=== PATIENT | female | born 1965 | race African-American/Black ===

== ENCOUNTER 2016-05-15 02:26 | Inpatient (IN) | payer MEDICAID ==
[2016-05-15] MEDS ORDERED: SODIUM CHLORIDE 0.9% 3 ML FLUSH FLUSH PRN (03:13)
--- NOTE | 2016-05-15 03:25 | EDPRACDOC ---
- General Information Information Source: Patient Mode Of Arrival: Ambulance - History of Present Illness Onset: 1.5 week Medications/Treatment [employer] Treatment BLS IV No HPI: PT PRESENTS TO ED WITH BILATERAL LOWER EXT WOUNDS, PT WAS SEEN HERE IN Mar YEAR FOR SAME AND AGAIN IN APR AND WAS PLACED ON ABX AND GIVEN WOUND CARE REFERRAL, PT STATES SHE HAS NOT FOLLOWED UP WITH WOUND CARE AND STATES THAT SHE DOES NOT TAKE HER DIABETES MEDS LIKE SHE SHOULD B/C SHE CANT AFFORD THEM. THE WRAPS THAT ARE ON HER LEGS LOOK TO HAVE NOT BEEN CHANGED IN SEVERAL DAYS OR LONGER. Mechanism: Reports: Unknown (CHRONIC DIABETIC WOUNDS) Circumstances: Reports: Unknown (I HAVE RECORDS OF VISIT TO ED IN MARCH FOR SAME) Last Tetanus: Unknown Severity: Reports: Moderate Able to Bear Weight: Limited Associated Signs & Symptoms: Reports: Swelling (2+ EDEMA BILATERAL) Pain In: Reports: Leg (BILATERAL) <Preeti Moffett - Last Filed: 05/15/16 03:14> - History of Present Illness Medications/Treatment [employer] Treatment BLS IV No <Omar Plummer - Last Filed: 05/15/16 05:32> - History of Present Illness Medications/Treatment [employer] Treatment BLS IV No HPI: PATIENT FELL AT HOME, CAUSING PAIN OVER HER WOUNDS BILATERAL LOWER EXTREMITIES THIS OCCURRED PRIOR TO ARRIVAL IS ABLE TO AMBULATE. NO FOCAL PAIN. JUST RELEASED FROM HOSPITAL FOR BILATERAL LOWER EXTREMITY CELLULITIS WOUNDS HAVE BEEN DRESSED BY HER COUSIN AFTER SHE WAS DISCHARGED. SHE WAS DISCHARGED APPROXIMATELY 2 DAYS AGO OF NO FEVER CHILLS ED AND DRINKING WELL. <Irina You - Last Filed: 06/02/16 08:34> - General Information Chief Complaint: Lower Leg Pain Stated Complaint: LEG PAIN Time Seen by Provider: 05/15/16 03:00 Home Medications: Home Medications Atenolol 50 mg PO DAILY 04/17/16 Gabapentin 300 mg PO TID PRN 05/15/16 Albuterol Sulfate MDI [Proventil HFA] 2 puff INH Q4HWA PRN #1 inhaler 05/31/16 Collagenase [Santyl] 30 gm TOP DAILY #1 tube 05/31/16 Furosemide [Lasix] 40 mg PO BID #60 tab 05/31/16 Metformin HCl [Glucophage XR (Ext Release)] 500 mg PO DAILY #30 tab.sr.24h 05/31 POTASSIUM CHLORIDE Tablet [K-DUR 20 mEq Tablet*] 20 meq PO BIDWM #60 tab.er.prt 05/31/16 Probiotic Blend [Rhea Q] 1 tab PO BIDLS #60 tablet 05/31/16 Allergies/Adverse Reactions: Allergies Allergy/AdvReac Type Severity Reaction Status Date / Time Penicillins Allergy Rash-Genera Verified 06/02/16 05:32 lized - Treatment Prior to ED Arrival Reported Medications/Treatment [employer] Treatment BLS IV No <Preeti Moffett - Last Filed: 05/15/16 03:14> - Treatment Prior to ED Arrival Reported Medications/Treatment [employer] Treatment BLS IV No <Omar Plummer - Last Filed: 05/15/16 05:32> - Treatment Prior to ED Arrival Reported Medications/Treatment [employer] Treatment BLS IV No <Irina You - Last Filed: 06/02/16 08:34> ED Past Medical History - History Reviewed Yes Nurses notes reviewed and agree except as marked Travel Outside of [place] in the Last 3 Months?: No - Patient Medical History Cardiac History: Reports: Hypertension, Hypercholesterolemia Respiratory History: Reports: Asthma Psychological History: Denies: Depression Systemic History: Reports: Diabetes - Social Medical History Smoking Status: Never smoker ETOH: None Substance Abuse: None Lives With: Other Lives In: Home <Preeti Moffett - Last Filed: 05/15/16 03:14> EDM Review of Systems - Review of Systems ROS Negative Except as Marked: Yes All systems reviewed and were negative except as marked Constitutional: No Symptoms Reported. negative: Fever, Chills, Weakness, Fatigue, Loss of Appetite Eyes: No Symptoms Reported. negative: Redness, Blurred Vision, Double Vision, Discharge, Pain, Light Sensitive, Photophobia Ears: No Symptoms Reported. negative: Pain, Hearing Loss, Drainage, Ear Pulling Throat: No Symptoms Reported. negative: Pain, Swelling Nose: No Symptoms Reported. negative: Congestion, Bleeding, Discharge, Injection, Swelling, Deformity, Ecchymosis, Tender, Abrasion, Laceration Mouth: No Symptoms Reported. negative: Pain, Drooling Respiratory: No Symptoms Reported. negative: Cough, Brassy Cough, Barky Cough, Shortness of Breath, Wheezing, Hemoptysis Cardiovascular: No Symptoms Reported. negative: Chest Pain, Palpitations, Syncope, Edema, Orthopnea, PND, Skin Mottling, Cyanosis Gastrointestinal: No Symptoms Reported. negative: Pain, Constipation, Nausea, Vomiting, Diarrhea, Melena, Formula Intolerance Genitourinary: No Symptoms Reported. negative: Dysuria, Hematuria, Frequency, Discharge, Bleeding, Testicular Pain, Neurological: Other (CHRONIC NEUROPATHY). negative: Dizziness, Gait Difficulty , Headache, Numbness, Seizure, Speech Difficulty, Weakness Musculoskeletal: No Symptoms Reported. negative: Neck, Chestwall, Ribs, Back, Shoulder, Arm, Elbow, Forearm, Wrist, Hand, Pelvis, Hip, Femur, Knee, Leg, Ankle , Foot Integumentary: Other (BILATERAL WOUNDS TO LOWER EXT). negative: Bruising, Itching, Rash, Wound Allergic/Immunologic: No Symptoms Reported. negative: Hives, Itching Hematologic: No Symptoms Reported. negative: Lymphadenopathy, Easy Bruising, Easy Bleeding Endocrine: No Symptoms Reported. negative: Weight Gain, Weight Loss Psychiatric: No Symptoms Reported. negative: Anxiety, Depression, Hallucinations, Insomnia, Suicidal <Preeti Moffett - Last Filed: 05/15/16 03:14> - Physical Exam Constitutional: No apparent distress, Alert (Awake), Other (PT APPEARS UNKEPT) Oriented to: Time, Person, Place Last recorded Vital Signs: Last Vital Signs Temp 97.7 F 05/15/16 02:51 Pulse 91 05/15/16 02:51 Resp 20 05/15/16 02:51 BP 111/57 L 05/15/16 02:51 Pulse Ox 100 05/15/16 02:51 Oxygen Pulse Oxygen Saturation 100 O2 Device Oxygen Flow Rate Fraction of Inspired Oxygen ( FIO2) - HEENT Head: Normal ( normocephalic) Eye Exam: Normal (PERRL, EOMI, Sclera white) Oropharynx: Normal (Pharynx:Moist without exudate,Gums-no swelling) Tympanic Membrane: Normal ENT EAC: Normal TMJ: Normal Nose: No Symptoms Reported (septum midline) Neck: Normal (FROM, trachea at midline) - Respiratory/Cardiovascular Respiratory: Normal - CTA (BBS clear to auscultation without adventitious sounds ) Cardiovascular: Normal (RRR without murmur, gallop or rub) - GI Auscultation: Normal (NABS) Palpation: Normal (Soft,No rebound or guarding, non distended) Tenderness: Non tender Quintero's Sign: Negative - Bladder: Normal - Musculoskeletal Back: Normal (Non-Tender) Extremities: Normal (Normal tone, Pulses 2+ No cyanosis or edema, FROM) - Integumentary Skin: Normal, Warm, Dry Lymphatics: Normal (no adenopathy) - Neurologic Memory Impaired: Normal Motor Function: Normal (Normal tone, Pulses 2+ No cyanosis or edema, FROM) Cranial Nerve: Normal (CN II-X11 intact sensation, strength 5/5) Cerebellar: Normal Mood Description: Normal Perception: Normal <Preeti Moffett - Last Filed: 05/15/16 03:14> - Physical Exam Last recorded Vital Signs: Last Vital Signs Temp 97.7 F 05/15/16 02:51 Pulse 91 05/15/16 02:51 Resp 20 05/15/16 02:51 BP 111/57 L 05/15/16 02:51 Pulse Ox 100 05/15/16 02:51 Oxygen Pulse Oxygen Saturation 100 O2 Device Oxygen Flow Rate Fraction of Inspired Oxygen ( FIO2) <Omar Plummer - Last Filed: 05/15/16 05:32> - Physical Exam Last recorded Vital Signs: Last Vital Signs Temp 98.3 F 05/31/16 05:59 Pulse 72 05/31/16 10:08 Resp 20 05/31/16 10:08 BP 99/53 L 05/31/16 10:08 Pulse Ox 98 05/31/16 10:08 Oxygen Pulse Oxygen Saturation 100 O2 Device Oxygen Flow Rate Fraction of Inspired Oxygen ( FIO2) <Irina You - Last Filed: 06/02/16 08:34> ED Low Extremities Phys Exam - Lower Leg Bilateral Distal Lower Leg Symptoms: Swelling (2+ EDEMA), Other (REDNESS, CHRONIC WOUNDS WITH YELLOW DISCHARGE) - Deficits Deficits: Sensory (DECREASED DUE TO DIABETIC NEUROPATHY) <Preeti Moffett - Last Filed: 05/15/16 03:14> - Differential Diagnosis Other (CHRONIC DIABETIC WOUNDS TO BILATERAL LOWER EXTREMITIES, CELLULITIS) <Preeti Moffett - Last Filed: 05/15/16 03:14> - Results 05/15/16 04:10 05/15/16 04:10 WBC 6.2 xk/uL (3.8-10.8) 05/15/16 04:10 RBC 2.05 xM/uL (4.20-5.40) L 05/15/16 04:10 Hgb 6.2 g/dL (12.0-16.0) L* 05/15/16 04:10 Hct 19.5 % (36-47) L 05/15/16 04:10 MCV 95 fL (81-99) 05/15/16 04:10 MCH 30.0 pg (27-32) 05/15/16 04:10 MCHC 31.6 g/dl (33-36) L 05/15/16 04:10 RDW 18.9 % (11.5-14.5) H 05/15/16 04:10 Plt Count 187 xk/uL (130-400) 05/15/16 04:10 MPV 7.8 fL (7.4-10.4) 05/15/16 04:10 Neut % (Auto) Cancelled 05/15/16 04:10 Lymph % (Auto) Cancelled 05/15/16 04:10 [place] % (Auto) Cancelled 05/15/16 04:10 Eos % (Auto) Cancelled 05/15/16 04:10 Baso % (Auto) Cancelled 05/15/16 04:10 Absolute Neuts (auto) Cancelled 05/15/16 04:10 Absolute Lymphs (auto) Cancelled 05/15/16 04:10 Seg Neuts % (Manual) 66 % (45-76) 05/15/16 04:10 Band Neutrophils % 0 % (0-5) 05/15/16 04:10 Lymphocytes % (Manual) 2 % (17-44) L 05/15/16 04:10 Monocytes % (Manual) 5 % (0-10) 05/15/16 04:10 Eosinophils % (Manual) 1 % (0-5) 05/15/16 04:10 Absolute Neutrophils 4.09 xk/uL (1.7-8.2) 05/15/16 04:10 Absolute Lymphocytes 0.12 xk/uL (0.65-4.75) L 05/15/16 04:10 Platelet Estimate Norm (NORMAL) 05/15/16 04:10 RBC Morphology 1+ aniso 2+ hypo 1+ macro 05/15/16 04:10 RBC Morphology 1+ aniso 2+ hypo 1+ macro 05/15/16 04:10 RBC Morphology 1+ aniso 2+ hypo 1+ macro 05/15/16 04:10 Sodium 137 mEq/L (137-146) 05/15/16 04:10 Potassium 3.3 mEq/L (3.5-5.1) L 05/15/16 04:10 Chloride 107 mEq/L (98-107) 05/15/16 04:10 Carbon Dioxide 19 mMOL/L (22-33) L 05/15/16 04:10 Anion Gap 14 mEq/L (8-16) 05/15/16 04:10 BUN 11 MG/DL (7-17) 05/15/16 04:10 Creatinine 0.90 MG/DL (0.52-1.04) 05/15/16 04:10 Estimated GFR (MDRD) > 60 mL/min (>=60) 05/15/16 04:10 Glucose 139 MG/DL (70-99) H 05/15/16 04:10 Calculated Osmolality 265 MOs/Kg (270-290) L 05/15/16 04:10 Calcium 7.5 MG/DL (8.4-10.2) L 05/15/16 04:10 Corrected Calcium 9.1 MG/DL (8.4-10.2) 05/15/16 04:10 Total Bilirubin 1.6 MG/DL (0.2-1.3) H 05/15/16 04:10 AST 41 IU/L (14-36) H 05/15/16 04:10 ALT 22 IU/L (9-52) 05/15/16 04:10 Alkaline Phosphatase 296 IU/L (38-126) H 05/15/16 04:10 Total Protein 7.4 G/DL (6.3-8.2) 05/15/16 04:10 Albumin 2.4 G/DL (3.5-5.0) L 05/15/16 04:10 Urine Color Dark yellow 05/15/16 03:40 Urine Clarity Sl cldy 05/15/16 03:40 Urine pH 6.0 (5.0-8.0) 05/15/16 03:40 Ur Specific [place] 1.010 (1.003-1.035) 05/15/16 03:40 Urine Protein Neg (NEG/TRACE) 05/15/16 03:40 Urine Glucose (UA) Neg (NEGATIVE) 05/15/16 03:40 Urine Ketones Neg (NEGATIVE) 05/15/16 03:40 Urine Occult Blood 1+ (NEG/TRACE) H 05/15/16 03:40 Urine Nitrite Neg (NEGATIVE) 05/15/16 03:40 Urine Bilirubin Neg (NEGATIVE) 05/15/16 03:40 Urine Urobilinogen 8 MG/DL (0-1) H 05/15/16 03:40 Ur Leukocyte Esterase 2+ (NEGATIVE) H 05/15/16 03:40 Urine WBC 10-20 (0-5) H 05/15/16 03:40 Ur Epithelial Cells 4+ 05/15/16 03:40 Urine Bacteria 4+ (NEG/FEW) H 05/15/16 03:40 Urine Mucus Sm amt (NEG/OCC) 05/15/16 03:40 Blood Type O POSITIVE 05/15/16 04:40 Crossmatch See Detail 05/15/16 04:40 Lab Results 05/15/16 05/15/16 05/15/16 04:40 04:10 04:10 WBC 6.2 RBC 2.05 L Hgb 6.2 L* Hct 19.5 L MCV 95 MCH 30.0 MCHC 31.6 L RDW 18.9 H Plt Count 187 MPV 7.8 Neut % (Auto) Cancelled Lymph % (Auto) Cancelled [place] % (Auto) Cancelled Eos % (Auto) Cancelled Baso % (Auto) Cancelled Absolute Neuts (auto) Cancelled Absolute Lymphs (auto) Cancelled Seg Neuts % (Manual) 66 Band Neutrophils % 0 Lymphocytes % (Manual) 2 L Monocytes % (Manual) 5 Eosinophils % (Manual) 1 Absolute Neutrophils 4.09 Absolute Lymphocytes 0.12 L Platelet Estimate Norm RBC Morphology 1+ macro Sodium 137 Potassium 3.3 L Chloride 107 Carbon Dioxide 19 L Anion Gap 14 BUN 11 Creatinine 0.90 Estimated GFR (MDRD) > 60 Glucose 139 H Calculated Osmolality 265 L Calcium 7.5 L Corrected Calcium 9.1 Total Bilirubin 1.6 H AST 41 H ALT 22 Alkaline Phosphatase 296 H Total Protein 7.4 Albumin 2.4 L Urine Color Urine Clarity Urine pH Ur Specific [place] Urine Protein Urine Glucose (UA) Urine Ketones Urine Occult Blood Urine Nitrite Urine Bilirubin Urine Urobilinogen Ur Leukocyte Esterase Urine WBC Ur Epithelial Cells Urine Bacteria Urine Mucus Blood Type O POSITIVE Crossmatch See Detail 05/15/16 03:40 WBC RBC Hgb Hct MCV MCH MCHC RDW Plt Count MPV Neut % (Auto) Lymph % (Auto) [place] % (Auto) Eos % (Auto) Baso % (Auto) Absolute Neuts (auto) Absolute Lymphs (auto) Seg Neuts % (Manual) Band Neutrophils % Lymphocytes % (Manual) Monocytes % (Manual) Eosinophils % (Manual) Absolute Neutrophils Absolute Lymphocytes Platelet Estimate RBC Morphology Sodium Potassium Chloride Carbon Dioxide Anion Gap BUN Creatinine Estimated GFR (MDRD) Glucose Calculated Osmolality Calcium Corrected Calcium Total Bilirubin AST ALT Alkaline Phosphatase Total Protein Albumin Urine Color Dark yellow Urine Clarity Sl cldy Urine pH 6.0 Ur Specific [place] 1.010 Urine Protein Neg Urine Glucose (UA) Neg Urine Ketones Neg Urine Occult Blood 1+ H Urine Nitrite Neg Urine Bilirubin Neg Urine Urobilinogen 8 H Ur Leukocyte Esterase 2+ H Urine WBC 10-20 H Ur Epithelial Cells 4+ Urine Bacteria 4+ H Urine Mucus Sm amt Blood Type Crossmatch - EKG EKG #1 EKG Time: 05:28 -: Yes EKG interpreted by me Rate: bpm: 96 Rhythm: NSR ST: Nonsp <Omar Plummer - Last Filed: 05/15/16 05:32> - Results 05/30/16 07:46 05/30/16 07:46 WBC 13.7 xk/uL (3.8-10.8) H 05/30/16 07:46 RBC 2.95 xM/uL (4.20-5.40) L 05/30/16 07:46 Hgb 8.8 g/dL (12.0-16.0) L 05/30/16 07:46 Hct 26.9 % (36-47) L 05/30/16 07:46 MCV 91 fL (81-99) 05/30/16 07:46 MCH 29.7 pg (27-32) 05/30/16 07:46 MCHC 32.6 g/dl (33-36) L 05/30/16 07:46 RDW 16.2 % (11.5-14.5) H 05/30/16 07:46 Plt Count 51 xk/uL (130-400) L 05/30/16 07:46 MPV 8.8 fL (7.4-10.4) 05/30/16 07:46 Neut % (Auto) 82.4 % (45-76) H 05/25/16 06:35 Lymph % (Auto) 9.8 % (17-44) L 05/25/16 06:35 [place] % (Auto) 6.4 % (3-10) 05/25/16 06:35 Eos % (Auto) 0.6 % (0-5) 05/25/16 06:35 Baso % (Auto) 0.8 % (0-2) 05/25/16 06:35 Absolute Neuts (auto) 11.89 xk/uL (1.7-8.2) H 05/25/16 06:35 Absolute Lymphs (auto) 1.31 xk/uL (0.65-4.75) 05/25/16 06:35 Seg Neuts % (Manual) 66 % (45-76) 05/15/16 04:10 Band Neutrophils % 0 % (0-5) 05/15/16 04:10 Lymphocytes % (Manual) 2 % (17-44) L 05/15/16 04:10 Monocytes % (Manual) 5 % (0-10) 05/15/16 04:10 Eosinophils % (Manual) 1 % (0-5) 05/15/16 04:10 Absolute Neutrophils 4.09 xk/uL (1.7-8.2) 05/15/16 04:10 Absolute Lymphocytes 0.12 xk/uL (0.65-4.75) L 05/15/16 04:10 Platelet Estimate Norm (NORMAL) 05/15/16 04:10 RBC Morphology 1+ aniso 2+ hypo 1+ macro 05/15/16 04:10 RBC Morphology 1+ aniso 2+ hypo 1+ macro 05/15/16 04:10 RBC Morphology 1+ aniso 2+ hypo 1+ macro 05/15/16 04:10 ESR 45 MM/HR (0-20) H 05/21/16 04:35 Haptoglobin 147 mg/dL (34-200) 05/15/16 04:10 Puncture Site Right radial 05/24/16 20:47 pH 7.350 pH UNITS (7.35-7.45) 05/24/16 20:47 pCO2 28.0 mmHg (35-45) L 05/24/16 20:47 pO2 121.0 mmHg (80-100) H 05/24/16 20:47 HCO3 15.5 MMOL/L (22-26) L 05/24/16 20:47 Total CO2 16.4 MMOL/L (23-27) L 05/24/16 20:47 Base Excess -8.6 (+/- 2) L 05/24/16 20:47 FiO2 % 21% 05/24/16 20:47 Specimen Drawn By Whitr 05/24/16 20:47 Sodium 136 mEq/L (137-146) L 05/30/16 07:46 Potassium 3.3 mEq/L (3.5-5.1) L 05/30/16 07:46 Chloride 110 mEq/L (98-107) H 05/30/16 07:46 Carbon Dioxide 16 mMOL/L (22-33) L 05/30/16 07:46 Anion Gap 13 mEq/L (8-16) 05/30/16 07:46 BUN 37 MG/DL (7-17) H 05/30/16 07:46 Creatinine 2.50 MG/DL (0.52-1.04) H 05/30/16 07:46 Estimated GFR (MDRD) 25 mL/min (>=60) L 05/30/16 07:46 Glucose 69 MG/DL (70-99) L 05/30/16 07:46 POC Capillary Glucose 82 MG/DL (70-99) 05/31/16 12:34 Hemoglobin A1c 5.7 % (4.3-5.7) 05/15/16 04:10 Calculated Osmolality 269 MOs/Kg (270-290) L 05/30/16 07:46 Lactic Acid 0.9 mEq/L (0.7-2.1) 05/18/16 19:00 Calcium 7.6 MG/DL (8.4-10.2) L 05/30/16 07:46 Corrected Calcium 9.6 MG/DL (8.4-10.2) 05/18/16 07:40 Magnesium 1.80 MG/DL (1.6-2.3) 05/20/16 05:40 Iron 13.0 ug/dL (37-170) L 05/15/16 04:10 TIBC 209 ug/dL (265-497) L 05/15/16 04:10 % Saturation 6.2 % (15-50) L 05/15/16 04:10 Transferrin 125 mg/dL (200-370) L 05/15/16 04:10 Ferritin 18.8 ng/mL (6.2-137) 05/15/16 04:10 Total Bilirubin 2.5 MG/DL (0.2-1.3) H 05/18/16 07:40 AST 36 IU/L (14-36) 05/18/16 07:40 ALT 25 IU/L (9-52) 05/18/16 07:40 Alkaline Phosphatase 181 IU/L (38-126) H 05/18/16 07:40 Ammonia 10.0 umol/L (9.0-30.0) 05/21/16 15:35 Lactate Dehydrogenase 491 IU/L (313-618) 05/15/16 04:10 Creatine Kinase 118 IU/L (30-134) 05/15/16 05:25 Troponin I < 0.01 ng/mL (<.04) 05/15/16 05:25 Total Protein 6.4 G/DL (6.3-8.2) 05/18/16 07:40 Albumin 2.1 G/DL (3.5-5.0) L 05/18/16 07:40 Vitamin B12 893 pg/mL (239-931) 05/15/16 04:10 Serum Folate 5.52 ng/mL (>2.76) 05/15/16 04:10 TSH 2.78 uIU/mL (0.5-4.67) 05/15/16 05:25 Urine Color Yellow 05/18/16 07:40 Urine Clarity Cldy 05/18/16 07:40 Urine pH 6.0 (5.0-8.0) 05/18/16 07:40 Ur Specific [place] 1.005 (1.003-1.035) 05/18/16 07:40 Urine Protein 2+ (NEG/TRACE) H 05/18/16 07:40 Urine Glucose (UA) Trace (NEGATIVE) 05/18/16 07:40 Urine Ketones Neg (NEGATIVE) 05/18/16 07:40 Urine Occult Blood 3+ (NEG/TRACE) H 05/18/16 07:40 Urine Nitrite Neg (NEGATIVE) 05/18/16 07:40 Urine Bilirubin Neg (NEGATIVE) 05/18/16 07:40 Urine Urobilinogen <2.0 MG/DL (0-1) 05/18/16 07:40 Ur Leukocyte Esterase 2+ (NEGATIVE) H 05/18/16 07:40 Urine RBC 30-40 (0-5) H 05/18/16 07:40 Urine WBC 20-30 (0-5) H 05/18/16 07:40 Urine WBC Clumps Present (NONE) H 05/18/16 07:40 Ur Epithelial Cells 3+ 05/18/16 07:40 Amorphous Sediment 3+ 05/18/16 07:40 Urine Bacteria 2+ (NEG/FEW) H 05/18/16 07:40 Urine Mucus Mod (NEG/OCC) H 05/18/16 07:40 Ur Random Microalbumin 32.7 ug/mL (Not Estab.) 05/15/16 06:40 Stool Occult Blood Pos (NEGATIVE) H 05/25/16 17:10 JONAH Titer Negative (.) 05/21/16 04:35 JONAH Homogeneous Pattern Cancelled 05/15/16 04:10 JONAH Nucleolar Pattern Cancelled 05/15/16 04:10 JONAH Spindle Cabrera Pattern Cancelled 05/15/16 04:10 JONAH Midbody Pattern Cancelled 05/15/16 04:10 JONAH Centriole Pattern Cancelled 05/15/16 04:10 JONAH Nuclear Dot Pattern Cancelled 05/15/16 04:10 JONAH PCNA Pattern Cancelled 05/15/16 04:10 JONAH Nuclear Membr Pat Cancelled 05/15/16 04:10 JONAH Fine Speck Pattern Cancelled 05/15/16 04:10 JONAH Centromere Pattern Cancelled 05/15/16 04:10 JONAH Comment Cancelled 05/15/16 04:10 Blood Type O POSITIVE 05/24/16 18:30 Antibody Screen Negative 05/24/16 18:30 Crossmatch See Detail 05/24/16 18:30 Microbiology 05/15/16 04:10 Blood Culture - Final Blood No growth aerobically or anaerobically at 120 hours. NORMAL VALUE = No growth 05/15/16 03:55 Blood Culture - Final Blood No growth aerobically or anaerobically at 120 hours. NORMAL VALUE = No growth 05/15/16 03:40 Urine Culture - Final Urine - Clean Catch - Midstream Escherichia coli Lab Results 05/15/16 05/15/16 05/15/16 05:25 05:25 04:40 WBC RBC Hgb Hct MCV MCH MCHC RDW Plt Count MPV Neut % (Auto) Lymph % (Auto) [place] % (Auto) Eos % (Auto) Baso % (Auto) Absolute Neuts (auto) Absolute Lymphs (auto) Seg Neuts % (Manual) Band Neutrophils % Lymphocytes % (Manual) Monocytes % (Manual) Eosinophils % (Manual) Absolute Neutrophils Absolute Lymphocytes Platelet Estimate RBC Morphology Haptoglobin Sodium Potassium Chloride Carbon Dioxide Anion Gap BUN Creatinine Estimated GFR (MDRD) Glucose Hemoglobin A1c Calculated Osmolality Calcium Corrected Calcium Iron TIBC % Saturation Transferrin Ferritin Total Bilirubin AST ALT Alkaline Phosphatase Lactate Dehydrogenase Creatine Kinase 118 Troponin I < 0.01 Total Protein Albumin Vitamin B12 Serum Folate TSH 2.78 Urine Color Urine Clarity Urine pH Ur Specific [place] Urine Protein Urine Glucose (UA) Urine Ketones Urine Occult Blood Urine Nitrite Urine Bilirubin Urine Urobilinogen Ur Leukocyte Esterase Urine WBC Ur Epithelial Cells Urine Bacteria Urine Mucus JONAH Titer JONAH Homogeneous Pattern JONAH Nucleolar Pattern JONAH Spindle [place] Pattern JONAH Midbody Pattern JONAH Centriole Pattern JONAH Nuclear Dot Pattern JONAH PCNA Pattern JONAH Nuclear Membr Pat JONAH Fine Speck Pattern JONAH Centromere Pattern JONAH Comment Blood Type O POSITIVE Antibody Screen Negative Crossmatch See Detail 05/15/16 05/15/16 05/15/16 04:10 04:10 04:10 WBC RBC Hgb Hct MCV MCH MCHC RDW Plt Count MPV Neut % (Auto) Lymph % (Auto) [place] % (Auto) Eos % (Auto) Baso % (Auto) Absolute Neuts (auto) Absolute Lymphs (auto) Seg Neuts % (Manual) Band Neutrophils % Lymphocytes % (Manual) Monocytes % (Manual) Eosinophils % (Manual) Absolute Neutrophils Absolute Lymphocytes Platelet Estimate RBC Morphology Haptoglobin Cancelled Sodium Potassium Chloride Carbon Dioxide Anion Gap BUN Creatinine Estimated GFR (MDRD) Glucose Hemoglobin A1c Calculated Osmolality Calcium Corrected Calcium Iron TIBC % Saturation Transferrin Ferritin Total Bilirubin AST ALT Alkaline Phosphatase Lactate Dehydrogenase 491 Creatine Kinase Troponin I Total Protein Albumin Vitamin B12 Serum Folate TSH Urine Color Urine Clarity Urine pH Ur Specific [place] Urine Protein Urine Glucose (UA) Urine Ketones Urine Occult Blood Urine Nitrite Urine Bilirubin Urine Urobilinogen Ur Leukocyte Esterase Urine WBC Ur Epithelial Cells Urine Bacteria Urine Mucus JONAH Titer Cancelled JONAH Homogeneous Pattern Cancelled JONAH Nucleolar Pattern Cancelled JONAH Spindle [place] Pattern Cancelled JONAH Midbody Pattern Cancelled JONAH Centriole Pattern Cancelled JONAH Nuclear Dot Pattern Cancelled JONAH PCNA Pattern Cancelled JONAH Nuclear Membr Pat Cancelled JONAH Fine Speck Pattern Cancelled JONAH Centromere Pattern Cancelled JONAH Comment Cancelled Blood Type Antibody Screen Crossmatch 05/15/16 05/15/16 05/15/16 04:10 04:10 04:10 WBC RBC Hgb Hct MCV MCH MCHC RDW Plt Count MPV Neut % (Auto) Lymph % (Auto) [place] % (Auto) Eos % (Auto) Baso % (Auto) Absolute Neuts (auto) Absolute Lymphs (auto) Seg Neuts % (Manual) Band Neutrophils % Lymphocytes % (Manual) Monocytes % (Manual) Eosinophils % (Manual) Absolute Neutrophils Absolute Lymphocytes Platelet Estimate RBC Morphology Haptoglobin 147 Sodium Potassium Chloride Carbon Dioxide Anion Gap BUN Creatinine Estimated GFR (MDRD) Glucose Hemoglobin A1c Calculated Osmolality Calcium Corrected Calcium Iron 13.0 L TIBC 209 L % Saturation 6.2 L Transferrin 125 L Ferritin 18.8 Total Bilirubin AST ALT Alkaline Phosphatase Lactate Dehydrogenase Creatine Kinase Troponin I Total Protein Albumin Vitamin B12 Cancelled 893 Serum Folate Cancelled 5.52 TSH Urine Color Urine Clarity Urine pH Ur Specific [place] Urine Protein Urine Glucose (UA) Urine Ketones Urine Occult Blood Urine Nitrite Urine Bilirubin Urine Urobilinogen Ur Leukocyte Esterase Urine WBC Ur Epithelial Cells Urine Bacteria Urine Mucus JONAH Titer Negative JONAH Homogeneous Pattern JONAH Nucleolar Pattern JONAH Spindle [place] Pattern JONAH Midbody Pattern JONAH Centriole Pattern JONAH Nuclear Dot Pattern JONAH PCNA Pattern JONAH Nuclear Membr Pat JONAH Fine Speck Pattern JONAH Centromere Pattern JONAH Comment Blood Type Antibody Screen Crossmatch 05/15/16 05/15/16 05/15/16 04:10 04:10 04:10 WBC 6.2 RBC 2.05 L Hgb 6.2 L* Hct 19.5 L MCV 95 MCH 30.0 MCHC 31.6 L RDW 18.9 H Plt Count 187 MPV 7.8 Neut % (Auto) Cancelled Lymph % (Auto) Cancelled [place] % (Auto) Cancelled Eos % (Auto) Cancelled Baso % (Auto) Cancelled Absolute Neuts (auto) Cancelled Absolute Lymphs (auto) Cancelled Seg Neuts % (Manual) 66 Band Neutrophils % 0 Lymphocytes % (Manual) 2 L Monocytes % (Manual) 5 Eosinophils % (Manual) 1 Absolute Neutrophils 4.09 Absolute Lymphocytes 0.12 L Platelet Estimate Norm RBC Morphology 1+ macro Haptoglobin Sodium 137 Potassium 3.3 L Chloride 107 Carbon Dioxide 19 L Anion Gap 14 BUN 11 Creatinine 0.90 Estimated GFR (MDRD) > 60 Glucose 139 H Hemoglobin A1c 5.7 Calculated Osmolality 265 L Calcium 7.5 L Corrected Calcium 9.1 Iron TIBC % Saturation Transferrin Ferritin Total Bilirubin 1.6 H AST 41 H ALT 22 Alkaline Phosphatase 296 H Lactate Dehydrogenase Creatine Kinase Troponin I Total Protein 7.4 Albumin 2.4 L Vitamin B12 Serum Folate TSH Urine Color Urine Clarity Urine pH Ur Specific [place] Urine Protein Urine Glucose (UA) Urine Ketones Urine Occult Blood Urine Nitrite Urine Bilirubin Urine Urobilinogen Ur Leukocyte Esterase Urine WBC Ur Epithelial Cells Urine Bacteria Urine Mucus JONAH Titer JONAH Homogeneous Pattern JONAH Nucleolar Pattern JONAH Spindle Cabrera Pattern JONAH Midbody Pattern JONAH Centriole Pattern JONAH Nuclear Dot Pattern JONAH PCNA Pattern JONAH Nuclear Membr Pat JONAH Fine Speck Pattern JONAH Centromere Pattern JONAH Comment Blood Type Antibody Screen Crossmatch 05/15/16 03:40 WBC RBC Hgb Hct MCV MCH MCHC RDW Plt Count MPV Neut % (Auto) Lymph % (Auto) [place] % (Auto) Eos % (Auto) Baso % (Auto) Absolute Neuts (auto) Absolute Lymphs (auto) Seg Neuts % (Manual) Band Neutrophils % Lymphocytes % (Manual) Monocytes % (Manual) Eosinophils % (Manual) Absolute Neutrophils Absolute Lymphocytes Platelet Estimate RBC Morphology Haptoglobin Sodium Potassium Chloride Carbon Dioxide Anion Gap BUN Creatinine Estimated GFR (MDRD) Glucose Hemoglobin A1c Calculated Osmolality Calcium Corrected Calcium Iron TIBC % Saturation Transferrin Ferritin Total Bilirubin AST ALT Alkaline Phosphatase Lactate Dehydrogenase Creatine Kinase Troponin I Total Protein Albumin Vitamin B12 Serum Folate TSH Urine Color Dark yellow Urine Clarity Sl cldy Urine pH 6.0 Ur Specific [place] 1.010 Urine Protein Neg Urine Glucose (UA) Neg Urine Ketones Neg Urine Occult Blood 1+ H Urine Nitrite Neg Urine Bilirubin Neg Urine Urobilinogen 8 H Ur Leukocyte Esterase 2+ H Urine WBC 10-20 H Ur Epithelial Cells 4+ Urine Bacteria 4+ H Urine Mucus Sm amt JONAH Titer JONAH Homogeneous Pattern JONAH Nucleolar Pattern JONAH Spindle [place]rera Pattern JONAH Midbody Pattern JONAH Centriole Pattern JONAH Nuclear Dot Pattern JONAH PCNA Pattern JONAH Nuclear Membr Pat JONAH Fine Speck Pattern JONAH Centromere Pattern JONAH Comment Blood Type Antibody Screen Crossmatch <Irina You - Last Filed: 06/02/16 08:34> <Preeti Moffett - Last Filed: 05/15/16 03:14> - Departure Yes I personally saw and evaluated the patient. Disposition: Admit IP To This Hospital Decision to Transfer Time: 05:34 <Omar Plummer - Last Filed: 05/15/16 05:32> <Irina You - Last Filed: 06/02/16 08:34> - Departure Condition: Improved Final Diagnosis: Anemia Qualifiers: Anemia type: other cause Other causes of anemia: chronic disease, kidney Qualified Code(s): N18.9 - Chronic kidney disease, unspecified Urinary tract infection Qualifiers: Urinary tract infection type: acute cystitis Hematuria presence: without hematuria Qualified Code(s): N30.00 - Acute cystitis without hematuria Cellulitis Qualifiers: Site of cellulitis: extremity Site of cellulitis of extremity: lower extremity Laterality: unspecified laterality Qualified Code(s): L03.119 - Cellulitis of unspecified part of limb
[2016-05-15 03:49] LABS: LEUKOCYTES/URINE 2+ (NEGATIVE); NITRITE/URINE NEG (NEGATIVE); URINE OCCULT BLOOD 1+ (NEG/TRACE)
[2016-05-15 04:22] LABS: MPV 7.8 fL (7.4-10.4)
[2016-05-15 04:32] LABS: BLOOD UREA NITROGEN 11 MG/DL (7-17); CALC CORRECTED 9.1 MG/DL (8.4-10.2); CALCIUM 7.5 MG/DL (8.4-10.2); CALCULATED OSMOLALITY 265 MOs/Kg (270-290); CHLORIDE 107 mEq/L (98-107); GLUCOSE 139 MG/DL (70-99); SODIUM LEVEL 137 mEq/L (137-146); TOTAL PROTEIN 7.4 G/DL (6.3-8.2)
[2016-05-15 05:12] LABS: SEG NEUTROPHIL 66 % (45-76)
[2016-05-15] MEDS ORDERED: BISACODYL 10 MG SUPP PR PRN (05:28)
[2016-05-15] MEDS ORDERED: BENZONATATE 100 MG PERLES PO PRN (05:28)
[2016-05-15] MEDS ORDERED: Albuterol/Ipratropium Neb 3 ML NEB NEB PRN (05:28)
[2016-05-15] MEDS ORDERED: GLUCAGON 1 MG VIAL SQ PRN (05:28)
[2016-05-15] MEDS ORDERED: DEXTROSE 25 GM/50 ML PFS IV PRN (05:28)
[2016-05-15] MEDS ORDERED: ACETAMINOPHEN 325 MG SUPP PR PRN (05:28)
[2016-05-15] MEDS ORDERED: SENNA CONCENTRATE TAB PO PRN (05:28)
[2016-05-15] MEDS ORDERED: PROMETHAZINE 25 MG/ML VIAL IV PRN (05:28)
[2016-05-15] MEDS ORDERED: Vancomycin HCl 0 MG in D5W 500 ML IV ONE (05:34)
[2016-05-15 05:47] LABS: CPK TOTAL WITH POSSIBLE MB 118 IU/L (30-134)
[2016-05-15] MEDS: OXYCODONE HCL 5 MG TABLET PO SCH ×4 (06:09→21:13)
--- NOTE | 2016-05-15 06:32 | HISTPHYS ---
- Chief Complaint sore on legs - Medical History Cardiac History: Reports: Hypertension, Hypercholesterolemia Respiratory History: Reports: Asthma GI/ History: Reports: No Significant History Musculoskeletal History: Reports: Other (lupus) Systemic History: Reports: Diabetes Neurological History: Reports: No Significant History Psychological History: Denies: Depression - Surgical History Reports: No Significant History - Medictions/Allergies Allergies Penicillins Allergy (Verified 05/15/16 02:51) Rash-Generalized Current Medication List: Reviewed Home Medications Atenolol 50 mg PO DAILY 04/17/16 Clindamycin [Cleocin] 300 mg PO TID 04/17/16 Metformin HCl [Glucophage XR (Ext Release)] 500 mg PO DAILY 04/17/16 Oxycodone HCl/Acetaminophen [Percocet 7.5-325 mg Tablet] 1 each PO Q6 #30 tablet 04/17/16 Hydrocodone Bit/Acetaminophen [[place] 5-325 Tablet] 1 each PO Q4H #10 tab - Family History Reports: Diabetes (mom), Cardiac Disorders (dad) - Social History Travel Outside of [place] in the Last 3 Months?: No Lives: With Family (cousin) Smoking Status: Never smoker - Review of Systems Constitutional: No Symptoms Reported (No Fever, chills, wt loss/gain, diaphoresis,fatigue/malaise.) Eyes: No Symptoms Reported (No blurry vision, visual changes, eye pain, or eye redness.) Ears: No Symptoms Reported (No ear pain or discharge) Nose: No Symptoms Reported (No nasal discharge/congestion or bleeding) Mouth: No Symptoms Reported (No oropharyngeal lesions or erythema) Throat/Neck: No Symptoms Reported (No throat pain or swelling.No oropharyngeal lesions or erythema.) Respiratory: No Symptoms Reported (No cough, wheezing, or shortness of breath.) Cardiovascular: No Symptoms Reported (No chest pain or palpitations.) Gastrointestinal: No Symptoms Reported (No abdominal pain, nausea, vomiting, diarrhea, constipation, or bloody stool.) Genitourinary: No Symptoms Reported (No dysuria or hematuria.) Neurological: No Symptoms Reported (No headache, dizziness, seizures, or focal weakness.) Musculoskeletal:: No Symptoms Reported Integumentary: Wound Allergic/Immunologic: No Symptoms Reported (no rashes or lesions) Hematologic: No Symptoms Reported (No chronic anemia, bleeding, or easy bruising.), Other (Lymphatics- no lymph node swelling or pain.) Endocrine: Diabetes Psychiatric: No Symptoms Reported (Fully oriented, with normal and appropriate affect.) - Physical Exam Vital Signs: Initial Vitals Temperature 97.7 F 05/15/16 02:51 Pulse Rate 91 05/15/16 02:51 Respiratory Rate 20 05/15/16 02:51 Blood Pressure 111/57 L 05/15/16 02:51 Pulse Oxygen Saturation 100 05/15/16 02:51 Constitutional: Alert (Awake, Fully oriented. Normal and appropriate affect.Well appearing. Well nourished.), No apparent distress Oriented to: Time, Person, Place - HEENT Head: Normal (normocephalic, atraumatic.), Other (No cervical lymphadenopathy. No supraclavicular lymphadenopathy. Neck: No palpable mass, supple , trachea midline.) Eye: Normal (pupils equal, reactive to light, and round; EOMI, Sclera white) Oropharynx: Normal (Pharynx: Moist without exudate,Gums-no swelling, No oropharyngeal lesions or erythema, Mucous membranes are dry.) ENT EAC: Normal (No oropharyngeal lesions or erythema. Mucous membranes are dry. ) TMJ: Normal Nose: No Symptoms Reported (septum midline, Nares patent, without discharge or bleeding.) Respiratory: Normal - CTA (Clear to auscultation bilaterally. No wheezing, rales , rhonchi. Chest wall movements are symmetric. No use of accessory muscles to breathe.) Cardiovascular: Normal (RRR , Normal S1, S2. No murmurs, rubs, or gallops. PMI non-displaced. Carotids: no carotid bruits. No bradycardia or tachycardia. DP pulses 2+ bilaterally.) - GI Auscultation: Normal (normal active sounds) Palpation: Normal (Soft,non distended,nontender. No hepatosplenomegaly.) Tenderness: Non tender (No rebound or guarding) Quintero's Sign: Negative - Exam Deferred: Yes - Musculoskeletal Back: Normal (Non-Tender) Extremities: Normal (Normal tone, DP pulses 2+ bilaterally, No cyanosis or edema bilaterally, FROM bilaterally.) Spine: non-tender, normal alignment, normal inspection, limited range of motion - Integumentary Skin: Other (bilat ankle wounds) Lymphatics: Normal (No cervical lymphadenopathy. No supraclavicular lymphadenopathy.) - Neurologic Memory Impaired: Normal Motor Function: Normal (Motor 5/5 throughout.Normal tone, Pulses 2+ No cyanosis or edema, FROM) Cranial Nerve: Normal (CN II-XII intact sensation, strength 5/5) Cerebellar: Normal (Babinski: toes downgoing bilaterally. Intact Finger to nose. Sensory grossly intact to light touch. Intact rapid alternating movements bilaterally. No pronator drift.) Mood Description: Normal (Fully oriented. Normal and appropriate affect.) Thought: Coherent Perception: Normal (Normal and appropriate affect.) - Focused CV Perfusion Exam Vital Signs: Last Vital Signs Temp 97.4 F L 05/15/16 06:14 Pulse 98 05/15/16 06:14 Resp 20 05/15/16 06:14 BP 134/74 05/15/16 06:14 Pulse Ox 98 05/15/16 06:14 - Lab Results 05/15/16 04:10 05/15/16 04:10 Laboratory Results - last 24 hr 05/15/16 05/15/16 05/15/16 03:40 04:10 04:10 WBC 6.2 RBC 2.05 L Hgb 6.2 L* Hct 19.5 L MCV 95 MCH 30.0 MCHC 31.6 L RDW 18.9 H Plt Count 187 MPV 7.8 Neut % (Auto) Cancelled Lymph % (Auto) Cancelled Story % (Auto) Cancelled Eos % (Auto) Cancelled Baso % (Auto) Cancelled Absolute Neuts (auto) Cancelled Absolute Lymphs (auto) Cancelled Seg Neuts % (Manual) 66 Band Neutrophils % 0 Lymphocytes % (Manual) 2 L Monocytes % (Manual) 5 Eosinophils % (Manual) 1 Absolute Neutrophils 4.09 Absolute Lymphocytes 0.12 L Platelet Estimate Norm RBC Morphology 1+ macro Sodium 137 Potassium 3.3 L Chloride 107 Carbon Dioxide 19 L Anion Gap 14 BUN 11 Creatinine 0.90 Estimated GFR (MDRD) > 60 Glucose 139 H Calculated Osmolality 265 L Calcium 7.5 L Corrected Calcium 9.1 Total Bilirubin 1.6 H AST 41 H ALT 22 Alkaline Phosphatase 296 H Creatine Kinase Troponin I Total Protein 7.4 Albumin 2.4 L Urine Color Dark yellow Urine Clarity Sl cldy Urine pH 6.0 Ur Specific [place] 1.010 Urine Protein Neg Urine Glucose (UA) Neg Urine Ketones Neg Urine Occult Blood 1+ H Urine Nitrite Neg Urine Bilirubin Neg Urine Urobilinogen 8 H Ur Leukocyte Esterase 2+ H Urine WBC 10-20 H Ur Epithelial Cells 4+ Urine Bacteria 4+ H Urine Mucus Sm amt Blood Type Antibody Screen Crossmatch 05/15/16 05/15/16 04:40 05:25 WBC RBC Hgb Hct MCV MCH MCHC RDW Plt Count MPV Neut % (Auto) Lymph % (Auto) Story % (Auto) Eos % (Auto) Baso % (Auto) Absolute Neuts (auto) Absolute Lymphs (auto) Seg Neuts % (Manual) Band Neutrophils % Lymphocytes % (Manual) Monocytes % (Manual) Eosinophils % (Manual) Absolute Neutrophils Absolute Lymphocytes Platelet Estimate RBC Morphology Sodium Potassium Chloride Carbon Dioxide Anion Gap BUN Creatinine Estimated GFR (MDRD) Glucose Calculated Osmolality Calcium Corrected Calcium Total Bilirubin AST ALT Alkaline Phosphatase Creatine Kinase 118 Troponin I < 0.01 Total Protein Albumin Urine Color Urine Clarity Urine pH Ur Specific [place] Urine Protein Urine Glucose (UA) Urine Ketones Urine Occult Blood Urine Nitrite Urine Bilirubin Urine Urobilinogen Ur Leukocyte Esterase Urine WBC Ur Epithelial Cells Urine Bacteria Urine Mucus Blood Type O POSITIVE Antibody Screen Negative Crossmatch See Detail - Assessment (1) Anemia D64.9 - ANEMIA, UNSPECIFIED Chronic Present on Admission: Yes Qualifiers: Anemia type: unspecified type Qualified Code(s): D64.9 - Anemia, unspecified HEMOGLOBIN is 6.2 and warrants transfusion. Check B12 folic acid iron studies LDH and haptoglobin. Stool for Hemoccult will be obtained as well. If iron deficiency exists will get GI evaluation. 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 Cultures ordered vancomycin Rocephin Levaquin with pro biotics. (3) Urinary tract infection N39.0 - URINARY TRACT INFECTION, SITE NOT SPECIFIED Acute Present on Admission: Yes Qualifiers: Urinary tract infection type: acute cystitis Hematuria presence: without hematuria Qualified Code(s): N30.00 - Acute cystitis without hematuria Urine culture obtained presently getting Rocephin Levaquin. (4) HTN (hypertension) I10 - ESSENTIAL (PRIMARY) HYPERTENSION Chronic Present on Admission: Yes Qualifiers: Hypertension type: essential hypertension Qualified Code(s): I10 - Essential (primary) hypertension Continuation of previous medication. Case Care Discussed with: Patient, Nursing Staff Total Time: 54 min Critical Care: No Code: [id number]
[2016-05-15] MEDS: NS/KCl 20 mEq 1,000 ML IV SCH ×3 (07:22→18:46)
[2016-05-15] MEDS: SODIUM CHLORIDE 0.9% 3 ML FLUSH FLUSH SCH ×2 (07:22→17:23)
[2016-05-15] MEDS: MetFORMIN, EXT REL 500 MG TAB PO SCH (07:23)
[2016-05-15] MEDS: REGULAR INSULIN 100 UNITS/ML - 3 ML VIAL SQ SCH ×4 (07:24→23:10)
[2016-05-15 07:43] LABS: % SATURATION 6.2 % (15-50)
[2016-05-15] MEDS ORDERED: COLLAGENASE OINTMENT 30 GM TUBE TOP SCH (08:00)
[2016-05-15 08:33] LABS: FOLATES 5.52 ng/mL (>2.76)
[2016-05-15] MEDS: ATENOLOL 50 MG TAB PO SCH ×2 (08:55→08:56)
[2016-05-15] MEDS ORDERED: ATENOLOL 25 MG TAB PO SCH (09:00)
[2016-05-15] MEDS: COLLAGENASE OINTMENT 30 GM TUBE TOP SCH (09:17)
[2016-05-15] MEDS: Levofloxacin 750 mg/150 ml D5W 750 MG/150 ML RTU IV SCH (09:17)
[2016-05-15] MEDS: CEFTRIAXONE 1 GM in D5W 100 ML IV SCH (11:00)
[2016-05-15] MEDS: ONDANSETRON HCL 4 MG/2 ML VIAL IV PRN ×2 (11:30→17:36)
[2016-05-15] MEDS: PROBIOTIC BLEND TAB PO SCH ×2 (11:46→17:35)
[2016-05-15] MEDS ORDERED: Vaccine Screening Complete SCH (16:00)
[2016-05-15] MEDS: ENOXAPARIN 40 MG/0.4 ML PFS SQ SCH (17:31)
[2016-05-16] MEDS: OXYCODONE HCL 5 MG TABLET PO SCH ×4 (04:53→21:09)
[2016-05-16] MEDS: SODIUM CHLORIDE 0.9% 3 ML FLUSH FLUSH SCH ×2 (04:53→15:37)
[2016-05-16] MEDS: NS/KCl 20 mEq 1,000 ML IV SCH ×3 (04:59→21:09)
[2016-05-16] MEDS: MetFORMIN, EXT REL 500 MG TAB PO SCH (06:29)
[2016-05-16] MEDS: REGULAR INSULIN 100 UNITS/ML - 3 ML VIAL SQ SCH ×4 (06:30→21:10)
[2016-05-16 07:58] LABS: BLOOD UREA NITROGEN 13 MG/DL (7-17); CALCIUM 7.9 MG/DL (8.4-10.2); CALCULATED OSMOLALITY 258 MOs/Kg (270-290); CHLORIDE 107 mEq/L (98-107); GLUCOSE 70 MG/DL (70-99); SODIUM LEVEL 135 mEq/L (137-146)
[2016-05-16 08:08] LABS: MPV 8.1 fL (7.4-10.4)
[2016-05-16] MEDS: Levofloxacin 750 mg/150 ml D5W 750 MG/150 ML RTU IV SCH (08:52)
[2016-05-16] MEDS: COLLAGENASE OINTMENT 30 GM TUBE TOP SCH (08:53)
[2016-05-16] MEDS: ATENOLOL 50 MG TAB PO SCH (08:54)
[2016-05-16] MEDS: PROBIOTIC BLEND TAB PO SCH ×2 (08:54→15:37)
[2016-05-16] MEDS: CEFTRIAXONE 1 GM in D5W 100 ML IV SCH (10:49)
--- NOTE | 2016-05-16 12:15 | GENMEDPROG ---
Chief Complaint: Anemia, leg sores Subjective Note: Patient was admitted early yesterday morning due to significant anemia. She is no longer symptomatic from her anemia. She feels that her legs are getting slightly improved. She has not been seen by wound care in the hospital yet. She also tells me that she has an appointment to establish care at the wound care center locally. But so far has only been seen in the emergency department in this community. Notes Reviewed: Yes Events from last night noted and discussed with Clinical Staff Current Medication List: Reviewed DVT Prophylaxis: Yes - Physical Examination Vital Signs and I&O: Last Vital Signs Temp 98.2 F 05/16/16 09:55 Pulse 85 05/16/16 09:55 Resp 20 05/16/16 09:55 BP 135/80 05/16/16 09:55 Pulse Ox 100 05/16/16 09:55 Oxygen Pulse Oxygen Saturation 100 O2 Device Room Air Oxygen Flow Rate Fraction of Inspired Oxygen ( FIO2) Intake & Output 05/14/16 05/15/16 05/16/16 05/17/16 06:59 06:59 06:59 06:59 Intake Total 5 2836 240 Output Total 1200 300 Balance 5 1636 -60 Patient's weight 86.636 kg 87.288 kg General: Alert, Oriented x3, Cooperative, Mild distress Neck: Normal Trachea alignment, Normal inspection Lymphatics: Normal (No cervical lymphadenopathy. No supraclavicular lymphadenopathy.) Respiratory: Normal - CTA (Clear to auscultation bilaterally. No wheezing, rales , rhonchi. Chest wall movements are symmetric. No use of accessory muscles to breathe.) Cardiovascular: Regular rate, No Gallops,Rubs/Murmurs GI: Normal bowel sounds, Soft, Non tender (non distended) Extremities/Musculoskeletal: Other (She has edema in her bilateral lower extremities, she has multiple non infection did appearing wounds on her bilateral lower extremities, there is associated edema and surrounding erythema and very minimal induration. She feels that her wounds are improved. Erythema is not very easy to see due to skin tone.) Lab/DI/Studies Reviewed: Laboratory Tests 05/15/16 05/16/16 05/16/16 04:10 07:28 07:28 WBC 11.2 H Hgb 6.2 L* 9.1 L D Potassium 4.1 BUN 13 Creatinine 1.20 H - Assessment (1) Urinary tract infection Acute N39.0 - URINARY TRACT INFECTION, SITE NOT SPECIFIED Qualifiers: Urinary tract infection type: acute cystitis Hematuria presence: without hematuria Qualified Code(s): N30.00 - Acute cystitis without hematuria Comment/Plan: Urine culture obtained presently getting Rocephin Levaquin, follow up culture data. (2) Anemia Chronic D64.9 - ANEMIA, UNSPECIFIED Qualifiers: Anemia type: unspecified type Qualified Code(s): D64.9 - Anemia, unspecified Comment/Plan: Hemoglobin was 6.2 the time of admission to the hospital, has improved well with transfusion. There is some iron deficiency, the patient tells me that she has had significant oozing of blood from her wounds, this is the likely source of her anemia. Will also guaiac her stools. 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 Cultures ordered vancomycin Rocephin Levaquin with pro biotics. (4) HTN (hypertension) Chronic I10 - ESSENTIAL (PRIMARY) HYPERTENSION Qualifiers: Hypertension type: essential hypertension Qualified Code(s): I10 - Essential (primary) hypertension Comment/Plan: Continuation of previous medication. - Plan Continue present care with empiric IV antibiotics, await urine culture data. Await wound consultation as well. Can likely be discharged home on p.o. antibiotics in the next 48 hours. Case Care Discussed with: Patient
[2016-05-16] MEDS: ENOXAPARIN 40 MG/0.4 ML PFS SQ SCH (15:37)
[2016-05-17] MEDS: OXYCODONE HCL 5 MG TABLET PO SCH ×4 (02:09→22:27)
[2016-05-17] MEDS: NS/KCl 20 mEq 1,000 ML IV SCH ×3 (02:10→16:58)
[2016-05-17] MEDS: SODIUM CHLORIDE 0.9% 3 ML FLUSH FLUSH SCH ×2 (06:01→17:00)
[2016-05-17] MEDS: REGULAR INSULIN 100 UNITS/ML - 3 ML VIAL SQ SCH ×4 (06:27→22:23)
[2016-05-17] MEDS: ATENOLOL 50 MG TAB PO SCH (08:00)
[2016-05-17] MEDS: Levofloxacin 750 mg/150 ml D5W 750 MG/150 ML RTU IV SCH (08:00)
[2016-05-17] MEDS: MetFORMIN, EXT REL 500 MG TAB PO SCH (08:00)
[2016-05-17 08:18] LABS: BLOOD UREA NITROGEN 16 MG/DL (7-17); CALCIUM 7.9 MG/DL (8.4-10.2); CALCULATED OSMOLALITY 249 MOs/Kg (270-290); CHLORIDE 105 mEq/L (98-107); GLUCOSE 83 MG/DL (70-99); SODIUM LEVEL 129 mEq/L (137-146)
[2016-05-17 08:34] LABS: MPV 8.5 fL (7.4-10.4)
[2016-05-17] MEDS: COLLAGENASE OINTMENT 30 GM TUBE TOP SCH (09:02)
--- NOTE | 2016-05-17 11:15 | GENMEDPROG ---
Chief Complaint: leg wounds, cellulitis Subjective Note: Doing well, has no acute complaints. Had her legs wrapped when she was seen by wound care yesterday. Denies any fevers or chills or chest pain. Notes Reviewed: Yes Events from last night noted and discussed with Clinical Staff Current Medication List: Reviewed DVT Prophylaxis: Yes - Physical Examination Vital Signs and I&O: Last Vital Signs Temp 98 F 05/17/16 06:42 Pulse 71 05/17/16 06:42 Resp 20 05/17/16 06:42 BP 115/72 05/17/16 06:42 Pulse Ox 93 05/17/16 06:42 Oxygen Pulse Oxygen Saturation 93 O2 Device Room Air Oxygen Flow Rate Fraction of Inspired Oxygen ( FIO2) Intake & Output 05/15/16 05/16/16 05/17/16 05/18/16 06:59 06:59 06:59 06:59 Intake Total 5 2836 952 2494 Output Total 1200 1450 Balance 5 1636 -498 2494 Patient's weight 86.636 kg 87.288 kg 88.11 kg General: Alert, Oriented x3, Cooperative, Mild distress Neck: Normal Trachea alignment, Normal inspection Lymphatics: Normal (No cervical lymphadenopathy. No supraclavicular lymphadenopathy.) Respiratory: Normal - CTA (Clear to auscultation bilaterally. No wheezing, rales , rhonchi. Chest wall movements are symmetric. No use of accessory muscles to breathe.) Cardiovascular: Regular rate, No Gallops,Rubs/Murmurs GI: Normal bowel sounds, Soft, Non tender (non distended) Extremities/Musculoskeletal: Other (Legs are wrapped and not examined today.) Lab/DI/Studies Reviewed: Laboratory Tests 05/16/16 05/17/16 05/17/16 07:28 07:30 07:30 WBC 8.9 Hgb 9.3 L Potassium 4.7 BUN 16 Creatinine 1.20 H 1.50 H - Assessment (1) Urinary tract infection Acute N39.0 - URINARY TRACT INFECTION, SITE NOT SPECIFIED Qualifiers: Urinary tract infection type: acute cystitis Hematuria presence: without hematuria Qualified Code(s): N30.00 - Acute cystitis without hematuria Comment/Plan: Urine culture obtained, narrow antibiotics to Levaquin today. (2) Anemia Chronic D64.9 - ANEMIA, UNSPECIFIED Qualifiers: Anemia type: unspecified type Qualified Code(s): D64.9 - Anemia, unspecified Comment/Plan: Hemoglobin was 6.2 the time of admission to the hospital, has improved well with transfusion. There is some iron deficiency, the patient tells me that she has had significant oozing of blood from her wounds, this is the likely source of her anemia. Will also guaiac her stools. 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 Culture from leg wound growing Pseudomonas, narrow antibiotics to Levaquin today await sensitivities. (4) HTN (hypertension) Chronic I10 - ESSENTIAL (PRIMARY) HYPERTENSION Qualifiers: Hypertension type: essential hypertension Qualified Code(s): I10 - Essential (primary) hypertension Comment/Plan: Continuation of previous medication. - Plan Continue present care, have some provided narrow antibiotics, also discontinued vancomycin due to some acute kidney injury. Continue Levaquin for now, follow up on culture data and tailor antibiotics as appropriate.
[2016-05-17] MEDS: PROBIOTIC BLEND TAB PO SCH ×2 (12:20→17:01)
[2016-05-17] MEDS: LORAZEPAM 1 MG TAB PO PRN (13:03)
[2016-05-17] MEDS: ENOXAPARIN 40 MG/0.4 ML PFS SQ SCH (17:01)
[2016-05-18] MEDS: OXYCODONE HCL 5 MG TABLET PO SCH ×4 (03:43→20:43)
[2016-05-18] MEDS: REGULAR INSULIN 100 UNITS/ML - 3 ML VIAL SQ SCH ×4 (05:22→21:55)
[2016-05-18] MEDS: GLUCOSE (ORAL GEL) 15 GM TUBE PO PRN ×2 (05:25→05:49)
[2016-05-18] MEDS: SODIUM CHLORIDE 0.9% 3 ML FLUSH FLUSH SCH ×2 (05:30→17:30)
[2016-05-18] MEDS: NS/KCl 20 mEq 1,000 ML IV SCH (05:31)
[2016-05-18] MEDS ORDERED: DEXTROSE IV ONE (07:00)
[2016-05-18] MEDS ORDERED: SODIUM CHLORIDE IV ONE (07:00)
[2016-05-18 07:37] LABS: MPV 7.9 fL (7.4-10.4)
[2016-05-18] MEDS: Levofloxacin 750 mg/150 ml D5W 750 MG/150 ML RTU IV SCH (07:50)
[2016-05-18] MEDS: COLLAGENASE OINTMENT 30 GM TUBE TOP SCH (07:51)
[2016-05-18] MEDS: ATENOLOL 50 MG TAB PO SCH (07:52)
[2016-05-18] MEDS: PROBIOTIC BLEND TAB PO SCH ×2 (07:53→17:30)
[2016-05-18 08:12] LABS: CALC CORRECTED 9.6 MG/DL (8.4-10.2); CALCIUM 7.7 MG/DL (8.4-10.2); CREATININE 1.9 MG/DL (0.52-1.04); TOTAL PROTEIN 6.4 G/DL (6.3-8.2)
[2016-05-18 08:49] LABS: LEUKOCYTES/URINE 2+ (NEGATIVE); NITRITE/URINE NEG (NEGATIVE); RBC/URINE 30-40 (0-5); URINE OCCULT BLOOD 3+ (NEG/TRACE); WBC/URINE 20-30 (0-5)
[2016-05-18 08:58] LABS: AMORPHOUS 3+
[2016-05-18] MEDS: FUROSEMIDE 40 MG/4 ML VIAL IV SCH ×2 (11:49→16:20)
--- NOTE | 2016-05-18 11:52 | GENMEDPROG ---
Chief Complaint: Bilateral lower extremity cellulitis, edema bilateral leg wounds Subjective Note: Doing well, she has no acute complaints. Currently getting dressing change. On further questioning she admits that her bilateral lower extremities are very swollen. She tells me that this has happened in the past, and she was taking Lasix at home, but this was discontinued sometime in the recent past by her primary care physician. Currently: Denies: Cough, Wheezing, Abdominal Pain, Fever/Chills, Chest Pain DVT Prophylaxis: Yes - Physical Examination Vital Signs and I&O: Last Vital Signs Temp 97.6 F 05/17/16 22:00 Pulse 81 05/17/16 22:00 Resp 18 05/17/16 22:00 BP 118/68 05/17/16 22:00 Pulse Ox 100 05/17/16 22:00 Oxygen Pulse Oxygen Saturation 100 O2 Device Room Air Oxygen Flow Rate Fraction of Inspired Oxygen ( FIO2) Intake & Output 05/16/16 05/17/16 05/18/16 05/19/16 06:59 06:59 06:59 06:59 Intake Total 2836 952 4614 100 Output Total 1200 1450 475 Balance 1636 -498 4139 100 Patient's weight 87.288 kg 88.11 kg 95.821 kg General: Alert, Oriented x3, Cooperative, Mild distress Neck: Normal Trachea alignment, Normal inspection Lymphatics: Normal (No cervical lymphadenopathy. No supraclavicular lymphadenopathy.) Respiratory: Normal - CTA (Clear to auscultation bilaterally. No wheezing, rales , rhonchi. Chest wall movements are symmetric. No use of accessory muscles to breathe.) Cardiovascular: Regular rate, No Gallops,Rubs/Murmurs GI: Normal bowel sounds, Soft, Non tender (non distended) Extremities/Musculoskeletal: Other (Legs on wrapped today by wound care, erythema seems to be improved. She has bilateral 3+ pitting edema up to the lower abdomen.) Lab/DI/Studies Reviewed: Laboratory Tests 05/18/16 05/18/16 06:15 06:15 WBC 8.0 Hgb 8.3 L D Sodium Cancelled BUN Cancelled Creatinine Cancelled - Assessment (1) Urinary tract infection Acute N39.0 - URINARY TRACT INFECTION, SITE NOT SPECIFIED Qualifiers: Urinary tract infection type: acute cystitis Hematuria presence: without hematuria Qualified Code(s): N30.00 - Acute cystitis without hematuria Comment/Plan: Urine culture obtained, narrow antibiotics to Levaquin today. (2) Anemia Chronic D64.9 - ANEMIA, UNSPECIFIED Qualifiers: Anemia type: unspecified type Qualified Code(s): D64.9 - Anemia, unspecified Comment/Plan: Hemoglobin was 6.2 the time of admission to the hospital, has improved well with transfusion. There is some iron deficiency, the patient tells me that she has had significant oozing of blood from her wounds, this is the likely source of her anemia. Will also guaiac her stools. 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 Culture from leg wound growing Pseudomonas, narrow antibiotics to Levaquin today await sensitivities. (4) HTN (hypertension) Chronic I10 - ESSENTIAL (PRIMARY) HYPERTENSION Qualifiers: Hypertension type: essential hypertension Qualified Code(s): I10 - Essential (primary) hypertension Comment/Plan: Continuation of previous medication. - Plan Significant lower extremity edema, as well as acute kidney injury. I think this is related to poor forward flow from fluid overload. She has not had much urine output, I will increase Lasix to 20 mg 3 times today. If she continues to have poor urine output, and creatinine increases, would obtain a renal ultrasound to rule out hydronephrosis and obstruction. Total Time: 41
[2016-05-18] MEDS: ENOXAPARIN 40 MG/0.4 ML PFS SQ SCH (17:31)
--- NOTE | 2016-05-18 20:20 | DIRPT ---
CLINICAL DATA: Acute renal insufficiency EXAM: RENAL ULTRASOUND COMPARISON: None. FINDINGS: Right Kidney: Length: 12.5 cm. Echogenicity and renal cortical thickness are within normal limits. No mass, perinephric fluid, or hydronephrosis visualized. No sonographically demonstrable calculus or ureterectasis. Left Kidney: Length: 1.9 cm. Echogenicity and renal cortical thickness are within normal limits. No mass, perinephric fluid, or hydronephrosis visualized. No sonographically demonstrable calculus or ureterectasis. Bladder: Decompressed by Trivedi catheter and unable to assess. There is relatively mild ascites. Liver has a nodular contour with increased echogenicity consistent with cirrhosis. IMPRESSION: Kidneys appear normal bilaterally. Ascites with evidence of hepatic cirrhosis. Electronically Signed By: Deacon Becerril III, M.D. On: 05/18/2016 20:17
[2016-05-19] MEDS: LORAZEPAM 1 MG TAB PO PRN ×2 (02:07→21:39)
[2016-05-19] MEDS: OXYCODONE HCL 5 MG TABLET PO SCH ×4 (03:35→21:35)
[2016-05-19] MEDS: SODIUM CHLORIDE 0.9% 3 ML FLUSH FLUSH SCH ×2 (06:03→16:58)
[2016-05-19] MEDS: REGULAR INSULIN 100 UNITS/ML - 3 ML VIAL SQ SCH ×4 (06:03→21:34)
[2016-05-19 06:04] LABS: MPV 8.3 fL (7.4-10.4)
[2016-05-19 06:33] LABS: BLOOD UREA NITROGEN 21 MG/DL (7-17); CALCIUM 7.9 MG/DL (8.4-10.2); CALCULATED OSMOLALITY 244 MOs/Kg (270-290); CHLORIDE 101 mEq/L (98-107); GLUCOSE 81 MG/DL (70-99); SODIUM LEVEL 125 mEq/L (137-146)
[2016-05-19] MEDS: FUROSEMIDE 40 MG/4 ML VIAL IV SCH ×2 (09:20→17:03)
[2016-05-19] MEDS: Levofloxacin 750 mg/150 ml D5W 750 MG/150 ML RTU IV SCH (09:20)
[2016-05-19] MEDS: COLLAGENASE OINTMENT 30 GM TUBE TOP SCH (09:21)
[2016-05-19] MEDS: ATENOLOL 50 MG TAB PO SCH (09:24)
[2016-05-19] MEDS: PROBIOTIC BLEND TAB PO SCH ×2 (12:00→17:02)
[2016-05-19] MEDS: ENOXAPARIN 40 MG/0.4 ML PFS SQ SCH (17:02)
--- NOTE | 2016-05-19 20:00 | GENMEDPROG ---
Chief Complaint: Bilateral lower extremity cellulitis, edema bilateral leg wounds Subjective Note: Le edema Notes Reviewed: Yes Events from last night noted and discussed with Clinical Staff Current Medication List: Reviewed Currently: Reports: FOSTER, Other. Denies: Cough, Wheezing, Abdominal Pain, Fever/ Chills, Chest Pain DVT Prophylaxis: Yes (Weakness) - Physical Examination Vital Signs and I&O: Last Vital Signs Temp 97 F L 05/19/16 16:58 Pulse 69 05/19/16 16:58 Resp 18 05/19/16 16:58 BP 90/55 L 05/19/16 16:58 Pulse Ox 100 05/19/16 16:58 Oxygen Pulse Oxygen Saturation 100 O2 Device Room Air Oxygen Flow Rate Fraction of Inspired Oxygen ( FIO2) Intake & Output 05/16/16 05/17/16 05/18/16 05/19/16 23:59 23:59 23:59 23:59 Intake Total 1849 3894 1090 1287 Output Total 1400 1125 175 300 Balance 449 2769 915 987 Patient's weight 192 lb 7 oz 194 lb 4 oz 211 lb 4 oz 213 lb 12.8 oz General: Alert, Oriented x3, Cooperative, Mild distress HEENT: Normal (Normocephalic, atraumatic;EOMI.Sclera white, Nares patent, without discharge or bleeding. No oropharyngeal lesions or erythema. Mucous membranes are dry.) Neck: Normal Trachea alignment, Normal inspection Lymphatics: Normal (No cervical lymphadenopathy. No supraclavicular lymphadenopathy.) Respiratory: Normal - CTA (Clear to auscultation bilaterally. No wheezing, rales , rhonchi. Chest wall movements are symmetric. No use of accessory muscles to breathe.) Cardiovascular: Regular rate, No Gallops,Rubs/Murmurs GI: Normal bowel sounds, Soft, Non tender (non distended) Extremities/Musculoskeletal: Other (Legs on wrapped today by wound care, erythema seems to be improved. She has bilateral 3+ pitting edema up to the lower abdomen.) Skin: Warm,Dry and Intact, No rashes, No significant lesion Neurological: Strength at 5/5 X4 ext (Motor 5/5 throughout.), Normal tone, Cranial nerves 3-12 NL ( 2-12 grossly intact.) Psych/Mental Status: Appropriate, Normal Affect Lab/DI/Studies Reviewed: 05/19/16 04:30 05/19/16 04:30 - Assessment (1) Cellulitis Chronic L03.90 - CELLULITIS, UNSPECIFIED Qualifiers: Site of cellulitis: extremity Site of cellulitis of extremity: lower extremity Laterality: unspecified laterality Qualified Code(s): L03.119 - Cellulitis of unspecified part of limb Comment/Plan: 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 Culture from leg wound growing Pseudomonas, narrow antibiotics to Levaquin today await sensitivities. (2) Hyponatremia Acute E87.1 - HYPO-OSMOLALITY AND HYPONATREMIA Comment/Plan: Somewhat worse today. Will continue to follow. (3) Acute kidney injury Acute N17.9 - ACUTE KIDNEY FAILURE, UNSPECIFIED Comment/Plan: Recheck in a.m.. Continue with hydration (4) Urinary tract infection Acute N39.0 - URINARY TRACT INFECTION, SITE NOT SPECIFIED Qualifiers: Urinary tract infection type: acute cystitis Hematuria presence: without hematuria Qualified Code(s): N30.00 - Acute cystitis without hematuria Comment/Plan: Urine culture obtained, narrow antibiotics to Levaquin today. (5) Anemia Chronic D64.9 - ANEMIA, UNSPECIFIED Qualifiers: Anemia type: unspecified type Qualified Code(s): D64.9 - Anemia, unspecified Comment/Plan: 05/19/2016 Hemoglobin up to 8.2. Will continue to monitor. Transfuse as needed. 05/16/2016 Hemoglobin was 6.2 the time of admission to the hospital, has improved well with transfusion. There is some iron deficiency, the patient tells me that she has had significant oozing of blood from her wounds, this is the likely source of her anemia. Will also guaiac her stools. (6) HTN (hypertension) Chronic I10 - ESSENTIAL (PRIMARY) HYPERTENSION Qualifiers: Hypertension type: essential hypertension Qualified Code(s): I10 - Essential (primary) hypertension Comment/Plan: Continuation of previous medication. Case Care Discussed with: Patient, Family, Nursing Staff, Resource Management, Application Architect Manager Total Time: 40 Critical Care: No Code: 37655 (12+)
[2016-05-19] MEDS ORDERED: GABAPENTIN 300 MG CAP PO PRN (20:06)
[2016-05-20] MEDS: OXYCODONE HCL 5 MG TABLET PO SCH ×4 (04:42→21:28)
[2016-05-20] MEDS: SODIUM CHLORIDE 0.9% 3 ML FLUSH FLUSH SCH ×2 (05:38→18:05)
[2016-05-20] MEDS: REGULAR INSULIN 100 UNITS/ML - 3 ML VIAL SQ SCH ×4 (05:38→21:26)
[2016-05-20] MEDS: GLUCOSE (ORAL GEL) 15 GM TUBE PO PRN ×2 (05:39→05:58)
[2016-05-20 06:39] LABS: SODIUM LEVEL 125 mEq/L (137-146)
[2016-05-20 06:40] LABS: BLOOD UREA NITROGEN 23 MG/DL (7-17); CALCULATED OSMOLALITY 244 MOs/Kg (270-290); CHLORIDE 99 mEq/L (98-107); GLUCOSE 64 MG/DL (70-99)
[2016-05-20] MEDS: COLLAGENASE OINTMENT 30 GM TUBE TOP SCH (08:20)
[2016-05-20] MEDS: Levofloxacin 750 mg/150 ml D5W 750 MG/150 ML RTU IV SCH (08:20)
[2016-05-20] MEDS: FUROSEMIDE 40 MG/4 ML VIAL IV SCH ×2 (08:21→18:04)
[2016-05-20] MEDS: ATENOLOL 50 MG TAB PO SCH (08:21)
[2016-05-20] MEDS: PROBIOTIC BLEND TAB PO SCH ×2 (08:22→18:04)
[2016-05-20] MEDS: LORAZEPAM 1 MG TAB PO PRN (08:22)
[2016-05-20] MEDS ORDERED: COLLAGENASE OINTMENT 30 GM TUBE TOP SCH (09:00)
[2016-05-20] MEDS: ENOXAPARIN 40 MG/0.4 ML PFS SQ SCH (18:04)
--- NOTE | 2016-05-20 20:01 | GENMEDPROG ---
Chief Complaint: Bilateral lower extremity cellulitis, edema bilateral leg wounds Subjective Note: No new complaints. Patient unsteady. Notes Reviewed: Yes Events from last night noted and discussed with Clinical Staff Current Medication List: Reviewed Currently: Reports: FOSTER. Denies: Cough, Wheezing, Nausea and Vomiting, Abdominal Pain, Fever/Chills, Chest Pain, Ambulating DVT Prophylaxis: Yes - Physical Examination Vital Signs and I&O: Last Vital Signs Temp 97.8 F 05/20/16 16:50 Pulse 74 05/20/16 16:50 Resp 18 05/20/16 16:50 BP 100/65 05/20/16 16:50 Pulse Ox 100 05/20/16 16:50 Oxygen Pulse Oxygen Saturation 100 O2 Device Room Air Oxygen Flow Rate Fraction of Inspired Oxygen ( FIO2) Intake & Output 05/17/16 05/18/16 05/19/16 05/20/16 23:59 23:59 23:59 23:59 Intake Total 3894 1090 1287 420 Output Total 1125 175 450 725 Balance 2769 915 837 -305 Patient's weight 194 lb 4 oz 211 lb 4 oz 213 lb 12.8 oz 212 lb 14.4 oz General: Alert, Oriented x3, Cooperative, Mild distress HEENT: Normal (Normocephalic, atraumatic;EOMI.Sclera white, Nares patent, without discharge or bleeding. No oropharyngeal lesions or erythema. Mucous membranes are dry.) Neck: Normal Trachea alignment, Normal inspection Lymphatics: Normal (No cervical lymphadenopathy. No supraclavicular lymphadenopathy.) Respiratory: Normal - CTA (Clear to auscultation bilaterally. No wheezing, rales , rhonchi. Chest wall movements are symmetric. No use of accessory muscles to breathe.) Cardiovascular: Regular rate, No Gallops,Rubs/Murmurs GI: Normal bowel sounds, Soft, Non tender (non distended) Extremities/Musculoskeletal: Other (Legs on wrapped today by wound care, erythema seems to be improved. She has bilateral 3+ pitting edema up to the lower abdomen.) Skin: Warm,Dry and Intact, No rashes, No significant lesion Neurological: Strength at 5/5 X4 ext (Motor 5/5 throughout.), Normal tone, Cranial nerves 3-12 NL ( 2-12 grossly intact.) Psych/Mental Status: Appropriate, Normal Affect Lab/DI/Studies Reviewed: 05/20/16 05:40 05/20/16 05:40 - Assessment (1) Hyponatremia Acute E87.1 - HYPO-OSMOLALITY AND HYPONATREMIA Comment/Plan: 05/20/2016 sodium unchanged. 05/19/2016 Somewhat worse today. Will continue to follow. (2) Acute kidney injury Acute N17.9 - ACUTE KIDNEY FAILURE, UNSPECIFIED Comment/Plan: Recheck in a.m.. Continue with hydration (3) Urinary tract infection Acute N39.0 - URINARY TRACT INFECTION, SITE NOT SPECIFIED Qualifiers: Urinary tract infection type: acute cystitis Hematuria presence: without hematuria Qualified Code(s): N30.00 - Acute cystitis without hematuria Comment/Plan: Urine culture obtained, narrow antibiotics to Levaquin today. (4) Anemia Chronic D64.9 - ANEMIA, UNSPECIFIED Qualifiers: Anemia type: unspecified type Qualified Code(s): D64.9 - Anemia, unspecified Comment/Plan: 05/20/2016 roughly stable. Continue to monitor. 05/19/2016 Hemoglobin up to 8.2. Will continue to monitor. Transfuse as needed. 05/16/2016 Hemoglobin was 6.2 the time of admission to the hospital, has improved well with transfusion. There is some iron deficiency, the patient tells me that she has had significant oozing of blood from her wounds, this is the likely source of her anemia. Will also guaiac her stools. 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 Culture from leg wound growing Pseudomonas, narrow antibiotics to Levaquin today await sensitivities. (6) HTN (hypertension) Chronic I10 - ESSENTIAL (PRIMARY) HYPERTENSION Qualifiers: Hypertension type: essential hypertension Qualified Code(s): I10 - Essential (primary) hypertension Comment/Plan: Continuation of previous medication. Case Care Discussed with: Patient, Nursing Staff, Resource Management, Junior High Math Teacher Total Time: 40 Critical Care: No Code: 88521 (12+)
[2016-05-21] MEDS: OXYCODONE HCL 5 MG TABLET PO SCH ×4 (04:05→20:50)
[2016-05-21] MEDS: SODIUM CHLORIDE 0.9% 3 ML FLUSH FLUSH SCH ×2 (05:42→17:09)
[2016-05-21] MEDS: REGULAR INSULIN 100 UNITS/ML - 3 ML VIAL SQ SCH ×4 (05:43→20:50)
[2016-05-21 06:06] LABS: BLOOD UREA NITROGEN 25 MG/DL (7-17); CALCIUM 7.8 MG/DL (8.4-10.2); CALCULATED OSMOLALITY 245 MOs/Kg (270-290); CHLORIDE 100 mEq/L (98-107); GLUCOSE 57 MG/DL (70-99); SODIUM LEVEL 126 mEq/L (137-146)
[2016-05-21] MEDS: ATENOLOL 50 MG TAB PO SCH (09:52)
[2016-05-21] MEDS: FUROSEMIDE 40 MG/4 ML VIAL IV SCH ×2 (10:53→16:29)
[2016-05-21] MEDS: COLLAGENASE OINTMENT 30 GM TUBE TOP SCH (10:56)
[2016-05-21] MEDS: PROBIOTIC BLEND TAB PO SCH ×2 (12:22→17:09)
[2016-05-21] MEDS: ENOXAPARIN 40 MG/0.4 ML PFS SQ SCH (17:09)
--- NOTE | 2016-05-21 17:27 | GENMEDPROG ---
Chief Complaint: Bilateral lower extremity cellulitis, edema bilateral leg wounds Subjective Note: No new complaints. Weakness Notes Reviewed: Yes Events from last night noted and discussed with Clinical Staff Current Medication List: Reviewed Currently: Reports: FOSTER. Denies: Cough, Wheezing, Abdominal Pain, Fever/Chills , Chest Pain, Ambulating DVT Prophylaxis: Yes - Physical Examination Vital Signs and I&O: Last Vital Signs Temp 97.9 F 05/21/16 13:41 Pulse 75 05/21/16 13:41 Resp 19 05/21/16 13:41 BP 94/54 L 05/21/16 14:03 Pulse Ox 100 05/21/16 13:41 Oxygen Pulse Oxygen Saturation 100 O2 Device Room Air Oxygen Flow Rate Fraction of Inspired Oxygen ( FIO2) Intake & Output 05/18/16 05/19/16 05/20/16 05/21/16 23:59 23:59 23:59 23:59 Intake Total 1090 1287 866 280 Output Total 166 869 4402 400 Balance 915 837 -159 -120 Patient's weight 211 lb 4 oz 213 lb 12.8 oz 212 lb 14.4 oz 213 lb 9 oz General: Alert, Oriented x3, Cooperative, Mild distress HEENT: Normal (Normocephalic, atraumatic;EOMI.Sclera white, Nares patent, without discharge or bleeding. No oropharyngeal lesions or erythema. Mucous membranes are dry.) Neck: Normal Trachea alignment, Normal inspection Lymphatics: Normal (No cervical lymphadenopathy. No supraclavicular lymphadenopathy.) Respiratory: Normal - CTA (Clear to auscultation bilaterally. No wheezing, rales , rhonchi. Chest wall movements are symmetric. No use of accessory muscles to breathe.) Cardiovascular: Regular rate, No Gallops,Rubs/Murmurs, LE Edema GI: Normal bowel sounds, Soft, Non tender (non distended) Extremities/Musculoskeletal: Other (Legs on wrapped today by wound care, erythema seems to be improved. She has bilateral 3+ pitting edema up to the lower abdomen.) Skin: Warm,Dry and Intact, No rashes, No significant lesion Neurological: Strength at 5/5 X4 ext (Motor 5/5 throughout.), Normal tone, Cranial nerves 3-12 NL ( 2-12 grossly intact.) Psych/Mental Status: Appropriate, Normal Affect Lab/DI/Studies Reviewed: Laboratory Results - last 24 hr 12/21/16 12/21/16 12/22/16 16:47 20:13 04:35 WBC RBC Hgb Hct MCV MCH MCHC RDW Plt Count MPV ESR Sodium 126 L Potassium 4.7 Chloride 100 Carbon Dioxide 18 L Anion Gap 13 BUN 25 H Creatinine 2.80 H Estimated GFR (MDRD) 22 L Glucose 57 L POC Capillary Glucose 75 91 Calculated Osmolality 245 L Calcium 7.8 L Ammonia 05/21/16 05/21/16 05/21/16 04:35 04:35 05:40 WBC 10.2 RBC 2.57 L Hgb 7.8 L Hct 23.9 L MCV 93 MCH 30.3 MCHC 32.6 L RDW 17.7 H Plt Count 174 MPV 8.0 ESR 45 H Sodium Potassium Chloride Carbon Dioxide Anion Gap BUN Creatinine Estimated GFR (MDRD) Glucose POC Capillary Glucose 71 Calculated Osmolality Calcium Ammonia 05/21/16 05/21/16 05/21/16 10:51 15:35 16:33 WBC RBC Hgb Hct MCV MCH MCHC RDW Plt Count MPV ESR Sodium Potassium Chloride Carbon Dioxide Anion Gap BUN Creatinine Estimated GFR (MDRD) Glucose POC Capillary Glucose 76 84 Calculated Osmolality Calcium Ammonia 10.0 - Assessment (1) Hyponatremia Acute E87.1 - HYPO-OSMOLALITY AND HYPONATREMIA Comment/Plan: 05/21/2016 minimal improvement with sodium. Continue to monitor. 05/20/2016 sodium unchanged. 05/19/2016 Somewhat worse today. Will continue to follow. (2) Acute kidney injury Acute N17.9 - ACUTE KIDNEY FAILURE, UNSPECIFIED Comment/Plan: 05/21/2016 renal function continues to worsen. She had a normal renal ultrasound. She has significant lower extremity edema. Some of this may be due to low albumin. Will continue to follow. Check sed rate and JONAH. 05/20/2016 Recheck in a.m.. Continue with hydration (3) Urinary tract infection Acute N39.0 - URINARY TRACT INFECTION, SITE NOT SPECIFIED Qualifiers: Urinary tract infection type: acute cystitis Hematuria presence: without hematuria Qualified Code(s): N30.00 - Acute cystitis without hematuria Comment/Plan: Urine culture obtained, narrow antibiotics to Levaquin today. (4) Anemia Chronic D64.9 - ANEMIA, UNSPECIFIED Qualifiers: Anemia type: unspecified type Qualified Code(s): D64.9 - Anemia, unspecified Comment/Plan: 05/21/2016 decrease in hemoglobin. Will hold off on transfusion. Recheck in a.m.. 05/20/2016 roughly stable. Continue to monitor. 05/19/2016 Hemoglobin up to 8.2. Will continue to monitor. Transfuse as needed. 05/16/2016 Hemoglobin was 6.2 the time of admission to the hospital, has improved well with transfusion. There is some iron deficiency, the patient tells me that she has had significant oozing of blood from her wounds, this is the likely source of her anemia. Will also guaiac her stools. 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 Culture from leg wound growing Pseudomonas, narrow antibiotics to Levaquin today await sensitivities. (6) HTN (hypertension) Chronic I10 - ESSENTIAL (PRIMARY) HYPERTENSION Qualifiers: Hypertension type: essential hypertension Qualified Code(s): I10 - Essential (primary) hypertension Comment/Plan: Continuation of previous medication. Case Care Discussed with: Patient, Nursing Staff, Resource Management, Big Data Solutions Architect Total Time: 40 Critical Care: No Code: 72520 (12+)
[2016-05-21] MEDS: LORAZEPAM 1 MG TAB PO PRN (20:50)
[2016-05-22] MEDS: SODIUM CHLORIDE 0.9% 3 ML FLUSH FLUSH SCH ×2 (03:09→17:32)
[2016-05-22] MEDS: OXYCODONE HCL 5 MG TABLET PO SCH ×4 (03:09→22:23)
[2016-05-22] MEDS: LORAZEPAM 1 MG TAB PO PRN (03:09)
[2016-05-22] MEDS: REGULAR INSULIN 100 UNITS/ML - 3 ML VIAL SQ SCH ×4 (05:34→22:20)
--- NOTE | 2016-05-22 08:17 | DIRPT ---
CLINICAL DATA: Cough. EXAM: CHEST 2 VIEW COMPARISON: None. FINDINGS: The heart size is at the upper limits of normal. Mediastinal contours are within normal limits. Both lungs are clear. The visualized skeletal structures are unremarkable. IMPRESSION: No active cardiopulmonary disease. Electronically Signed By: Fletcher Chavis M.D. On: 05/22/2016 08:14
[2016-05-22] MEDS: ATENOLOL 50 MG TAB PO SCH (09:20)
[2016-05-22] MEDS: COLLAGENASE OINTMENT 30 GM TUBE TOP SCH (09:20)
[2016-05-22] MEDS: Levofloxacin 750 mg/150 ml D5W 750 MG/150 ML RTU IV SCH (09:26)
[2016-05-22] MEDS: FUROSEMIDE 40 MG/4 ML VIAL IV SCH ×2 (09:26→14:44)
[2016-05-22 09:58] LABS: MPV 9.4 fL (7.4-10.4)
[2016-05-22 10:05] LABS: BLOOD UREA NITROGEN 30 MG/DL (7-17); CALCULATED OSMOLALITY 250 MOs/Kg (270-290); CHLORIDE 102 mEq/L (98-107); GLUCOSE 73 MG/DL (70-99); SODIUM LEVEL 127 mEq/L (137-146)
[2016-05-22] MEDS: PROBIOTIC BLEND TAB PO SCH ×2 (12:23→17:32)
--- NOTE | 2016-05-22 17:18 | GENMEDPROG ---
Chief Complaint: Bilateral lower extremity cellulitis, edema bilateral leg wounds Subjective Note: Continues to complain of lower extremity edema. Notes Reviewed: Yes Events from last night noted and discussed with Clinical Staff Current Medication List: Reviewed Currently: Reports: FOSTER. Denies: Cough, Wheezing, Abdominal Pain, Fever/Chills , Chest Pain DVT Prophylaxis: Yes - Physical Examination Vital Signs and I&O: Last Vital Signs Temp 97.8 F 05/22/16 14:41 Pulse 75 05/22/16 14:41 Resp 18 05/22/16 14:41 BP 102/54 L 05/22/16 14:41 Pulse Ox 100 05/22/16 14:41 Oxygen Pulse Oxygen Saturation 100 O2 Device Room Air Oxygen Flow Rate Fraction of Inspired Oxygen ( FIO2) Intake & Output 05/19/16 05/20/16 05/21/16 05/22/16 23:59 23:59 23:59 23:59 Intake Total 1287 866 410 490 Output Total 450 1025 650 600 Balance 837 -159 -240 -110 Patient's weight 213 lb 12.8 oz 212 lb 14.4 oz 213 lb 9 oz 210 lb 6 oz General: Alert, Oriented x3, Cooperative, Mild distress HEENT: Normal (Normocephalic, atraumatic;EOMI.Sclera white, Nares patent, without discharge or bleeding. No oropharyngeal lesions or erythema. Mucous membranes are dry.) Neck: Normal Trachea alignment, Normal inspection Lymphatics: Normal (No cervical lymphadenopathy. No supraclavicular lymphadenopathy.) Respiratory: Normal - CTA (Clear to auscultation bilaterally. No wheezing, rales , rhonchi. Chest wall movements are symmetric. No use of accessory muscles to breathe.) Cardiovascular: Regular rate, No Gallops,Rubs/Murmurs, LE Edema GI: Normal bowel sounds, Soft, Non tender (non distended) Extremities/Musculoskeletal: Normal pulses, Tenderness, Swelling, Edema, Other ( Legs on wrapped today by wound care, erythema seems to be improved. She has bilateral 3+ pitting edema up to the lower abdomen.) Skin: Warm,Dry and Intact, No rashes, No significant lesion Neurological: Strength at 5/5 X4 ext (Motor 5/5 throughout.), Normal tone, Cranial nerves 3-12 NL ( 2-12 grossly intact.) Psych/Mental Status: Appropriate, Normal Affect Lab/DI/Studies Reviewed: 05/22/16 09:50 05/22/16 10:00 CHEST 2 VIEW COMPARISON: None. FINDINGS: The heart size is at the upper limits of normal. Mediastinal contours are within normal limits. Both lungs are clear. The visualized skeletal structures are unremarkable. IMPRESSION: No active cardiopulmonary disease. - Assessment (1) Hyponatremia Acute E87.1 - HYPO-OSMOLALITY AND HYPONATREMIA Comment/Plan: 05/22/2016 minimum improvement in sodium. 05/21/2016 minimal improvement with sodium. Continue to monitor. 05/20/2016 sodium unchanged. 05/19/2016 Somewhat worse today. Will continue to follow. (2) Acute kidney injury Acute N17.9 - ACUTE KIDNEY FAILURE, UNSPECIFIED Comment/Plan: 05/22/2016 creatinine is increasing less rapidly. Continue to follow. Will try adding intravenous fluids as well as intravenous Lasix to see if we can increase sodium. 05/21/2016 renal function continues to worsen. She had a normal renal ultrasound. She has significant lower extremity edema. Some of this may be due to low albumin. Will continue to follow. Check sed rate and JONAH. 05/20/2016 Recheck in a.m.. Continue with hydration (3) Urinary tract infection Acute N39.0 - URINARY TRACT INFECTION, SITE NOT SPECIFIED Qualifiers: Urinary tract infection type: acute cystitis Hematuria presence: without hematuria Qualified Code(s): N30.00 - Acute cystitis without hematuria Comment/Plan: Urine culture obtained, narrow antibiotics to Levaquin today. (4) Anemia Chronic D64.9 - ANEMIA, UNSPECIFIED Qualifiers: Anemia type: unspecified type Qualified Code(s): D64.9 - Anemia, unspecified Comment/Plan: 05/21/2016 decrease in hemoglobin. Will hold off on transfusion. Recheck in a.m.. 05/20/2016 roughly stable. Continue to monitor. 05/19/2016 Hemoglobin up to 8.2. Will continue to monitor. Transfuse as needed. 05/16/2016 Hemoglobin was 6.2 the time of admission to the hospital, has improved well with transfusion. There is some iron deficiency, the patient tells me that she has had significant oozing of blood from her wounds, this is the likely source of her anemia. Will also guaiac her stools. 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 Culture from leg wound growing Pseudomonas, narrow antibiotics to Levaquin today await sensitivities. (6) HTN (hypertension) Chronic I10 - ESSENTIAL (PRIMARY) HYPERTENSION Qualifiers: Hypertension type: essential hypertension Qualified Code(s): I10 - Essential (primary) hypertension Comment/Plan: Continuation of previous medication. Case Care Discussed with: Patient, Nursing Staff, Resource Management, Water Supply Engineer Total Time: 40 Critical Care: No Code: 56542 (12+)
[2016-05-22] MEDS: ENOXAPARIN 40 MG/0.4 ML PFS SQ SCH (17:32)
[2016-05-22] MEDS: NS 1,000 ML IV SCH (17:32)
--- NOTE | 2016-05-22 18:19 | GENMEDPROG ---
Notes Reviewed: Yes Events from last night noted and discussed with Clinical Staff Current Medication List: Reviewed Currently: Denies: Cough, Wheezing, Abdominal Pain, Fever/Chills, Chest Pain DVT Prophylaxis: Yes - Physical Examination Vital Signs and I&O: Last Vital Signs Temp 97.8 F 05/22/16 14:41 Pulse 75 05/22/16 14:41 Resp 18 05/22/16 14:41 BP 102/54 L 05/22/16 14:41 Pulse Ox 100 05/22/16 14:41 Oxygen Pulse Oxygen Saturation 100 O2 Device Room Air Oxygen Flow Rate Fraction of Inspired Oxygen ( FIO2) Intake & Output 05/19/16 05/20/16 05/21/16 05/22/16 23:59 23:59 23:59 23:59 Intake Total 1287 866 410 490 Output Total 450 1025 650 600 Balance 837 -159 -240 -110 Patient's weight 213 lb 12.8 oz 212 lb 14.4 oz 213 lb 9 oz 210 lb 6 oz General: Alert, Oriented x3, Cooperative, Mild distress HEENT: Normal (Normocephalic, atraumatic;EOMI.Sclera white, Nares patent, without discharge or bleeding. No oropharyngeal lesions or erythema. Mucous membranes are dry.) Neck: Normal Trachea alignment, Normal inspection Lymphatics: Normal (No cervical lymphadenopathy. No supraclavicular lymphadenopathy.) Respiratory: Normal - CTA (Clear to auscultation bilaterally. No wheezing, rales , rhonchi. Chest wall movements are symmetric. No use of accessory muscles to breathe.) Cardiovascular: Regular rate, No Gallops,Rubs/Murmurs GI: Normal bowel sounds, Soft, Non tender (non distended) Extremities/Musculoskeletal: Other (Legs on wrapped today by wound care, erythema seems to be improved. She has bilateral 3+ pitting edema up to the lower abdomen.) Skin: Warm,Dry and Intact, No rashes, No significant lesion Neurological: Strength at 5/5 X4 ext (Motor 5/5 throughout.), Normal tone, Cranial nerves 3-12 NL ( 2-12 grossly intact.) Psych/Mental Status: Appropriate, Normal Affect Lab/DI/Studies Reviewed: 05/22/16 09:50 05/22/16 10:00 CHEST 2 VIEW COMPARISON: None. FINDINGS: The heart size is at the upper limits of normal. Mediastinal contours are within normal limits. Both lungs are clear. The visualized skeletal structures are unremarkable. IMPRESSION: No active cardiopulmonary disease. - Assessment (1) Hyponatremia Acute E87.1 - HYPO-OSMOLALITY AND HYPONATREMIA (2) Acute kidney injury Acute N17.9 - ACUTE KIDNEY FAILURE, UNSPECIFIED (3) Urinary tract infection Acute N39.0 - URINARY TRACT INFECTION, SITE NOT SPECIFIED Qualifiers: Urinary tract infection type: acute cystitis Hematuria presence: without hematuria Qualified Code(s): N30.00 - Acute cystitis without hematuria Comment/Plan: Urine culture obtained, narrow antibiotics to Levaquin today. (4) Anemia Chronic D64.9 - ANEMIA, UNSPECIFIED Qualifiers: Anemia type: unspecified type Qualified Code(s): D64.9 - Anemia, unspecified Comment/Plan: Hemoglobin was 6.2 the time of admission to the hospital, has improved well with transfusion. There is some iron deficiency, the patient tells me that she has had significant oozing of blood from her wounds, this is the likely source of her anemia. Will also guaiac her stools. 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 Culture from leg wound growing Pseudomonas, narrow antibiotics to Levaquin today await sensitivities. (6) HTN (hypertension) Chronic I10 - ESSENTIAL (PRIMARY) HYPERTENSION Qualifiers: Hypertension type: essential hypertension Qualified Code(s): I10 - Essential (primary) hypertension Comment/Plan: Continuation of previous medication.
[2016-05-23] MEDS: NS 1,000 ML IV SCH ×3 (02:28→18:32)
[2016-05-23] MEDS: SODIUM CHLORIDE 0.9% 3 ML FLUSH FLUSH SCH ×2 (05:40→17:12)
[2016-05-23] MEDS: REGULAR INSULIN 100 UNITS/ML - 3 ML VIAL SQ SCH ×4 (07:29→20:50)
[2016-05-23] MEDS: COLLAGENASE OINTMENT 30 GM TUBE TOP SCH (07:55)
[2016-05-23] MEDS: FUROSEMIDE 40 MG/4 ML VIAL IV SCH ×2 (07:55→14:50)
[2016-05-23] MEDS: ATENOLOL 50 MG TAB PO SCH (07:58)
[2016-05-23] MEDS: PROBIOTIC BLEND TAB PO SCH ×2 (11:56→17:08)
--- NOTE | 2016-05-23 15:46 | GENMEDPROG ---
Chief Complaint: Bilateral lower extremity cellulitis, edema bilateral leg wounds Subjective Note: No new complaints. She was able to ambulate somewhat with PT. Notes Reviewed: Yes Events from last night noted and discussed with Clinical Staff Current Medication List: Reviewed Currently: Reports: FOSTER. Denies: Cough, Wheezing, Abdominal Pain, Fever/Chills , Chest Pain DVT Prophylaxis: Yes - Physical Examination Vital Signs and I&O: Last Vital Signs Temp 98.5 F 05/23/16 13:21 Pulse 78 05/23/16 13:21 Resp 18 05/23/16 13:21 BP 114/75 05/23/16 13:21 Pulse Ox 94 05/23/16 13:21 Oxygen Pulse Oxygen Saturation 94 O2 Device Room Air Oxygen Flow Rate Fraction of Inspired Oxygen ( FIO2) Intake & Output 05/20/16 05/21/16 05/22/16 05/23/16 23:59 23:59 23:59 23:59 Intake Total 866 859 869 4723 Output Total 1025 650 600 525 Balance -159 -240 340 983 Patient's weight 212 lb 14.4 oz 213 lb 9 oz 210 lb 6 oz 210 lb 5 oz General: Alert, Oriented x3, Cooperative, Mild distress HEENT: Normal (Normocephalic, atraumatic;EOMI.Sclera white, Nares patent, without discharge or bleeding. No oropharyngeal lesions or erythema. Mucous membranes are dry.) Neck: Normal Trachea alignment, Normal inspection Lymphatics: Normal (No cervical lymphadenopathy. No supraclavicular lymphadenopathy.) Respiratory: Normal - CTA (Clear to auscultation bilaterally. No wheezing, rales , rhonchi. Chest wall movements are symmetric. No use of accessory muscles to breathe.) Cardiovascular: Regular rate, No Gallops,Rubs/Murmurs, LE Edema GI: Normal bowel sounds, Soft, Non tender (non distended) Extremities/Musculoskeletal: Normal pulses, Tenderness, Swelling, Edema, Other ( Legs on wrapped today by wound care, erythema seems to be improved. She has bilateral 3+ pitting edema up to the lower abdomen.) Skin: Warm,Dry and Intact, No rashes, No significant lesion Neurological: Strength at 5/5 X4 ext (Motor 5/5 throughout.), Normal tone, Cranial nerves 3-12 NL ( 2-12 grossly intact.) Psych/Mental Status: Appropriate, Normal Affect Lab/DI/Studies Reviewed: Blood Glucose (Last 48hrs) 05/23/16 05/23/16 05/22/16 10:54 06:27 21:30 POC Capillary Glucose 80 74 74 05/22/16 05/22/16 05/22/16 17:55 11:33 07:25 POC Capillary Glucose 171 H 71 133 H 05/22/16 05/22/16 05/21/16 06:43 05:23 20:44 POC Capillary Glucose 61 L 67 L 71 05/21/16 16:33 POC Capillary Glucose 84 Microbiology 05/15/16 08:40 Leg - Right Wound Culture - Final Pseudomonas aeruginosa Alcaligenes species [faecalis] Finegoldia magna 05/15/16 04:10 Blood Blood Culture - Final No growth aerobically or anaerobically at 120 hours. NORMAL VALUE = No growth 05/15/16 03:55 Blood Blood Culture - Final No growth aerobically or anaerobically at 120 hours. NORMAL VALUE = No growth 05/15/16 03:40 Urine - Clean Catch - Midstream Urine Culture - Final Escherichia coli 05/15/16 08:57 Nares Nasal Screen MRSA (PCR)(JUDY) - Final NEGATIVE for MRSA DNA - Assessment (1) Hyponatremia Acute E87.1 - HYPO-OSMOLALITY AND HYPONATREMIA Comment/Plan: 05/23/2016 patient has been unable to provide blood sample today. Will recheck this afternoon. If not recheck in a.m.. 05/22/2016 minimum improvement in sodium. 05/21/2016 minimal improvement with sodium. Continue to monitor. 05/20/2016 sodium unchanged. 05/19/2016 Somewhat worse today. Will continue to follow. (2) Acute kidney injury Acute N17.9 - ACUTE KIDNEY FAILURE, UNSPECIFIED Comment/Plan: 05/23/2016 recheck in a.m.. 05/22/2016 creatinine is increasing less rapidly. Continue to follow. Will try adding intravenous fluids as well as intravenous Lasix to see if we can increase sodium. 05/21/2016 renal function continues to worsen. She had a normal renal ultrasound. She has significant lower extremity edema. Some of this may be due to low albumin. Will continue to follow. Check sed rate and JONAH. 05/20/2016 Recheck in a.m.. Continue with hydration (3) Urinary tract infection Acute N39.0 - URINARY TRACT INFECTION, SITE NOT SPECIFIED Qualifiers: Urinary tract infection type: acute cystitis Hematuria presence: without hematuria Qualified Code(s): N30.00 - Acute cystitis without hematuria Comment/Plan: Urine culture obtained, narrow antibiotics to Levaquin today. (4) Anemia Chronic D64.9 - ANEMIA, UNSPECIFIED Qualifiers: Anemia type: unspecified type Qualified Code(s): D64.9 - Anemia, unspecified Comment/Plan: 05/21/2016 decrease in hemoglobin. Will hold off on transfusion. Recheck in a.m.. 05/20/2016 roughly stable. Continue to monitor. 05/19/2016 Hemoglobin up to 8.2. Will continue to monitor. Transfuse as needed. 05/16/2016 Hemoglobin was 6.2 the time of admission to the hospital, has improved well with transfusion. There is some iron deficiency, the patient tells me that she has had significant oozing of blood from her wounds, this is the likely source of her anemia. Will also guaiac her stools. 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 Culture from leg wound growing Pseudomonas, narrow antibiotics to Levaquin today await sensitivities. (6) HTN (hypertension) Chronic I10 - ESSENTIAL (PRIMARY) HYPERTENSION Qualifiers: Hypertension type: essential hypertension Qualified Code(s): I10 - Essential (primary) hypertension Comment/Plan: Continuation of previous medication. Case Care Discussed with: Patient, Nursing Staff Total Time: 40 Critical Care: No Code: 79232 (12+)
[2016-05-23] MEDS: ENOXAPARIN 40 MG/0.4 ML PFS SQ SCH (17:08)
[2016-05-23] MEDS: LORAZEPAM 1 MG TAB PO PRN (18:38)
[2016-05-23] MEDS: ACETAMINOPHEN 325 MG/TAB TABLET PO PRN (18:55)
[2016-05-24] MEDS: NS 1,000 ML IV SCH ×3 (01:08→17:28)
[2016-05-24] MEDS: SODIUM CHLORIDE 0.9% 3 ML FLUSH FLUSH SCH ×2 (06:27→17:26)
[2016-05-24] MEDS: REGULAR INSULIN 100 UNITS/ML - 3 ML VIAL SQ SCH ×4 (06:27→23:07)
[2016-05-24 08:11] LABS: MPV 8.1 fL (7.4-10.4)
[2016-05-24 08:26] LABS: BLOOD UREA NITROGEN 30 MG/DL (7-17); CALCIUM 7.5 MG/DL (8.4-10.2); CALCULATED OSMOLALITY 254 MOs/Kg (270-290); CHLORIDE 104 mEq/L (98-107); GLUCOSE 77 MG/DL (70-99); SODIUM LEVEL 129 mEq/L (137-146)
[2016-05-24] MEDS: Levofloxacin 750 mg/150 ml D5W 750 MG/150 ML RTU IV SCH (08:53)
[2016-05-24] MEDS: FUROSEMIDE 40 MG/4 ML VIAL IV SCH ×2 (08:53→16:00)
[2016-05-24] MEDS: ATENOLOL 50 MG TAB PO SCH (08:54)
[2016-05-24] MEDS: COLLAGENASE OINTMENT 30 GM TUBE TOP SCH (08:54)
[2016-05-24] MEDS: PROBIOTIC BLEND TAB PO SCH ×2 (11:48→17:29)
--- NOTE | 2016-05-24 17:09 | GENMEDPROG ---
Chief Complaint: Bilateral lower extremity cellulitis, edema bilateral leg wounds Subjective Note: No new complaints. Notes Reviewed: Yes Events from last night noted and discussed with Clinical Staff Current Medication List: Reviewed Currently: Reports: FOSTER, SOB. Denies: Cough, Wheezing, Abdominal Pain, Fever/ Chills, Chest Pain DVT Prophylaxis: Yes - Physical Examination Vital Signs and I&O: Last Vital Signs Temp 98.1 F 05/24/16 15:00 Pulse 78 05/24/16 15:00 Resp 20 05/24/16 15:00 BP 102/72 05/24/16 16:15 Pulse Ox 100 05/24/16 15:00 Oxygen Pulse Oxygen Saturation 100 O2 Device Room Air Oxygen Flow Rate Fraction of Inspired Oxygen ( FIO2) Intake & Output 05/21/16 05/22/16 05/23/16 05/24/16 23:59 23:59 23:59 23:59 Intake Total 872 360 4825 1759 Output Total 266 801 3663 1225 Balance -316 727 1712 534 Patient's weight 213 lb 9 oz 210 lb 6 oz 210 lb 5 oz 208 lb 0.2 oz General: Alert, Oriented x3, Cooperative, Mild distress HEENT: Normal (Normocephalic, atraumatic;EOMI.Sclera white, Nares patent, without discharge or bleeding. No oropharyngeal lesions or erythema. Mucous membranes are dry.) Neck: Normal Trachea alignment, Normal inspection Lymphatics: Normal (No cervical lymphadenopathy. No supraclavicular lymphadenopathy.) Respiratory: Normal - CTA (Clear to auscultation bilaterally. No wheezing, rales , rhonchi. Chest wall movements are symmetric. No use of accessory muscles to breathe.) Cardiovascular: Regular rate, No Gallops,Rubs/Murmurs, LE Edema GI: Normal bowel sounds, Soft, Non tender (non distended) Extremities/Musculoskeletal: Normal pulses, Tenderness, Swelling, Edema, Other ( Legs on wrapped today by wound care, erythema seems to be improved. She has bilateral 3+ pitting edema up to the lower abdomen.) Skin: Warm,Dry and Intact, No rashes, No significant lesion Neurological: Strength at 5/5 X4 ext (Motor 5/5 throughout.), Normal tone, Cranial nerves 3-12 NL ( 2-12 grossly intact.) Psych/Mental Status: Appropriate, Normal Affect Lab/DI/Studies Reviewed: 05/24/16 07:11 05/24/16 07:11 - Assessment (1) Hyponatremia Acute E87.1 - HYPO-OSMOLALITY AND HYPONATREMIA Comment/Plan: 05/24/2016 sodium continues to improve. Recheck in a.m.. (2) Acute kidney injury Acute N17.9 - ACUTE KIDNEY FAILURE, UNSPECIFIED Comment/Plan: 05/24/2016 patient's creatinine is gradually improving. Recheck in a.m.. (3) Urinary tract infection Acute N39.0 - URINARY TRACT INFECTION, SITE NOT SPECIFIED Qualifiers: Urinary tract infection type: acute cystitis Hematuria presence: without hematuria Qualified Code(s): N30.00 - Acute cystitis without hematuria Comment/Plan: Urine culture obtained, antibiotics were narrowed to Levaquin. Has completed treatment for UTI, continue for leg wounds. (4) Anemia Chronic D64.9 - ANEMIA, UNSPECIFIED Qualifiers: Anemia type: unspecified type Qualified Code(s): D64.9 - Anemia, unspecified Comment/Plan: 05/24/2016 patient requires transfusion of packed RBCs. Recheck in a.m.. No obvious blood loss. 05/21/2016 decrease in hemoglobin. Will hold off on transfusion. Recheck in a.m.. 05/20/2016 roughly stable. Continue to monitor. 05/19/2016 Hemoglobin up to 8.2. Will continue to monitor. Transfuse as needed. 05/16/2016 Hemoglobin was 6.2 the time of admission to the hospital, has improved well with transfusion. There is some iron deficiency, the patient tells me that she has had significant oozing of blood from her wounds, this is the likely source of her anemia. Will also guaiac her stools. 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 Culture from leg wound growing Pseudomonas, narrow antibiotics to Levaquin today await sensitivities. (6) HTN (hypertension) Chronic I10 - ESSENTIAL (PRIMARY) HYPERTENSION Qualifiers: Hypertension type: essential hypertension Qualified Code(s): I10 - Essential (primary) hypertension Comment/Plan: Continuation of previous medication. Case Care Discussed with: Patient, Nursing Staff Total Time: 40 Critical Care: No Code: 03413 (12+)
[2016-05-24] MEDS: ENOXAPARIN 40 MG/0.4 ML PFS SQ SCH (17:28)
[2016-05-24 20:54] LABS: ALLEN'S TEST PASS; BEb -8.6 (+/- 2); TCO2 16.4 MMOL/L (23-27)
[2016-05-24 20:57] LABS: ABG Draw Site Right Radial
[2016-05-25] MEDS: SODIUM CHLORIDE 0.9% 3 ML FLUSH FLUSH SCH ×3 (05:26→17:00)
[2016-05-25] MEDS: REGULAR INSULIN 100 UNITS/ML - 3 ML VIAL SQ SCH ×4 (06:13→21:02)
[2016-05-25 07:09] LABS: AUTOMATED BASOPHIL 0.8 % (0-2); AUTOMATED EOSINOPHIL 0.6 % (0-5); AUTOMATED LYMPH 9.8 % (17-44); AUTOMATED MONOCYTE 6.4 % (3-10); AUTOMATED NEUTROPHIL 82.4 % (45-76); MPV 8.7 fL (7.4-10.4)
[2016-05-25 07:35] LABS: BLOOD UREA NITROGEN 31 MG/DL (7-17); CALCIUM 7.8 MG/DL (8.4-10.2); CALCULATED OSMOLALITY 259 MOs/Kg (270-290); CHLORIDE 108 mEq/L (98-107); GLUCOSE 80 MG/DL (70-99); SODIUM LEVEL 131 mEq/L (137-146)
[2016-05-25] MEDS: FUROSEMIDE 40 MG/4 ML VIAL IV SCH ×2 (07:58→16:59)
[2016-05-25] MEDS: ATENOLOL 50 MG TAB PO SCH (07:58)
[2016-05-25] MEDS: NS 1,000 ML IV SCH ×3 (08:01→17:02)
[2016-05-25] MEDS: PROBIOTIC BLEND TAB PO SCH ×2 (11:26→16:59)
[2016-05-25] MEDS: COLLAGENASE OINTMENT 30 GM TUBE TOP SCH (11:26)
[2016-05-25] MEDS: ENOXAPARIN 40 MG/0.4 ML PFS SQ SCH (17:00)
--- NOTE | 2016-05-25 19:09 | GENMEDPROG ---
Chief Complaint: Bilateral lower extremity cellulitis, edema bilateral leg wounds Subjective Note: No specific complaints Notes Reviewed: Yes Events from last night noted and discussed with Clinical Staff Current Medication List: Reviewed Currently: Reports: FOSTER, SOB. Denies: Cough, Wheezing, Abdominal Pain, Fever/ Chills, Chest Pain DVT Prophylaxis: Yes - Physical Examination Vital Signs and I&O: Last Vital Signs Temp 97.5 F 05/25/16 13:51 Pulse 72 05/25/16 13:51 Resp 20 05/25/16 13:51 BP 108/59 L 05/25/16 13:51 Pulse Ox 100 05/25/16 13:51 Oxygen Pulse Oxygen Saturation 100 O2 Device Room Air Oxygen Flow Rate Fraction of Inspired Oxygen ( FIO2) Intake & Output 05/22/16 05/23/16 05/24/16 05/25/16 23:59 23:59 23:59 23:59 Intake Total 940 3144 3858 2906 Output Total 600 1075 1575 1850 Balance 340 2069 2283 1056 Patient's weight 210 lb 6 oz 210 lb 5 oz 208 lb 0.2 oz 210 lb 6.4 oz General: Alert, Oriented x3, Cooperative, Mild distress HEENT: Normal (Normocephalic, atraumatic;EOMI.Sclera white, Nares patent, without discharge or bleeding. No oropharyngeal lesions or erythema. Mucous membranes are dry.) Neck: Normal Trachea alignment, Normal inspection Lymphatics: Normal (No cervical lymphadenopathy. No supraclavicular lymphadenopathy.) Respiratory: Normal - CTA (Clear to auscultation bilaterally. No wheezing, rales , rhonchi. Chest wall movements are symmetric. No use of accessory muscles to breathe.) Cardiovascular: Regular rate, No Gallops,Rubs/Murmurs, LE Edema GI: Normal bowel sounds, Soft, Non tender (non distended) Extremities/Musculoskeletal: Normal pulses, Tenderness, Swelling, Edema, Other ( Legs on wrapped today by wound care, erythema seems to be improved. She has bilateral 3+ pitting edema up to the lower abdomen.) Skin: Warm,Dry and Intact, No rashes, No significant lesion Neurological: Strength at 5/5 X4 ext (Motor 5/5 throughout.), Normal tone, Cranial nerves 3-12 NL ( 2-12 grossly intact.) Psych/Mental Status: Appropriate, Normal Affect Lab/DI/Studies Reviewed: 05/25/16 06:35 05/25/16 06:35 - Assessment (1) Hyponatremia Acute E87.1 - HYPO-OSMOLALITY AND HYPONATREMIA Comment/Plan: 05/25/2016 sodium improves further. Follow as needed. 05/24/2016 sodium continues to improve. Recheck in a.m.. (2) Acute kidney injury Acute N17.9 - ACUTE KIDNEY FAILURE, UNSPECIFIED Comment/Plan: 05/25/2016 patient's creatinine improving. Continue to follow as needed. Continue current care. 05/24/2016 patient's creatinine is gradually improving. Recheck in a.m.. (3) Urinary tract infection Acute N39.0 - URINARY TRACT INFECTION, SITE NOT SPECIFIED Qualifiers: Urinary tract infection type: acute cystitis Hematuria presence: without hematuria Qualified Code(s): N30.00 - Acute cystitis without hematuria Comment/Plan: Urine culture obtained, antibiotics were narrowed to Levaquin. Has completed treatment for UTI, continue for leg wounds. (4) Anemia Chronic D64.9 - ANEMIA, UNSPECIFIED Qualifiers: Anemia type: unspecified type Qualified Code(s): D64.9 - Anemia, unspecified Comment/Plan: 05/25/2016 improved post transfusion. Follow as needed. 05/24/2016 patient requires transfusion of packed RBCs. Recheck in a.m.. No obvious blood loss. 05/21/2016 decrease in hemoglobin. Will hold off on transfusion. Recheck in a.m.. 05/20/2016 roughly stable. Continue to monitor. 05/19/2016 Hemoglobin up to 8.2. Will continue to monitor. Transfuse as needed. 05/16/2016 Hemoglobin was 6.2 the time of admission to the hospital, has improved well with transfusion. There is some iron deficiency, the patient tells me that she has had significant oozing of blood from her wounds, this is the likely source of her anemia. Will also guaiac her stools. 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 Culture from leg wound growing Pseudomonas, narrow antibiotics to Levaquin today await sensitivities. (6) HTN (hypertension) Chronic I10 - ESSENTIAL (PRIMARY) HYPERTENSION Qualifiers: Hypertension type: essential hypertension Qualified Code(s): I10 - Essential (primary) hypertension Comment/Plan: Continuation of previous medication. Case Care Discussed with: Patient, Nursing Staff Total Time: 40 Critical Care: No Code: 60818 (12+)
[2016-05-25] MEDS ORDERED: Aluminum;Magnesium;Simethicone 30 ML UDC PO PRN (21:17)
[2016-05-26] MEDS: LORAZEPAM 1 MG TAB PO PRN
[2016-05-26] MEDS: ACETAMINOPHEN 325 MG/TAB TABLET PO PRN
[2016-05-26] MEDS: NS 1,000 ML IV SCH ×4 (02:54→23:19)
[2016-05-26] MEDS: SODIUM CHLORIDE 0.9% 3 ML FLUSH FLUSH SCH ×2 (03:00→17:06)
[2016-05-26] MEDS: REGULAR INSULIN 100 UNITS/ML - 3 ML VIAL SQ SCH ×4 (06:04→21:05)
[2016-05-26] MEDS: FUROSEMIDE 40 MG/4 ML VIAL IV SCH ×2 (07:56→15:40)
[2016-05-26] MEDS: Levofloxacin 750 mg/150 ml D5W 750 MG/150 ML RTU IV SCH (07:56)
[2016-05-26] MEDS: COLLAGENASE OINTMENT 30 GM TUBE TOP SCH (07:56)
[2016-05-26] MEDS: ATENOLOL 50 MG TAB PO SCH (07:56)
[2016-05-26] MEDS: PROBIOTIC BLEND TAB PO SCH ×2 (07:57→17:06)
--- NOTE | 2016-05-26 10:50 | GENMEDPROG ---
Chief Complaint: Acute kidney injury, leg wounds Subjective Note: Doing well, she has no acute complaints. Her legs were rewrapped yesterday. Denies any chest pain, shortness of breath, nausea or vomiting. Notes Reviewed: Yes Events from last night noted and discussed with Clinical Staff Current Medication List: Reviewed Currently: Reports: FOSTER, SOB. Denies: Cough, Wheezing, Abdominal Pain, Fever/ Chills, Chest Pain DVT Prophylaxis: Yes - Physical Examination Vital Signs and I&O: Last Vital Signs Temp 98.1 F 05/26/16 06:35 Pulse 75 05/26/16 06:35 Resp 18 05/26/16 06:35 BP 121/74 05/26/16 06:35 Pulse Ox 99 05/26/16 06:35 Oxygen Pulse Oxygen Saturation 99 O2 Device Room Air Oxygen Flow Rate Fraction of Inspired Oxygen ( FIO2) Intake & Output 05/24/16 05/25/16 05/26/16 05/27/16 06:59 06:59 06:59 06:59 Intake Total 3855 3369 3205 240 Output Total 1575 1775 1900 Balance 2280 1594 1305 240 Patient's weight 94.353 kg 95.436 kg 96.388 kg General: Alert, Oriented x3, Cooperative, Mild distress HEENT: Normal (Normocephalic, atraumatic;EOMI.Sclera white, Nares patent, without discharge or bleeding. No oropharyngeal lesions or erythema. Mucous membranes are dry.) Neck: Normal Trachea alignment, Normal inspection Lymphatics: Normal (No cervical lymphadenopathy. No supraclavicular lymphadenopathy.) Respiratory: Normal - CTA (Clear to auscultation bilaterally. No wheezing, rales , rhonchi. Chest wall movements are symmetric. No use of accessory muscles to breathe.) Cardiovascular: Regular rate, No Gallops,Rubs/Murmurs, LE Edema GI: Normal bowel sounds, Soft, Non tender (non distended) Extremities/Musculoskeletal: Normal pulses, Tenderness, Swelling, Edema, Other ( Legs on wrapped today by wound care, erythema seems to be improved. She has bilateral 3+ pitting edema up to the lower abdomen.) Skin: Warm,Dry and Intact, No rashes, No significant lesion Neurological: Strength at 5/5 X4 ext (Motor 5/5 throughout.), Normal tone, Cranial nerves 3-12 NL ( 2-12 grossly intact.) Psych/Mental Status: Appropriate, Normal Affect Lab/DI/Studies Reviewed: Laboratory Tests 05/24/16 05/25/16 05/25/16 07:11 06:35 06:35 WBC 14.5 H Hgb 10.3 L D Potassium 4.2 BUN 31 H Creatinine 2.80 H 2.40 H - Assessment (1) Acute kidney injury Acute N17.9 - ACUTE KIDNEY FAILURE, UNSPECIFIED Comment/Plan: Came in with some acute kidney injury, worsened over time here in the hospital. Had normal renal ultrasound this hospital stay. Creatinine now seems to have stabilized and is turning around. Will recheck in the morning. (2) Hyponatremia Acute E87.1 - HYPO-OSMOLALITY AND HYPONATREMIA Comment/Plan: Last sodium check has been improving, with saline administration, and gentle Lasix. Continue to follow daily. (3) Urinary tract infection Acute N39.0 - URINARY TRACT INFECTION, SITE NOT SPECIFIED Qualifiers: Urinary tract infection type: acute cystitis Hematuria presence: without hematuria Qualified Code(s): N30.00 - Acute cystitis without hematuria Comment/Plan: Urine culture obtained, antibiotics were narrowed to Levaquin. Has completed treatment for UTI, continue for leg wounds. (4) Anemia Chronic D64.9 - ANEMIA, UNSPECIFIED Qualifiers: Anemia type: unspecified type Qualified Code(s): D64.9 - Anemia, unspecified Comment/Plan: 05/21/2016 decrease in hemoglobin. Will hold off on transfusion. Recheck in a.m.. 05/20/2016 roughly stable. Continue to monitor. 05/19/2016 Hemoglobin up to 8.2. Will continue to monitor. Transfuse as needed. 05/16/2016 Hemoglobin was 6.2 the time of admission to the hospital, has improved well with transfusion. There is some iron deficiency, the patient tells me that she has had significant oozing of blood from her wounds, this is the likely source of her anemia. Will also guaiac her stools. 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 Culture from leg wound growing Pseudomonas, narrow antibiotics to Levaquin today await sensitivities. (6) HTN (hypertension) Chronic I10 - ESSENTIAL (PRIMARY) HYPERTENSION Qualifiers: Hypertension type: essential hypertension Qualified Code(s): I10 - Essential (primary) hypertension Comment/Plan: Continuation of previous medication.
[2016-05-26] MEDS: ENOXAPARIN 40 MG/0.4 ML PFS SQ SCH (17:06)
[2016-05-26] MEDS: TUSSIONEX 5 ML ORAL SYRINGE PO PRN (23:57)
[2016-05-27] MEDS: SODIUM CHLORIDE 0.9% 3 ML FLUSH FLUSH SCH ×2 (05:42→16:58)
[2016-05-27] MEDS: REGULAR INSULIN 100 UNITS/ML - 3 ML VIAL SQ SCH ×4 (05:42→21:26)
[2016-05-27] MEDS: NS 1,000 ML IV SCH ×2 (07:43→16:39)
[2016-05-27] MEDS: FUROSEMIDE 40 MG/4 ML VIAL IV SCH ×2 (09:17→16:49)
[2016-05-27] MEDS: COLLAGENASE OINTMENT 30 GM TUBE TOP SCH (09:18)
[2016-05-27] MEDS: ATENOLOL 50 MG TAB PO SCH (09:19)
[2016-05-27 09:39] LABS: MPV 7.8 fL (7.4-10.4)
[2016-05-27 09:53] LABS: BLOOD UREA NITROGEN 33 MG/DL (7-17); CALCIUM 7.3 MG/DL (8.4-10.2); CALCULATED OSMOLALITY 265 MOs/Kg (270-290); CHLORIDE 107 mEq/L (98-107); GLUCOSE 61 MG/DL (70-99); SODIUM LEVEL 135 mEq/L (137-146)
[2016-05-27] MEDS: PROBIOTIC BLEND TAB PO SCH ×2 (12:20→16:58)
--- NOTE | 2016-05-27 13:36 | GENMEDPROG ---
Chief Complaint: Lower extremity swelling, wounds Subjective Note: Doing well, has no acute complaints. Has not been eating very much, blood sugar has been low. Notes Reviewed: Yes Events from last night noted and discussed with Clinical Staff Current Medication List: Reviewed Currently: Reports: FOSTER, SOB. Denies: Cough, Wheezing, Abdominal Pain, Fever/ Chills, Chest Pain DVT Prophylaxis: Yes - Physical Examination Vital Signs and I&O: Last Vital Signs Temp 98 F 05/27/16 05:20 Pulse 79 05/27/16 13:15 Resp 18 05/27/16 13:15 BP 96/63 L 05/27/16 13:15 Pulse Ox 100 05/27/16 13:15 Oxygen Pulse Oxygen Saturation 100 O2 Device Room Air Oxygen Flow Rate Fraction of Inspired Oxygen ( FIO2) Intake & Output 05/25/16 05/26/16 05/27/16 05/28/16 06:59 06:59 06:59 06:59 Intake Total 3369 3205 3238 973 Output Total 1775 1900 1000 100 Balance 1594 1305 2238 873 Patient's weight 95.436 kg 96.388 kg 98.628 kg General: Alert, Oriented x3, Cooperative, Mild distress HEENT: Normal (Normocephalic, atraumatic;EOMI.Sclera white, Nares patent, without discharge or bleeding. No oropharyngeal lesions or erythema. Mucous membranes are dry.) Neck: Normal Trachea alignment, Normal inspection Lymphatics: Normal (No cervical lymphadenopathy. No supraclavicular lymphadenopathy.) Respiratory: Normal - CTA (Clear to auscultation bilaterally. No wheezing, rales , rhonchi. Chest wall movements are symmetric. No use of accessory muscles to breathe.) Cardiovascular: Regular rate, No Gallops,Rubs/Murmurs, LE Edema GI: Normal bowel sounds, Soft, Non tender (non distended) Extremities/Musculoskeletal: Normal pulses, Tenderness, Swelling, Edema, Other ( Legs on wrapped today by wound care, erythema seems to be improved. She has bilateral 3+ pitting edema up to the lower abdomen.) Skin: Warm,Dry and Intact, No rashes, No significant lesion Neurological: Strength at 5/5 X4 ext (Motor 5/5 throughout.), Normal tone, Cranial nerves 3-12 NL ( 2-12 grossly intact.) Psych/Mental Status: Appropriate, Normal Affect Edema is only minimally improved. Lab/DI/Studies Reviewed: Laboratory Tests 05/27/16 05/27/16 09:15 09:15 WBC 15.9 H Hgb 9.3 L Potassium 3.5 BUN 33 H Creatinine 2.30 H - Assessment (1) Acute kidney injury Acute N17.9 - ACUTE KIDNEY FAILURE, UNSPECIFIED Comment/Plan: Creatinine gradually improving, continue to monitor daily. (2) Hyponatremia Acute E87.1 - HYPO-OSMOLALITY AND HYPONATREMIA Comment/Plan: 05/25/2016 sodium improves further. Follow as needed. 05/24/2016 sodium continues to improve. Recheck in a.m.. (3) Urinary tract infection Acute N39.0 - URINARY TRACT INFECTION, SITE NOT SPECIFIED Qualifiers: Urinary tract infection type: acute cystitis Hematuria presence: without hematuria Qualified Code(s): N30.00 - Acute cystitis without hematuria Comment/Plan: Urine culture obtained, antibiotics were narrowed to Levaquin. Has completed treatment for UTI, continue for leg wounds. (4) Anemia Chronic D64.9 - ANEMIA, UNSPECIFIED Qualifiers: Anemia type: unspecified type Qualified Code(s): D64.9 - Anemia, unspecified Comment/Plan: 05/25/2016 improved post transfusion. Follow as needed. 05/24/2016 patient requires transfusion of packed RBCs. Recheck in a.m.. No obvious blood loss. 05/21/2016 decrease in hemoglobin. Will hold off on transfusion. Recheck in a.m.. 05/20/2016 roughly stable. Continue to monitor. 05/19/2016 Hemoglobin up to 8.2. Will continue to monitor. Transfuse as needed. 05/16/2016 Hemoglobin was 6.2 the time of admission to the hospital, has improved well with transfusion. There is some iron deficiency, the patient tells me that she has had significant oozing of blood from her wounds, this is the likely source of her anemia. Will also guaiac her stools. 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 Culture from leg wound growing Pseudomonas, narrow antibiotics to Levaquin today await sensitivities. (6) HTN (hypertension) Chronic I10 - ESSENTIAL (PRIMARY) HYPERTENSION Qualifiers: Hypertension type: essential hypertension Qualified Code(s): I10 - Essential (primary) hypertension Comment/Plan: Continuation of previous medication. Total Time: 41
[2016-05-27] MEDS: ENOXAPARIN 40 MG/0.4 ML PFS SQ SCH (16:58)
[2016-05-28] MEDS: NS 1,000 ML IV SCH (02:33)
[2016-05-28] MEDS: SODIUM CHLORIDE 0.9% 3 ML FLUSH FLUSH SCH (04:47)
[2016-05-28] MEDS: TUSSIONEX 5 ML ORAL SYRINGE PO PRN (04:47)
[2016-05-28] MEDS ORDERED: WATER 20 ML ONE (04:51)
[2016-05-28] MEDS: REGULAR INSULIN 100 UNITS/ML - 3 ML VIAL SQ SCH ×4 (05:51→21:50)
[2016-05-28 08:07] LABS: MPV 8.5 fL (7.4-10.4)
[2016-05-28 08:21] LABS: BLOOD UREA NITROGEN 33 MG/DL (7-17); CALCIUM 7.2 MG/DL (8.4-10.2); CALCULATED OSMOLALITY 266 MOs/Kg (270-290); CHLORIDE 110 mEq/L (98-107); GLUCOSE 73 MG/DL (70-99); SODIUM LEVEL 135 mEq/L (137-146)
[2016-05-28] MEDS: FUROSEMIDE 40 MG/4 ML VIAL IV SCH ×2 (08:43→18:02)
[2016-05-28] MEDS: Levofloxacin 750 mg/150 ml D5W 750 MG/150 ML RTU IV SCH (08:43)
[2016-05-28] MEDS: ATENOLOL 50 MG TAB PO SCH (08:44)
[2016-05-28] MEDS: COLLAGENASE OINTMENT 30 GM TUBE TOP SCH (10:50)
[2016-05-28] MEDS: PROBIOTIC BLEND TAB PO SCH ×2 (12:05→18:38)
[2016-05-28] MEDS ORDERED: COLLAGENASE OINTMENT 30 GM TUBE TOP SCH (13:00)
[2016-05-28] MEDS: ENOXAPARIN 40 MG/0.4 ML PFS SQ SCH (18:03)
[2016-05-28] MEDS ORDERED: NS 500 ML IV ONE (21:22)
[2016-05-28] MEDS ORDERED: GUAIFENESIN 600 MG LA TAB PO PRN (21:22)
[2016-05-29] MEDS: LORAZEPAM 1 MG TAB PO PRN ×2 (04:05→21:23)
[2016-05-29] MEDS: REGULAR INSULIN 100 UNITS/ML - 3 ML VIAL SQ SCH ×4 (06:35→21:18)
[2016-05-29 07:30] LABS: MPV 8.6 fL (7.4-10.4)
[2016-05-29 07:55] LABS: BLOOD UREA NITROGEN 35 MG/DL (7-17); CALCIUM 7.6 MG/DL (8.4-10.2); CALCULATED OSMOLALITY 268 MOs/Kg (270-290); CHLORIDE 110 mEq/L (98-107); GLUCOSE 70 MG/DL (70-99); SODIUM LEVEL 136 mEq/L (137-146)
[2016-05-29] MEDS: COLLAGENASE OINTMENT 30 GM TUBE TOP SCH (10:05)
[2016-05-29] MEDS: ATENOLOL 50 MG TAB PO SCH (10:37)
[2016-05-29] MEDS: FUROSEMIDE 40 MG/4 ML VIAL IV SCH ×2 (10:40→17:03)
[2016-05-29] MEDS: PROBIOTIC BLEND TAB PO SCH ×2 (12:10→17:03)
--- NOTE | 2016-05-29 13:47 | GENMEDPROG ---
Chief Complaint: Fluid overload, lower extremity wounds Subjective Note: No complaints, resting comfortably in a chair at the bedside. Currently: Reports: FOSTER, SOB. Denies: Cough, Wheezing, Abdominal Pain, Fever/ Chills, Chest Pain DVT Prophylaxis: Yes - Physical Examination Vital Signs and I&O: Last Vital Signs Temp 97.6 F 05/29/16 10:35 Pulse 73 05/29/16 10:35 Resp 18 05/29/16 10:35 BP 96/56 L 05/29/16 10:35 Pulse Ox 100 05/29/16 10:35 Oxygen Pulse Oxygen Saturation 100 O2 Device Room Air Oxygen Flow Rate Fraction of Inspired Oxygen ( FIO2) Intake & Output 05/27/16 05/28/16 05/29/16 05/30/16 06:59 06:59 06:59 06:59 Intake Total 3238 2916 1697 120 Output Total 1000 650 75 Balance 2238 2266 1622 120 Patient's weight 98.628 kg 98.543 kg 97.551 kg General: Alert, Oriented x3, Cooperative, Mild distress HEENT: Normal (Normocephalic, atraumatic;EOMI.Sclera white, Nares patent, without discharge or bleeding. No oropharyngeal lesions or erythema. Mucous membranes are dry.) Neck: Normal Trachea alignment, Normal inspection Lymphatics: Normal (No cervical lymphadenopathy. No supraclavicular lymphadenopathy.) Respiratory: Normal - CTA (Clear to auscultation bilaterally. No wheezing, rales , rhonchi. Chest wall movements are symmetric. No use of accessory muscles to breathe.) Cardiovascular: Regular rate, No Gallops,Rubs/Murmurs, LE Edema GI: Normal bowel sounds, Soft, Non tender (non distended) Extremities/Musculoskeletal: Normal pulses, Tenderness, Swelling, Edema, Other ( Legs on wrapped today by wound care, erythema seems to be improved. She has bilateral 3+ pitting edema up to the lower abdomen.) Skin: Warm,Dry and Intact, No rashes, No significant lesion Neurological: Strength at 5/5 X4 ext (Motor 5/5 throughout.), Normal tone, Cranial nerves 3-12 NL ( 2-12 grossly intact.) Psych/Mental Status: Appropriate, Normal Affect - Assessment (1) Acute kidney injury Acute N17.9 - ACUTE KIDNEY FAILURE, UNSPECIFIED Comment/Plan: Creatinine gradually improving, continue to monitor daily. (2) Hyponatremia Acute E87.1 - HYPO-OSMOLALITY AND HYPONATREMIA Comment/Plan: 05/25/2016 sodium improves further. Follow as needed. 05/24/2016 sodium continues to improve. Recheck in a.m.. (3) Urinary tract infection Acute N39.0 - URINARY TRACT INFECTION, SITE NOT SPECIFIED Qualifiers: Urinary tract infection type: acute cystitis Hematuria presence: without hematuria Qualified Code(s): N30.00 - Acute cystitis without hematuria Comment/Plan: Urine culture obtained, antibiotics were narrowed to Levaquin. Has completed treatment for UTI, continue for leg wounds. (4) Anemia Chronic D64.9 - ANEMIA, UNSPECIFIED Qualifiers: Anemia type: unspecified type Qualified Code(s): D64.9 - Anemia, unspecified Comment/Plan: 05/25/2016 improved post transfusion. Follow as needed. 05/24/2016 patient requires transfusion of packed RBCs. Recheck in a.m.. No obvious blood loss. 05/21/2016 decrease in hemoglobin. Will hold off on transfusion. Recheck in a.m.. 05/20/2016 roughly stable. Continue to monitor. 05/19/2016 Hemoglobin up to 8.2. Will continue to monitor. Transfuse as needed. 05/16/2016 Hemoglobin was 6.2 the time of admission to the hospital, has improved well with transfusion. There is some iron deficiency, the patient tells me that she has had significant oozing of blood from her wounds, this is the likely source of her anemia. Will also guaiac her stools. 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 Culture from leg wound growing Pseudomonas, narrow antibiotics to Levaquin today await sensitivities. (6) HTN (hypertension) Chronic I10 - ESSENTIAL (PRIMARY) HYPERTENSION Qualifiers: Hypertension type: essential hypertension Qualified Code(s): I10 - Essential (primary) hypertension Comment/Plan: Continuation of previous medication.
--- NOTE | 2016-05-29 13:49 | GENMEDPROG ---
Chief Complaint: Leg wounds, fluid overload, acute kidney injury Subjective Note: Doing well, has no acute complaints. Wonders when she can leave the hospital. Notes Reviewed: Yes Events from last night noted and discussed with Clinical Staff Current Medication List: Reviewed Currently: Reports: FOSTER, SOB. Denies: Cough, Wheezing, Abdominal Pain, Fever/ Chills, Chest Pain DVT Prophylaxis: Yes - Physical Examination Vital Signs and I&O: Last Vital Signs Temp 97.6 F 05/29/16 10:35 Pulse 73 05/29/16 10:35 Resp 18 05/29/16 10:35 BP 96/56 L 05/29/16 10:35 Pulse Ox 100 05/29/16 10:35 Oxygen Pulse Oxygen Saturation 100 O2 Device Room Air Oxygen Flow Rate Fraction of Inspired Oxygen ( FIO2) Intake & Output 05/27/16 05/28/16 05/29/16 05/30/16 06:59 06:59 06:59 06:59 Intake Total 3238 2916 1697 120 Output Total 1000 650 75 Balance 2238 2266 1622 120 Patient's weight 98.628 kg 98.543 kg 97.551 kg General: Alert, Oriented x3, Cooperative, Mild distress HEENT: Normal (Normocephalic, atraumatic;EOMI.Sclera white, Nares patent, without discharge or bleeding. No oropharyngeal lesions or erythema. Mucous membranes are dry.) Neck: Normal Trachea alignment, Normal inspection Lymphatics: Normal (No cervical lymphadenopathy. No supraclavicular lymphadenopathy.) Respiratory: Normal - CTA (Clear to auscultation bilaterally. No wheezing, rales , rhonchi. Chest wall movements are symmetric. No use of accessory muscles to breathe.) Cardiovascular: Regular rate, No Gallops,Rubs/Murmurs, LE Edema GI: Normal bowel sounds, Soft, Non tender (non distended) Extremities/Musculoskeletal: Normal pulses, Tenderness, Swelling, Edema, Other ( Legs on wrapped today by wound care, erythema seems to be improved. She has bilateral 3+ pitting edema up to the lower abdomen.) Skin: Warm,Dry and Intact, No rashes, No significant lesion Neurological: Strength at 5/5 X4 ext (Motor 5/5 throughout.), Normal tone, Cranial nerves 3-12 NL ( 2-12 grossly intact.) Psych/Mental Status: Appropriate, Normal Affect Lab/DI/Studies Reviewed: Laboratory Tests 05/27/16 05/28/16 05/28/16 09:15 07:47 07:47 WBC 15.4 H Hgb 8.5 L Potassium 3.4 L BUN 33 H Creatinine 2.30 H 2.30 H 05/29/16 05/29/16 06:56 06:56 WBC Hgb 8.8 L Potassium BUN 35 H Creatinine 2.40 H - Assessment (1) Acute kidney injury Acute N17.9 - ACUTE KIDNEY FAILURE, UNSPECIFIED Comment/Plan: Creatinine gradually improving, continue to monitor daily. (2) Hyponatremia Acute E87.1 - HYPO-OSMOLALITY AND HYPONATREMIA Comment/Plan: Discontinued maintenance IV fluids. Increase diuresis yesterday. (3) Urinary tract infection Acute N39.0 - URINARY TRACT INFECTION, SITE NOT SPECIFIED Qualifiers: Urinary tract infection type: acute cystitis Hematuria presence: without hematuria Qualified Code(s): N30.00 - Acute cystitis without hematuria Comment/Plan: Urine culture obtained, antibiotics were narrowed to Levaquin. Has completed treatment for UTI, continue for leg wounds. (4) Anemia Chronic D64.9 - ANEMIA, UNSPECIFIED Qualifiers: Anemia type: unspecified type Qualified Code(s): D64.9 - Anemia, unspecified Comment/Plan: 05/25/2016 improved post transfusion. Follow as needed. 05/24/2016 patient requires transfusion of packed RBCs. Recheck in a.m.. No obvious blood loss. 05/21/2016 decrease in hemoglobin. Will hold off on transfusion. Recheck in a.m.. 05/20/2016 roughly stable. Continue to monitor. 05/19/2016 Hemoglobin up to 8.2. Will continue to monitor. Transfuse as needed. 05/16/2016 Hemoglobin was 6.2 the time of admission to the hospital, has improved well with transfusion. There is some iron deficiency, the patient tells me that she has had significant oozing of blood from her wounds, this is the likely source of her anemia. Will also guaiac her stools. 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 Culture from leg wound growing Pseudomonas, narrow antibiotics to Levaquin today await sensitivities. (6) HTN (hypertension) Chronic I10 - ESSENTIAL (PRIMARY) HYPERTENSION Qualifiers: Hypertension type: essential hypertension Qualified Code(s): I10 - Essential (primary) hypertension Comment/Plan: Continuation of previous medication.
[2016-05-30 06:22] VITALS: BMI 37.4
[2016-05-30] MEDS: REGULAR INSULIN 100 UNITS/ML - 3 ML VIAL SQ SCH ×4 (06:39→20:19)
[2016-05-30 08:39] LABS: MPV 8.8 fL (7.4-10.4)
[2016-05-30 08:56] LABS: BLOOD UREA NITROGEN 37 MG/DL (7-17); CALCIUM 7.6 MG/DL (8.4-10.2); CALCULATED OSMOLALITY 269 MOs/Kg (270-290); CHLORIDE 110 mEq/L (98-107); GLUCOSE 69 MG/DL (70-99); SODIUM LEVEL 136 mEq/L (137-146)
[2016-05-30] MEDS: FUROSEMIDE 40 MG/4 ML VIAL IV SCH ×3 (09:37→19:53)
[2016-05-30] MEDS: COLLAGENASE OINTMENT 30 GM TUBE TOP SCH (09:39)
[2016-05-30] MEDS: ATENOLOL 50 MG TAB PO SCH (13:22)
[2016-05-30] MEDS: PROBIOTIC BLEND TAB PO SCH ×2 (13:23→17:59)
[2016-05-30] MEDS: POTASSIUM CHLORIDE 20 MEQ TAB PO SCH ×2 (13:23→17:59)
--- NOTE | 2016-05-30 21:26 | GENMEDPROG ---
Currently: Reports: FOSTER, SOB. Denies: Cough, Wheezing, Abdominal Pain, Fever/ Chills, Chest Pain DVT Prophylaxis: Yes - Physical Examination Vital Signs and I&O: Last Vital Signs Temp 97.7 F 05/30/16 20:09 Pulse 77 05/30/16 20:09 Resp 16 05/30/16 20:09 BP 123/67 05/30/16 19:53 Pulse Ox 99 05/30/16 20:09 Oxygen Pulse Oxygen Saturation 99 O2 Device Room Air Oxygen Flow Rate Fraction of Inspired Oxygen ( FIO2) Intake & Output 05/27/16 05/28/16 05/29/16 05/30/16 23:59 23:59 23:59 23:59 Intake Total 2967 3021 520 840 Output Total 500 375 1 Balance 2467 2646 519 840 Patient's weight 98.628 kg 98.543 kg 97.551 kg 89.902 kg General: Alert, Oriented x3, Cooperative, Mild distress HEENT: Normal (Normocephalic, atraumatic;EOMI.Sclera white, Nares patent, without discharge or bleeding. No oropharyngeal lesions or erythema. Mucous membranes are dry.) Neck: Normal Trachea alignment, Normal inspection Lymphatics: Normal (No cervical lymphadenopathy. No supraclavicular lymphadenopathy.) Respiratory: Normal - CTA (Clear to auscultation bilaterally. No wheezing, rales , rhonchi. Chest wall movements are symmetric. No use of accessory muscles to breathe.) Cardiovascular: Regular rate, No Gallops,Rubs/Murmurs, LE Edema GI: Normal bowel sounds, Soft, Non tender (non distended) Extremities/Musculoskeletal: Normal pulses, Tenderness, Swelling, Edema, Other ( Legs on wrapped today by wound care, erythema seems to be improved. She has bilateral 3+ pitting edema up to the lower abdomen.) Skin: Warm,Dry and Intact, No rashes, No significant lesion Neurological: Strength at 5/5 X4 ext (Motor 5/5 throughout.), Normal tone, Cranial nerves 3-12 NL ( 2-12 grossly intact.) Psych/Mental Status: Appropriate, Normal Affect Lab/DI/Studies Reviewed: Laboratory Tests 05/30/16 05/30/16 05/30/16 07:46 07:46 11:01 WBC 13.7 H Hgb 8.8 L Hct 26.9 L Plt Count 51 L Sodium 136 L Potassium 3.3 L Chloride 110 H Carbon Dioxide 16 L Anion Gap 13 BUN 37 H Creatinine 2.50 H Estimated GFR (MDRD) 25 L Glucose 69 L POC Capillary Glucose 73 Calculated Osmolality 269 L Calcium 7.6 L 05/30/16 16:12 WBC Hgb Hct Plt Count Sodium Potassium Chloride Carbon Dioxide Anion Gap BUN Creatinine Estimated GFR (MDRD) Glucose POC Capillary Glucose 87 Calculated Osmolality Calcium - Assessment (1) Cellulitis Chronic L03.90 - CELLULITIS, UNSPECIFIED Qualifiers: Site of cellulitis: extremity Site of cellulitis of extremity: lower extremity Laterality: unspecified laterality Qualified Code(s): L03.119 - Cellulitis of unspecified part of limb Comment/Plan: 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 Culture from leg wound growing Pseudomonas, sensitive to Levaquin. Has been on this x 15 days. Needs to elevate leg and use EULALIO hose, anticoagulate with warfarin or NOAC. (2) Chronic kidney disease (CKD), stage IV (severe) Chronic N18.4 - CHRONIC KIDNEY DISEASE, STAGE 4 (SEVERE) Comment/Plan: Creatinine unchanged; this appears to be a chronic problem. (3) Acute kidney injury Ruled-out N17.9 - ACUTE KIDNEY FAILURE, UNSPECIFIED Comment/Plan: Creatinine unchanged; this appears to be a chronic problem. (4) Anemia Chronic D64.9 - ANEMIA, UNSPECIFIED Qualifiers: Anemia type: other cause Other causes of anemia: chronic disease, kidney Qualified Code(s): N18.9 - Chronic kidney disease, unspecified; D63.1 - Anemia in chronic kidney disease Comment/Plan: 05/25/2016 improved post transfusion. Has been transfused 4 units of PRBCs during admission. Current Hg = 8.8. (5) HTN (hypertension) Chronic I10 - ESSENTIAL (PRIMARY) HYPERTENSION Qualifiers: Hypertension type: essential hypertension Qualified Code(s): I10 - Essential (primary) hypertension Comment/Plan: Continue previous medication. (6) Hyponatremia Acute E87.1 - HYPO-OSMOLALITY AND HYPONATREMIA Comment/Plan: Discontinued maintenance IV fluids. Increase diuresis yesterday. - Plan Anticipate discharge in AM.
[2016-05-31] MEDS: REGULAR INSULIN 100 UNITS/ML - 3 ML VIAL SQ SCH ×3 (05:15→18:07)
[2016-05-31 06:00] VITALS: TEMP 98.3
--- NOTE | 2016-05-31 09:15 | PCM.DCS92 ---
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 Culture from leg wound growing Pseudomonas, sensitive to Levaquin. Has been on this x 15 days. Needs to elevate leg and use EULALIO hose, anticoagulate with warfarin or NOAC. (2) Chronic kidney disease (CKD), stage IV (severe) Chronic N18.4 - CHRONIC KIDNEY DISEASE, STAGE 4 (SEVERE) Present on Admission: Yes Comment: Creatinine unchanged; this appears to be a chronic problem. (3) Anemia Chronic D64.9 - ANEMIA, UNSPECIFIED Present on Admission: Yes other cause chronic disease, kidney N18.9 - Chronic kidney disease, unspecified; D63.1 - Anemia in chronic kidney disease Comment: 05/25/2016 improved post transfusion. Has been transfused 4 units of PRBCs during admission. Current Hg = 8.8. (4) HTN (hypertension) Chronic I10 - ESSENTIAL (PRIMARY) HYPERTENSION Present on Admission: Yes essential hypertension I10 - Essential (primary) hypertension Comment: Continue previous medication. (5) Hyponatremia Acute E87.1 - HYPO-OSMOLALITY AND HYPONATREMIA Present on Admission: No Comment: Current sodium level =136 (6) Acute kidney injury Ruled-out N17.9 - ACUTE KIDNEY FAILURE, UNSPECIFIED Present on Admission: No Comment: Creatinine unchanged; this appears to be a chronic problem. Discharge Disposition: Home Discharge Condition: Improved Cognitive Discharge Status: Unimpaired Fuctional Discharge Status: Independent, Deconditioning, Ambulatory Dysfunction , Other (chronic non-healing wound right leg) Physician Follow up/Referrals: Omar Floyd MD [Staff Physician] - 3-4 Days Lowell Lew MD [Primary Care Provider] - One Week New Prescriptions: Albuterol Sulfate MDI [Proventil HFA] 2 puff INH Q4HWA PRN #1 inhaler PRN Reason: Wheezing Collagenase [Santyl] 30 gm TOP DAILY #1 tube Furosemide [Lasix] 40 mg PO BID #60 tab Metformin HCl [Glucophage XR (Ext Release)] 500 mg PO DAILY #30 tab.sr.24h POTASSIUM CHLORIDE Tablet [K-DUR 20 mEq Tablet*] 20 meq PO BIDWM #60 tab.er.prt Discharge Home Medication List Atenolol 50 mg PO DAILY 04/17/16 [History Confirmed 05/15/16 Last Taken Unknown] Gabapentin 300 mg PO TID PRN 05/15/16 [History Confirmed 05/15/16 Last Taken Unknown] Albuterol Sulfate MDI [Proventil HFA] 2 puff INH Q4HWA PRN #1 inhaler 05/31/16 [ Rx Last Taken Unknown] Collagenase [Santyl] 30 gm TOP DAILY #1 tube 05/31/16 [Rx Last Taken Unknown] Furosemide [Lasix] 40 mg PO BID #60 tab 05/31/16 [Rx Last Taken Unknown] Metformin HCl [Glucophage XR (Ext Release)] 500 mg PO DAILY #30 tab.sr.24h 05/31 [Rx Last Taken Unknown] POTASSIUM CHLORIDE Tablet [K-DUR 20 mEq Tablet*] 20 meq PO BIDWM #60 tab.er.prt 05/31/16 [Rx Last Taken Unknown] Probiotic Blend [Rhea Q] 1 tab PO BIDLS #60 tablet 05/31/16 [Rx Last Taken Unknown] O2 Device: Room Air Additional Instructions: Refer to wound care center Diet at Discharge: Heart Healthy, Diabetic, 1800 Calorie Activity: As Tolerated Call Office For: Worsening Symptoms Discontinue use of:: Alcohol, All Illegal Substances, All Types of Tobacco - DC Summary Notes Hospital Course Note:: Discharge summary on patient named BALTAZAR POSADA admitted to [facility] on 05/15/16 by Surjit Stone MD. Date of discharge is []. Fidel Posada is a 50 year old diabetic woman who is poorly controlled. She has chronic venous stasis in both lower extremities, but it is much worse in the right lower extremity, and she has developed open wounds with secondary infection and cellulitis. Her diabetes has not been well controlled and she complained of feeling weak and nauseated. For this reason she was admitted to the hospital for further evaluation and management. Her hemoglobin was 6.2 g/ dL on admission and she was transfused a total of 4 units of packed red cells during this admission. Her stool was heme negative, although the patient reported some oozing of blood from her leg wounds, it was a minimal amount. Iron testing did reveal some evidence of iron deficiency. As she was diuresed, her creatinine stabilized around 2.0, with a BUN around 30 and eGFR around 35, consistent with chronic kidney disease. This may also be contributing to her anemia. She was placed on IV antibiotics and at this time has completed 2 weeks of IV Levaquin for pseudomonas infection in her leg wounds. She will continue collagenase dressing changes daily and follow-up with the wound care center. Her hypertension and diabetes are controlled at the time of discharge , and she is being referred for outpatient diabetes education classes, due to a prior history of non-compliance with medication and diet. Total Time: 35 min Code: 73697 (>30min.) - Physical Exam Vital Signs: Last Vital Signs Temp 98.3 F 05/31/16 05:59 Pulse 69 05/31/16 05:59 Resp 18 05/31/16 05:59 BP 106/57 L 05/31/16 05:59 Pulse Ox 100 05/31/16 05:59 Oxygen Pulse Oxygen Saturation 100 O2 Device Room Air Oxygen Flow Rate Fraction of Inspired Oxygen ( FIO2) Constitutional: Alert (Awake, Fully oriented. Normal and appropriate affect.Well appearing. Well nourished.), No apparent distress Oriented to: Time, Person, Place - HEENT Head: Normal (normocephalic, atraumatic.), Other (No cervical lymphadenopathy. No supraclavicular lymphadenopathy. Neck: No palpable mass, supple , trachea midline.) Eye: Normal (pupils equal, reactive to light, and round; EOMI, Sclera white) Oropharynx: Normal (Pharynx: Moist without exudate,Gums-no swelling, No oropharyngeal lesions or erythema, Mucous membranes are dry.) ENT EAC: Normal (No oropharyngeal lesions or erythema. Mucous membranes are dry. ) TMJ: Normal Nose: No Symptoms Reported (septum midline, Nares patent, without discharge or bleeding.) - Respiratory/Cardiovascular Respiratory: Normal - CTA (Clear to auscultation bilaterally. No wheezing, rales , rhonchi. Chest wall movements are symmetric. No use of accessory muscles to breathe.) Cardiovascular: Normal - GI Auscultation: Normal (normal active sounds) Palpation: Normal (Soft,non distended,nontender. No hepatosplenomegaly.) Tenderness: Non tender (No rebound or guarding) Quintero's Sign: Negative Rectal Exam: Deferred - Musculoskeletal Back: Normal (Non-Tender) Extremities: Normal (Normal tone, DP pulses 2+ bilaterally, No cyanosis or edema bilaterally, FROM bilaterally.), Other (RLE STILL SWOLLEN WITH CHRONIC WOUNDS DUE TO POOR CIRCULATION) - Integumentary Skin: Other (RLE STILL SWOLLEN WITH CHRONIC WOUNDS DUE TO POOR CIRCULATION) Lymphatics: Normal (No cervical lymphadenopathy. No supraclavicular lymphadenopathy.) - Neurologic Memory Impaired: Normal Motor Function: Normal Cranial Nerve: Normal Cerebellar: Normal (Babinski: toes downgoing bilaterally. Intact Finger to nose. Sensory grossly intact to light touch. Intact rapid alternating movements bilaterally. No pronator drift.) Mood Description: Flat Thought: Coherent Perception: Normal (Normal and appropriate affect.)
[2016-05-31] MEDS: POTASSIUM CHLORIDE 20 MEQ TAB PO SCH ×2 (10:03→18:07)
[2016-05-31] MEDS: ATENOLOL 50 MG TAB PO SCH (10:06)
[2016-05-31] MEDS: COLLAGENASE OINTMENT 30 GM TUBE TOP SCH (10:07)
[2016-05-31 10:08] VITALS: BP 99/53; PULSE 72
[2016-05-31] MEDS: FUROSEMIDE 40 MG/4 ML VIAL IV SCH (12:17)
[2016-05-31] MEDS: PROBIOTIC BLEND TAB PO SCH ×2 (12:35→18:07)
[2016-05-31] MEDS ORDERED: FUROSEMIDE 40 MG TAB PO SCH (16:00)
== END 2016-05-31 18:13 | disposition home or self-care (01) | DRG 603 ==
LOC: ED 02:26 → MPS3 05:28
PROVIDERS: ADMIT Internal Medicine; ATTEND Family Medicine
PROC: 30233N1 Transfusion of Nonautologous Red Blood Cells into Peripheral Vein, Percutaneous Approach (ICD-10-PCS; principal; 2016-05-15)
PROC: 039B3ZZ Drainage of Right Radial Artery, Percutaneous Approach (ICD-10-PCS; 2016-05-24)
DX: L03.116 Cellulitis of left lower limb (principal); N18.4 Chronic kidney disease, stage 4 (severe); E11.22 Type 2 diabetes mellitus with diabetic chronic kidney disease; N30.00 Acute cystitis without hematuria; E87.1 Hypo-osmolality and hyponatremia; L03.115 Cellulitis of right lower limb; B96.5 Pseudomonas (aeruginosa) (mallei) (pseudomallei) as the cause of diseases classified elsewhere; D63.1 Anemia in chronic kidney disease; I12.9 Hypertensive chronic kidney disease with stage 1 through stage 4 chronic kidney disease, or unspecified chronic kidney disease; Z79.84 Long term (current) use of oral hypoglycemic drugs; E78.00 Pure hypercholesterolemia, unspecified; J45.909 Unspecified asthma, uncomplicated; Z79.2 Long term (current) use of antibiotics; Z79.891 Long term (current) use of opiate analgesic; Z79.899 Other long term (current) drug therapy; E61.1 Iron deficiency; Z91.81 History of falling
CPT/HCPCS: 36415; 36430; 36600; 51798; 71020; 76770; 80048; 80053; 81001; 82043; 82140; 82272; 82550; 82607; 82728; 82746; 82803; 82962; 83010; 83036; 83540; 83550; 83605; 83615; 83735; 84443; 84466; 84484; 85007; 85025; 85027; 85651; 86038; 86850; 86900; 86901; 86920; 87040; 87070; 87075; 87077; 87086; 87186; 87641; 93005; 96372; 99284; G0237; J0696; J1650; J1940; J1956; J2405; J2550; J3370; J3490; J7040; J7060; P9016

== ENCOUNTER 2016-06-02 03:25 | Emergency (ER) | payer SELFPAY ==
[2016-06-02 03:53] VITALS: TEMP 97.5; BMI 38.7
[2016-06-02 08:02] LABS: AUTOMATED BASOPHIL 0.1 % (0-2); AUTOMATED EOSINOPHIL 1.4 % (0-5); AUTOMATED LYMPH 10.7 % (17-44); AUTOMATED MONOCYTE 6.2 % (3-10); AUTOMATED NEUTROPHIL 81.6 % (45-76); MPV 9.1 fL (7.4-10.4)
[2016-06-02 08:11] LABS: BLOOD UREA NITROGEN 40 MG/DL (7-17); CALCIUM 7.7 MG/DL (8.4-10.2); CALCULATED OSMOLALITY 274 MOs/Kg (270-290); CHLORIDE 110 mEq/L (98-107); GLUCOSE 96 MG/DL (70-99); SODIUM LEVEL 137 mEq/L (137-146)
--- NOTE | 2016-06-02 08:38 | EDPRACDOC ---
- General Chief Complaint: Lower Leg Pain Stated Complaint: LEG PAIN Time Seen by Provider: 06/02/16 06:58 Information Source: Patient, Integrity Consultant - History of Present Illness Onset: 1 month HPI: PATIENT FELL YESTERDAY INJURING HER WOUNDS BILATERAL LOWER EXTREMITIES. RECENT INPATIENT FOR TREATMENT CELLULITIS BILATERAL LOWER EXTREMITIES, STATES HER COUSIN IS CHANGE HER DRESSINGS 2 DAYS AGO BUT THE PATIENT IS REALLY UNSURE NOT ABLE TO REALLY. NO FEVERS, MILD GENERALIZED WEAKNESS, IS EATING AND DRINKING WELL. Injuries/Pain Location: Reports: no injury Allergies/Adverse Reactions: Allergies Penicillins Allergy (Verified 06/02/16 05:32) Rash-Generalized Home Medications: Ambulatory Orders Atenolol 50 mg PO DAILY 04/17/16 Gabapentin 300 mg PO TID PRN 05/15/16 Albuterol Sulfate MDI [Proventil HFA] 2 puff INH Q4HWA PRN #1 inhaler 05/31/16 Collagenase [Santyl] 30 gm TOP DAILY #1 tube 05/31/16 Furosemide [Lasix] 40 mg PO BID #60 tab 05/31/16 Metformin HCl [Glucophage XR (Ext Release)] 500 mg PO DAILY #30 tab.sr.24h 05/31 POTASSIUM CHLORIDE Tablet [K-DUR 20 mEq Tablet*] 20 meq PO BIDWM #60 tab.er.prt 05/31/16 Probiotic Blend [Rhea Q] 1 tab PO BIDLS #60 tablet 05/31/16 ED Past Medical History - History Reviewed Yes Nurses notes reviewed and agree except as marked - Patient Medical History Cardiac History: Reports: Hypertension, Hypercholesterolemia Respiratory History: Reports: Asthma Musculoskeletal History: Reports: Arthritis (left knee) Psychological History: Denies: Depression Systemic History: Reports: Anemia, Diabetes - Family Medical History Reports: Diabetes (mom), Cardiac Disorders (dad) - Social Medical History Smoking Status: Never smoker ETOH: None Substance Abuse: None Lives With: Other (QUESTIONABLE COUSIN) Lives In: Home EDM Review of Systems - Review of Systems ROS Negative Except as Marked: Yes All systems reviewed and were negative except as marked - Physical Exam Constitutional: Alert, Cachectic, Other (PATIENT APPEARS MUCH OLDER THAN STATED AGE, UNDERLYING CHRONIC CONDITION IS HIGHLY SUSPECTED.). negative: ETOH, Well nourished, Well appearing Oriented to: Time, Person, Place Last recorded Vital Signs: Last Vital Signs Temp 97.5 F 06/02/16 03:28 Pulse 87 06/02/16 08:00 Resp 18 06/02/16 08:00 BP 115/66 06/02/16 08:00 Pulse Ox 98 06/02/16 08:00 Oxygen Pulse Oxygen Saturation 98 O2 Device Room Air Oxygen Flow Rate Fraction of Inspired Oxygen ( FIO2) - HEENT Head: Normal Eye Exam: Normal Oropharynx: Normal. negative: Membranes Dry - Respiratory/Cardiovascular Respiratory: Normal - CTA Cardiovascular: Normal - GI Auscultation: Normal Palpation: Normal Tenderness: Non tender Quintero's Sign: Negative - Bladder: Normal - Musculoskeletal Back: Normal Extremities: Other (BILATERAL LOWER EXTREMITIES SHOW LARGE AREAS ULCERATED TISSUE, THESE APPEAR CHRONIC, WOUND MARGINS ARE SHARP. GOOD GRANULATION TISSUE OVER THE MIDDLE OF THE WOUNDS. NO PURULENT DRAINAGE, NO FOUL SMELLING NO INDICATION OF ACTIVE INFECTION. DRESSINGS OVER THE WOUNDS APPEAR SATURATED SOAKED AND DO NOT APPEAR TO BE UNCHANGED RECENTLY.) - Integumentary Skin: Normal Lymphatics: Normal - Neurologic Memory Impaired: Normal Mood Description: Normal Thought: Coherent Perception: Normal - Results 06/02/16 07:52 06/02/16 07:52 WBC 11.8 xk/uL (3.8-10.8) H 06/02/16 07:52 RBC 2.95 xM/uL (4.20-5.40) L 06/02/16 07:52 Hgb 8.6 g/dL (12.0-16.0) L 06/02/16 07:52 Hct 27.4 % (36-47) L 06/02/16 07:52 MCV 93 fL (81-99) 06/02/16 07:52 MCH 29.2 pg (27-32) 06/02/16 07:52 MCHC 31.3 g/dl (33-36) L 06/02/16 07:52 RDW 16.5 % (11.5-14.5) H 06/02/16 07:52 Plt Count 40 xk/uL (130-400) L* 06/02/16 07:52 MPV 9.1 fL (7.4-10.4) 06/02/16 07:52 Neut % (Auto) 81.6 % (45-76) H 06/02/16 07:52 Lymph % (Auto) 10.7 % (17-44) L 06/02/16 07:52 Kay % (Auto) 6.2 % (3-10) 06/02/16 07:52 Eos % (Auto) 1.4 % (0-5) 06/02/16 07:52 Baso % (Auto) 0.1 % (0-2) 06/02/16 07:52 Absolute Neuts (auto) 9.56 xk/uL (1.7-8.2) H 06/02/16 07:52 Absolute Lymphs (auto) 1.18 xk/uL (0.65-4.75) 06/02/16 07:52 Sodium 137 mEq/L (137-146) 06/02/16 07:52 Potassium 3.7 mEq/L (3.5-5.1) 06/02/16 07:52 Chloride 110 mEq/L (98-107) H 06/02/16 07:52 Carbon Dioxide 16 mMOL/L (22-33) L 06/02/16 07:52 Anion Gap 15 mEq/L (8-16) 06/02/16 07:52 BUN 40 MG/DL (7-17) H 06/02/16 07:52 Creatinine 1.90 MG/DL (0.52-1.04) H 06/02/16 07:52 Estimated GFR (MDRD) 34 mL/min (>=60) L 06/02/16 07:52 Glucose 96 MG/DL (70-99) 06/02/16 07:52 Calculated Osmolality 274 MOs/Kg (270-290) 06/02/16 07:52 Calcium 7.7 MG/DL (8.4-10.2) L 06/02/16 07:52 Lab Results 06/02/16 06/02/16 07:52 07:52 WBC 11.8 H RBC 2.95 L Hgb 8.6 L Hct 27.4 L MCV 93 MCH 29.2 MCHC 31.3 L RDW 16.5 H Plt Count 40 L* MPV 9.1 Neut % (Auto) 81.6 H Lymph % (Auto) 10.7 L Kay % (Auto) 6.2 Eos % (Auto) 1.4 Baso % (Auto) 0.1 Absolute Neuts (auto) 9.56 H Absolute Lymphs (auto) 1.18 Sodium 137 Potassium 3.7 Chloride 110 H Carbon Dioxide 16 L Anion Gap 15 BUN 40 H Creatinine 1.90 H Estimated GFR (MDRD) 34 L Glucose 96 Calculated Osmolality 274 Calcium 7.7 L - Additional Information CURRENT THROMBOCYTOPENIA OF UNCLEAR ETIOLOGY NORMAL PLATELET COUNT UPON ADMISSION THIS PAST APRIL. TODAY 'S PLATELET COUNT IS 40. NO CURRENT HISTORY OF ACTIVE BLEEDING. DURING LAST HOSPITALIZATION WAS NOTED PATIENT STOOL GUAIACS WERE POSITIVE. AT 1 BLOOD TRANSFUSION FOR A HEMOGLOBIN AT 6.2 ANEMIA WAS THOUGHT TO BE RELATED TO CHRONIC KIDNEY DISEASE AT THAT TIME.. HOME HEALTH HAS BEEN ARRANGED WILL SEE THE PATIENT FOR FURTHER EVALUATION AND BANDAGE CHANGES. - Departure Disposition: Home Condition: Stable Final Diagnosis: Thrombocytopenia, Healing wound present on both lower extremities, Orthostatic hypotension Education/Counseling Given To: Patient Education/Counseling Given Regarding: Diagnosis, Treatment, Prognosis Referrals: Lowell Lew MD [Primary Care Provider] - One Week Luz Maria Murphy MD [Staff Physician] - 1-2 days
[2016-06-02] MEDS ORDERED: NS 1,000 ML IV ONE (10:27)
[2016-06-02 12:18] VITALS: BP 105/72; PULSE 74
[2016-06-02] MEDS ORDERED: DOCUSATE-SENNA CONCENTRATE TAB PO PRN (18:28)
[2016-06-02] MEDS ORDERED: BENZONATATE 100 MG PERLES PO PRN (18:28)
[2016-06-02] MEDS ORDERED: ACETAMINOPHEN 650 MG SUPP PR PRN (18:28)
[2016-06-02] MEDS ORDERED: ACETAMINOPHEN 325 MG/TAB TABLET PO PRN (18:28)
[2016-06-02] MEDS ORDERED: TEMAZEPAM 15 MG CAP PO PRN (18:28)
[2016-06-02] MEDS ORDERED: ONDANSETRON HCL 4 MG/2 ML VIAL IV PRN (18:28)
[2016-06-02] MEDS ORDERED: SIMETHICONE 80 MG TAB PO PRN (18:28)
[2016-06-02] MEDS ORDERED: METOCLOPRAMIDE 10 MG/2 ML VIAL IV PRN (18:28)
[2016-06-02] MEDS ORDERED: Albuterol/Ipratropium Neb 3 ML NEB NEB PRN (18:36)
[2016-06-02] MEDS ORDERED: GLUCOSE (ORAL GEL) 15 GM TUBE PO PRN (18:36)
[2016-06-02] MEDS ORDERED: DEXTROSE 25 GM/50 ML PFS IV PRN (18:36)
[2016-06-02] MEDS ORDERED: SODIUM CHLORIDE 0.9% 3 ML FLUSH FLUSH PRN (18:36)
[2016-06-02] MEDS ORDERED: GLUCAGON 1 MG VIAL SQ PRN (18:36)
[2016-06-02] MEDS ORDERED: ALBUTEROL 6.7 GM MDI INH PRN (18:42)
[2016-06-02] MEDS ORDERED: GABAPENTIN 300 MG CAP PO PRN (18:42)
[2016-06-02] MEDS ORDERED: ALBUTEROL 0.083% 3 ML NEB NEB PRN (18:47)
--- NOTE | 2016-06-02 18:53 | HISTPHYS ---
- Chief Complaint wounds on legs, weakness - History of Present Illness Iveth Dorantes is a 50 year old woman who has alienated all her family and friends and now has no where to go. She has chronic health problems including diabetes, chronic venous stasis dermatitis, poor hygiene habits, and hypertension. She has been chronically non-compliant with her medications, and is poorly motivated to change. She was last discharged from here two days ago, at which time her wounds were healing, her skin was intact, and her infections had been treated. She did require daily dressing changes to the dermatitis on her legs, but this was within the capability of a lay person to do. Even the patient could learn to do it for herself if she was motivated to try. However , she is morbidly obese, her mobility is decreased by her body habitus, and therefore when she got to her family member's house, she has not moved for two days. She has urinated and defecated upon herself, and made no move to get to the bathroom, although she was using a walker to ambulate in the hospital prior to discharge. She now has new sores on her skin/buttocks. Her leg dressings have not been changed since she left the hospital and are inflamed again from failure to comply with medical directions. The patient states that she fell two days ago, but she was still in the hospital or was just discharged two days ago. - Medical History Cardiac History: Reports: Hypertension, Hypercholesterolemia Respiratory History: Reports: Asthma GI/ History: Reports: Renal Failure (CKD-4), Gastroesophageal Reflux Musculoskeletal History: Reports: Arthritis (left knee) Systemic History: Reports: Anemia, Diabetes Psychological History: Reports: Depression - Medictions/Allergies Allergies Penicillins Allergy (Verified 06/02/16 16:55) Rash-Generalized Current Medication List: Reviewed Home Medications Atenolol 50 mg PO DAILY 04/17/16 Gabapentin 300 mg PO TID PRN 05/15/16 Albuterol Sulfate MDI [Proventil HFA] 2 puff INH Q4HWA PRN #1 inhaler 05/31/16 Collagenase [Santyl] 30 gm TOP DAILY #1 tube 05/31/16 Furosemide [Lasix] 40 mg PO BID #60 tab 05/31/16 Metformin HCl [Glucophage XR (Ext Release)] 500 mg PO DAILY #30 tab.sr.24h 05/31 POTASSIUM CHLORIDE Tablet [K-DUR 20 mEq Tablet*] 20 meq PO BIDWM #60 tab.er.prt 05/31/16 Probiotic Blend [Rhea Q] 1 tab PO BIDLS #60 tablet 05/31/16 - Family History Reports: Diabetes (mom), Cardiac Disorders (dad) - Social History Travel Outside of [place] in the Last 3 Months?: No Lives: With Family (Cousin) Smoking Status: Never smoker Social History: Denies: Alcohol Use - Review of Systems Constitutional: Fatigue, Weakness, Weight gain Eyes: No Symptoms Reported Ears: No Symptoms Reported Nose: No Symptoms Reported Mouth: Dry Mouth, Poor Dentition Throat/Neck: No Symptoms Reported Respiratory: No Symptoms Reported Cardiovascular: No Symptoms Reported Gastrointestinal: Diarrhea Genitourinary: Frequency, Nocturia, Postmenopause, Other (sores developing on buttocks) Neurological: Gait Difficulty, Weakness Musculoskeletal:: Weakness, Muscle Pain, Swelling Integumentary: Rash, Wound (legs) Hematologic: Easy Bruising, Easy Bleeding, Anemia, Past Transfusions Endocrine: Weight Gain, Polyuria, Diabetes Psychiatric: Depression - Physical Exam Vital Signs: Initial Vitals Temperature 97.5 F 06/02/16 03:28 Pulse Rate 88 06/02/16 03:28 Respiratory Rate 20 06/02/16 03:28 Blood Pressure 139/89 06/02/16 03:28 Pulse Oxygen Saturation 100 06/02/16 03:28 Selected Entries 06/02/16 09:21 Pulse Rate 81 Blood Pressure 119/67 orthostatic BP & P check: 06/02/16 06/02/16 09:21 09:22 Pulse Rate 86 90 Blood Pressure 95/60 L 92/55 L Constitutional: Alert Oriented to: Time, Person, Place - HEENT Head: Normal Eye: Normal (PERRL: EOMI) Oropharynx: Membranes Dry. negative: Drooling, Exudate, Red Tympanic Membrane: Dull ENT EAC: Normal Nose: No Symptoms Reported. negative: Congestion Respiratory: Normal - CTA, Diminished Cardiovascular: Normal (regular rhythm and rate), Systolic murmur (3/6 URSB radiates through-out pre-cordium). negative: Gallop/S3, Gallop/S4 - GI Auscultation: Normal Palpation: Normal (obese, nontender, +fluid wave, no mass, no hernia or scar) Tenderness: Non tender Quintero's Sign: Negative Stool: Brown - Exam Deferred: No (red and macerated with skin breakdown of perineum and buttocks) - Musculoskeletal Extremities: Edema (4+ to mid-thigh bilaterally), Other (reddened areas on arms , ecchymoses; large weeping areas and open wounds on legs, but sharply demarcated with granulation tissue and eschar) Spine: non-tender, full range of motion, normal alignment, normal inspection - Integumentary Skin: Warm, Other (reddened areas on arms, ecchymoses; large weeping areas and open wounds on legs, but sharply demarcated with granulation tissue and eschar) Lymphatics: Other (massive edema of both legs to mid thigh) - Neurologic Memory Impaired: Normal Motor Function: Normal Cranial Nerve: Normal Cerebellar: Normal Mood Description: Depressed, Flat Thought: Coherent Perception: Normal - Focused CV Perfusion Exam Vital Signs: Last Vital Signs Temp 97.5 F 06/02/16 03:28 Pulse 74 06/02/16 12:05 Resp 18 06/02/16 12:05 BP 105/72 06/02/16 12:05 Pulse Ox 99 06/02/16 12:05 - Lab Results Laboratory Tests 06/02/16 06/02/16 07:52 07:52 WBC 11.8 H Hgb 8.6 L Hct 27.4 L Plt Count 40 L* Neut % (Auto) 81.6 H Lymph % (Auto) 10.7 L Sodium 137 Potassium 3.7 Chloride 110 H Carbon Dioxide 16 L Anion Gap 15 BUN 40 H Creatinine 1.90 H Estimated GFR (MDRD) 34 L Glucose 96 Calculated Osmolality 274 Calcium 7.7 L - Assessment (1) Venous stasis dermatitis of both lower extremities I83.11 - VARICOSE VEINS OF RIGHT LOWER EXTREMITY WITH INFLAMMATION; I83.12 - VARICOSE VEINS OF LEFT LOWER EXTREMITY WITH INFLAMMATION Acute (2) Healing wound present on both lower extremities [id number] - Acute Present on Admission: Yes (3) Thrombocytopenia D69.6 - THROMBOCYTOPENIA, UNSPECIFIED Acute Present on Admission: Yes (4) Anemia D64.9 - ANEMIA, UNSPECIFIED Chronic Present on Admission: Yes Qualifiers: Anemia type: other cause Other causes of anemia: chronic disease, kidney Qualified Code(s): N18.9 - Chronic kidney disease, unspecified; D63.1 - Anemia in chronic kidney disease 05/25/2016 improved post transfusion. Has been transfused 4 units of PRBCs during admission. Current Hg = 8.8. (5) Chronic kidney disease (CKD), stage IV (severe) N18.4 - CHRONIC KIDNEY DISEASE, STAGE 4 (SEVERE) Chronic Present on Admission: Yes Creatinine unchanged; this appears to be a chronic problem. (6) HTN (hypertension) I10 - ESSENTIAL (PRIMARY) HYPERTENSION Chronic Present on Admission: Yes Qualifiers: Hypertension type: essential hypertension Qualified Code(s): I10 - Essential (primary) hypertension Continue previous medication. Case Care Discussed with: Patient, Nursing Staff Critical Care: No Couseling Time (>50% in counseling/coordination): Yes Code: [id number]
[2016-06-02] MEDS ORDERED: COLLAGENASE OINTMENT 30 GM TUBE TOP SCH (19:00)
[2016-06-02] MEDS ORDERED: ENOXAPARIN 40 MG/0.4 ML PFS SQ SCH (19:00)
[2016-06-02] MEDS ORDERED: REGULAR INSULIN 100 UNITS/ML - 3 ML VIAL SQ SCH (21:00)
[2016-06-03] MEDS ORDERED: SODIUM CHLORIDE 0.9% 3 ML FLUSH FLUSH SCH (06:00)
[2016-06-03] MEDS ORDERED: MetFORMIN, EXT REL 500 MG TAB PO SCH (07:00)
[2016-06-03] MEDS ORDERED: FUROSEMIDE 40 MG TAB PO SCH (08:00)
[2016-06-03] MEDS ORDERED: POTASSIUM CHLORIDE 20 MEQ TAB PO SCH (08:00)
[2016-06-03] MEDS ORDERED: COLLAGENASE OINTMENT 30 GM TUBE TOP SCH (09:00)
[2016-06-03] MEDS ORDERED: ATENOLOL 25 MG TAB PO SCH (09:00)
[2016-06-03] MEDS ORDERED: PROBIOTIC BLEND TAB PO SCH (12:00)
== END 2016-06-02 11:35 | disposition home or self-care (01) ==
LOC: ED 03:25
DX: S81.802D Unspecified open wound, left lower leg, subsequent encounter (principal); S81.801D Unspecified open wound, right lower leg, subsequent encounter; X58.XXXD Exposure to other specified factors, subsequent encounter; I95.1 Orthostatic hypotension; D69.6 Thrombocytopenia, unspecified; I10 Essential (primary) hypertension; E78.00 Pure hypercholesterolemia, unspecified; E11.9 Type 2 diabetes mellitus without complications; J45.909 Unspecified asthma, uncomplicated; Z79.899 Other long term (current) drug therapy
CPT/HCPCS: 36415; 80048; 85025; 87040; 96360; 99285; J3490

== ENCOUNTER 2016-06-02 18:30 | Inpatient (IN) | payer MEDICAID ==
[2016-06-02] MEDS ORDERED: Vaccine Screening Complete SCH (19:00)
[2016-06-02] MEDS ORDERED: GLUCAGON 1 MG VIAL SQ PRN (19:12)
[2016-06-02] MEDS ORDERED: METOCLOPRAMIDE 10 MG/2 ML VIAL IV PRN (19:12)
[2016-06-02] MEDS ORDERED: TEMAZEPAM 15 MG CAP PO PRN (19:12)
[2016-06-02] MEDS ORDERED: ACETAMINOPHEN 650 MG SUPP PR PRN (19:12)
[2016-06-02] MEDS ORDERED: ACETAMINOPHEN 325 MG/TAB TABLET PO PRN (19:12)
[2016-06-02] MEDS ORDERED: SIMETHICONE 80 MG TAB PO PRN (19:12)
[2016-06-02] MEDS ORDERED: SODIUM CHLORIDE 0.9% 3 ML FLUSH FLUSH PRN (19:12)
[2016-06-02] MEDS ORDERED: ONDANSETRON HCL 4 MG/2 ML VIAL IV PRN (19:12)
[2016-06-02] MEDS ORDERED: DOCUSATE-SENNA CONCENTRATE TAB PO PRN (19:12)
[2016-06-02] MEDS ORDERED: GLUCOSE (ORAL GEL) 15 GM TUBE PO PRN (19:12)
[2016-06-02] MEDS ORDERED: Albuterol/Ipratropium Neb 3 ML NEB NEB PRN (19:12)
[2016-06-02] MEDS ORDERED: DEXTROSE 25 GM/50 ML PFS IV PRN (19:12)
[2016-06-02] MEDS ORDERED: BENZONATATE 100 MG PERLES PO PRN (19:12)
--- NOTE | 2016-06-02 19:37 | HISTPHYS ---
Travel Outside of [place] in the Last 3 Months?: No Smoking Status: Never smoker History of Present Illness: [- Chief Complaint wounds on legs, weakness - History of Present Illness Iveth Dorantes is a 50 year old woman who has alienated all her family and friends and now has no where to go. She has chronic health problems including diabetes, chronic venous stasis dermatitis, poor hygiene habits, and hypertension. She has been chronically non-compliant with her medications, and is poorly motivated to change. She was last discharged from here two days ago, at which time her wounds were healing, her skin was intact, and her infections had been treated. She did require daily dressing changes to the dermatitis on her legs, but this was within the capability of a lay person to do. Even the patient could learn to do it for herself if she was motivated to try. However , she is morbidly obese, her mobility is decreased by her body habitus, and therefore when she got to her family member's house, she has not moved for two days. She has urinated and defecated upon herself, and made no move to get to the bathroom, although she was using a walker to ambulate in the hospital prior to discharge. She now has new sores on her skin/buttocks. Her leg dressings have not been changed since she left the hospital and are inflamed again from failure to comply with medical directions. The patient states that she fell two days ago, but she was still in the hospital or was just discharged two days ago. - Medical History Cardiac History: Reports: Hypertension, Hypercholesterolemia Respiratory History: Reports: Asthma GI/ History: Reports: Renal Failure (CKD-4), Gastroesophageal Reflux Musculoskeletal History: Reports: Arthritis (left knee) Systemic History: Reports: Anemia, Diabetes Psychological History: Reports: Depression - Medictions/Allergies Allergies Penicillins Allergy (Verified 06/02/16 16:55) Rash-Generalized Current Medication List: Reviewed Home Medications Atenolol 50 mg PO DAILY 04/17/16 Gabapentin 300 mg PO TID PRN 05/15/16 Albuterol Sulfate MDI [Proventil HFA] 2 puff INH Q4HWA PRN #1 inhaler 05/31/16 Collagenase [Santyl] 30 gm TOP DAILY #1 tube 05/31/16 Furosemide [Lasix] 40 mg PO BID #60 tab 05/31/16 Metformin HCl [Glucophage XR (Ext Release)] 500 mg PO DAILY #30 tab.sr.24h 05/31 POTASSIUM CHLORIDE Tablet [K-DUR 20 mEq Tablet*] 20 meq PO BIDWM #60 tab.er.prt 05/31/16 Probiotic Blend [Rhea Q] 1 tab PO BIDLS #60 tablet 05/31/16 - Family History Reports: Diabetes (mom), Cardiac Disorders (dad) - Social History Travel Outside of [place] in the Last 3 Months?: No Lives: With Family (Cousin) Smoking Status: Never smoker Social History: Denies: Alcohol Use - Physical Exam Vital Signs: Initial Vitals Temperature 97.5 F 06/02/16 03:28 Pulse Rate 88 06/02/16 03:28 Respiratory Rate 20 06/02/16 03:28 Blood Pressure 139/89 06/02/16 03:28 Pulse Oxygen Saturation 100 06/02/16 03:28 Selected Entries 06/02/16 09:21 Pulse Rate 81 Blood Pressure 119/67 orthostatic BP & P check: 06/02/16 06/02/16 09:21 09:22 Pulse Rate 86 90 Blood Pressure 95/60 L 92/55 L GENERAL: chronically ill appearing AfroAmerican woman, appears much older than actual age HEENT:normocephalic pupils equal round and reactive to light, Tympanic membranes dull, partially obscured by cerumen, nares are benign, no unusual congestion or discharge, Oropharynx reveals poor dentition, dry mucous membranes , no erythema or edema. Mucous membranes are pale but without characteristic lesions or pettechiae. NECK: supple, no thyromegaly or mass, no JVD or carotid bruits, HEART: irregular rhythm and rate, 3/6 systolic murmur at upper left sternal border, radiates throughout precordium, no S3 or S4, LUNGS: clear to auscultation BREASTS: ABDOMEN: morbidly obese, soft, nontender, without palpable mass, bowel sounds are normo-active, EXTERNAL GENITALIA: normal female, reddened and excoriated over labia and buttocks EXTREMITIES: venous stasis dermatitis with open wounds on both legs, these are sharply demarcated without evidence of any recent irritation or inflammation, draining but with chronic eschar forming. Heavy scaling of skin around wounds. - Focused CV Perfusion Exam Vital Signs: Last Vital Signs Temp 97.5 F 06/02/16 03:28 Pulse 74 06/02/16 12:05 Resp 18 06/02/16 12:05 BP 105/72 06/02/16 12:05 Pulse Ox 99 06/02/16 12:05 - Lab Results Laboratory Tests 06/02/16 06/02/16 07:52 07:52 WBC 11.8 H Hgb 8.6 L Hct 27.4 L Plt Count 40 L* Neut % (Auto) 81.6 H Lymph % (Auto) 10.7 L Sodium 137 Potassium 3.7 Chloride 110 H Carbon Dioxide 16 L Anion Gap 15 BUN 40 H Creatinine 1.90 H Estimated GFR (MDRD) 34 L Glucose 96 Calculated Osmolality 274 Calcium 7.7 L Laboratory Tests 05/15/16 05/15/16 05/15/16 04:10 04:10 04:10 Iron 13.0 L TIBC 209 L Transferrin 125 L Ferritin 18.8 Total Bilirubin Alkaline Phosphatase Lactate Dehydrogenase 491 Vitamin B12 893 Serum Folate 5.52 TSH 05/15/16 05/18/16 05:25 07:40 Iron TIBC Transferrin Ferritin Total Bilirubin 2.5 H Alkaline Phosphatase 181 H Lactate Dehydrogenase Vitamin B12 Serum Folate TSH 2.78 - Assessment (1) Venous stasis dermatitis of both lower extremities I83.11 - VARICOSE VEINS OF RIGHT LOWER EXTREMITY WITH INFLAMMATION; I83.12 - VARICOSE VEINS OF LEFT LOWER EXTREMITY WITH INFLAMMATION Acute - this is a recurrent problem from the last hospital stay. Will resume Santyl ointment and twice daily dressing changes, ask shutdown planner to assist with placement in [facility]. (2) Healing wound present on both lower extremities [id number] - Acute (3) Thrombocytopenia D69.6 - THROMBOCYTOPENIA, UNSPECIFIED Acute- this is a new development. Not clear why patient is becoming thrombocytopenic. Avoid Lovenox and aspirin. Consult Dr. Murphy for evaluation. See prior blood studies of May 15, 2016. (4) Anemia D64.9 - ANEMIA, UNSPECIFIED Chronic Qualifiers: Anemia type: other cause Other causes of anemia: chronic disease, kidney Qualified Code(s): N18.9 - Chronic kidney disease, unspecified; D63.1 - Anemia in chronic kidney disease vs acute marrow disorder. Studies done 05-15-16 seemed more consistent with iron deficiency. 05/25/2016 improved post transfusion. Has been transfused 4 units of PRBCs during last admission. Current Hg = 8.6. (5) Chronic kidney disease (CKD), stage IV (severe) N18.4 - CHRONIC KIDNEY DISEASE, STAGE 4 (SEVERE) Chronic Creatinine unchanged; this appears to be a chronic problem. (6) HTN (hypertension) I10 - ESSENTIAL (PRIMARY) HYPERTENSION Chronic Qualifiers: Hypertension type: essential hypertension Qualified Code(s): I10 - Essential (primary) hypertension Continue previous medication. ]
[2016-06-02] MEDS ORDERED: COLLAGENASE OINTMENT 30 GM TUBE TOP SCH (21:00)
[2016-06-02] MEDS ORDERED: CLOTRIMAZOLE & BETAMETHASONE 45 GM TUBE TOP SCH (21:00)
[2016-06-02] MEDS ORDERED: SECURA EXTRA PROTECTIVE CREAM TOP ONE (21:36)
[2016-06-02] MEDS: REGULAR INSULIN 100 UNITS/ML - 3 ML VIAL SQ SCH (22:29)
[2016-06-02] MEDS: CLOTRIMAZOLE & BETAMETHASONE 45 GM TUBE TOP SCH (22:29)
[2016-06-02] MEDS: FUROSEMIDE 40 MG/4 ML VIAL IV SCH (22:29)
[2016-06-02 22:30] LABS: LEUKOCYTES/URINE 2+ (NEGATIVE); NITRITE/URINE NEG (NEGATIVE); URINE OCCULT BLOOD 3+ (NEG/TRACE)
[2016-06-02 22:32] LABS: AMORPHOUS OCC
[2016-06-03] MEDS: REGULAR INSULIN 100 UNITS/ML - 3 ML VIAL SQ SCH ×4 (05:26→21:14)
[2016-06-03] MEDS: SODIUM CHLORIDE 0.9% 3 ML FLUSH FLUSH SCH ×2 (05:26→18:02)
[2016-06-03] MEDS: CLOTRIMAZOLE & BETAMETHASONE 45 GM TUBE TOP SCH ×3 (05:26→21:14)
[2016-06-03 07:29] LABS: AUTOMATED BASOPHIL 0.2 % (0-2); AUTOMATED LYMPH 13.7 % (17-44); AUTOMATED MONOCYTE 6.1 % (3-10); MPV 11.3 fL (7.4-10.4)
[2016-06-03 07:52] LABS: BLOOD UREA NITROGEN 40 MG/DL (7-17); CALC CORRECTED 9.9 MG/DL (8.4-10.2); CALCIUM 7.7 MG/DL (8.4-10.2); CALCULATED OSMOLALITY 278 MOs/Kg (270-290); CHLORIDE 111 mEq/L (98-107); GLUCOSE 83 MG/DL (70-99); SODIUM LEVEL 140 mEq/L (137-146); TOTAL PROTEIN 5.7 G/DL (6.3-8.2)
[2016-06-03] MEDS: COLLAGENASE OINTMENT 30 GM TUBE TOP SCH (08:12)
[2016-06-03] MEDS: ATENOLOL 50 MG TAB PO SCH (08:12)
[2016-06-03] MEDS: POTASSIUM CHLORIDE 20 MEQ TAB PO SCH ×2 (08:12→18:02)
[2016-06-03] MEDS: FUROSEMIDE 40 MG/4 ML VIAL IV SCH ×2 (08:12→21:13)
[2016-06-03] MEDS: PROBIOTIC BLEND TAB PO SCH ×2 (12:30→18:02)
[2016-06-03] MEDS ORDERED: CHAPSTICK LIP BALM ONE (18:07)
--- NOTE | 2016-06-03 19:26 | GENMEDPROG ---
Chief Complaint: THROMBOCYTOPENIA, FTT, EDEMA OF LEGS, NON-HEALING WOUNDS, CHRONIC VENOUS STASIS DERMATITIS Subjective Note: PATIENT STATES SHE IS FEELING SOME BETTER Current Medication List: Reviewed Currently: Reports: FOSTER. Denies: Cough, Wheezing, SOB, Ambulating DVT Prophylaxis: No Current Order (T-PENIA, LYMPHEDEMA OF LE'S) - Physical Examination Vital Signs and I&O: Last Vital Signs Temp 97.6 F 06/03/16 13:38 Pulse 70 06/03/16 13:38 Resp 18 06/03/16 13:38 BP 102/61 06/03/16 13:38 Pulse Ox 100 06/03/16 13:38 Oxygen Pulse Oxygen Saturation 100 O2 Device Room Air Oxygen Flow Rate Fraction of Inspired Oxygen ( FIO2) Intake & Output 05/31/16 06/01/16 06/02/16 06/03/16 23:59 23:59 23:59 23:59 Intake Total 370 1105 Output Total 575 1450 Balance -205 -345 Patient's weight 92.986 kg 88.405 kg General: Alert, Oriented x3, Mild distress, Obese, Weakness HEENT: Normal, PERRLA, EOMI, Mucous membr. moist/pink, Other (TEMPORAL WASTING) Neck: Full range of motion, Normal Trachea alignment, Normal inspection, No Masses palpable, Supple Lymphatics: Normal. negative: Adenopathy Respiratory: Normal - CTA, Diminished. negative: Rales, Tachypnea, Wheezes Cardiovascular: Regular rate, Normal S1, Normal S2, LE Edema (MASSIVE 3-4+ BOTH LOWER EXTREMITIES, ADVISED PATIENT TO ELEVATE LEGS) GI: Normal bowel sounds, Soft, Non tender, Obese, Other (ASCITES, +FLUID WAVE) Extremities/Musculoskeletal: Edema (3-4+), Strength (NORMAL), DJD, FROM, Other ( OPEN WOUNDS ON LEGS W/ CHRONIC GRANULATION TISSUE, DO NOT APPEAR ACUTELY INFLAMED) Skin: Warm,Dry and Intact, Erythema (PURPURIC LESIONS ON ARMS), Ulceration (LEGS ), Other (IRRITTION &MACERATION OF SKIN IN PERINEUM) Neurological: Normal speech, Strength at 5/5 X4 ext, Normal tone, Cranial nerves 3-12 NL Psych/Mental Status: Appropriate, Normal Affect, Cooperative Lab/DI/Studies Reviewed: Laboratory Tests 06/02/16 06/03/16 06/03/16 22:10 03:38 07:00 WBC Hgb Hct Plt Count Neut % (Auto) Lymph % (Auto) [place] % (Auto) APTT Sodium 140 Potassium 3.5 Chloride 111 H Carbon Dioxide 18 L Anion Gap 15 BUN 40 H Creatinine 1.70 H Estimated GFR (MDRD) 39 L Glucose 83 POC Capillary Glucose 77 Calculated Osmolality 278 Corrected Calcium 9.9 Total Bilirubin 4.6 H AST 30 ALT 29 Alkaline Phosphatase 189 H Total Protein 5.7 L Albumin 1.8 L Urine Color Dark yellow Urine Clarity Cldy Urine pH 6.0 Ur Specific [place] 1.015 Urine Protein 1+ H Urine Glucose (UA) Neg Urine Ketones Neg Urine Occult Blood 3+ H Urine Urobilinogen 8 H Ur Leukocyte Esterase 2+ H Urine RBC 2-5 Urine WBC 10-20 H Ur Epithelial Cells 4+ Urine Bacteria Few 06/03/16 06/03/16 06/03/16 07:00 07:00 11:10 WBC 9.5 Hgb 8.5 L Hct 25.3 L Plt Count 50 L Neut % (Auto) 78.0 H Lymph % (Auto) 13.7 L [place] % (Auto) 6.1 APTT 31.9 Sodium Potassium Chloride Carbon Dioxide Anion Gap BUN Creatinine Estimated GFR (MDRD) Glucose POC Capillary Glucose 108 H Calculated Osmolality Corrected Calcium Total Bilirubin AST ALT Alkaline Phosphatase Total Protein Albumin Urine Color Urine Clarity Urine pH Ur Specific [place] Urine Protein Urine Glucose (UA) Urine Ketones Urine Occult Blood Urine Urobilinogen Ur Leukocyte Esterase Urine RBC Urine WBC Ur Epithelial Cells Urine Bacteria 06/03/16 16:12 WBC Hgb Hct Plt Count Neut % (Auto) Lymph % (Auto) [place] % (Auto) APTT Sodium Potassium Chloride Carbon Dioxide Anion Gap BUN Creatinine Estimated GFR (MDRD) Glucose POC Capillary Glucose 109 H Calculated Osmolality Corrected Calcium Total Bilirubin AST ALT Alkaline Phosphatase Total Protein Albumin Urine Color Urine Clarity Urine pH Ur Specific [place] Urine Protein Urine Glucose (UA) Urine Ketones Urine Occult Blood Urine Urobilinogen Ur Leukocyte Esterase Urine RBC Urine WBC Ur Epithelial Cells Urine Bacteria - Assessment (1) Jaundice of recent onset Acute R17 - UNSPECIFIED JAUNDICE (2) Thrombocytopenia Acute D69.6 - THROMBOCYTOPENIA, UNSPECIFIED (3) Healing wound present on both lower extremities Acute [id number] - (4) Venous stasis dermatitis of both lower extremities Acute I83.11 - VARICOSE VEINS OF RIGHT LOWER EXTREMITY WITH INFLAMMATION; I83.12 - VARICOSE VEINS OF LEFT LOWER EXTREMITY WITH INFLAMMATION (5) Anemia Chronic D64.9 - ANEMIA, UNSPECIFIED Qualifiers: Anemia type: other cause Other causes of anemia: chronic disease, kidney Qualified Code(s): N18.9 - Chronic kidney disease, unspecified; D63.1 - Anemia in chronic kidney disease Comment/Plan: 05/25/2016 improved post transfusion. Has been transfused 4 units of PRBCs during admission. Current Hg = 8.8. (6) CKD (chronic kidney disease), stage III Chronic N18.3 - CHRONIC KIDNEY DISEASE, STAGE 3 (MODERATE) Comment/Plan: MONITOR RENAL FUNCTION CLOSELY (7) HTN (hypertension) Chronic I10 - ESSENTIAL (PRIMARY) HYPERTENSION Qualifiers: Hypertension type: essential hypertension Qualified Code(s): I10 - Essential (primary) hypertension Comment/Plan: Continue previous medication. - Plan PATIENT WILL NEED PLACEMENT IN LONG-TERM OR HOMELESS PRISON, OR NEEDS TO QUALIFY FOR [facility] AND FIND ECF THAT WILL ACCEPT HER. Case Care Discussed with: Patient, Consultants, Nursing Staff, Resource Management Education/Counseling Given To: Patient, Family Member Education/Counseling Given Regarding: Diagnosis, Treatment, Prognosis Critical Care: No Couseling Time (>50% in counseling/coordination): No Code: 00260 (12+)
--- NOTE | 2016-06-03 20:01 | PCM.CCCON2 ---
[id number] Katherine Consult Reason: Hematology (thrombocytopenia) Travel Outside of [place] in the Last 3 Months?: No Consultation Note: History of Present Illness: This is a 50-year-old woman who was hospitalized just last month for Pseudomonas cellulitis of her low lower extremities, and multiple other comorbidities including diabetes, chronic kidney disease, anemia, hyponatremia and hypertension. She was discharged a few days ago on May 31, but during that admission she did have a decrease in her platelet count. It was normal from May 15 to May 21 but then decreased to 108,000 on May 22, 103,000 on May 25, 1983 100,000 on May 28 and 68,000 on May 29. On May 30 it was down to 51,000 and she presented to the emergency room yesterday doing very poorly and her platelet count was even lower at 40,000. Her white count has been elevated and her hemoglobin has been up and down with a reading of 8.8 at the time of discharge and 8.6 as of yesterday. Her infection had cleared up but she now comes in with recurrent cellulitis and new sores of her skin and buttocks where she has been defecating and urinating on herself, causing inflammation. She denies any bleeding but does say she bruises easily. She is a poor historian. Past Medical History: Diabetes, hypertension, hyperlipidemia, asthma, chronic kidney disease, gastroesophageal reflux, osteoarthritis, anemia, possible liver cirrhosis and depression. Past Surgical History: Negative. Allergies Penicillins Allergy (Verified 06/02/16 16:55) Rash-Generalized Home Medications Atenolol 50 mg PO DAILY 04/17/16 Gabapentin 300 mg PO TID PRN 05/15/16 Albuterol Sulfate MDI [Proventil HFA] 2 puff INH Q4HWA PRN #1 inhaler 05/31/16 Collagenase [Santyl] 30 gm TOP DAILY #1 tube 05/31/16 Furosemide [Lasix] 40 mg PO BID #60 tab 05/31/16 Metformin HCl [Glucophage XR (Ext Release)] 500 mg PO DAILY #30 tab.sr.24h 05/31 POTASSIUM CHLORIDE Tablet [K-DUR 20 mEq Tablet*] 20 meq PO BIDWM #60 tab.er.prt 05/31/16 Probiotic Blend [Rhea Q] 1 tab PO BIDLS #60 tablet 05/31/16 Family History: Negative for cancer or blood dyscrasia. Social History: Traveled outside the [place] in the last 3 months? No. Never smoker, she denied drinking alcohol but has very poor psychosocial circumstances at her home. Review of Systems: Hematologic: She was transfused with 4 units of packed red blood cells during her April admission and stool was Hemoccult negative but she did have evidence of iron deficiency as well as some degree of anemia of chronic disease from her chronic kidney disease. She is really unable to give a clear history. Physical Examination: Temperature: 97.6 F (06/03/16 13:38)HR: 70 (06/03/16 13:38)RR: 18 (06/03/16 13: 38)BP: 102/61 (06/03/16 13:38) SAT:100 (06/03/16 13:38) This is an elderly ill kempt black female who appears much older than her stated age. HEENT: pupils are equal, round, reactive to light. Sclera are muddy and possibly icteric. Posterior pharynx is benign. She has cheilosis at the corners of her mouth. No thyromegaly. No adenopathy is palpated in the cervical, clavicular, axillary or inguinal areas. Lungs are clear to auscultation and percussion. Heart has a regular rate and rhythm with no murmurs or gallops. Abdomen is soft, but distended, with no masses, no hepatosplenomegaly or tenderness. She has a Trivedi catheter in place. Extremities have severe venous stasis changes with several areas of DuoDerm patches. Neurologic exam reveals lethargy but no focal deficits. LAB/DI: Laboratory Results - last 24 hr 06/02/16 06/02/16 06/03/16 21:28 22:10 03:38 WBC RBC Hgb Hct MCV MCH MCHC RDW Plt Count MPV Neut % (Auto) Lymph % (Auto) [place] % (Auto) Eos % (Auto) Baso % (Auto) Absolute Neuts (auto) Absolute Lymphs (auto) APTT Sodium Potassium Chloride Carbon Dioxide Anion Gap BUN Creatinine Estimated GFR (MDRD) Glucose POC Capillary Glucose 98 77 Calculated Osmolality Calcium Corrected Calcium Total Bilirubin AST ALT Alkaline Phosphatase Total Protein Albumin Urine Color Dark yellow Urine Clarity Cldy Urine pH 6.0 Ur Specific [place] 1.015 Urine Protein 1+ H Urine Glucose (UA) Neg Urine Ketones Neg Urine Occult Blood 3+ H Urine Nitrite Neg Urine Bilirubin Neg Urine Urobilinogen 8 H Ur Leukocyte Esterase 2+ H Urine RBC 2-5 Urine WBC 10-20 H Ur Epithelial Cells 4+ Amorphous Sediment Occ Urine Bacteria Few Urine Mucus Occ 06/03/16 06/03/16 06/03/16 07:00 07:00 07:00 WBC 9.5 RBC 2.80 L Hgb 8.5 L Hct 25.3 L MCV 90 MCH 30.3 MCHC 33.5 RDW 15.9 H Plt Count 50 L MPV 11.3 H Neut % (Auto) 78.0 H Lymph % (Auto) 13.7 L [place] % (Auto) 6.1 Eos % (Auto) 2.0 Baso % (Auto) 0.2 Absolute Neuts (auto) 7.41 Absolute Lymphs (auto) 1.24 APTT 31.9 Sodium 140 Potassium 3.5 Chloride 111 H Carbon Dioxide 18 L Anion Gap 15 BUN 40 H Creatinine 1.70 H Estimated GFR (MDRD) 39 L Glucose 83 POC Capillary Glucose Calculated Osmolality 278 Calcium 7.7 L Corrected Calcium 9.9 Total Bilirubin 4.6 H AST 30 ALT 29 Alkaline Phosphatase 189 H Total Protein 5.7 L Albumin 1.8 L Urine Color Urine Clarity Urine pH Ur Specific [place] Urine Protein Urine Glucose (UA) Urine Ketones Urine Occult Blood Urine Nitrite Urine Bilirubin Urine Urobilinogen Ur Leukocyte Esterase Urine RBC Urine WBC Ur Epithelial Cells Amorphous Sediment Urine Bacteria Urine Mucus 06/03/16 06/03/16 11:10 16:12 WBC RBC Hgb Hct MCV MCH MCHC RDW Plt Count MPV Neut % (Auto) Lymph % (Auto) [place] % (Auto) Eos % (Auto) Baso % (Auto) Absolute Neuts (auto) Absolute Lymphs (auto) APTT Sodium Potassium Chloride Carbon Dioxide Anion Gap BUN Creatinine Estimated GFR (MDRD) Glucose POC Capillary Glucose 108 H 109 H Calculated Osmolality Calcium Corrected Calcium Total Bilirubin AST ALT Alkaline Phosphatase Total Protein Albumin Urine Color Urine Clarity Urine pH Ur Specific [place] Urine Protein Urine Glucose (UA) Urine Ketones Urine Occult Blood Urine Nitrite Urine Bilirubin Urine Urobilinogen Ur Leukocyte Esterase Urine RBC Urine WBC Ur Epithelial Cells Amorphous Sediment Urine Bacteria Urine Mucus Her platelet count has come up from 40,000 to 51,000 today. Recommendations: Impression and recommendations: 1. Severe thrombocytopenia which has worsened during her admission and was normal to begin with. This makes me suspicious of possible drug affect but could also be nutritional. Her JONAH was negative and she had no evidence of hemolytic anemia on her recent admission. I will check B12 and folate levels as well as protein electrophoresis to rule out multiple myeloma. I suspect it is more related to sepsis and possible liver cirrhosis. I agree with treating her for the infection and monitor her counts. I do not feel a bone marrow is indicated but will check for heparin induced anti-platelet antibodies. 2. Anemia. She has already been checked for hemolysis and haptoglobin was normal. I will check some additional tests but this may be anemia of chronic disease relating to her chronic kidney disease. 3. Chronic kidney disease. 4. Diabetes. 5. Recurrent infections and poor hygiene. 6. Suspected liver cirrhosis. I will order a lab evaluation and plan to view her blood smear and follow along with you. I suspect her blood counts may improve with treatment of her underlying problems, but we will rule out any other treatable causes. Thank you for this consultation.
[2016-06-04] MEDS: REGULAR INSULIN 100 UNITS/ML - 3 ML VIAL SQ SCH ×4 (05:17→20:46)
[2016-06-04] MEDS: SODIUM CHLORIDE 0.9% 3 ML FLUSH FLUSH SCH ×2 (05:17→16:47)
[2016-06-04] MEDS: CLOTRIMAZOLE & BETAMETHASONE 45 GM TUBE TOP SCH ×3 (05:17→21:33)
[2016-06-04 07:25] LABS: AUTOMATED BASOPHIL 0.3 % (0-2); AUTOMATED LYMPH 17.5 % (17-44); AUTOMATED MONOCYTE 6.4 % (3-10); AUTOMATED NEUTROPHIL 73.8 % (45-76); MPV 9.8 fL (7.4-10.4)
[2016-06-04] MEDS: POTASSIUM CHLORIDE 20 MEQ TAB PO SCH ×2 (07:54→16:46)
[2016-06-04] MEDS: COLLAGENASE OINTMENT 30 GM TUBE TOP SCH (07:55)
[2016-06-04] MEDS: ATENOLOL 50 MG TAB PO SCH (07:55)
[2016-06-04] MEDS: FUROSEMIDE 40 MG/4 ML VIAL IV SCH ×2 (07:55→21:33)
[2016-06-04] MEDS: PROBIOTIC BLEND TAB PO SCH ×2 (11:39→16:47)
[2016-06-04 14:34] LABS: HIV SCREEN 4th GEN Non Reactive (Non Reactive)
--- NOTE | 2016-06-04 15:12 | GENMEDPROG ---
Chief Complaint: Jaundice, anemia, probable cirrhosis, T-penia, peripheral edema, chronic venous stasis with open wounds on legs, DM-2 Subjective Note: edema of legs is improving significantly Currently: Reports: FOSTER. Denies: Cough, Wheezing, SOB, Ambulating DVT Prophylaxis: No Current Order (T-PENIA, LYMPHEDEMA OF LE'S) - Physical Examination Vital Signs and I&O: Last Vital Signs Temp 98.4 F 06/04/16 13:55 Pulse 90 06/04/16 13:55 Resp 18 06/04/16 13:55 BP 135/77 06/04/16 13:55 Pulse Ox 100 06/04/16 13:55 Oxygen Pulse Oxygen Saturation 100 O2 Device Room Air Oxygen Flow Rate Fraction of Inspired Oxygen ( FIO2) Intake & Output 06/01/16 06/02/16 06/03/16 06/04/16 23:59 23:59 23:59 23:59 Intake Total 370 1245 610 Output Total 575 1725 1050 Balance -649 -921 -440 Patient's weight 92.986 kg 88.405 kg 92.334 kg General: Alert, Oriented x3, No acute distress, Obese, Weakness, Fatigue HEENT: Normal, PERRLA, EOMI, Mucous membr. moist/pink, Other (TEMPORAL WASTING) Neck: Full range of motion, Normal Trachea alignment, Normal inspection, No Masses palpable, Supple Lymphatics: Normal. negative: Adenopathy Respiratory: Normal - CTA, Diminished. negative: Rales, Tachypnea, Wheezes Cardiovascular: Regular rate, Normal S1, Normal S2, LE Edema (MASSIVE 3-4+ BOTH LOWER EXTREMITIES, ADVISED PATIENT TO ELEVATE LEGS) GI: Normal bowel sounds, Soft, Non tender, Obese, Other (ASCITES, +FLUID WAVE) Extremities/Musculoskeletal: Edema (3-4+), Strength (NORMAL), DJD, FROM, Other ( OPEN WOUNDS ON LEGS W/ CHRONIC GRANULATION TISSUE, DO NOT APPEAR ACUTELY INFLAMED) Skin: Warm,Dry and Intact, Erythema (PURPURIC LESIONS ON ARMS), Ulceration (LEGS ), Other (IRRITTION &MACERATION OF SKIN IN PERINEUM) Neurological: Normal Steady Gait (able to ambulate with PT with minimal assistance distance 10 feet), Normal speech, Strength at 5/5 X4 ext, Normal tone , Cranial nerves 3-12 NL Psych/Mental Status: Appropriate, Normal Affect, Cooperative, Lethargic Lab/DI/Studies Reviewed: Laboratory Tests 06/04/16 06/04/16 05:22 06:22 WBC 11.3 H Hgb 8.5 L Hct 25.3 L Plt Count 53 L Neut % (Auto) 73.8 Lymph % (Auto) 17.5 [place] % (Auto) 6.4 POC Capillary Glucose 125 H - Assessment (1) Jaundice of recent onset Acute R17 - UNSPECIFIED JAUNDICE Comment/Plan: Patient appears chronically ill, has elevated liver enzymes, jaundice, peripheral edema and ascites. Also presented with new onset thrombocytopenia. Is being evaluated by Dr. Murphy for hematology/blood dyscrasia. (2) Thrombocytopenia Acute D69.6 - THROMBOCYTOPENIA, UNSPECIFIED Comment/Plan: New/recent onset of undetermined etiology. Patient denies excessive use of alcohol. could be due to medications, or chronic poor health. Hepatitis profile ordered. (3) Healing wound present on both lower extremities Acute [id number] - Comment/Plan: PT wound care to continue dressing wounds BID. Edema is resolving again, now that patient is back on her medication. (4) Venous stasis dermatitis of both lower extremities Acute I83.11 - VARICOSE VEINS OF RIGHT LOWER EXTREMITY WITH INFLAMMATION; I83.12 - VARICOSE VEINS OF LEFT LOWER EXTREMITY WITH INFLAMMATION (5) Anemia Chronic D64.9 - ANEMIA, UNSPECIFIED Qualifiers: Anemia type: other cause Other causes of anemia: chronic disease, kidney Qualified Code(s): N18.9 - Chronic kidney disease, unspecified; D63.1 - Anemia in chronic kidney disease Comment/Plan: Was been transfused 4 units of PRBCs during last admission. Current Hg = 8.5. (6) CKD (chronic kidney disease), stage III Chronic N18.3 - CHRONIC KIDNEY DISEASE, STAGE 3 (MODERATE) Comment/Plan: MONITOR RENAL FUNCTION CLOSELY (7) HTN (hypertension) Chronic I10 - ESSENTIAL (PRIMARY) HYPERTENSION Qualifiers: Hypertension type: essential hypertension Qualified Code(s): I10 - Essential (primary) hypertension Comment/Plan: Continue previous medication. Case Care Discussed with: Patient, Consultants, Nursing Staff Education/Counseling Given To: Patient Education/Counseling Given Regarding: Diagnosis, Treatment, Prognosis Critical Care: Yes Couseling Time (>50% in counseling/coordination): Yes Code: [id number] (12+)
[2016-06-04] MEDS ORDERED: DIATRIZOATE MEGLMINE/SODIUM 30 ML BOTTLE PO ONE (18:51)
[2016-06-05] MEDS: CLOTRIMAZOLE & BETAMETHASONE 45 GM TUBE TOP SCH ×3 (05:34→23:05)
[2016-06-05] MEDS: REGULAR INSULIN 100 UNITS/ML - 3 ML VIAL SQ SCH ×4 (05:35→23:05)
[2016-06-05] MEDS: SODIUM CHLORIDE 0.9% 3 ML FLUSH FLUSH SCH ×2 (05:35→16:57)
[2016-06-05 07:12] LABS: MPV 10.6 fL (7.4-10.4)
--- NOTE | 2016-06-05 07:21 | DIRPT ---
CLINICAL DATA: New onset jaundice, ascites and thrombocytopenia. EXAM: CT ABDOMEN AND PELVIS WITHOUT CONTRAST TECHNIQUE: Multidetector CT imaging of the abdomen and pelvis was performed following the standard protocol without IV contrast. COMPARISON: Ultrasound 05/18/2016 FINDINGS: There is diffuse anasarca of the soft tissues. Lung bases are clear. No pleural or pericardial fluid. There is moderate ascites diffusely distributed. There is cirrhosis of the liver with prominence of the left lobe and uncinate process and lobulation of the liver surface. No focal liver lesion is identifiable. There are gallstones dependent within the gallbladder. No sign of ductal stone. The spleen is mildly enlarged. The pancreas is normal. The adrenal glands are normal. The kidneys are normal. The aorta shows atherosclerosis but no aneurysm. The IVC is normal. No retroperitoneal mass or lymphadenopathy. No primary bowel lesion is seen. No significant bone finding. IMPRESSION: Cirrhosis of the liver. Moderate ascites. Diffuse anasarca. Gallstones without CT evidence of cholecystitis or obstruction. Atherosclerosis of the aorta. Electronically Signed By: Kelby Greene M.D. On: 06/05/2016 07:18
[2016-06-05 07:38] LABS: CALC CORRECTED 9.7 MG/DL (8.4-10.2); CALCIUM 7.5 MG/DL (8.4-10.2); CREATININE 1.5 MG/DL (0.52-1.04)
[2016-06-05 09:07] LABS: SEG NEUTROPHIL 81 % (45-76)
[2016-06-05] MEDS: FUROSEMIDE 40 MG/4 ML VIAL IV SCH (09:18)
[2016-06-05] MEDS: POTASSIUM CHLORIDE 20 MEQ TAB PO SCH ×2 (09:18→16:56)
[2016-06-05] MEDS: ATENOLOL 50 MG TAB PO SCH (09:20)
[2016-06-05] MEDS ORDERED: ALBUTEROL 6.7 GM MDI INH PRN (12:08)
[2016-06-05] MEDS: PROBIOTIC BLEND TAB PO SCH ×2 (12:34→16:56)
[2016-06-05] MEDS: COLLAGENASE OINTMENT 30 GM TUBE TOP SCH (12:40)
[2016-06-05] MEDS ORDERED: Medication Special Instructions SCH (13:00)
[2016-06-05 16:37] LABS: A1 GLOBULIN 0.2 g/dL (0.0-0.4); A2 GLOBULIN 0.4 g/dL (0.4-1.0); ALBUMIN (PE) 1.7 g/dL (2.9-4.4); TOTAL PROTEIN (PE) 5.4 g/dL (6.0-8.5)
[2016-06-05] MEDS ORDERED: POTASSIUM CHLORIDE 20 MEQ TAB PO SCH (18:00)
[2016-06-05] MEDS ORDERED: PROBIOTIC BLEND TAB PO SCH (18:00)
--- NOTE | 2016-06-05 19:26 | GENMEDPROG ---
Chief Complaint: Patient's only complaint today is lower extremity pain. She states her swelling is slightly better. She denies knowing anything about the prior liver problem Current Medication List: Reviewed Currently: Reports: FOSTER, Other (Decreased appetite). Denies: Cough, Wheezing, SOB, Nausea and Vomiting, Abdominal Pain, Fever/Chills, Ambulating (Not ambulating due to leg pain) DVT Prophylaxis: No Current Order (T-PENIA, LYMPHEDEMA OF LE'S) - Physical Examination Vital Signs and I&O: Last Vital Signs Temp 98.5 F 06/05/16 15:04 Pulse 75 06/05/16 15:04 Resp 20 06/05/16 15:04 BP 105/59 L 06/05/16 15:04 Pulse Ox 100 06/05/16 15:04 Oxygen Pulse Oxygen Saturation 100 O2 Device Room Air Oxygen Flow Rate Fraction of Inspired Oxygen ( FIO2) Intake & Output 06/02/16 06/03/16 06/04/16 06/05/16 23:59 23:59 23:59 23:59 Intake Total 370 1245 1340 930 Output Total 575 1725 1275 1500 Balance -205 -480 65 -570 Patient's weight 92.986 kg 88.405 kg 92.334 kg 90.492 kg General: Alert, Oriented x3, No acute distress, Obese, Other (Appears older than stated age) HEENT: Normal, PERRLA, EOMI, Mucous membr. moist/pink, Other (TEMPORAL WASTING) Neck: Full range of motion, Normal Trachea alignment, Normal inspection, Supple Lymphatics: Normal. negative: Adenopathy Respiratory: Normal - CTA, Diminished. negative: Rales, Tachypnea, Wheezes Cardiovascular: Regular rate, Normal S1, Normal S2, LE Edema (3+ lower extremity edema ,a little bit less in her thighs) GI: Normal bowel sounds, Soft, Non tender, Obese, Other (ASCITES, +FLUID WAVE) Extremities/Musculoskeletal: Edema (3-4+), Strength (NORMAL), DJD, FROM, Other ( Leg wounds are wrapped) Skin: Warm,Dry and Intact, Erythema (PURPURIC LESIONS ON ARMS), Ulceration (LEGS ) Neurological: Normal speech, Strength at 5/5 X4 ext, Normal tone Psych/Mental Status: Appropriate (Speech is slow but fluent), Normal Affect, Cooperative Lab/DI/Studies Reviewed: 06/05/16 06:50 06/05/16 06:50 Intake & Output 06/02/16 06/03/16 06/04/16 06/05/16 23:59 23:59 23:59 23:59 Intake Total 370 1245 1340 930 Output Total 575 1725 1275 1500 Balance -205 -480 65 -570 Patient's weight 92.986 kg 88.405 kg 92.334 kg 90.492 kg - Assessment (1) Jaundice of recent onset Acute R17 - UNSPECIFIED JAUNDICE Comment/Plan: Abdominal CT today shows cirrhosis with ascites and anasarca. The patient denies any knowledge of any previous liver disease. Have discussed chronic nature of this illness with the patient but she has not processed that information well yet (2) CKD (chronic kidney disease), stage III Chronic N18.3 - CHRONIC KIDNEY DISEASE, STAGE 3 (MODERATE) Comment/Plan: Improved but still present. Is off IV fluids (3) Healing wound present on both lower extremities Acute [id number] - Comment/Plan: PT wound care to continue dressing wounds BID. Edema is resolving again, now that patient is back on her medication. (4) Thrombocytopenia Acute D69.6 - THROMBOCYTOPENIA, UNSPECIFIED Comment/Plan: Likely related to the chronic cirrhosis. (5) Venous stasis dermatitis of both lower extremities Acute I83.11 - VARICOSE VEINS OF RIGHT LOWER EXTREMITY WITH INFLAMMATION; I83.12 - VARICOSE VEINS OF LEFT LOWER EXTREMITY WITH INFLAMMATION (6) Cirrhosis of liver Acute K74.60 - UNSPECIFIED CIRRHOSIS OF LIVER Qualifiers: Hepatic cirrhosis type: unspecified hepatic cirrhosis Ascites presence: with ascites Qualified Code(s): K74.60 - Unspecified cirrhosis of liver Comment/Plan: Will add spironolactone to see if it helps with ascites although I am not anticipating a large benefit. Will need to be careful of renal failure (7) Anemia Chronic D64.9 - ANEMIA, UNSPECIFIED Qualifiers: Anemia type: other cause Other causes of anemia: chronic disease, other Qualified Code(s): D63.8 - Anemia in other chronic diseases classified elsewhere Comment/Plan: Hemoglobin has fallen below 8 today. This may be related to the cirrhosis. Will type and cross although patient presently has no IV access. Will need to check stools for blood as well Case Care Discussed with: Patient, Nursing Staff Education/Counseling Given To: Patient Education/Counseling Given Regarding: Diagnosis, Treatment, Prognosis Total Time: 45 minutes Critical Care: No Code: 07618 (12+)
[2016-06-05] MEDS ORDERED: SODIUM CHLORIDE 0.9% 3 ML FLUSH FLUSH PRN (20:33)
[2016-06-05] MEDS ORDERED: FUROSEMIDE 40 MG TAB PO SCH (21:00)
[2016-06-05] MEDS: FUROSEMIDE 40 MG TAB PO SCH (23:05)
[2016-06-06] MEDS: SODIUM CHLORIDE 0.9% 3 ML FLUSH FLUSH SCH ×4 (05:19→17:44)
[2016-06-06] MEDS: CLOTRIMAZOLE & BETAMETHASONE 45 GM TUBE TOP SCH ×3 (05:19→22:53)
[2016-06-06] MEDS: REGULAR INSULIN 100 UNITS/ML - 3 ML VIAL SQ SCH ×4 (05:20→22:52)
[2016-06-06] MEDS ORDERED: COLLAGENASE OINTMENT 30 GM TUBE TOP SCH (09:00)
[2016-06-06] MEDS ORDERED: ATENOLOL 25 MG TAB PO SCH (09:00)
[2016-06-06] MEDS: SPIRONOLACTONE 25 MG TAB PO SCH (10:20)
[2016-06-06] MEDS: FUROSEMIDE 40 MG TAB PO SCH ×2 (10:20→22:52)
[2016-06-06] MEDS: POTASSIUM CHLORIDE 20 MEQ TAB PO SCH ×2 (10:20→17:43)
[2016-06-06] MEDS: ATENOLOL 50 MG TAB PO SCH (10:20)
[2016-06-06] MEDS: PROBIOTIC BLEND TAB PO SCH ×2 (12:28→17:43)
--- NOTE | 2016-06-06 14:03 | GENMEDPROG ---
Chief Complaint: Thrombocytopenia , jaundice, failure to thrive Subjective Note: She denies pain. Is still sleepy. Has questions about liver disease. states she ate well today. No nausea, vomiting. Denies melena, hematuria Currently: Reports: FOSTER, Other (Decreased appetite). Denies: Cough, Wheezing, SOB, Nausea and Vomiting, Abdominal Pain, Fever/Chills, Ambulating (Not ambulating due to leg pain) DVT Prophylaxis: No Current Order (T-PENIA, LYMPHEDEMA OF LE'S) - Physical Examination Vital Signs and I&O: Last Vital Signs Temp 99.3 F 06/06/16 04:45 Pulse 78 06/06/16 04:45 Resp 20 06/06/16 04:45 BP 107/64 06/06/16 04:45 Pulse Ox 98 06/06/16 04:45 Oxygen Pulse Oxygen Saturation 98 O2 Device Room Air Oxygen Flow Rate Fraction of Inspired Oxygen ( FIO2) Intake & Output 06/03/16 06/04/16 06/05/16 06/06/16 23:59 23:59 23:59 23:59 Intake Total 1245 1340 1170 420 Output Total 1725 1275 1650 650 Balance -480 65 -480 -230 Patient's weight 88.405 kg 92.334 kg 90.492 kg 86.778 kg General: Alert, Oriented x3, No acute distress, Obese, Other (Appears older than stated age) HEENT: Normal, PERRLA, EOMI, Mucous membr. moist/pink, Other (TEMPORAL WASTING) Neck: Full range of motion, Normal Trachea alignment, Normal inspection, Supple Lymphatics: Normal. negative: Adenopathy Respiratory: Normal - CTA, Diminished. negative: Rales, Tachypnea, Wheezes Cardiovascular: Regular rate, Normal S1, Normal S2, LE Edema (3+ lower extremity edema ,a little bit less in her thighs) GI: Normal bowel sounds, Soft, Non tender, Obese, Other (ASCITES, +FLUID WAVE) Extremities/Musculoskeletal: Edema (3-4+), Strength (NORMAL), DJD, FROM, Other ( Leg wounds are wrapped) Skin: Warm,Dry and Intact, Erythema (PURPURIC LESIONS ON ARMS), Ulceration ( Dressings on lower extremities cover the ulcerations) Neurological: Normal speech, Strength at 5/5 X4 ext, Normal tone Psych/Mental Status: Appropriate (Was initially asleep but woke up and was appropriate.), Normal Affect, Cooperative, Somnolent Lab/DI/Studies Reviewed: Intake & Output 06/03/16 06/04/16 06/05/16 06/06/16 23:59 23:59 23:59 23:59 Intake Total 1245 1340 1170 1800 Output Total 1725 1275 1650 1625 Balance -480 65 -480 175 Patient's weight 88.405 kg 92.334 kg 90.492 kg 86.778 kg - Assessment (1) Jaundice of recent onset Acute R17 - UNSPECIFIED JAUNDICE Comment/Plan: Appears to be due to chronic cirrhosis. The patient continues to talk about enjoying her beer, she also denies any prior knowledge of any liver disease. Discussed again the very chronic and serious nature of her illness and that her only options are to treat symptoms. Also discussed that she should not ever drink alcohol (2) CKD (chronic kidney disease), stage III Chronic N18.3 - CHRONIC KIDNEY DISEASE, STAGE 3 (MODERATE) Comment/Plan: Improved but still present. Is off IV fluids (3) Healing wound present on both lower extremities Acute [id number] - Comment/Plan: PT wound care to continue dressing wounds BID. Edema is resolving again, now that patient is back on her medication. (4) Thrombocytopenia Acute D69.6 - THROMBOCYTOPENIA, UNSPECIFIED Comment/Plan: Likely related to the chronic cirrhosis. (5) Venous stasis dermatitis of both lower extremities Acute I83.11 - VARICOSE VEINS OF RIGHT LOWER EXTREMITY WITH INFLAMMATION; I83.12 - VARICOSE VEINS OF LEFT LOWER EXTREMITY WITH INFLAMMATION Comment/Plan : Now also has additional swelling likely related to liver disease (6) Cirrhosis of liver Acute K74.60 - UNSPECIFIED CIRRHOSIS OF LIVER Qualifiers: Hepatic cirrhosis type: unspecified hepatic cirrhosis Ascites presence: with ascites Qualified Code(s): K74.60 - Unspecified cirrhosis of liver Comment/Plan: Will add spironolactone to see if it helps with ascites although I am not anticipating a large benefit. Will need to be careful of renal failure (7) Anemia Chronic D64.9 - ANEMIA, UNSPECIFIED Qualifiers: Anemia type: other cause Other causes of anemia: chronic disease, other Qualified Code(s): D63.8 - Anemia in other chronic diseases classified elsewhere Comment/Plan: Hemoglobin was not recheck today. Due to lack of IV access the patient had a central line placed by Dr. Flores. When I asked her about previous transfusions she denies them but her hospital chart clearly states that she had them as recently as her last admission in April 2016. She did have evidence of some iron deficiency at that time. She does agree to a transfusion. I discussed the risk of hepatitis C, [id number], transfusion reaction, HIV, and she stated that she understood those risks. Case Care Discussed with: Patient, Consultants, Nursing Staff Education/Counseling Given To: Patient Education/Counseling Given Regarding: Diagnosis, Treatment, Prognosis Total Time: 45 minutes Critical Care: No Couseling Time (>50% in counseling/coordination): Yes Code: 75758 (12+)
--- NOTE | 2016-06-06 14:55 | PCM.SURGCO ---
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 She has developed anemia and thrombocytopenia. I was consulted for central venous catheter insertion as the patient has poor peripheral intravenous access and anemia. Chief Complaint: anemia - Past Medical and Surgical History Yes Unable to obtain information due to patient condition (History obtained from the patient's nurse, Khadijah, and Dr. Pike) Cardiac History: Reports: Hypertension Respiratory History: Reports: Asthma Systemic History: Reports: Anemia Musculoskeletal History: Reports: Arthritis (left knee) Psychological History: Denies: Depression Allergies Penicillins Allergy (Verified 06/02/16 16:55) Rash-Generalized Home Medications Atenolol 50 mg PO DAILY 04/17/16 Gabapentin 300 mg PO TID PRN 05/15/16 Albuterol Sulfate MDI [Proventil HFA] 2 puff INH Q4HWA PRN #1 inhaler 05/31/16 Collagenase [Santyl] 30 gm TOP DAILY #1 tube 05/31/16 Furosemide [Lasix] 40 mg PO BID #60 tab 05/31/16 Metformin HCl [Glucophage XR (Ext Release)] 500 mg PO DAILY #30 tab.sr.24h 05/31 POTASSIUM CHLORIDE Tablet [K-DUR 20 mEq Tablet*] 20 meq PO BIDWM #60 tab.er.prt 05/31/16 Probiotic Blend [Rhea Q] 1 tab PO BIDLS #60 tablet 05/31/16 - Social History Travel Outside of [place] in the Last 3 Months?: No Lives: With Family Social History: Reports: Alcohol Use (Multiple beers per day.) - Family History Reports: Diabetes (mom), Cardiac Disorders (dad) - Review of Systems Yes Review of systems cannot be obtained due to the patient's medical condition (Patient repeating questions throughout the examination.) - Physical Exam Vital Signs: Initial Vitals Temperature 98.0 F 06/02/16 18:40 Pulse Rate 87 06/02/16 18:40 Respiratory Rate 18 06/02/16 18:40 Blood Pressure 149/66 06/02/16 18:40 Pulse Oxygen Saturation 100 06/02/16 18:40 Constitutional: No apparent distress, Alert. negative: Agitated, Distress - HEENT Head: Normal Eye: Scleral Icterus Oropharynx: Normal Nose: No Symptoms Reported Respiratory: Normal - CTA (Clear to auscultation bilaterally. No wheezing, rales , rhonchi. Chest wall movements are symmetric. No use of accessory muscles to breathe.) Cardiovascular: Normal (RRR , Normal S1, S2. No murmurs, rubs, or gallops. PMI non-displaced. Carotids: no carotid bruits. No bradycardia or tachycardia. DP pulses 2+ bilaterally.) - GI Auscultation: Other (anasarca) Palpation: Enlarged liver, Fluid Wave. negative: Enlarged spleen Tenderness: Non tender Rectal Exam: Deferred - Musculoskeletal Extremities: Edema (moderate edema all four extremities) - Integumentary Skin: negative: Flushed - Neurologic Memory Impaired: Unable to Test Motor Function: Unable to Test - Lab Results 06/05/16 06:50 06/05/16 06:50 - Assessment/Plan (1) Anemia D64.9 - ANEMIA, UNSPECIFIED Chronic Present on Admission: Yes other cause chronic disease, other D63.8 - Anemia in other chronic diseases classified elsewhere Comment: We will plan for central venous catheter insertion. The indications, benefits and risks associated with the procedure were discussed with the patient. All questions were answered. Case Care Discussed with: Patient, Consultants (Dr. Pike), Nursing Staff ( VINAYAK Lucio)
--- NOTE | 2016-06-06 15:02 | HIMOPRPT ---
DATE OF PROCEDURE: 06/06/16 PREOPERATIVE DIAGNOSIS: Anemia, poor peripheral IV access. POSTOPERATIVE DIAGNOSIS: Anemia, poor peripheral IV access. PROCEDURE: Insertion of right femoral central venous catheter to 16 cm with ultrasound guidance. SURGEON: John Flores DO. ANESTHESIA: Local anesthesia, 1% lidocaine. DRAINS: None. COMPLICATIONS: None PATIENT CONDITION: Stable. ESTIMATED BLOOD LOSS: 1 ml. INDICATIONS: This is a 50-year-old female with extremely poor peripheral IV access, anemia and severe thrombocytopenia, need for central venous catheter insertion for intravenous fluids, blood transfusions, frequent laboratory monitoring, and intravenous medications. It is recommend for this patient, central venous catheter insertion. The risks associated with procedure were discussed with the patient in detail. Decision was made to insert femoral central venous catheter as the patient is at extremely high risk for bleeding as she has thrombocytopenia. The indications of femoral central venous catheter insertion outweigh the risks. The risks include, but not limited to bleeding, infection, catheter migration, deep vein thrombosis, resultant pulmonary embolism, perioperative cardiac and respiratory morbidity and mortality. All questions were answered and informed consent was obtained. FINDINGS: On ultrasound guidance, the right femoral vein was medial and slightly deeper than right femoral artery. No thrombus was identified. PROCEDURE IN DETAIL: BALTAZAR POSADA was placed in supine position in the intensive care unit bed. Right inguinal area was sterilely prepped and draped in usual fashion, infiltrated with local anesthetic. Utilizing ultrasound guidance, the right femoral vein was identified. An 18-gauge catheter and needle were advanced under negative suction and on first pass, there was return of dark bluish nonpulsatile blood. Guidewire was inserted without difficulty and without resistance, and using standard Seldinger technique, a triple-lumen central venous catheter was inserted. All 3 ports were aspirated and flushed without difficulty. It was sewn in 3 places. A sterile occlusive dressing was applied over this. Full sterile precautions were used throughout the procedure.
[2016-06-06] MEDS: COLLAGENASE OINTMENT 30 GM TUBE TOP SCH (15:41)
[2016-06-06] MEDS ORDERED: SODIUM CHLORIDE 0.9% 5 ML FLUSH FLUSH PRN (19:35)
[2016-06-06] MEDS ORDERED: CLOTRIMAZOLE & BETAMETHASONE 45 GM TUBE TOP SCH (23:00)
[2016-06-07] MEDS: SODIUM CHLORIDE 0.9% 3 ML FLUSH FLUSH SCH ×4 (05:53→17:04)
[2016-06-07] MEDS: CLOTRIMAZOLE & BETAMETHASONE 45 GM TUBE TOP SCH ×3 (05:54→21:24)
[2016-06-07] MEDS: REGULAR INSULIN 100 UNITS/ML - 3 ML VIAL SQ SCH ×4 (06:02→21:24)
[2016-06-07] MEDS: SODIUM CHLORIDE 0.9% 5 ML FLUSH FLUSH SCH ×2 (06:49→17:04)
[2016-06-07 07:49] LABS: BLOOD UREA NITROGEN 37 MG/DL (7-17); CALCIUM 7.7 MG/DL (8.4-10.2); CALCULATED OSMOLALITY 273 MOs/Kg (270-290); CHLORIDE 103 mEq/L (98-107); GLUCOSE 171 MG/DL (70-99); SODIUM LEVEL 135 mEq/L (137-146)
[2016-06-07 07:59] LABS: MPV 11.2 fL (7.4-10.4)
--- NOTE | 2016-06-07 08:54 | GENMEDPROG ---
Subjective Note: Patient is sitting up in a chair today. She did walk some in the halls today. She is still excoriated in her vaginal area and perineal area. Nursing reports there is some blood from that. Her stools are yellow and pasty and not grossly bloody and not melanotic. Patient thinks she is feeling a little bit better with the spironolactone. Currently: Reports: FOSTER, Ambulating (Not ambulating due to leg pain), Other ( slighly better appetite). Denies: Cough, Wheezing, SOB, Nausea and Vomiting, Abdominal Pain, Fever/Chills DVT Prophylaxis: No Current Order (T-PENIA, LYMPHEDEMA OF LE'S) - Physical Examination Vital Signs and I&O: Last Vital Signs Temp 98.0 F 06/07/16 05:10 Pulse 70 06/07/16 05:10 Resp 20 06/07/16 05:10 BP 98/60 L 06/07/16 05:10 Pulse Ox 98 06/07/16 05:10 Oxygen Pulse Oxygen Saturation 98 O2 Device Room Air Oxygen Flow Rate Fraction of Inspired Oxygen ( FIO2) Intake & Output 06/04/16 06/05/16 06/06/16 06/07/16 23:59 23:59 23:59 23:59 Intake Total 1340 1170 1920 360 Output Total 1275 1650 1625 500 Balance 65 -480 295 -140 Patient's weight 92.334 kg 90.492 kg 86.778 kg 85.871 kg General: Alert, Oriented x3, No acute distress, Obese, Other (Appears older than stated age) HEENT: Normal, EOMI, Mucous membr. moist/pink, Other (TEMPORAL WASTING) Neck: Normal Trachea alignment, Normal inspection, Supple Lymphatics: Normal. negative: Adenopathy Respiratory: Normal - CTA, Diminished. 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 against gravity but limited by edema.) Psych/Mental Status: Appropriate (Very concrete thinking), Normal Affect, Cooperative, Somnolent - Assessment (1) Jaundice of recent onset Acute R17 - UNSPECIFIED JAUNDICE Comment/Plan: Due to chronic cirrhosis. Will ask Dr Angeles to see. Explained to patient that she has serious illness and will soon if she continues to drink. (2) CKD (chronic kidney disease), stage III Chronic N18.3 - CHRONIC KIDNEY DISEASE, STAGE 3 (MODERATE) Comment/Plan: Off IVF. Follow BMP. Is on lasix and spironolactone. (3) Healing wound present on both lower extremities Acute [id number] - Comment/Plan: PT wound care to continue dressing wounds BID. Have added spironolactone to lalsix due to liver disease. (4) Thrombocytopenia Acute D69.6 - THROMBOCYTOPENIA, UNSPECIFIED Comment/Plan: likely related to chronic cirrhosis. (5) Venous stasis dermatitis of both lower extremities Acute I83.11 - VARICOSE VEINS OF RIGHT LOWER EXTREMITY WITH INFLAMMATION; I83.12 - VARICOSE VEINS OF LEFT LOWER EXTREMITY WITH INFLAMMATION Comment/Plan : PT addressing wounds . Medications for swelling. Elevate when in bed. (6) Cirrhosis of liver Acute K74.60 - UNSPECIFIED CIRRHOSIS OF LIVER Qualifiers: Hepatic cirrhosis type: unspecified hepatic cirrhosis Ascites presence: with ascites Qualified Code(s): K74.60 - Unspecified cirrhosis of liver Comment/Plan: Have asked Dr Angeles to consult. (7) Anemia Chronic D64.9 - ANEMIA, UNSPECIFIED Qualifiers: Anemia type: other cause Other causes of anemia: chronic disease, other Qualified Code(s): D63.8 - Anemia in other chronic diseases classified elsewhere Comment/Plan: Patient tolerating well. Follow labs. Did not transfuse yesterday because HGB was >8. Likely will fall based on hydration staus and ongoing blood loss in wounds and liver disease. Case Care Discussed with: Patient, Consultants, Nursing Staff Education/Counseling Given To: Patient Education/Counseling Given Regarding: Diagnosis, Treatment, Prognosis Total Time: 35 min Code: 07757 (12+)
[2016-06-07] MEDS: ATENOLOL 50 MG TAB PO SCH (10:41)
[2016-06-07] MEDS: FUROSEMIDE 40 MG TAB PO SCH ×2 (10:41→21:24)
[2016-06-07] MEDS: SPIRONOLACTONE 25 MG TAB PO SCH (10:42)
[2016-06-07] MEDS: COLLAGENASE OINTMENT 30 GM TUBE TOP SCH (10:42)
[2016-06-07] MEDS: POTASSIUM CHLORIDE 20 MEQ TAB PO SCH ×2 (10:42→16:58)
[2016-06-07] MEDS: PROBIOTIC BLEND TAB PO SCH ×2 (12:25→16:58)
--- NOTE | 2016-06-07 17:07 | PCM.CONSGI ---
Consult Date: 06/07/16 Consult Requesting Physician: Lety Pike Consult Reason: Other (cirrhosis) - History of Present Illness Ms. Dorantes is a 50-year-old female with multiple medical problems including obesity hypertension diabetes mellitus venous stasis or ulcers lower extremity anemia and thrombocytopenia. 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 Ms. Dorantes was recently discharged from the hospital for anemia and venous stasis ulcers renal failure diabetes hypertension and elevated cholesterol. She was discharged approximately 3 days ago. She returned secondary to inability to ambulate. She now has skin breakdown of the buttocks likely from poor hygiene. She continues to have venous stasis ulcers in lower extremity. Her diabetes is under poor control. She has poor understanding of her diet for both medical problems and her diabetes. During her last admission she received 4 units of packed red blood cell. She was iron deficient. She was having bleeding from her venous stasis or ulcers. Her stools were light brown. She was not complaining of a lot of heartburn or indigestion symptoms. She continues to be anemic. She was seen by Dr. Murphy to evaluate evidence of hemolysis. Her anemia could be from blood loss poor, nutrition, or pancytopenia from her alcohol use and cirrhosis. She has never had a GI evaluation. She denies any history of yellow jaundice. She denies drug use. She does have a history of heavy alcohol use of multiple beers per day for many years. She reports drinking beer to reduce her soda usage because of her diabetes. She has no family history of liver problems. She does not remember being told she had any liver problems in the past. Her CT this admission and her ultrasound from last admission did show evidence of nodular contour to the liver consistent with cirrhosis. Ms. Dorantes does not report heartburn or indigestion. She reports her appetite as being good. She does denies problem was constipation and loose stools. She does have areas of skin breakdown in the buttocks and decubiti. - Past Medical History Cardiac History: Reports: Hypertension, Hypercholesterolemia Respiratory History: Reports: Asthma GI/ History: Reports: Renal Disease Musculoskeletal History: Reports: Arthritis (left knee) Systemic History: Reports: Anemia, Diabetes Psychological History: Reports: Alcoholism (Multiple beers per day.). Denies: Depression - Surgical History Past Surgical History: Reports: Hysterectomy - Family History Family History: Reports: Diabetes (mom), Cardiac Disorders (dad) - Allergies Allergies Penicillins Allergy (Verified 06/02/16 16:55) Rash-Generalized - Medications Home Medications Atenolol 50 mg PO DAILY 04/17/16 Gabapentin 300 mg PO TID PRN 05/15/16 Albuterol Sulfate MDI [Proventil HFA] 2 puff INH Q4HWA PRN #1 inhaler 05/31/16 Collagenase [Santyl] 30 gm TOP DAILY #1 tube 05/31/16 Furosemide [Lasix] 40 mg PO BID #60 tab 05/31/16 Metformin HCl [Glucophage XR (Ext Release)] 500 mg PO DAILY #30 tab.sr.24h 05/31 POTASSIUM CHLORIDE Tablet [K-DUR 20 mEq Tablet*] 20 meq PO BIDWM #60 tab.er.prt 05/31/16 Probiotic Blend [Rhea Q] 1 tab PO BIDLS #60 tablet 05/31/16 - Social History Lives: With Family Smoking Status: Never smoker Social History: Reports: Alcohol Use (Multiple beers per day.) - Review of Systems Constitutional: Fatigue, Weakness. negative: Chills, Fever Eyes: negative: Blurred Vision, Double Vision Ears: negative: Hearing Loss Throat: negative: Pain, Masses Nose: negative: Bleeding Respiratory: negative: Cough, Hemoptysis, Shortness of Breath Cardiovascular: Edema. negative: Chest Pain, Palpitations Gastrointestinal: negative: Nausea, Vomiting, Abdominal Pain, Melena, Hematochezia, Dysphasia Genitourinary: negative: Dysuria, Hematuria Neurological: Gait Difficulty, Weakness. negative: Dizziness, Seizure, Speech Difficulty Musculoskeletal: Chronic low back pain, Arthritis Integumentary: Bruising Allergic/Immunologic: negative: Itching Hematologic: Easy Bruising Endocrine: negative: Weight Gain, Excessive Thirst, Polyuria Psychiatric: Anxiety, Depression - Exam Vital Signs: Temperature: 97.5 F (06/07/16 15:53) HR: 68 (06/07/16 15:53) RR: 18 (06/07/16 15:53) BP: 118/70 (06/07/16 15:53) Pulse Ox: 100 (06/07/16 15:53) General: Alert, Oriented x3, Mild distress HEENT: Icteric Sclera Respiratory: Normal - CTA. negative: Accessory Muscle Use Cardiovascular: Regular rate Gastrointestinal: Soft, Bowel Sounds. negative: Distended, Tender, Hepatosplenomegaly Extremities: Edema. negative: Cyanosis Skin: Warm,Dry and Intact, Ecchymosis Present Neurological: Normal speech, Other (No flap, Shakiness or tremor) Psych/Mental Status: Appropriate - Labs Result Diagrams: 06/07/16 06:24 06/07/16 06:24 Laboratory Tests 05/15/16 05/15/16 05/15/16 04:10 04:10 05:25 Hgb Iron 13.0 L TIBC 209 L % Saturation 6.2 L Transferrin 125 L Total Bilirubin AST ALT Alkaline Phosphatase Total Protein Albumin Vitamin B12 893 Serum Folate 5.52 TSH 2.78 Stool Occult Blood 05/24/16 05/25/16 05/30/16 07:11 06:35 07:46 Hgb 7.1 L D 10.3 L D 8.8 L Iron TIBC % Saturation Transferrin Total Bilirubin AST ALT Alkaline Phosphatase Total Protein Albumin Vitamin B12 Serum Folate TSH Stool Occult Blood 06/04/16 06/05/16 06/05/16 06:22 06:50 06:50 Hgb 8.5 L 7.6 L D Iron TIBC % Saturation Transferrin Total Bilirubin 3.9 H AST 44 H ALT 34 Alkaline Phosphatase 228 H Total Protein 6.0 L Albumin 1.8 L Vitamin B12 Serum Folate TSH Stool Occult Blood 06/07/16 06/07/16 02:13 06:24 Hgb 8.2 L Iron TIBC % Saturation Transferrin Total Bilirubin AST ALT Alkaline Phosphatase Total Protein Albumin Vitamin B12 Serum Folate TSH Stool Occult Blood Pos H Exam(s): 06-04-16 CT/CT ABD-PELV W/O IV CM CLINICAL DATA: New onset jaundice, ascites and thrombocytopenia. IMPRESSION: Cirrhosis of the liver. Moderate ascites. Diffuse anasarca. Gallstones without CT evidence of cholecystitis or obstruction. Atherosclerosis of the aorta. - Assessment and Plan (1) Cirrhosis of liver Acute K74.60 - UNSPECIFIED CIRRHOSIS OF LIVER unspecified hepatic cirrhosis with ascites K74.60 - Unspecified cirrhosis of liver (2) Anemia Chronic D64.9 - ANEMIA, UNSPECIFIED other cause chronic disease, other D63.8 - Anemia in other chronic diseases classified elsewhere (3) Alcohol abuse Acute F10.10 - ALCOHOL ABUSE, UNCOMPLICATED (4) Thrombocytopenia Acute D69.6 - THROMBOCYTOPENIA, UNSPECIFIED (5) Venous stasis dermatitis of both lower extremities Acute I83.11 - VARICOSE VEINS OF RIGHT LOWER EXTREMITY WITH INFLAMMATION; I83.12 - VARICOSE VEINS OF LEFT LOWER EXTREMITY WITH INFLAMMATION (6) Chronic kidney disease (CKD), stage IV (severe) Chronic N18.4 - CHRONIC KIDNEY DISEASE, STAGE 4 (SEVERE) (7) HTN (hypertension) Chronic I10 - ESSENTIAL (PRIMARY) HYPERTENSION essential hypertension I10 - Essential (primary) hypertension (8) Ascites Acute R18.8 - OTHER ASCITES Recommendations: 1. Continued care per multiple medical problems 2. Monitor labs And renal function closely 3. Hepatitis panel 4. Stop alcohol 5. Begin adalid restrictions Aldactone and Lasix 6. PPI therapy 7. Encourage ambulation and rehabilitation 8. Depending on her anemia may need GI evaluation
[2016-06-07 18:00] LABS: PT-INR 1.3
[2016-06-08] MEDS: CLOTRIMAZOLE & BETAMETHASONE 45 GM TUBE TOP SCH ×3 (05:12→21:06)
[2016-06-08] MEDS: SODIUM CHLORIDE 0.9% 3 ML FLUSH FLUSH SCH ×2 (05:13)
[2016-06-08] MEDS: PANTOPRAZOLE 40 MG TAB PO SCH (05:13)
[2016-06-08] MEDS: SODIUM CHLORIDE 0.9% 5 ML FLUSH FLUSH SCH ×2 (05:14→17:29)
[2016-06-08] MEDS: REGULAR INSULIN 100 UNITS/ML - 3 ML VIAL SQ SCH ×4 (06:02→21:03)
[2016-06-08 07:36] LABS: MPV 11.1 fL (7.4-10.4)
[2016-06-08 07:42] LABS: BLOOD UREA NITROGEN 36 MG/DL (7-17); CALCIUM 7.9 MG/DL (8.4-10.2); CALCULATED OSMOLALITY 269 MOs/Kg (270-290); CHLORIDE 104 mEq/L (98-107); GLUCOSE 119 MG/DL (70-99); SODIUM LEVEL 135 mEq/L (137-146); TOTAL PROTEIN 6.4 G/DL (6.3-8.2)
[2016-06-08] MEDS: POTASSIUM CHLORIDE 20 MEQ TAB PO SCH ×2 (08:35→17:29)
[2016-06-08] MEDS: ATENOLOL 50 MG TAB PO SCH (08:35)
[2016-06-08] MEDS: FUROSEMIDE 40 MG TAB PO SCH ×2 (08:35→22:38)
[2016-06-08] MEDS: SPIRONOLACTONE 25 MG TAB PO SCH (08:35)
--- NOTE | 2016-06-08 10:10 | PCM.GIPROG ---
Progress Note (GI) Chief Complaint: Ms. Dorantes is a 50-year-old female with multiple medical problems including obesity hypertension diabetes mellitus venous stasis or ulcers lower extremity anemia and thrombocytopenia. 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 Dorantes has no complaints today. She is tolerating her diet well. She ambulated in the taylor some yesterday. We discussed her need for good diabetic control and abstinence from alcohol. Most of her labs are pending. Her hemoglobin has decreased today. - Physical Exam Vital Signs: Temperature: 98.2 F (06/08/16 05:10) HR: 68 (06/08/16 05:10) RR: 20 (06/08/16 05:10) BP: 108/54 (06/08/16 05:10) Pulse Ox: 98 (06/08/16 05:10) General: Alert, Oriented x3, Mild distress HEENT: Icteric Sclera Respiratory: negative: Accessory Muscle Use Gastrointestinal: Soft, Bowel Sounds. negative: Distended (obese), Tender Extremities: Edema (With bandages and dressings in place in the lower extremities from her skin breakdown) Skin: Warm,Dry and Intact Neurological: Normal speech Psych/Mental Status: Appropriate Result Diagrams: 06/08/16 06:10 06/08/16 06:10 Additional Lab/DI Findings: Laboratory Tests 06/04/16 06/06/16 06/06/16 06:22 12:40 23:00 PT INR Total Bilirubin AST ALT Alkaline Phosphatase Total Protein Albumin Stool Occult Blood Neg Neg Heparin-induced Plt Ab 0.842 H 06/07/16 06/07/16 06/08/16 02:13 06:24 06:10 PT 13.1 H INR 1.3 Total Bilirubin 2.3 H AST 54 H ALT 32 Alkaline Phosphatase 270 H Total Protein 6.4 Albumin 1.9 L Stool Occult Blood Pos H Heparin-induced Plt Ab - Impression and Plan (1) Cirrhosis of liver Acute K74.60 - UNSPECIFIED CIRRHOSIS OF LIVER unspecified hepatic cirrhosis with ascites K74.60 - Unspecified cirrhosis of liver (2) Anemia Chronic D64.9 - ANEMIA, UNSPECIFIED Present on Admission: Yes other cause chronic disease, other D63.8 - Anemia in other chronic diseases classified elsewhere Comment: Hemoglobin was not recheck today. Due to lack of IV access the patient had a central line placed by Dr. Flores. When I asked her about previous transfusions she denies them but her hospital chart clearly states that she had them as recently as her last admission in April 2016. She did have evidence of some iron deficiency at that time. She does agree to a transfusion. I discussed the risk of hepatitis C, [id number], transfusion reaction, HIV, and she stated that she understood those risks. (3) Alcohol abuse Acute F10.10 - ALCOHOL ABUSE, UNCOMPLICATED (4) Thrombocytopenia Acute D69.6 - THROMBOCYTOPENIA, UNSPECIFIED Comment: Likely related to the chronic cirrhosis but does have antibodies to heparin. (5) Venous stasis dermatitis of both lower extremities Acute I83.11 - VARICOSE VEINS OF RIGHT LOWER EXTREMITY WITH INFLAMMATION; I83.12 - VARICOSE VEINS OF LEFT LOWER EXTREMITY WITH INFLAMMATION (6) Chronic kidney disease (CKD), stage IV (severe) Chronic N18.4 - CHRONIC KIDNEY DISEASE, STAGE 4 (SEVERE) Comment: appears to be a chronic problem. (7) HTN (hypertension) Chronic I10 - ESSENTIAL (PRIMARY) HYPERTENSION essential hypertension I10 - Essential (primary) hypertension (8) Ascites Acute R18.8 - OTHER ASCITES (9) Coagulopathy Acute D68.9 - COAGULATION DEFECT, UNSPECIFIED (10) Cholelithiasis Acute K80.20 - CALCULUS OF GALLBLADDER W/O CHOLECYSTITIS W/O OBSTRUCTION Plan: 1. Continue care for multiple medical problems 2. Salt restriction 3. avoid heparin with low platelets 4. Lasix and Aldactone low-dose 5. Vitamin K replacement 6. Transfuse as needed 7. Obtain ammonia level in a.m.
[2016-06-08] MEDS: PROBIOTIC BLEND TAB PO SCH ×2 (12:00→17:29)
[2016-06-08] MEDS: PHYTONADIONE 10 MG/ML SQ SCH (12:03)
[2016-06-08] MEDS: COLLAGENASE OINTMENT 30 GM TUBE TOP SCH ×2 (13:19→14:21)
[2016-06-08] MEDS ORDERED: COLLAGENASE OINTMENT 30 GM TUBE TOP SCH (14:00)
[2016-06-08] MEDS ORDERED: CLOTRIMAZOLE & BETAMETHASONE 45 GM TUBE TOP SCH (14:00)
[2016-06-08] MEDS ORDERED: ACETAMINOPHEN 325 MG/TAB TABLET PO ONE (14:57)
[2016-06-08] MEDS ORDERED: NS 500 ML IV ONE (15:12)
[2016-06-08] MEDS: FLUCONAZOLE 100 MG TAB PO SCH (15:20)
--- NOTE | 2016-06-08 15:56 | GENMEDPROG ---
Chief Complaint: Patient feeling better today. Subjective Note: 50-year-old female heavy drinker presents with jaundiced cirrhosis of the liver and anemia and pancytopenia. Dr. Angeles is consult appreciated Notes Reviewed: Yes Events from last night noted and discussed with Clinical Staff Current Medication List: Reviewed Currently: Reports: FOSTER, Alcohol Hx (Drinks a 6 pack a day), Ambulating (Not ambulating due to leg pain), Other (slighly better appetite). Denies: Cough, Wheezing, SOB, Nausea and Vomiting, Abdominal Pain, Fever/Chills DVT Prophylaxis: No Current Order (T-PENIA, LYMPHEDEMA OF LE'S) - Physical Examination Vital Signs and I&O: Last Vital Signs Temp 97.2 F L 06/08/16 13:25 Pulse 70 06/08/16 13:25 Resp 20 06/08/16 13:25 BP 112/64 06/08/16 13:25 Pulse Ox 100 06/08/16 13:25 Oxygen Pulse Oxygen Saturation 100 O2 Device Room Air Oxygen Flow Rate Fraction of Inspired Oxygen ( FIO2) Intake & Output 06/05/16 06/06/16 06/07/16 06/08/16 23:59 23:59 23:59 23:59 Intake Total 1170 1920 840 800 Output Total 1650 1625 1575 2075 Balance -480 518 -587 -2931 Patient's weight 90.492 kg 86.778 kg 85.871 kg 86.636 kg General: Alert, Oriented x3, No acute distress, Obese, Other (Appears older than stated age) HEENT: Normal, EOMI, Mucous membr. moist/pink, Other (TEMPORAL WASTING) Neck: Normal Trachea alignment, Normal inspection, Supple Lymphatics: Normal. negative: Adenopathy Respiratory: Normal - CTA, Diminished. 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 against gravity but limited by edema.) Psych/Mental Status: Appropriate (Very concrete thinking), Normal Affect, Cooperative, Somnolent Lab/DI/Studies Reviewed: Laboratory Results - last 24 hr 06/05/16 06/07/16 06/07/16 21:00 06:24 16:35 WBC RBC Hgb Hct MCV MCH MCHC RDW Plt Count MPV PT 13.1 H INR 1.3 Sodium Potassium Chloride Carbon Dioxide Anion Gap BUN Creatinine Estimated GFR (MDRD) Glucose POC Capillary Glucose 138 H Calculated Osmolality Calcium Corrected Calcium Total Bilirubin AST ALT Alkaline Phosphatase Total Protein Albumin Blood Type O POSITIVE Antibody Screen Negative Crossmatch See Detail 06/07/16 06/08/16 06/08/16 21:21 05:49 06:10 WBC RBC Hgb Hct MCV MCH MCHC RDW Plt Count MPV PT INR Sodium 135 L Potassium 4.5 Chloride 104 Carbon Dioxide 23 Anion Gap 13 BUN 36 H Creatinine 1.10 H Estimated GFR (MDRD) > 60 Glucose 119 H POC Capillary Glucose 173 H 129 H Calculated Osmolality 269 L Calcium 7.9 L Corrected Calcium 10.0 Total Bilirubin 2.3 H AST 54 H ALT 32 Alkaline Phosphatase 270 H Total Protein 6.4 Albumin 1.9 L Blood Type Antibody Screen Crossmatch 06/08/16 06/08/16 06:10 11:16 WBC 8.4 RBC 2.36 L Hgb 7.1 L D Hct 21.5 L MCV 91 MCH 30.1 MCHC 33.1 RDW 16.5 H Plt Count 81 L MPV 11.1 H PT INR Sodium Potassium Chloride Carbon Dioxide Anion Gap BUN Creatinine Estimated GFR (MDRD) Glucose POC Capillary Glucose 142 H Calculated Osmolality Calcium Corrected Calcium Total Bilirubin AST ALT Alkaline Phosphatase Total Protein Albumin Blood Type Antibody Screen Crossmatch - Assessment (1) Cirrhosis of liver Acute K74.60 - UNSPECIFIED CIRRHOSIS OF LIVER Qualifiers: Hepatic cirrhosis type: unspecified hepatic cirrhosis Ascites presence: with ascites Qualified Code(s): K74.60 - Unspecified cirrhosis of liver Comment/Plan: Appears to be alcoholic cirrhosis. Will continue present plan. Appreciate Dr. Angeles is consult (2) Jaundice of recent onset Acute R17 - UNSPECIFIED JAUNDICE Comment/Plan: Due to chronic cirrhosis. (3) Alcohol abuse Acute F10.10 - ALCOHOL ABUSE, UNCOMPLICATED Comment/Plan: Abstinence counseled. (4) Thrombocytopenia Acute D69.6 - THROMBOCYTOPENIA, UNSPECIFIED Comment/Plan: likely related to chronic cirrhosis and active alcohol abuse. (5) CKD (chronic kidney disease), stage III Chronic N18.3 - CHRONIC KIDNEY DISEASE, STAGE 3 (MODERATE) Comment/Plan: Off IVF. Follow BMP. Is on lasix and spironolactone. (6) Healing wound present on both lower extremities Acute [id number] - Comment/Plan: PT wound care to continue dressing wounds BID. Have added spironolactone to lalsix due to liver disease. (7) Venous stasis dermatitis of both lower extremities Acute I83.11 - VARICOSE VEINS OF RIGHT LOWER EXTREMITY WITH INFLAMMATION; I83.12 - VARICOSE VEINS OF LEFT LOWER EXTREMITY WITH INFLAMMATION Comment/Plan : PT addressing wounds . Medications for swelling. Elevate when in bed. (8) Anemia Chronic D64.9 - ANEMIA, UNSPECIFIED Qualifiers: Anemia type: other cause Other causes of anemia: chronic disease, other Qualified Code(s): D63.8 - Anemia in other chronic diseases classified elsewhere Comment/Plan: Hemoglobin 7.1 today. Will transfuse 2 units of packed red blood cells. - Plan Home when hemoglobin stable Case Care Discussed with: Patient, Nursing Staff Education/Counseling Given To: Patient Education/Counseling Given Regarding: Diagnosis, Treatment, Prognosis Total Time: 35 minutes Critical Care: No Couseling Time (>50% in counseling/coordination): No
[2016-06-08] MEDS: ASCORBIC ACID 500 MG TAB PO SCH (17:28)
[2016-06-08] MEDS: FERROUS SULFATE 324 MG TAB PO SCH (17:28)
[2016-06-08] MEDS ORDERED: FUROSEMIDE 20 MG/2 ML VIAL IV ONE (17:58)
[2016-06-09] MEDS: PANTOPRAZOLE 40 MG TAB PO SCH (06:00)
[2016-06-09] MEDS: SODIUM CHLORIDE 0.9% 5 ML FLUSH FLUSH SCH ×2 (06:01→17:57)
[2016-06-09] MEDS: CLOTRIMAZOLE & BETAMETHASONE 45 GM TUBE TOP SCH ×3 (06:01→21:20)
[2016-06-09] MEDS: REGULAR INSULIN 100 UNITS/ML - 3 ML VIAL SQ SCH ×4 (06:01→21:19)
[2016-06-09 07:19] LABS: AUTOMATED BASOPHIL 0.3 % (0-2); AUTOMATED EOSINOPHIL 3.5 % (0-5); AUTOMATED LYMPH 19.5 % (17-44); AUTOMATED MONOCYTE 9.5 % (3-10); AUTOMATED NEUTROPHIL 67.2 % (45-76); MPV 9.6 fL (7.4-10.4)
[2016-06-09] MEDS: MetFORMIN, EXT REL 500 MG TAB PO SCH (08:22)
[2016-06-09] MEDS: COLLAGENASE OINTMENT 30 GM TUBE TOP SCH (08:24)
[2016-06-09] MEDS: ATENOLOL 50 MG TAB PO SCH (08:25)
[2016-06-09] MEDS: ASCORBIC ACID 500 MG TAB PO SCH ×3 (08:25→16:32)
[2016-06-09] MEDS: FERROUS SULFATE 324 MG TAB PO SCH ×3 (08:25→16:32)
[2016-06-09] MEDS: FUROSEMIDE 40 MG TAB PO SCH ×2 (08:25→21:20)
[2016-06-09] MEDS: FLUCONAZOLE 100 MG TAB PO SCH (08:25)
[2016-06-09] MEDS: POTASSIUM CHLORIDE 20 MEQ TAB PO SCH ×2 (08:25→17:12)
[2016-06-09] MEDS: SPIRONOLACTONE 25 MG TAB PO SCH (08:25)
[2016-06-09] MEDS: PHYTONADIONE 10 MG/ML SQ SCH (08:25)
[2016-06-09 08:28] LABS: HEPATITIS B SURFACE AB(IMMUNE) Non Reactive (.)
[2016-06-09] MEDS: PROBIOTIC BLEND TAB PO SCH ×2 (11:15→17:12)
[2016-06-09] MEDS ORDERED: DIPHENHYDRAMINE 50 MG/ML VIAL ONE (11:46)
[2016-06-09] MEDS ORDERED: MIDAZOLAM 5 MG/5 ML VIAL ONE (11:46)
[2016-06-09] MEDS ORDERED: MEPERIDINE 25 MG/ML TUBEX ONE (11:46)
[2016-06-09] MEDS ORDERED: SODIUM CHLORIDE 0.9% 10 ML FLUSH FLUSH ONE (12:05)
[2016-06-09] MEDS ORDERED: NS 1,000 ML IV ONE (12:05)
--- NOTE | 2016-06-09 12:49 | HIMOPRPT ---
DATE OF PROCEDURE: 06/09/16 PROCEDURE: Esophagogastroduodenoscopy with biopsy. INDICATIONS: Anemia requiring transfusion iron deficiency. INSTRUMENTS: Olympus video upper endoscope. MEDICATIONS: Versed 5 mg IV. PHYSICAL EXAMINATION: GENERAL: The patient was in no distress. VITAL SIGNS: Stable. CHEST: Clear CARDIAC: Regular rate and rhythm. ABDOMEN: Distended history of ascites, nontender]. NEUROLOGIC: The patient was alert and oriented. DESCRIPTION OF PROCEDURE: Ms Dorantes was placed in a left lateral position and IV sedation was given in small incremental doses for the patient's comfort for moderate sedation. The throat was anesthetized with Cetacaine spray.The endoscope was advanced without difficulty into the duodenum. ESOPHAGUS: Esophagus had gastroesophageal junction located at 36 cm. The GE junction was well distended. The distal esophagus was not inflamed. There is no evidence esophageal varices. STOMACH: [Stomach had mild erythema. There is no ulcers or erosions. The mucosal surface was slightly friable with a small amount of oozing of blood with passage of the endoscope. No significant hiatal hernia was noted. DUODENUM: The duodenum was normal. Antral and fundal biopsies were obtained for H. pylori testing. The patient tolerated the procedure well. IMPRESSION: 1. Mild gastric erythema consistent with portal gastropathy 2. No esophageal varices 3. No source of significant GI blood loss identified RECOMMENDATIONS: 1. Continue PPI therapy 2. Continue to monitor hemoglobin hematocrit 3. Awaiting H pylori testing 4. Continue care for multiple medical problems
--- NOTE | 2016-06-09 17:20 | GENMEDPROG ---
Subjective Note: Patient underwent EGD today. Was found to have some mild gastritis SAVANNAH test is pending. Notes Reviewed: Yes Events from last night noted and discussed with Clinical Staff Current Medication List: Reviewed Currently: Reports: FOSTER, Alcohol Hx (Drinks a 6 pack a day), Ambulating (Not ambulating due to leg pain), Other (slighly better appetite). Denies: Cough, Wheezing, SOB, Nausea and Vomiting, Abdominal Pain, Fever/Chills DVT Prophylaxis: No Current Order (T-PENIA, LYMPHEDEMA OF LE'S) - Physical Examination Vital Signs and I&O: Last Vital Signs Temp 97.5 F 06/09/16 14:10 Pulse 64 06/09/16 14:40 Resp 18 06/09/16 14:40 BP 119/73 06/09/16 14:40 Pulse Ox 100 06/09/16 14:40 Oxygen Pulse Oxygen Saturation 100 O2 Device Room Air Oxygen Flow Rate 2 Fraction of Inspired Oxygen ( FIO2) Intake & Output 06/06/16 06/07/16 06/08/16 06/09/16 23:59 23:59 23:59 23:59 Intake Total 2676 011 5221 1040 Output Total 1625 1575 2825 Balance 295 -775 -1309 1040 Patient's weight 86.778 kg 85.871 kg 86.636 kg 87.18 kg General: Alert, Oriented x3, No acute distress, Obese, Other (Appears older than stated age) HEENT: Normal, EOMI, Mucous membr. moist/pink, Other (TEMPORAL WASTING) Neck: Normal Trachea alignment, Normal inspection, Supple Lymphatics: Normal. negative: Adenopathy Respiratory: Normal - CTA, Diminished. 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 against gravity but limited by edema.) Psych/Mental Status: Appropriate (Very concrete thinking), Normal Affect, Cooperative, Somnolent Lab/DI/Studies Reviewed: Laboratory Results - last 24 hr 06/05/16 06/08/16 06/08/16 21:00 06:10 20:40 WBC RBC Hgb Hct MCV MCH MCHC RDW Plt Count MPV Neut % (Auto) Lymph % (Auto) Alexander % (Auto) Eos % (Auto) Baso % (Auto) Absolute Neuts (auto) Absolute Lymphs (auto) POC Capillary Glucose 171 H Ammonia Tumor Marker AFP 2.1 Hepatitis A IgM Ab Negative Hep Bs Antigen Negative Hep Bs Antibody Non reactive Hep B Core IgM Ab Negative Hepatitis C Antibody 0.2 Blood Type O POSITIVE Antibody Screen Negative Crossmatch See Detail 06/09/16 06/09/16 06/09/16 04:31 07:02 07:02 WBC 7.2 RBC 2.77 L Hgb 8.5 L D Hct 24.6 L MCV 89 MCH 30.5 MCHC 34.3 RDW 15.4 H Plt Count 90 L MPV 9.6 Neut % (Auto) 67.2 Lymph % (Auto) 19.5 Alexander % (Auto) 9.5 Eos % (Auto) 3.5 Baso % (Auto) 0.3 Absolute Neuts (auto) 4.82 Absolute Lymphs (auto) 1.37 POC Capillary Glucose 172 H Ammonia 13.0 Tumor Marker AFP Hepatitis A IgM Ab Hep Bs Antigen Hep Bs Antibody Hep B Core IgM Ab Hepatitis C Antibody Blood Type Antibody Screen Crossmatch 06/09/16 06/09/16 10:38 16:06 WBC RBC Hgb Hct MCV MCH MCHC RDW Plt Count MPV Neut % (Auto) Lymph % (Auto) Alexander % (Auto) Eos % (Auto) Baso % (Auto) Absolute Neuts (auto) Absolute Lymphs (auto) POC Capillary Glucose 94 89 Ammonia Tumor Marker AFP Hepatitis A IgM Ab Hep Bs Antigen Hep Bs Antibody Hep B Core IgM Ab Hepatitis C Antibody Blood Type Antibody Screen Crossmatch - Assessment (1) Cirrhosis of liver Acute K74.60 - UNSPECIFIED CIRRHOSIS OF LIVER Qualifiers: Hepatic cirrhosis type: unspecified hepatic cirrhosis Ascites presence: with ascites Qualified Code(s): K74.60 - Unspecified cirrhosis of liver Comment/Plan: Appears to be alcoholic cirrhosis. Will continue present plan. Appreciate Dr. Angeles is consult (2) Jaundice of recent onset Acute R17 - UNSPECIFIED JAUNDICE Comment/Plan: Due to chronic cirrhosis. (3) Alcohol abuse Acute F10.10 - ALCOHOL ABUSE, UNCOMPLICATED Comment/Plan: Abstinence counseled. (4) Thrombocytopenia Acute D69.6 - THROMBOCYTOPENIA, UNSPECIFIED Comment/Plan: likely related to chronic cirrhosis and active alcohol abuse. (5) CKD (chronic kidney disease), stage III Chronic N18.3 - CHRONIC KIDNEY DISEASE, STAGE 3 (MODERATE) Comment/Plan: Off IVF. Follow BMP. Is on lasix and spironolactone. (6) Healing wound present on both lower extremities Acute [id number] - Comment/Plan: PT wound care to continue dressing wounds BID. Have added spironolactone to lalsix due to liver disease. (7) Venous stasis dermatitis of both lower extremities Acute I83.11 - VARICOSE VEINS OF RIGHT LOWER EXTREMITY WITH INFLAMMATION; I83.12 - VARICOSE VEINS OF LEFT LOWER EXTREMITY WITH INFLAMMATION Comment/Plan : PT addressing wounds . Medications for swelling. Elevate when in bed. (8) Anemia Chronic D64.9 - ANEMIA, UNSPECIFIED Qualifiers: Anemia type: other cause Other causes of anemia: chronic disease, other Qualified Code(s): D63.8 - Anemia in other chronic diseases classified elsewhere Comment/Plan: Hemoglobin improved after transfusion. (9) Portal hypertensive gastropathy Acute K31.89 - OTHER DISEASES OF STOMACH AND DUODENUM Comment/Plan: Continue management and treatment for cirrhosis. - Plan Home when hemoglobin stable Disposition Plan: Hopefully home in the next 24 hours Case Care Discussed with: Patient Education/Counseling Given To: Patient Education/Counseling Given Regarding: Diagnosis, Treatment, Prognosis, Follow Up , Disposition Plan Total Time: 45 minutes Critical Care: No Couseling Time (>50% in counseling/coordination): No
[2016-06-10] MEDS ORDERED: SECURA EXTRA PROTECTIVE CREAM TOP ONE (03:21)
[2016-06-10] MEDS: CLOTRIMAZOLE & BETAMETHASONE 45 GM TUBE TOP SCH ×3 (04:32→20:59)
[2016-06-10] MEDS: SODIUM CHLORIDE 0.9% 5 ML FLUSH FLUSH SCH ×2 (04:32→17:44)
[2016-06-10] MEDS: PANTOPRAZOLE 40 MG TAB PO SCH (04:33)
[2016-06-10] MEDS: REGULAR INSULIN 100 UNITS/ML - 3 ML VIAL SQ SCH ×4 (05:56→20:59)
[2016-06-10] MEDS: MetFORMIN, EXT REL 500 MG TAB PO SCH (05:56)
[2016-06-10] MEDS: FUROSEMIDE 40 MG TAB PO SCH ×2 (07:52→20:59)
[2016-06-10] MEDS: SPIRONOLACTONE 25 MG TAB PO SCH (07:52)
[2016-06-10] MEDS: POTASSIUM CHLORIDE 20 MEQ TAB PO SCH ×2 (07:52→17:43)
[2016-06-10] MEDS: ASCORBIC ACID 500 MG TAB PO SCH ×3 (07:52→17:43)
[2016-06-10] MEDS: FERROUS SULFATE 324 MG TAB PO SCH ×3 (07:52→17:44)
[2016-06-10] MEDS: FLUCONAZOLE 100 MG TAB PO SCH (07:52)
[2016-06-10] MEDS: PHYTONADIONE 10 MG/ML SQ SCH (07:53)
[2016-06-10] MEDS: ATENOLOL 50 MG TAB PO SCH (07:53)
[2016-06-10] MEDS: COLLAGENASE OINTMENT 30 GM TUBE TOP SCH (10:11)
--- NOTE | 2016-06-10 10:12 | PCM.DCS92 ---
- Final/Secondary Discharge Diagnosis (1) Cirrhosis of liver Acute K74.60 - UNSPECIFIED CIRRHOSIS OF LIVER unspecified hepatic cirrhosis with ascites K74.60 - Unspecified cirrhosis of liver Comment: Appears to be alcoholic cirrhosis. Will continue present plan. Appreciate Dr. Angeles is consult (2) Jaundice of recent onset Acute R17 - UNSPECIFIED JAUNDICE Comment: Due to chronic cirrhosis. (3) Alcohol abuse Acute F10.10 - ALCOHOL ABUSE, UNCOMPLICATED Comment: Abstinence counseled. (4) Thrombocytopenia Acute D69.6 - THROMBOCYTOPENIA, UNSPECIFIED Comment: likely related to chronic cirrhosis and active alcohol abuse. (5) CKD (chronic kidney disease), stage III Chronic N18.3 - CHRONIC KIDNEY DISEASE, STAGE 3 (MODERATE) Comment: Off IVF. Follow BMP. Is on lasix and spironolactone. (6) Healing wound present on both lower extremities Acute [id number] - Comment: PT wound care to continue dressing wounds BID. Have added spironolactone to lalsix due to liver disease. (7) Venous stasis dermatitis of both lower extremities Acute I83.11 - VARICOSE VEINS OF RIGHT LOWER EXTREMITY WITH INFLAMMATION; I83.12 - VARICOSE VEINS OF LEFT LOWER EXTREMITY WITH INFLAMMATION Comment: PT addressing wounds . Medications for swelling. Elevate when in bed. (8) Anemia Chronic D64.9 - ANEMIA, UNSPECIFIED Present on Admission: Yes other cause chronic disease, other D63.8 - Anemia in other chronic diseases classified elsewhere Comment: Hemoglobin improved after transfusion. (9) Portal hypertensive gastropathy Acute K31.89 - OTHER DISEASES OF STOMACH AND DUODENUM Comment: Continue management and treatment for cirrhosis. Discharge Disposition: Discharge w/ Home Health (for medication teaching) Discharge Condition: Fair Cognitive Discharge Status: Unimpaired Fuctional Discharge Status: Independent New Prescriptions: Spironolactone [Aldactone] 25 mg PO DAILY #30 tablet Fluconazole [Diflucan] 100 mg PO DAILY #3 tablet Ferrous Sulfate 324 mg PO TIDWM #100 tablet Probiotic Blend [Rhea Q] 1 tab PO BIDLS #60 tablet POTASSIUM CHLORIDE Tablet [K-DUR 20 mEq Tablet*] 20 meq PO BIDWM #20 tab.er.prt Furosemide [Lasix] 40 mg PO Q12 #60 tablet Clotrimazole & Betamethasone [Lotrisone Cream] 45 gm TOP TID #1 tube Pantoprazole Sodium [Protonix] 40 mg PO 0600 #30 tablet Collagenase [Santyl] 30 gm TOP DAILY #1 tube Atenolol [Tenormin] 50 mg PO DAILY #30 tablet Ascorbic Acid [Vitamin C] 250 mg PO TIDWM #100 tablet Discharge Home Medication List Gabapentin 300 mg PO TID PRN 05/15/16 [History Confirmed 06/03/16] Albuterol Sulfate MDI [Proventil HFA] 2 puff INH Q4HWA PRN #1 inhaler 05/31/16 [ Rx Confirmed 06/03/16] Collagenase [Santyl] 30 gm TOP DAILY #1 tube 05/31/16 [Rx Confirmed 06/03/16] Metformin HCl [Glucophage XR (Ext Release)] 500 mg PO DAILY #30 tab.sr.24h 05/31 [Rx Confirmed 06/03/16] Probiotic Blend [Rhea Q] 1 tab PO BIDLS #60 tablet 05/31/16 [Rx Confirmed 06/03] Ascorbic Acid [Vitamin C] 250 mg PO TIDWM #100 tablet 06/10/16 [Rx] Atenolol [Tenormin] 50 mg PO DAILY #30 tablet 06/10/16 [Rx] Clotrimazole & Betamethasone [Lotrisone Cream] 45 gm TOP TID #1 tube 06/10/16 [ Rx] Collagenase [Santyl] 30 gm TOP DAILY #1 tube 06/10/16 [Rx] Ferrous Sulfate 324 mg PO TIDWM #100 tablet 06/10/16 [Rx] Fluconazole [Diflucan] 100 mg PO DAILY #3 tablet 06/10/16 [Rx] Furosemide [Lasix] 40 mg PO Q12 #60 tablet 06/10/16 [Rx] POTASSIUM CHLORIDE Tablet [K-DUR 20 mEq Tablet*] 20 meq PO BIDWM #20 tab.er.prt 06/10/16 [Rx] Pantoprazole Sodium [Protonix] 40 mg PO 0600 #30 tablet 06/10/16 [Rx] Probiotic Blend [Rhea Q] 1 tab PO BIDLS #60 tablet 06/10/16 [Rx] Spironolactone [Aldactone] 25 mg PO DAILY #30 tablet 06/10/16 [Rx] New Discharge Medications (Rx) Ascorbic Acid [Vitamin C] 250 mg PO TIDWM #100 tablet 06/10/16 [Rx] Atenolol [Tenormin] 50 mg PO DAILY #30 tablet 06/10/16 [Rx] Clotrimazole & Betamethasone [Lotrisone Cream] 45 gm TOP TID #1 tube 06/10/16 [ Rx] Collagenase [Santyl] 30 gm TOP DAILY #1 tube 06/10/16 [Rx] Ferrous Sulfate 324 mg PO TIDWM #100 tablet 06/10/16 [Rx] Fluconazole [Diflucan] 100 mg PO DAILY #3 tablet 06/10/16 [Rx] Furosemide [Lasix] 40 mg PO Q12 #60 tablet 06/10/16 [Rx] POTASSIUM CHLORIDE Tablet [K-DUR 20 mEq Tablet*] 20 meq PO BIDWM #20 tab.er.prt 06/10/16 [Rx] Pantoprazole Sodium [Protonix] 40 mg PO 0600 #30 tablet 06/10/16 [Rx] Probiotic Blend [Rhea Q] 1 tab PO BIDLS #60 tablet 06/10/16 [Rx] Spironolactone [Aldactone] 25 mg PO DAILY #30 tablet 06/10/16 [Rx] O2 Device: Room Air Oxygen to be used after Discharge: Continuous Diet at Discharge: As Tolerated, Regular Activity: No Restrictions, As Tolerated Call Office For: Worsening Symptoms, Fever over 100.5, Pain Uncontrolled By Meds - ID Summary Notes Hospital Course Note:: Discharge summary on patient named BALTAZAR POSADA admitted to [facility] on 06/02/16 by Josefina Matthews MD. Date of discharge is []. 50-year-old female admitted to our facility with failure to thrive found to have cirrhosis and severe anemia. She was started on medications to treat her cirrhosis and underwent esophagogastroduodenoscopy due to her anemia. She did require transfusion of packed red blood cells this hospitalization hemoglobin has now stabilized at 8.5. EGD did not show any acute ulcers or gastritis but she did have portal hypertensive gastropathy. Patient has been educated on the importance of taking her medications and discontinuing alcohol. She agrees to the plan. At this point she has reached maximum benefit of hospitalization. She is stable for discharge home. Total Time: 45 min - Physical Exam Vital Signs: Last Vital Signs Temp 97.9 F 06/10/16 05:24 Pulse 80 06/10/16 05:24 Resp 18 06/10/16 05:24 BP 103/57 L 06/10/16 05:24 Pulse Ox 98 06/10/16 05:24 Oxygen Pulse Oxygen Saturation 98 O2 Device Room Air Oxygen Flow Rate 2 Fraction of Inspired Oxygen ( FIO2) Constitutional: No apparent distress, Alert. negative: Agitated, Distress - HEENT Head: Normal (normocephalic,atraumatic) Eye: Normal (pupils equal, reactive to light, and round; EOMI, Sclera white) Oropharynx: Normal (Pharynx: Moist without exudate,Gums-no swelling, No oropharyngeal lesions or erythema, Mucous membranes are dry.) Nose: No Symptoms Reported. negative: Bleeding - Respiratory/Cardiovascular Respiratory: Normal - CTA, Diminished. negative: Rales, Tachypnea, Wheezes Cardiovascular: Normal (RRR , Normal S1, S2. No murmurs, rubs, or gallops. PMI non-displaced. Carotids: no carotid bruits. No bradycardia or tachycardia. DP pulses 2+ bilaterally.) - GI Auscultation: Other (anasarca) Palpation: Enlarged liver, Fluid Wave. negative: Enlarged spleen Tenderness: Non tender Quintero's Sign: Negative Rectal Exam: Deferred - Musculoskeletal Back: Normal (Non-Tender) Extremities: Edema (moderate edema all four extremities) - Integumentary Lymphatics: Normal. negative: Adenopathy - Neurologic Memory Impaired: Normal Motor Function: Normal (Motor 5/5 throughout.Normal tone, Pulses 2+ No cyanosis or edema, FROM) Cranial Nerve: Normal (CN II-XII intact sensation, strength 5/5) Cerebellar: Normal (Babinski: toes downgoing bilaterally. Intact Finger to nose. Sensory grossly intact to light touch. Intact rapid alternating movements bilaterally. No pronator drift.) Mood Description: Normal (Fully oriented. Normal and appropriate affect.) Perception: Normal (Normal and appropriate affect.) - Other Exam Other Exam Findings: Laboratory Results - last 24 hr 06/09/16 06/09/16 06/09/16 10:38 16:06 21:18 POC Capillary Glucose 94 89 114 H
[2016-06-10] MEDS: PROBIOTIC BLEND TAB PO SCH ×2 (11:46→17:43)
--- NOTE | 2016-06-10 16:43 | PCM.GIPROG ---
Progress Note (GI) Chief Complaint: Ms. Dorantes is a 50-year-old female with multiple medical problems including obesity hypertension diabetes mellitus venous stasis or ulcers lower extremity anemia and thrombocytopenia. A GI consult was obtained for cryptogenic cirrhosis EGD 06-09-16 Mild gastropathy no varices Ms. Dorantes has no complaints today. She is tolerating her diet well. She ambulated in the taylor some yesterday. We discussed her need for good diabetic control and abstinence from alcohol. She is post transfusion of PRBC. We discussed the need to increase her activity and try to go to the bathroom secondary to her skin breakdown - Physical Exam Vital Signs: Temperature: 98.4 F (06/10/16 13:36) HR: 74 (06/10/16 13:36) RR: 18 (06/10/16 13:36) BP: 121/79 (06/10/16 13:36) Pulse Ox: 94 (06/10/16 13:36) General: Alert, Oriented x3, No acute distress HEENT: Icteric Sclera Respiratory: negative: Accessory Muscle Use Gastrointestinal: Soft, Bowel Sounds. negative: Distended, Tender Extremities: Edema Skin: Warm,Dry and Intact, Ulceration (on lower legs bilateral) Neurological: Normal speech Psych/Mental Status: Appropriate Result Diagrams: 06/09/16 07:02 06/08/16 06:10 - Impression and Plan (1) Cirrhosis of liver Acute K74.60 - UNSPECIFIED CIRRHOSIS OF LIVER unspecified hepatic cirrhosis with ascites K74.60 - Unspecified cirrhosis of liver (2) Anemia Chronic D64.9 - ANEMIA, UNSPECIFIED Present on Admission: Yes other cause chronic disease, other D63.8 - Anemia in other chronic diseases classified elsewhere Comment: Hemoglobin improved after transfusion. (3) Alcohol abuse Acute F10.10 - ALCOHOL ABUSE, UNCOMPLICATED (4) Thrombocytopenia Acute D69.6 - THROMBOCYTOPENIA, UNSPECIFIED Comment: likely related to chronic cirrhosis and active alcohol abuse. (5) Venous stasis dermatitis of both lower extremities Acute I83.11 - VARICOSE VEINS OF RIGHT LOWER EXTREMITY WITH INFLAMMATION; I83.12 - VARICOSE VEINS OF LEFT LOWER EXTREMITY WITH INFLAMMATION (6) Chronic kidney disease (CKD), stage IV (severe) Chronic N18.4 - CHRONIC KIDNEY DISEASE, STAGE 4 (SEVERE) Comment: appears to be a chronic problem. (7) HTN (hypertension) Chronic I10 - ESSENTIAL (PRIMARY) HYPERTENSION essential hypertension I10 - Essential (primary) hypertension (8) Ascites Acute R18.8 - OTHER ASCITES (9) Coagulopathy Acute D68.9 - COAGULATION DEFECT, UNSPECIFIED (10) Cholelithiasis Acute K80.20 - CALCULUS OF GALLBLADDER W/O CHOLECYSTITIS W/O OBSTRUCTION Plan: 1. Continued care of her multiple medical problems 2. Na restrictions 3. PPI therapy 4. stop etoh 5. Reji diuresis if creatine remains stable Case Care Discussed with: Nursing Staff
[2016-06-10] MEDS: GUAIFENESIN 600 MG LA TAB PO PRN (22:21)
[2016-06-11] MEDS: CLOTRIMAZOLE & BETAMETHASONE 45 GM TUBE TOP SCH ×3 (06:00→20:39)
[2016-06-11] MEDS: SODIUM CHLORIDE 0.9% 5 ML FLUSH FLUSH SCH ×2 (06:01→17:46)
[2016-06-11] MEDS: MetFORMIN, EXT REL 500 MG TAB PO SCH (06:02)
[2016-06-11] MEDS: REGULAR INSULIN 100 UNITS/ML - 3 ML VIAL SQ SCH ×4 (06:02→20:45)
[2016-06-11] MEDS: PANTOPRAZOLE 40 MG TAB PO SCH (06:02)
[2016-06-11 07:06] LABS: MPV 9.4 fL (7.4-10.4)
[2016-06-11 07:14] LABS: PT-INR 1.2
[2016-06-11 07:28] LABS: BLOOD UREA NITROGEN 35 MG/DL (7-17); CALC CORRECTED 9.9 MG/DL (8.4-10.2); CALCULATED OSMOLALITY 266 MOs/Kg (270-290); CHLORIDE 100 mEq/L (98-107); GLUCOSE 148 MG/DL (70-99); SODIUM LEVEL 132 mEq/L (137-146); TOTAL PROTEIN 6.4 G/DL (6.3-8.2)
[2016-06-11] MEDS: POTASSIUM CHLORIDE 20 MEQ TAB PO SCH ×2 (08:15→17:45)
[2016-06-11] MEDS: ASCORBIC ACID 500 MG TAB PO SCH ×3 (08:16→17:45)
[2016-06-11] MEDS: SPIRONOLACTONE 25 MG TAB PO SCH (08:17)
[2016-06-11] MEDS: FERROUS SULFATE 324 MG TAB PO SCH ×3 (08:17→17:45)
[2016-06-11] MEDS: ATENOLOL 50 MG TAB PO SCH (08:17)
[2016-06-11] MEDS: FUROSEMIDE 40 MG TAB PO SCH ×2 (08:17→20:39)
[2016-06-11] MEDS: PROBIOTIC BLEND TAB PO SCH ×2 (11:59→17:45)
--- NOTE | 2016-06-11 13:05 | PCM.GIPROG ---
Progress Note (GI) Chief Complaint: Ms. Dorantes is a 50-year-old female with multiple medical problems including obesity hypertension diabetes mellitus venous stasis or ulcers lower extremity anemia and thrombocytopenia. A GI consult was obtained for cryptogenic cirrhosis EGD 06-09-16 Mild gastropathy no varices Ms. Dorantes has no complaints today. She is tolerating her diet well. She ambulated in the taylor today. She is up in her chair during her visit. We discussed her need for good diabetic control and abstinence from alcohol. She is post transfusion of PRBC and her hemoglobin is stable.. We discussed the need to increase her activity and try to go to the bathroom secondary to her skin breakdown - Physical Exam Vital Signs: Temperature: 97.9 F (06/11/16 04:53) HR: 79 (06/11/16 04:53) RR: 18 (06/11/16 04:53) BP: 150/74 (06/11/16 04:53) Pulse Ox: 98 (06/11/16 04:53) General: Alert, Oriented x3. negative: No acute distress HEENT: negative: Icteric Sclera Respiratory: Accessory Muscle Use Gastrointestinal: Soft, Bowel Sounds. negative: Distended, Tender Extremities: Edema Neurological: Normal speech Psych/Mental Status: Appropriate Result Diagrams: 06/11/16 06:10 06/11/16 06:10 - Impression and Plan (1) Cirrhosis of liver Acute K74.60 - UNSPECIFIED CIRRHOSIS OF LIVER unspecified hepatic cirrhosis with ascites K74.60 - Unspecified cirrhosis of liver (2) Anemia Chronic D64.9 - ANEMIA, UNSPECIFIED Present on Admission: Yes other cause chronic disease, other D63.8 - Anemia in other chronic diseases classified elsewhere (3) Alcohol abuse Acute F10.10 - ALCOHOL ABUSE, UNCOMPLICATED (4) Thrombocytopenia Acute D69.6 - THROMBOCYTOPENIA, UNSPECIFIED (5) Venous stasis dermatitis of both lower extremities Acute I83.11 - VARICOSE VEINS OF RIGHT LOWER EXTREMITY WITH INFLAMMATION; I83.12 - VARICOSE VEINS OF LEFT LOWER EXTREMITY WITH INFLAMMATION (6) Chronic kidney disease (CKD), stage IV (severe) Chronic N18.4 - CHRONIC KIDNEY DISEASE, STAGE 4 (SEVERE) (7) HTN (hypertension) Chronic I10 - ESSENTIAL (PRIMARY) HYPERTENSION essential hypertension I10 - Essential (primary) hypertension (8) Ascites Acute R18.8 - OTHER ASCITES (9) Coagulopathy Acute D68.9 - COAGULATION DEFECT, UNSPECIFIED (10) Cholelithiasis Acute K80.20 - CALCULUS OF GALLBLADDER W/O CHOLECYSTITIS W/O OBSTRUCTION Plan: 1. Continue salt restrictions 2. Continue mild diuresis with diuretics 3. Monitor labs periodically 4. Abstain from alcohol 5. Good diabetic control 6. Continue care for other medical problems I will sign off please call if further GI input is needed.
[2016-06-11] MEDS: COLLAGENASE OINTMENT 30 GM TUBE TOP SCH (15:09)
--- NOTE | 2016-06-11 17:24 | GENMEDPROG ---
Subjective Note: Patient awaiting appropriate placement. Notes Reviewed: Yes Events from last night noted and discussed with Clinical Staff Current Medication List: Reviewed Currently: Reports: FOSTER, Alcohol Hx (Drinks a 6 pack a day), Ambulating (Not ambulating due to leg pain), Other (slighly better appetite). Denies: Cough, Wheezing, SOB, Nausea and Vomiting, Abdominal Pain, Fever/Chills DVT Prophylaxis: No Current Order (T-PENIA, LYMPHEDEMA OF LE'S) - Physical Examination Vital Signs and I&O: Last Vital Signs Temp 97.7 F 06/11/16 14:00 Pulse 70 06/11/16 14:00 Resp 20 06/11/16 14:00 BP 125/74 06/11/16 14:00 Pulse Ox 97 06/11/16 14:00 Oxygen Pulse Oxygen Saturation 97 O2 Device Room Air Oxygen Flow Rate 2 Fraction of Inspired Oxygen ( FIO2) Intake & Output 06/08/16 06/09/16 06/10/16 06/11/16 23:59 23:59 23:59 23:59 Intake Total 1516 1400 1080 480 Output Total 2825 750 1125 Balance -1309 1400 330 -645 Patient's weight 86.636 kg 87.18 kg 87.997 kg 86.409 kg General: Alert, Oriented x3. negative: No acute distress Respiratory: Normal - CTA (Clear to auscultation bilaterally. No wheezing, rales , rhonchi. Chest wall movements are symmetric. No use of accessory muscles to breathe.) Cardiovascular: Regular rate and rhythm (No bradycardia or tachycardia), Normal S1, No Gallops,Rubs/Murmurs, Normal S2, Good Pedal Pulses (DP pulses 2+ bilaterally) GI: Normal bowel sounds (normal active sounds), Soft (non-distended), Non tender , No hepatospenomegaly, No masses Extremities/Musculoskeletal: Normal pulses (DP pulses 2+ bilaterally) Skin: Warm,Dry and Intact, No rashes, No significant lesion Lab/DI/Studies Reviewed: Laboratory Results - last 24 hr 06/10/16 06/11/16 06/11/16 20:51 05:22 06:10 WBC RBC Hgb Hct MCV MCH MCHC RDW Plt Count MPV PT INR Sodium 132 L Potassium 4.2 Chloride 100 Carbon Dioxide 25 Anion Gap 11 BUN 35 H Creatinine 1.20 H Estimated GFR (MDRD) 58 L Glucose 148 H POC Capillary Glucose 151 H 172 H Calculated Osmolality 266 L Calcium 8.0 L Corrected Calcium 9.9 Total Bilirubin 1.9 H AST 43 H ALT 29 Alkaline Phosphatase 321 H Total Protein 6.4 Albumin 2.1 L 06/11/16 06/11/16 06/11/16 06:10 06:10 11:05 WBC 7.2 RBC 2.83 L Hgb 8.7 L Hct 25.6 L MCV 91 MCH 30.9 MCHC 34.1 RDW 16.2 H Plt Count 114 L MPV 9.4 PT 12.3 H INR 1.2 Sodium Potassium Chloride Carbon Dioxide Anion Gap BUN Creatinine Estimated GFR (MDRD) Glucose POC Capillary Glucose 133 H Calculated Osmolality Calcium Corrected Calcium Total Bilirubin AST ALT Alkaline Phosphatase Total Protein Albumin 06/11/16 15:47 WBC RBC Hgb Hct MCV MCH MCHC RDW Plt Count MPV PT INR Sodium Potassium Chloride Carbon Dioxide Anion Gap BUN Creatinine Estimated GFR (MDRD) Glucose POC Capillary Glucose 139 H Calculated Osmolality Calcium Corrected Calcium Total Bilirubin AST ALT Alkaline Phosphatase Total Protein Albumin - Assessment (1) Cirrhosis of liver Acute K74.60 - UNSPECIFIED CIRRHOSIS OF LIVER Qualifiers: Hepatic cirrhosis type: unspecified hepatic cirrhosis Ascites presence: with ascites Qualified Code(s): K74.60 - Unspecified cirrhosis of liver Comment/Plan: Medications started continue appropriate care. (2) Jaundice of recent onset Acute R17 - UNSPECIFIED JAUNDICE Comment/Plan: Due to chronic cirrhosis. (3) Alcohol abuse Acute F10.10 - ALCOHOL ABUSE, UNCOMPLICATED Comment/Plan: Patient counseled to quit. Will likely need assistance. (4) Thrombocytopenia Acute D69.6 - THROMBOCYTOPENIA, UNSPECIFIED Comment/Plan: Due to cirrhosis of the liver and alcohol abuse. (5) CKD (chronic kidney disease), stage III Chronic N18.3 - CHRONIC KIDNEY DISEASE, STAGE 3 (MODERATE) Comment/Plan: Off IVF. Follow BMP. Is on lasix and spironolactone. (6) Healing wound present on both lower extremities Acute [id number] - Comment/Plan: PT wound care to continue dressing wounds BID. Have added spironolactone to lalsix due to liver disease. (7) Venous stasis dermatitis of both lower extremities Acute I83.11 - VARICOSE VEINS OF RIGHT LOWER EXTREMITY WITH INFLAMMATION; I83.12 - VARICOSE VEINS OF LEFT LOWER EXTREMITY WITH INFLAMMATION Comment/Plan : Noted supportive care. (8) Anemia Chronic D64.9 - ANEMIA, UNSPECIFIED Qualifiers: Anemia type: other cause Other causes of anemia: chronic disease, other Qualified Code(s): D63.8 - Anemia in other chronic diseases classified elsewhere Comment/Plan: Hemoglobin stable after blood transfusion. (9) Portal hypertensive gastropathy Acute K31.89 - OTHER DISEASES OF STOMACH AND DUODENUM Comment/Plan: Continue management and treatment for cirrhosis. - Plan Discharge when safe discharge plan in place. Patient was discharged several days ago unfortunately disposition was unacceptable. Case Care Discussed with: Patient, Nursing Staff Education/Counseling Given To: Patient Education/Counseling Given Regarding: Disposition Plan Total Time: 45 minutes. Critical Care: No Couseling Time (>50% in counseling/coordination): No
[2016-06-12] MEDS: PANTOPRAZOLE 40 MG TAB PO SCH (05:07)
[2016-06-12] MEDS: MetFORMIN, EXT REL 500 MG TAB PO SCH (05:07)
[2016-06-12] MEDS: SODIUM CHLORIDE 0.9% 5 ML FLUSH FLUSH SCH ×2 (06:16→16:55)
[2016-06-12] MEDS: REGULAR INSULIN 100 UNITS/ML - 3 ML VIAL SQ SCH ×4 (06:16→21:02)
[2016-06-12] MEDS: CLOTRIMAZOLE & BETAMETHASONE 45 GM TUBE TOP SCH ×3 (06:16→21:01)
[2016-06-12] MEDS: COLLAGENASE OINTMENT 30 GM TUBE TOP SCH (08:05)
[2016-06-12] MEDS: SPIRONOLACTONE 25 MG TAB PO SCH (08:05)
[2016-06-12] MEDS: POTASSIUM CHLORIDE 20 MEQ TAB PO SCH ×2 (08:05→16:54)
[2016-06-12] MEDS: ASCORBIC ACID 500 MG TAB PO SCH ×3 (08:05→16:54)
[2016-06-12] MEDS: FERROUS SULFATE 324 MG TAB PO SCH ×3 (08:05→16:54)
[2016-06-12] MEDS: FUROSEMIDE 40 MG TAB PO SCH ×2 (08:05→21:02)
[2016-06-12] MEDS: ATENOLOL 50 MG TAB PO SCH (08:05)
[2016-06-12] MEDS: PROBIOTIC BLEND TAB PO SCH ×2 (12:02→16:54)
[2016-06-12] MEDS ORDERED: FUROSEMIDE 40 MG/4 ML VIAL IV ONE (18:43)
--- NOTE | 2016-06-12 18:47 | GENMEDPROG ---
Subjective Note: Patient in bed responsive follows commands. Weak tired and fatigued. P.o. intake improving. Denies any nausea vomiting or abdominal pain. Notes Reviewed: Yes Events from last night noted and discussed with Clinical Staff Current Medication List: Reviewed Currently: Reports: FOSTER, Alcohol Hx (Drinks a 6 pack a day), Reflux Sx, Ambulating (Not ambulating due to leg pain), Other (slighly better appetite). Denies: Cough, Wheezing, SOB, Nausea and Vomiting, Abdominal Pain, Fever/Chills DVT Prophylaxis: No Current Order (T-PENIA, LYMPHEDEMA OF LE'S) - Physical Examination Vital Signs and I&O: Last Vital Signs Temp 98.5 F 06/12/16 13:54 Pulse 79 06/12/16 13:54 Resp 18 06/12/16 13:54 BP 119/77 06/12/16 13:54 Pulse Ox 100 06/12/16 13:54 Oxygen Pulse Oxygen Saturation 100 O2 Device Room Air Oxygen Flow Rate 2 Fraction of Inspired Oxygen ( FIO2) Intake & Output 06/09/16 06/10/16 06/11/16 06/12/16 23:59 23:59 23:59 23:59 Intake Total 1400 1080 885 730 Output Total 750 2200 2300 Balance 1400 330 -1315 -1570 Patient's weight 87.18 kg 87.997 kg 86.409 kg 87.657 kg General: Alert, Oriented x3, Cooperative. negative: No acute distress HEENT: Normal, PERRLA, EOMI Neck: Non-tender, Limited range of motion Lymphatics: Normal Respiratory: Normal - CTA (Clear to auscultation bilaterally. No wheezing, rales , rhonchi. Chest wall movements are symmetric. No use of accessory muscles to breathe.) Cardiovascular: Regular rate and rhythm (No bradycardia or tachycardia), Normal S1, No Gallops,Rubs/Murmurs, Normal S2, Murmurs, Good Pedal Pulses (DP pulses 2 + bilaterally) GI: Normal bowel sounds (normal active sounds), Soft (non-distended), Non tender , No hepatospenomegaly, No masses Extremities/Musculoskeletal: Normal pulses (DP pulses 2+ bilaterally), Edema Skin: Warm,Dry and Intact, No rashes, No significant lesion Neurological: Normal speech, Normal tone, Reflexes 2+ Psych/Mental Status: Anxious Lab/DI/Studies Reviewed: Allergies Penicillins Allergy (Verified 06/02/16 16:55) Rash-Generalized Last Vital Signs Temp 98.5 F 06/12/16 13:54 Pulse 79 06/12/16 13:54 Resp 18 06/12/16 13:54 BP 119/77 06/12/16 13:54 Pulse Ox 100 06/12/16 13:54 06/11/16 06:10 06/11/16 06:10 - Assessment (1) Cirrhosis of liver Acute K74.60 - UNSPECIFIED CIRRHOSIS OF LIVER Qualifiers: Hepatic cirrhosis type: unspecified hepatic cirrhosis Ascites presence: with ascites Qualified Code(s): K74.60 - Unspecified cirrhosis of liver Comment/Plan: Continue medical therapy. Continue salt restriction. (2) DM2 (diabetes mellitus, type 2) Acute E11.9 - TYPE 2 DIABETES MELLITUS WITHOUT COMPLICATIONS Qualifiers: Diabetes mellitus complication status: with kidney complications Chronic kidney disease stage: stage 3 (moderate) Comment/Plan: Continue ADA diet and oral agents. Monitor blood sugar. (3) Anemia Chronic D64.9 - ANEMIA, UNSPECIFIED Qualifiers: Anemia type: other cause Other causes of anemia: chronic disease, other Qualified Code(s): D63.8 - Anemia in other chronic diseases classified elsewhere Comment/Plan: Hemoglobin stable after blood transfusion. 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 Critical Care: No Code: 68040 (12+)
[2016-06-13] MEDS: CLOTRIMAZOLE & BETAMETHASONE 45 GM TUBE TOP SCH ×3 (06:18→19:37)
[2016-06-13] MEDS: MetFORMIN, EXT REL 500 MG TAB PO SCH (06:18)
[2016-06-13] MEDS: PANTOPRAZOLE 40 MG TAB PO SCH (06:18)
[2016-06-13] MEDS: SODIUM CHLORIDE 0.9% 5 ML FLUSH FLUSH SCH ×2 (06:19→18:14)
[2016-06-13] MEDS: REGULAR INSULIN 100 UNITS/ML - 3 ML VIAL SQ SCH ×4 (06:20→22:17)
[2016-06-13 07:51] LABS: BLOOD UREA NITROGEN 35 MG/DL (7-17); CALCULATED OSMOLALITY 266 MOs/Kg (270-290); CHLORIDE 98 mEq/L (98-107); GLUCOSE 147 MG/DL (70-99); SODIUM LEVEL 132 mEq/L (137-146)
[2016-06-13] MEDS: FERROUS SULFATE 324 MG TAB PO SCH ×3 (08:29→18:08)
[2016-06-13] MEDS: ASCORBIC ACID 500 MG TAB PO SCH ×3 (08:29→18:08)
[2016-06-13] MEDS: POTASSIUM CHLORIDE 20 MEQ TAB PO SCH ×2 (08:29→18:10)
[2016-06-13] MEDS: FUROSEMIDE 40 MG TAB PO SCH ×2 (08:30→19:37)
[2016-06-13] MEDS: SPIRONOLACTONE 25 MG TAB PO SCH (08:31)
[2016-06-13] MEDS: ATENOLOL 50 MG TAB PO SCH (08:32)
[2016-06-13] MEDS: COLLAGENASE OINTMENT 30 GM TUBE TOP SCH (10:28)
[2016-06-13] MEDS: PROBIOTIC BLEND TAB PO SCH ×2 (12:15→18:09)
[2016-06-13] MEDS ORDERED: FUROSEMIDE 40 MG/4 ML VIAL IV ONE (17:11)
--- NOTE | 2016-06-13 17:16 | GENMEDPROG ---
Subjective Note: Patient in bed responsive follows command. Alert awake responsive and more interactive. Ambulating. P.o. intake better. Denies any pains. Notes Reviewed: Yes Events from last night noted and discussed with Clinical Staff Currently: Reports: FOSTER, Alcohol Hx (Drinks a 6 pack a day), Reflux Sx, Ambulating (Not ambulating due to leg pain), Other (slighly better appetite). Denies: Cough, Wheezing, SOB, Nausea and Vomiting, Abdominal Pain, Fever/Chills DVT Prophylaxis: No Current Order (T-PENIA, LYMPHEDEMA OF LE'S) - Physical Examination Vital Signs and I&O: Last Vital Signs Temp 98.0 F 06/13/16 14:00 Pulse 75 06/13/16 14:00 Resp 20 06/13/16 14:00 BP 140/75 06/13/16 14:00 Pulse Ox 95 06/13/16 14:00 Oxygen Pulse Oxygen Saturation 95 O2 Device Room Air Oxygen Flow Rate 2 Fraction of Inspired Oxygen ( FIO2) Intake & Output 06/10/16 06/11/16 06/12/16 06/13/16 23:59 23:59 23:59 23:59 Intake Total 1080 885 730 720 Output Total 750 2200 3300 2500 Balance 187 -3807 -4659 -5429 Patient's weight 87.997 kg 86.409 kg 87.657 kg 87.317 kg General: Alert, Oriented x3, Cooperative. negative: No acute distress HEENT: Normal, PERRLA, EOMI Neck: Non-tender, Limited range of motion Lymphatics: Normal Respiratory: Normal - CTA (Clear to auscultation bilaterally. No wheezing, rales , rhonchi. Chest wall movements are symmetric. No use of accessory muscles to breathe.) Cardiovascular: Regular rate and rhythm (No bradycardia or tachycardia), Normal S1, No Gallops,Rubs/Murmurs, Normal S2, Murmurs, Good Pedal Pulses (DP pulses 2 + bilaterally) GI: Normal bowel sounds (normal active sounds), Soft (non-distended), Non tender , No hepatospenomegaly, No masses Extremities/Musculoskeletal: Normal pulses (DP pulses 2+ bilaterally), Edema Skin: Warm,Dry and Intact, No rashes, No significant lesion Neurological: Normal speech, Normal tone, Reflexes 2+ Psych/Mental Status: Anxious Lab/DI/Studies Reviewed: 06/13/16 06:25 06/13/16 06:25 Abnormal Lab Results 06/12/16 06/13/16 06/13/16 21:01 05:19 06:25 Hgb Hct Sodium 132 L BUN 35 H Creatinine 1.10 H Glucose 147 H POC Capillary Glucose 147 H 152 H Calculated Osmolality 266 L Calcium 8.0 L Magnesium 1.40 L 06/13/16 06/13/16 06/13/16 06:25 12:17 16:11 Hgb 7.7 L D Hct 22.6 L Sodium BUN Creatinine Glucose POC Capillary Glucose 103 H 124 H Calculated Osmolality Calcium Magnesium - Assessment (1) Cirrhosis of liver Acute K74.60 - UNSPECIFIED CIRRHOSIS OF LIVER Qualifiers: Hepatic cirrhosis type: unspecified hepatic cirrhosis Ascites presence: with ascites Qualified Code(s): K74.60 - Unspecified cirrhosis of liver Comment/Plan: Continue medical therapy. Continue salt restriction. Compensated at present time. (2) DM2 (diabetes mellitus, type 2) Acute E11.9 - TYPE 2 DIABETES MELLITUS WITHOUT COMPLICATIONS Qualifiers: Diabetes mellitus complication status: with kidney complications Chronic kidney disease stage: stage 3 (moderate) Comment/Plan: Continue ADA diet and oral agents. Monitor blood sugar. Blood sugar under control no hypoglycemia (3) Anemia Chronic D64.9 - ANEMIA, UNSPECIFIED Qualifiers: Anemia type: other cause Other causes of anemia: chronic disease, other Qualified Code(s): D63.8 - Anemia in other chronic diseases classified elsewhere Comment/Plan: Hemoglobin stable after blood transfusion. Monitor counts. 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 Critical Care: No Code: 62468 (12+)
[2016-06-13] MEDS ORDERED: COLLAGENASE OINTMENT 30 GM TUBE TOP SCH (19:00)
[2016-06-13] MEDS: Magnesium Sulfate 2 gm/D5W 2 GM/50 ML RTU IV SCH ×2 (19:31→22:16)
[2016-06-14] MEDS: CLOTRIMAZOLE & BETAMETHASONE 45 GM TUBE TOP SCH ×3 (05:18→20:57)
[2016-06-14] MEDS: PANTOPRAZOLE 40 MG TAB PO SCH (05:19)
[2016-06-14] MEDS: SODIUM CHLORIDE 0.9% 5 ML FLUSH FLUSH SCH ×2 (05:19→17:43)
[2016-06-14] MEDS: MetFORMIN, EXT REL 500 MG TAB PO SCH (06:26)
[2016-06-14] MEDS: REGULAR INSULIN 100 UNITS/ML - 3 ML VIAL SQ SCH ×4 (06:26→20:56)
[2016-06-14 07:36] LABS: BLOOD UREA NITROGEN 34 MG/DL (7-17); CALCIUM 8.2 MG/DL (8.4-10.2); CALCULATED OSMOLALITY 266 MOs/Kg (270-290); CHLORIDE 99 mEq/L (98-107); GLUCOSE 105 MG/DL (70-99); SODIUM LEVEL 134 mEq/L (137-146)
[2016-06-14] MEDS: FERROUS SULFATE 324 MG TAB PO SCH ×3 (08:46→17:43)
[2016-06-14] MEDS: ATENOLOL 50 MG TAB PO SCH (08:46)
[2016-06-14] MEDS: ASCORBIC ACID 500 MG TAB PO SCH ×3 (08:46→17:43)
[2016-06-14] MEDS: FUROSEMIDE 40 MG TAB PO SCH ×2 (08:46→20:56)
[2016-06-14] MEDS: COLLAGENASE OINTMENT 30 GM TUBE TOP SCH (08:46)
[2016-06-14] MEDS: SPIRONOLACTONE 25 MG TAB PO SCH (08:46)
[2016-06-14] MEDS: POTASSIUM CHLORIDE 20 MEQ TAB PO SCH ×2 (08:46→17:43)
[2016-06-14] MEDS: PROBIOTIC BLEND TAB PO SCH ×2 (12:00→17:43)
--- NOTE | 2016-06-14 14:55 | GENMEDPROG ---
Subjective Note: Patient in bed, responsive oriented follows commands ,interactive. Denies any nausea vomiting or abdominal pain. Reports no difficulties breathing PND orthopnea. Ambulating. Tolerating diet. Notes Reviewed: Yes Events from last night noted and discussed with Clinical Staff Current Medication List: Reviewed Currently: Reports: FOSTER, Alcohol Hx (Drinks a 6 pack a day), Reflux Sx, Ambulating (Not ambulating due to leg pain), Other (slighly better appetite). Denies: Cough, Wheezing, SOB, Nausea and Vomiting, Abdominal Pain, Fever/Chills DVT Prophylaxis: No Current Order (T-PENIA, LYMPHEDEMA OF LE'S) - Physical Examination Vital Signs and I&O: Last Vital Signs Temp 98.3 F 06/14/16 06:00 Pulse 75 06/14/16 06:00 Resp 20 06/14/16 06:00 BP 134/77 06/14/16 06:00 Pulse Ox 100 06/14/16 06:00 Oxygen Pulse Oxygen Saturation 100 O2 Device Room Air Oxygen Flow Rate 2 Fraction of Inspired Oxygen ( FIO2) Intake & Output 06/11/16 06/12/16 06/13/16 06/14/16 23:59 23:59 23:59 23:59 Intake Total 885 730 960 723 Output Total 2200 3300 3300 Balance -1315 -2570 -2340 723 Patient's weight 86.409 kg 87.657 kg 87.317 kg 86.721 kg General: Alert, Oriented x3, Cooperative. negative: No acute distress HEENT: Normal, PERRLA, EOMI Neck: Non-tender, Limited range of motion Lymphatics: Normal Respiratory: Normal - CTA (Clear to auscultation bilaterally. No wheezing, rales , rhonchi. Chest wall movements are symmetric. No use of accessory muscles to breathe.) Cardiovascular: Regular rate and rhythm (No bradycardia or tachycardia), Normal S1, No Gallops,Rubs/Murmurs, Normal S2, Murmurs, Good Pedal Pulses (DP pulses 2 + bilaterally) GI: Normal bowel sounds (normal active sounds), Soft (non-distended), Non tender , No hepatospenomegaly, No masses Extremities/Musculoskeletal: Normal pulses (DP pulses 2+ bilaterally), Edema Skin: Warm,Dry and Intact, No rashes, No significant lesion Neurological: Normal speech, Normal tone, Reflexes 2+ Psych/Mental Status: Anxious Lab/DI/Studies Reviewed: 06/14/16 06:15 06/14/16 06:15 Abnormal Lab Results 06/13/16 06/13/16 06/14/16 16:11 20:23 05:00 Hgb Hct Sodium BUN Glucose POC Capillary Glucose 124 H 140 H 105 H Calculated Osmolality Calcium 06/14/16 06/14/16 06/14/16 06:15 06:15 11:22 Hgb 8.0 L Hct 24.2 L Sodium 134 L BUN 34 H Glucose 105 H POC Capillary Glucose 119 H Calculated Osmolality 266 L Calcium 8.2 L - Assessment (1) Cirrhosis of liver Acute K74.60 - UNSPECIFIED CIRRHOSIS OF LIVER Qualifiers: Hepatic cirrhosis type: unspecified hepatic cirrhosis Ascites presence: with ascites Qualified Code(s): K74.60 - Unspecified cirrhosis of liver Comment/Plan: Compensated on current medical regimen. Continue salt restricted diet. (2) DM2 (diabetes mellitus, type 2) Acute E11.9 - TYPE 2 DIABETES MELLITUS WITHOUT COMPLICATIONS Qualifiers: Diabetes mellitus complication status: with kidney complications Chronic kidney disease stage: stage 3 (moderate) Comment/Plan: Continue ADA diet and oral agents. Monitor blood sugar. Blood sugar under control no hypoglycemia (3) Anemia Chronic D64.9 - ANEMIA, UNSPECIFIED Qualifiers: Anemia type: other cause Other causes of anemia: chronic disease, other Qualified Code(s): D63.8 - Anemia in other chronic diseases classified elsewhere Comment/Plan: Hemoglobin 8.0 today, overall stable. Monitor counts. 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 Critical Care: No Code: 92993 (11-08)
[2016-06-15] MEDS: SODIUM CHLORIDE 0.9% 5 ML FLUSH FLUSH SCH ×2 (05:24→18:41)
[2016-06-15] MEDS: CLOTRIMAZOLE & BETAMETHASONE 45 GM TUBE TOP SCH ×3 (05:24→20:28)
[2016-06-15] MEDS: REGULAR INSULIN 100 UNITS/ML - 3 ML VIAL SQ SCH ×4 (05:24→20:27)
[2016-06-15] MEDS: PANTOPRAZOLE 40 MG TAB PO SCH (05:25)
[2016-06-15] MEDS: MetFORMIN, EXT REL 500 MG TAB PO SCH (05:26)
[2016-06-15] MEDS: ASCORBIC ACID 500 MG TAB PO SCH ×3 (07:58→18:45)
[2016-06-15] MEDS: SPIRONOLACTONE 25 MG TAB PO SCH (07:58)
[2016-06-15] MEDS: FERROUS SULFATE 324 MG TAB PO SCH ×3 (07:58→18:45)
[2016-06-15] MEDS: POTASSIUM CHLORIDE 20 MEQ TAB PO SCH ×2 (07:58→18:44)
[2016-06-15] MEDS: ATENOLOL 50 MG TAB PO SCH (07:58)
[2016-06-15] MEDS: COLLAGENASE OINTMENT 30 GM TUBE TOP SCH (07:59)
[2016-06-15] MEDS: FUROSEMIDE 40 MG TAB PO SCH ×2 (07:59→20:28)
[2016-06-15] MEDS: PROBIOTIC BLEND TAB PO SCH ×2 (13:35→18:44)
--- NOTE | 2016-06-15 17:06 | GENMEDPROG ---
Subjective Note: Patient in chair responsive follows commands. Breathing fair denies and difficulties breathing cough phlegm production. No PND orthopnea. P.o. intake good, denies any nausea vomiting abdominal pain diarrhea or melena. Ambulating with no assistance. Notes Reviewed: Yes Events from last night noted and discussed with Clinical Staff Current Medication List: Reviewed Currently: Reports: FOSTER, Alcohol Hx (Drinks a 6 pack a day), Reflux Sx, Ambulating (Not ambulating due to leg pain), Other (slighly better appetite). Denies: Cough, Wheezing, SOB, Nausea and Vomiting, Abdominal Pain, Fever/Chills DVT Prophylaxis: No Current Order (T-PENIA, LYMPHEDEMA OF LE'S) - Physical Examination Vital Signs and I&O: Last Vital Signs Temp 98.2 F 06/15/16 14:00 Pulse 77 06/15/16 14:00 Resp 18 06/15/16 14:00 BP 147/65 06/15/16 14:00 Pulse Ox 99 06/15/16 14:00 Oxygen Pulse Oxygen Saturation 99 O2 Device Room Air Oxygen Flow Rate 2 Fraction of Inspired Oxygen ( FIO2) Intake & Output 06/12/16 06/13/16 06/14/16 06/15/16 23:59 23:59 23:59 23:59 Intake Total 314 086 5471 540 Output Total 3300 3300 400 1 Balance -2570 -2340 693 539 Patient's weight 87.657 kg 87.317 kg 86.721 kg 84.085 kg General: Alert, Oriented x3, Cooperative. negative: No acute distress HEENT: Normal, PERRLA, EOMI Neck: Non-tender, Limited range of motion Lymphatics: Normal Respiratory: Normal - CTA (Clear to auscultation bilaterally. No wheezing, rales , rhonchi. Chest wall movements are symmetric. No use of accessory muscles to breathe.) Cardiovascular: Regular rate and rhythm (No bradycardia or tachycardia), Normal S1, No Gallops,Rubs/Murmurs, Normal S2, Murmurs, Good Pedal Pulses (DP pulses 2 + bilaterally) GI: Normal bowel sounds (normal active sounds), Soft (non-distended), Non tender , No hepatospenomegaly, No masses Extremities/Musculoskeletal: Normal pulses (DP pulses 2+ bilaterally), Edema Skin: Warm,Dry and Intact, No rashes, No significant lesion Neurological: Normal speech, Normal tone, Reflexes 2+ Psych/Mental Status: Anxious - Assessment (1) Cirrhosis of liver Acute K74.60 - UNSPECIFIED CIRRHOSIS OF LIVER Qualifiers: Hepatic cirrhosis type: unspecified hepatic cirrhosis Ascites presence: with ascites Qualified Code(s): K74.60 - Unspecified cirrhosis of liver Comment/Plan: Compensated on current medical regimen. Continue salt restricted diet. (2) DM2 (diabetes mellitus, type 2) Acute E11.9 - TYPE 2 DIABETES MELLITUS WITHOUT COMPLICATIONS Qualifiers: Diabetes mellitus complication status: with kidney complications Chronic kidney disease stage: stage 3 (moderate) Comment/Plan: Continue ADA diet and oral agents. Monitor blood sugar. Blood sugar under control no hypoglycemia (3) Anemia Chronic D64.9 - ANEMIA, UNSPECIFIED Qualifiers: Anemia type: other cause Other causes of anemia: chronic disease, other Qualified Code(s): D63.8 - Anemia in other chronic diseases classified elsewhere Comment/Plan: Hemoglobin 8.0 today, overall stable. Monitor counts. 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 Resolved (7) Hypomagnesemia Acute E83.42 - HYPOMAGNESEMIA Comment/Plan: Replace and monitor Case Care Discussed with: Patient, Nursing Staff, Radiosonde Operator Education/Counseling Given To: Patient Education/Counseling Given Regarding: Diagnosis, Treatment, Prognosis, Follow Up Total Time: 40 min Critical Care: No Code: 01985 (6-11)
[2016-06-16] MEDS: PANTOPRAZOLE 40 MG TAB PO SCH (05:36)
[2016-06-16] MEDS: CLOTRIMAZOLE & BETAMETHASONE 45 GM TUBE TOP SCH ×3 (05:36→21:13)
[2016-06-16] MEDS: SODIUM CHLORIDE 0.9% 5 ML FLUSH FLUSH SCH ×2 (05:37→15:29)
[2016-06-16] MEDS: MetFORMIN, EXT REL 500 MG TAB PO SCH (05:37)
[2016-06-16] MEDS: REGULAR INSULIN 100 UNITS/ML - 3 ML VIAL SQ SCH ×4 (05:56→21:13)
[2016-06-16] MEDS: FERROUS SULFATE 324 MG TAB PO SCH ×3 (09:55→15:28)
[2016-06-16] MEDS: POTASSIUM CHLORIDE 20 MEQ TAB PO SCH (09:56)
[2016-06-16] MEDS: ASCORBIC ACID 500 MG TAB PO SCH ×3 (09:56→15:28)
[2016-06-16] MEDS: FUROSEMIDE 40 MG TAB PO SCH ×2 (09:56→21:13)
[2016-06-16] MEDS: ATENOLOL 50 MG TAB PO SCH (09:56)
[2016-06-16] MEDS: SPIRONOLACTONE 25 MG TAB PO SCH (09:57)
[2016-06-16] MEDS: COLLAGENASE OINTMENT 30 GM TUBE TOP SCH (09:57)
[2016-06-16] MEDS: GABAPENTIN 300 MG CAP PO PRN ×2 (11:45→18:20)
[2016-06-16] MEDS: PROBIOTIC BLEND TAB PO SCH ×2 (11:46→15:29)
--- NOTE | 2016-06-16 12:45 | GENMEDPROG ---
Chief Complaint: Renal failure, leg wounds, anasarca Subjective Note: Doing much better by all accounts. Placement issue at this point. Patient denies any acute complaints. Notes Reviewed: Yes Events from last night noted and discussed with Clinical Staff Current Medication List: Reviewed Currently: Reports: Alcohol Hx (Drinks a 6 pack a day), Ambulating (Not ambulating due to leg pain), Other (slighly better appetite). Denies: Cough, Wheezing, SOB, Nausea and Vomiting, Abdominal Pain, Fever/Chills DVT Prophylaxis: No Current Order (T-PENIA, LYMPHEDEMA OF LE'S) - Physical Examination Vital Signs and I&O: Last Vital Signs Temp 99.2 F 06/16/16 05:20 Pulse 80 06/16/16 05:20 Resp 18 06/16/16 05:20 BP 145/68 06/16/16 05:20 Pulse Ox 100 06/16/16 05:20 Oxygen Pulse Oxygen Saturation 100 O2 Device Room Air Oxygen Flow Rate 2 Fraction of Inspired Oxygen ( FIO2) Intake & Output 06/14/16 06/15/16 06/16/16 06/17/16 06:59 06:59 06:59 06:59 Intake Total 1203 990 960 350 Output Total 4983 431 3440 Balance -497 589 -190 350 Patient's weight 86.721 kg 84.085 kg 76.385 kg General: Alert, Oriented x3, Cooperative. negative: No acute distress HEENT: Normal, PERRLA, EOMI Neck: Non-tender, Limited range of motion Lymphatics: Normal Respiratory: Normal - CTA (Clear to auscultation bilaterally. No wheezing, rales , rhonchi. Chest wall movements are symmetric. No use of accessory muscles to breathe.) Cardiovascular: Regular rate and rhythm (No bradycardia or tachycardia), Normal S1, No Gallops,Rubs/Murmurs, Normal S2, Murmurs, Good Pedal Pulses (DP pulses 2 + bilaterally) GI: Normal bowel sounds (normal active sounds), Soft (non-distended), Non tender , No hepatospenomegaly, No masses Extremities/Musculoskeletal: Normal pulses (DP pulses 2+ bilaterally), Edema Skin: Warm,Dry and Intact, No rashes, No significant lesion Neurological: Normal speech, Normal tone, Reflexes 2+ Psych/Mental Status: Anxious Overall she looks much better, she is common awake and alert. She is much improved lower extremity edema. Pulmonary exam is normal. - Assessment (1) Alcohol abuse Acute F10.10 - ALCOHOL ABUSE, UNCOMPLICATED Comment/Plan: Patient counseled to quit. Will likely need assistance. (2) Ascites Acute R18.8 - OTHER ASCITES (3) Cholelithiasis Acute K80.20 - CALCULUS OF GALLBLADDER W/O CHOLECYSTITIS W/O OBSTRUCTION (4) Cirrhosis of liver Acute K74.60 - UNSPECIFIED CIRRHOSIS OF LIVER Qualifiers: Hepatic cirrhosis type: unspecified hepatic cirrhosis Ascites presence: with ascites Qualified Code(s): K74.60 - Unspecified cirrhosis of liver Comment/Plan: Compensated on current medical regimen. Continue salt restricted diet. (5) Coagulopathy Acute D68.9 - COAGULATION DEFECT, UNSPECIFIED Comment/Plan: monitor pt. Resolved (6) DM2 (diabetes mellitus, type 2) Acute E11.9 - TYPE 2 DIABETES MELLITUS WITHOUT COMPLICATIONS Qualifiers: Diabetes mellitus complication status: with kidney complications Chronic kidney disease stage: stage 3 (moderate) Comment/Plan: Continue ADA diet and oral agents. Monitor blood sugar. 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 Have added spironolactone to lalsix due to liver disease. - Plan Continue present care, she is stable. Await discharge planning.
[2016-06-16] MEDS: GUAIFENESIN 600 MG LA TAB PO PRN (21:14)
[2016-06-17] MEDS: REGULAR INSULIN 100 UNITS/ML - 3 ML VIAL SQ SCH ×4 (05:30→21:13)
[2016-06-17] MEDS: MetFORMIN, EXT REL 500 MG TAB PO SCH (05:30)
[2016-06-17] MEDS: PANTOPRAZOLE 40 MG TAB PO SCH (05:30)
[2016-06-17] MEDS: SODIUM CHLORIDE 0.9% 5 ML FLUSH FLUSH SCH ×2 (05:30→16:46)
[2016-06-17] MEDS: CLOTRIMAZOLE & BETAMETHASONE 45 GM TUBE TOP SCH ×3 (05:30→21:13)
[2016-06-17] MEDS: FERROUS SULFATE 324 MG TAB PO SCH ×3 (07:58→16:45)
[2016-06-17] MEDS: ASCORBIC ACID 500 MG TAB PO SCH ×3 (07:58→16:45)
[2016-06-17] MEDS: FUROSEMIDE 40 MG TAB PO SCH ×2 (07:59→21:12)
[2016-06-17] MEDS: ATENOLOL 50 MG TAB PO SCH (08:00)
[2016-06-17] MEDS: SPIRONOLACTONE 25 MG TAB PO SCH (08:00)
[2016-06-17] MEDS: COLLAGENASE OINTMENT 30 GM TUBE TOP SCH (09:30)
[2016-06-17] MEDS: PROBIOTIC BLEND TAB PO SCH ×2 (11:03→16:45)
--- NOTE | 2016-06-17 11:51 | GENMEDPROG ---
Chief Complaint: Leg wounds, unable to discharge Subjective Note: No acute events. Having some slight back pain. Encouraged to walk today. Currently: Reports: Alcohol Hx (Drinks a 6 pack a day), Ambulating (Not ambulating due to leg pain), Other (slighly better appetite). Denies: Cough, Wheezing, SOB, Nausea and Vomiting, Abdominal Pain, Fever/Chills DVT Prophylaxis: No Current Order (T-PENIA, LYMPHEDEMA OF LE'S) - Physical Examination Vital Signs and I&O: Last Vital Signs Temp 99.6 F 06/17/16 07:58 Pulse 75 06/17/16 07:58 Resp 19 06/17/16 07:58 BP 148/70 06/17/16 07:58 Pulse Ox 98 06/17/16 07:58 Oxygen Pulse Oxygen Saturation 98 O2 Device Room Air Oxygen Flow Rate 2 Fraction of Inspired Oxygen ( FIO2) Intake & Output 06/15/16 06/16/16 06/17/16 06/18/16 06:59 06:59 06:59 06:59 Intake Total 074 762 5446 350 Output Total 401 1150 2960 Balance 589 -190 -1550 350 Patient's weight 84.085 kg 76.385 kg 72.83 kg General: Alert, Oriented x3, Cooperative. negative: No acute distress HEENT: Normal, PERRLA, EOMI Neck: Non-tender, Limited range of motion Lymphatics: Normal Respiratory: Normal - CTA (Clear to auscultation bilaterally. No wheezing, rales , rhonchi. Chest wall movements are symmetric. No use of accessory muscles to breathe.) Cardiovascular: Regular rate and rhythm (No bradycardia or tachycardia), Normal S1, No Gallops,Rubs/Murmurs, Normal S2, Murmurs, Good Pedal Pulses (DP pulses 2 + bilaterally) GI: Normal bowel sounds (normal active sounds), Soft (non-distended), Non tender , No hepatospenomegaly, No masses Extremities/Musculoskeletal: Normal pulses (DP pulses 2+ bilaterally), Edema Skin: Warm,Dry and Intact, No rashes, No significant lesion Neurological: Normal speech, Normal tone, Reflexes 2+ Psych/Mental Status: Anxious - Assessment (1) Alcohol abuse Acute F10.10 - ALCOHOL ABUSE, UNCOMPLICATED Comment/Plan: Patient counseled to quit. Will likely need assistance. (2) Ascites Acute R18.8 - OTHER ASCITES Qualifiers: Ascites type: A (3) Cholelithiasis Acute K80.20 - CALCULUS OF GALLBLADDER W/O CHOLECYSTITIS W/O OBSTRUCTION Qualifiers: Cholelithiasis location: C Cholecystitis presence: C Cholangitis presence : C Cholecystitis acuity: C Cholangitis acuity: C Biliary obstruction: B (4) Cirrhosis of liver Acute K74.60 - UNSPECIFIED CIRRHOSIS OF LIVER Qualifiers: Hepatic cirrhosis type: unspecified hepatic cirrhosis Ascites presence: with ascites Qualified Code(s): K74.60 - Unspecified cirrhosis of liver Comment/Plan: Compensated on current medical regimen. Continue salt restricted diet. (5) Coagulopathy Acute D68.9 - COAGULATION DEFECT, UNSPECIFIED Comment/Plan: monitor pt. 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 Monitor blood sugar. 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 Have added spironolactone to lalsix due to liver disease.
[2016-06-18] MEDS: CLOTRIMAZOLE & BETAMETHASONE 45 GM TUBE TOP SCH ×3 (06:13→20:33)
[2016-06-18] MEDS: PANTOPRAZOLE 40 MG TAB PO SCH (06:13)
[2016-06-18] MEDS: SODIUM CHLORIDE 0.9% 5 ML FLUSH FLUSH SCH ×2 (06:15→16:45)
[2016-06-18] MEDS: MetFORMIN, EXT REL 500 MG TAB PO SCH (06:15)
[2016-06-18] MEDS: REGULAR INSULIN 100 UNITS/ML - 3 ML VIAL SQ SCH ×4 (06:16→20:33)
[2016-06-18 07:29] LABS: MPV 8.7 fL (7.4-10.4)
[2016-06-18 07:42] LABS: BLOOD UREA NITROGEN 23 MG/DL (7-17); CALC CORRECTED 9.9 MG/DL (8.4-10.2); CALCULATED OSMOLALITY 266 MOs/Kg (270-290); CHLORIDE 101 mEq/L (98-107); GLUCOSE 99 MG/DL (70-99); SODIUM LEVEL 136 mEq/L (137-146); TOTAL PROTEIN 6.2 G/DL (6.3-8.2)
[2016-06-18] MEDS: SPIRONOLACTONE 25 MG TAB PO SCH (08:01)
[2016-06-18] MEDS: ASCORBIC ACID 500 MG TAB PO SCH ×3 (08:01→16:44)
[2016-06-18] MEDS: FERROUS SULFATE 324 MG TAB PO SCH ×3 (08:01→16:44)
[2016-06-18] MEDS: FUROSEMIDE 40 MG TAB PO SCH ×2 (08:02→20:33)
[2016-06-18] MEDS: ATENOLOL 50 MG TAB PO SCH (08:02)
[2016-06-18] MEDS: COLLAGENASE OINTMENT 30 GM TUBE TOP SCH (08:02)
[2016-06-18 08:30] LABS: SEG NEUTROPHIL 58 % (45-76)
--- NOTE | 2016-06-18 11:21 | GENMEDPROG ---
Chief Complaint: Leg wounds Subjective Note: Doing well, no acute events overnight. She is wondering when she can leave the hospital. She still thinks that she can stay with her cousin. Currently: Reports: Alcohol Hx (Drinks a 6 pack a day), Ambulating (Not ambulating due to leg pain), Other (slighly better appetite). Denies: Cough, Wheezing, SOB, Nausea and Vomiting, Abdominal Pain, Fever/Chills DVT Prophylaxis: No Current Order (T-PENIA, LYMPHEDEMA OF LE'S) - Physical Examination Vital Signs and I&O: Last Vital Signs Temp 99.1 F 06/18/16 05:07 Pulse 73 06/18/16 08:03 Resp 18 06/18/16 05:07 BP 140/79 06/18/16 08:03 Pulse Ox 99 06/18/16 05:07 Oxygen Pulse Oxygen Saturation 99 O2 Device Room Air Oxygen Flow Rate 2 Fraction of Inspired Oxygen ( FIO2) Intake & Output 06/16/16 06/17/16 06/18/16 06/19/16 06:59 06:59 06:59 06:59 Intake Total 960 1410 1520 Output Total 1150 2960 1200 Balance -190 -1550 320 Patient's weight 76.385 kg 72.83 kg 73.709 kg General: Alert, Oriented x3, Cooperative. negative: No acute distress HEENT: Normal, PERRLA, EOMI Neck: Non-tender, Limited range of motion Lymphatics: Normal Respiratory: Normal - CTA (Clear to auscultation bilaterally. No wheezing, rales , rhonchi. Chest wall movements are symmetric. No use of accessory muscles to breathe.) Cardiovascular: Regular rate and rhythm (No bradycardia or tachycardia), Normal S1, No Gallops,Rubs/Murmurs, Normal S2, Murmurs, Good Pedal Pulses (DP pulses 2 + bilaterally) GI: Normal bowel sounds (normal active sounds), Soft (non-distended), Non tender , No hepatospenomegaly, No masses Extremities/Musculoskeletal: Normal pulses (DP pulses 2+ bilaterally), Edema Skin: Warm,Dry and Intact, No rashes, No significant lesion Neurological: Normal speech, Normal tone, Reflexes 2+ Psych/Mental Status: Appropriate, Normal Affect, Cooperative - Assessment (1) Alcohol abuse Acute F10.10 - ALCOHOL ABUSE, UNCOMPLICATED Comment/Plan: Patient counseled to quit. Will likely need assistance. (2) Ascites Acute R18.8 - OTHER ASCITES Qualifiers: Ascites type: A (3) Cholelithiasis Acute K80.20 - CALCULUS OF GALLBLADDER W/O CHOLECYSTITIS W/O OBSTRUCTION Qualifiers: Cholelithiasis location: C Cholecystitis presence: C Cholangitis presence : C Cholecystitis acuity: C Cholangitis acuity: C Biliary obstruction: B (4) Cirrhosis of liver Acute K74.60 - UNSPECIFIED CIRRHOSIS OF LIVER Qualifiers: Hepatic cirrhosis type: unspecified hepatic cirrhosis Ascites presence: with ascites Qualified Code(s): K74.60 - Unspecified cirrhosis of liver Comment/Plan: Compensated on current medical regimen. Continue salt restricted diet. (5) Coagulopathy Acute D68.9 - COAGULATION DEFECT, UNSPECIFIED Comment/Plan: monitor pt. Resolved (6) DM2 (diabetes mellitus, type 2) Acute E11.9 - TYPE 2 DIABETES MELLITUS WITHOUT COMPLICATIONS Qualifiers: Diabetes mellitus complication status: with kidney complications Diabetes mellitus complication detail: D Diabetic retinopathy severity: D Proliferative retinopathy type: P Diabetes mellitus macular edema: D Diabetes mellitus supervisor long goods insulin use: D Laterality: L Chronic kidney disease stage: stage 3 (moderate) Comment/Plan: Continue ADA diet and oral agents. Monitor blood sugar. 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 Disposition planning is being done by social work. Patient was evaluated by Adult protective Services, they declined to fully evaluate the patient. Her family has not been responding to phone calls from hospital staff, trying to arrange discharge. Today, the patient mentions that her family may not have minutes under cell phone. She says they have been appear to see year this past weekend.
[2016-06-18] MEDS: PROBIOTIC BLEND TAB PO SCH ×2 (11:29→16:44)
[2016-06-19] MEDS: SODIUM CHLORIDE 0.9% 5 ML FLUSH FLUSH SCH ×2 (05:14→17:04)
[2016-06-19] MEDS ORDERED: CLOTRIMAZOLE & BETAMETHASONE 45 GM TUBE TOP SCH (06:00)
[2016-06-19] MEDS: REGULAR INSULIN 100 UNITS/ML - 3 ML VIAL SQ SCH ×4 (06:13→21:06)
[2016-06-19] MEDS: CLOTRIMAZOLE & BETAMETHASONE 45 GM TUBE TOP SCH ×3 (06:14→21:07)
[2016-06-19] MEDS: PANTOPRAZOLE 40 MG TAB PO SCH (06:14)
[2016-06-19] MEDS: MetFORMIN, EXT REL 500 MG TAB PO SCH (06:14)
[2016-06-19] MEDS: FERROUS SULFATE 324 MG TAB PO SCH ×3 (08:35→17:05)
[2016-06-19] MEDS: ASCORBIC ACID 500 MG TAB PO SCH ×3 (08:35→17:05)
[2016-06-19] MEDS: COLLAGENASE OINTMENT 30 GM TUBE TOP SCH (08:36)
[2016-06-19] MEDS: FUROSEMIDE 40 MG TAB PO SCH ×2 (08:36→21:07)
[2016-06-19] MEDS: SPIRONOLACTONE 25 MG TAB PO SCH (08:36)
[2016-06-19] MEDS: ATENOLOL 50 MG TAB PO SCH (08:36)
[2016-06-19] MEDS ORDERED: COLLAGENASE OINTMENT 30 GM TUBE TOP SCH (10:00)
--- NOTE | 2016-06-19 12:53 | GENMEDPROG ---
Chief Complaint: Inability to discharge Subjective Note: She is doing well, she has no acute complaints. Notes Reviewed: Yes Events from last night noted and discussed with Clinical Staff Current Medication List: Reviewed Currently: Reports: Alcohol Hx (Drinks a 6 pack a day), Ambulating (Not ambulating due to leg pain), Other (slighly better appetite). Denies: Cough, Wheezing, SOB, Nausea and Vomiting, Abdominal Pain, Fever/Chills DVT Prophylaxis: No Current Order (T-PENIA, LYMPHEDEMA OF LE'S) - Physical Examination Vital Signs and I&O: Last Vital Signs Temp 98.1 F 06/19/16 05:47 Pulse 79 06/19/16 05:47 Resp 18 06/19/16 05:47 BP 116/59 L 06/19/16 05:47 Pulse Ox 98 06/19/16 05:47 Oxygen Pulse Oxygen Saturation 98 O2 Device Room Air Oxygen Flow Rate 2 Fraction of Inspired Oxygen ( FIO2) Intake & Output 06/17/16 06/18/16 06/19/16 06/20/16 06:59 06:59 06:59 06:59 Intake Total 1410 1520 480 240 Output Total 2960 1200 250 Balance -1550 320 230 240 Patient's weight 72.83 kg 73.709 kg 73.981 kg General: Alert, Oriented x3, Cooperative. negative: No acute distress HEENT: Normal, PERRLA, EOMI Neck: Non-tender, Limited range of motion Lymphatics: Normal Respiratory: Normal - CTA (Clear to auscultation bilaterally. No wheezing, rales , rhonchi. Chest wall movements are symmetric. No use of accessory muscles to breathe.) Cardiovascular: Regular rate and rhythm (No bradycardia or tachycardia), Normal S1, No Gallops,Rubs/Murmurs, Normal S2, Murmurs, Good Pedal Pulses (DP pulses 2 + bilaterally) GI: Normal bowel sounds (normal active sounds), Soft (non-distended), Non tender , No hepatospenomegaly, No masses Extremities/Musculoskeletal: Normal pulses (DP pulses 2+ bilaterally), Edema Skin: Warm,Dry and Intact, No rashes, No significant lesion Neurological: Normal speech, Normal tone, Reflexes 2+ Psych/Mental Status: Appropriate, Normal Affect, Cooperative - Assessment (1) Alcohol abuse Acute F10.10 - ALCOHOL ABUSE, UNCOMPLICATED Comment/Plan: Patient counseled to quit. Will likely need assistance. (2) Ascites Acute R18.8 - OTHER ASCITES Qualifiers: Ascites type: A (3) Cholelithiasis Acute K80.20 - CALCULUS OF GALLBLADDER W/O CHOLECYSTITIS W/O OBSTRUCTION Qualifiers: Cholelithiasis location: C Cholecystitis presence: C Cholangitis presence : C Cholecystitis acuity: C Cholangitis acuity: C Biliary obstruction: B (4) Cirrhosis of liver Acute K74.60 - UNSPECIFIED CIRRHOSIS OF LIVER Qualifiers: Hepatic cirrhosis type: unspecified hepatic cirrhosis Ascites presence: with ascites Qualified Code(s): K74.60 - Unspecified cirrhosis of liver Comment/Plan: Compensated on current medical regimen. Continue salt restricted diet. (5) Coagulopathy Acute D68.9 - COAGULATION DEFECT, UNSPECIFIED Comment/Plan: monitor pt. 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 Monitor blood sugar. 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
[2016-06-19] MEDS: PROBIOTIC BLEND TAB PO SCH ×2 (13:52→17:05)
[2016-06-20] MEDS: SODIUM CHLORIDE 0.9% 5 ML FLUSH FLUSH SCH ×2 (06:08→16:36)
[2016-06-20] MEDS: MetFORMIN, EXT REL 500 MG TAB PO SCH (06:11)
[2016-06-20] MEDS: CLOTRIMAZOLE & BETAMETHASONE 45 GM TUBE TOP SCH ×3 (06:11→19:41)
[2016-06-20] MEDS: PANTOPRAZOLE 40 MG TAB PO SCH (06:11)
[2016-06-20] MEDS: REGULAR INSULIN 100 UNITS/ML - 3 ML VIAL SQ SCH ×4 (06:12→20:00)
--- NOTE | 2016-06-20 07:40 | GENMEDPROG ---
Chief Complaint: Failure to discharge Subjective Note: She is doing well this morning, has no complaints. Notes Reviewed: Yes Events from last night noted and discussed with Clinical Staff Current Medication List: Reviewed Currently: Reports: Alcohol Hx (Drinks a 6 pack a day), Ambulating (Not ambulating due to leg pain), Other (slighly better appetite). Denies: Cough, Wheezing, SOB, Nausea and Vomiting, Abdominal Pain, Fever/Chills DVT Prophylaxis: No Current Order (T-PENIA, LYMPHEDEMA OF LE'S) - Physical Examination Vital Signs and I&O: Last Vital Signs Temp 98.3 F 06/20/16 04:25 Pulse 80 06/20/16 04:25 Resp 18 06/20/16 04:25 BP 141/63 06/20/16 04:25 Pulse Ox 99 06/20/16 04:25 Oxygen Pulse Oxygen Saturation 99 O2 Device Room Air Oxygen Flow Rate 2 Fraction of Inspired Oxygen ( FIO2) Intake & Output 06/18/16 06/19/16 06/20/16 06/21/16 06:59 06:59 06:59 06:59 Intake Total 1520 480 720 Output Total 8305 006 2045 Balance 320 230 -380 Patient's weight 73.709 kg 73.981 kg 69.264 kg General: Alert, Oriented x3, Cooperative. negative: No acute distress HEENT: Normal, PERRLA, EOMI Neck: Non-tender, Limited range of motion Lymphatics: Normal Respiratory: Normal - CTA (Clear to auscultation bilaterally. No wheezing, rales , rhonchi. Chest wall movements are symmetric. No use of accessory muscles to breathe.) Cardiovascular: Regular rate and rhythm (No bradycardia or tachycardia), Normal S1, No Gallops,Rubs/Murmurs, Normal S2, Murmurs, Good Pedal Pulses (DP pulses 2 + bilaterally) GI: Normal bowel sounds (normal active sounds), Soft (non-distended), Non tender , No hepatospenomegaly, No masses Extremities/Musculoskeletal: Normal pulses (DP pulses 2+ bilaterally), Edema Skin: Warm,Dry and Intact, No rashes, No significant lesion Neurological: Normal speech, Normal tone, Reflexes 2+ Psych/Mental Status: Appropriate, Normal Affect, Cooperative - Assessment (1) Alcohol abuse Acute F10.10 - ALCOHOL ABUSE, UNCOMPLICATED Comment/Plan: Patient counseled to quit. Will likely need assistance. (2) Ascites Acute R18.8 - OTHER ASCITES Qualifiers: Ascites type: A (3) Cholelithiasis Acute K80.20 - CALCULUS OF GALLBLADDER W/O CHOLECYSTITIS W/O OBSTRUCTION Qualifiers: Cholelithiasis location: C Cholecystitis presence: C Cholangitis presence : C Cholecystitis acuity: C Cholangitis acuity: C Biliary obstruction: B (4) Cirrhosis of liver Acute K74.60 - UNSPECIFIED CIRRHOSIS OF LIVER Qualifiers: Hepatic cirrhosis type: unspecified hepatic cirrhosis Ascites presence: with ascites Qualified Code(s): K74.60 - Unspecified cirrhosis of liver Comment/Plan: Compensated on current medical regimen. Continue salt restricted diet. (5) Coagulopathy Acute D68.9 - COAGULATION DEFECT, UNSPECIFIED Comment/Plan: monitor pt. 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 Monitor blood sugar. 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 Patient is completely medically stable has not required the hospital any longer. Social work is working hard to come up with a safe disposition plan for this patient. They have been able to get in touch with several family members in the area, as well as [place]. However, none of them are very communicative with the care team, and certainly nobody is able or willing to take this patient home with them and care for her.
[2016-06-20] MEDS: ATENOLOL 50 MG TAB PO SCH (08:27)
[2016-06-20] MEDS: ASCORBIC ACID 500 MG TAB PO SCH ×3 (08:27→16:46)
[2016-06-20] MEDS: FERROUS SULFATE 324 MG TAB PO SCH ×3 (08:27→16:45)
[2016-06-20] MEDS: SPIRONOLACTONE 25 MG TAB PO SCH (08:27)
[2016-06-20] MEDS: FUROSEMIDE 40 MG TAB PO SCH ×2 (08:27→19:40)
[2016-06-20] MEDS: COLLAGENASE OINTMENT 30 GM TUBE TOP SCH (08:28)
[2016-06-20] MEDS: PROBIOTIC BLEND TAB PO SCH ×2 (11:31→16:45)
[2016-06-21] MEDS: SODIUM CHLORIDE 0.9% 5 ML FLUSH FLUSH SCH ×2 (06:47→17:16)
[2016-06-21] MEDS: MetFORMIN, EXT REL 500 MG TAB PO SCH (06:47)
[2016-06-21] MEDS: PANTOPRAZOLE 40 MG TAB PO SCH (06:47)
[2016-06-21] MEDS: CLOTRIMAZOLE & BETAMETHASONE 45 GM TUBE TOP SCH ×3 (06:48→21:12)
[2016-06-21] MEDS: REGULAR INSULIN 100 UNITS/ML - 3 ML VIAL SQ SCH ×4 (06:48→20:58)
[2016-06-21] MEDS: FERROUS SULFATE 324 MG TAB PO SCH ×3 (08:37→17:17)
[2016-06-21] MEDS: ASCORBIC ACID 500 MG TAB PO SCH ×3 (08:37→17:17)
[2016-06-21] MEDS: PROBIOTIC BLEND TAB PO SCH ×2 (08:37→17:17)
[2016-06-21] MEDS: ATENOLOL 50 MG TAB PO SCH (08:37)
[2016-06-21] MEDS: FUROSEMIDE 40 MG TAB PO SCH ×2 (08:37→21:12)
[2016-06-21] MEDS: SPIRONOLACTONE 25 MG TAB PO SCH (08:37)
[2016-06-21] MEDS: COLLAGENASE OINTMENT 30 GM TUBE TOP SCH (13:52)
--- NOTE | 2016-06-21 17:15 | GENMEDPROG ---
Chief Complaint: eating drinking without difficulty no chest pain heaviness pressure no abdominal pain or back pain. Notes Reviewed: Yes Events from last night noted and discussed with Clinical Staff Current Medication List: Reviewed Currently: Reports: Alcohol Hx (Drinks a 6 pack a day), Ambulating (Not ambulating due to leg pain), Other (slighly better appetite). Denies: Cough, Wheezing, SOB, Nausea and Vomiting, Abdominal Pain, Fever/Chills DVT Prophylaxis: No Current Order (T-PENIA, LYMPHEDEMA OF LE'S) - Physical Examination Vital Signs and I&O: Last Vital Signs Temp 97.8 F 06/21/16 13:50 Pulse 70 06/21/16 13:50 Resp 18 06/21/16 13:50 BP 116/75 06/21/16 13:50 Pulse Ox 100 06/21/16 13:50 Oxygen Pulse Oxygen Saturation 100 O2 Device Room Air Oxygen Flow Rate 2 Fraction of Inspired Oxygen ( FIO2) Intake & Output 06/18/16 06/19/16 06/20/16 06/21/16 23:59 23:59 23:59 23:59 Intake Total 480 720 956 240 Output Total 250 3050 1600 Balance 230 380 -[id number] -0865 Patient's weight 73.709 kg 73.981 kg 69.264 kg 69.031 kg General: Alert, Oriented x3, Cooperative. negative: No acute distress HEENT: Normal, PERRLA, EOMI Neck: Non-tender, Limited range of motion Lymphatics: Normal Respiratory: Normal - CTA (Clear to auscultation bilaterally. No wheezing, rales , rhonchi. Chest wall movements are symmetric. No use of accessory muscles to breathe.) Cardiovascular: Regular rate and rhythm (No bradycardia or tachycardia), Normal S1, No Gallops,Rubs/Murmurs, Normal S2, Murmurs, Good Pedal Pulses (DP pulses 2 + bilaterally) GI: Normal bowel sounds (normal active sounds), Soft (non-distended), Non tender , No hepatospenomegaly, No masses Extremities/Musculoskeletal: Normal pulses (DP pulses 2+ bilaterally), Edema Skin: Warm,Dry and Intact, No rashes, No breakdown, No significant lesion Neurological: Normal speech, Normal tone, Reflexes 2+ Psych/Mental Status: Appropriate, Normal Affect, Cooperative Lab/DI/Studies Reviewed: 06/18/16 07:04 06/18/16 07:04 Laboratory Results - last 24 hr 06/20/16 06/21/16 06/21/16 19:54 05:38 11:04 POC Capillary Glucose 139 H 130 H 153 H 06/21/16 16:13 POC Capillary Glucose 121 H - Assessment (1) Cholelithiasis Acute K80.20 - CALCULUS OF GALLBLADDER W/O CHOLECYSTITIS W/O OBSTRUCTION Qualifiers: Cholelithiasis location: gallbladder Cholecystitis presence: without cholecystitis Cholangitis presence: C Cholecystitis acuity: C Cholangitis acuity: C Biliary obstruction: without biliary obstruction Qualified Code(s) : K80.20 - Calculus of gallbladder without cholecystitis without obstruction Comment/Plan: Noted on CT scan of the abdomen pelvis but asymptomatic. (2) Cirrhosis of liver Acute K74.60 - UNSPECIFIED CIRRHOSIS OF LIVER Qualifiers: Hepatic cirrhosis type: unspecified hepatic cirrhosis Ascites presence: with ascites Qualified Code(s): K74.60 - Unspecified cirrhosis of liver Comment/Plan: Compensated on current medical regimen. Continue salt restricted diet. (3) DM2 (diabetes mellitus, type 2) Acute E11.9 - TYPE 2 DIABETES MELLITUS WITHOUT COMPLICATIONS Qualifiers: Diabetes mellitus complication status: with kidney complications Diabetes mellitus complication detail: D Diabetic retinopathy severity: D Proliferative retinopathy type: P Diabetes mellitus macular edema: D Diabetes mellitus long term care phlebotomist insulin use: without group home use Laterality: L Chronic kidney disease stage: stage 3 (moderate) Qualified Code(s): E11.22 - Type 2 diabetes mellitus with diabetic chronic kidney disease; N18.3 - Chronic kidney disease, stage 3 (moderate) Comment/Plan: Continue ADA diet and oral agents. Monitor blood sugar. Blood sugar under control no hypoglycemia (4) Alcohol abuse Acute F10.10 - ALCOHOL ABUSE, UNCOMPLICATED Comment/Plan: Patient counseled to quit. Will likely need assistance. (5) Hypomagnesemia Acute E83.42 - HYPOMAGNESEMIA Comment/Plan: Replace and monitor Case Care Discussed with: Patient, Nursing Staff, Resource Management Education/Counseling Given To: Patient Total Time: 36 min Critical Care: No Code: 16751 (12+)
[2016-06-22] MEDS: SODIUM CHLORIDE 0.9% 5 ML FLUSH FLUSH SCH ×2 (04:50→17:19)
[2016-06-22] MEDS: REGULAR INSULIN 100 UNITS/ML - 3 ML VIAL SQ SCH ×2 (05:48→16:34)
[2016-06-22] MEDS: MetFORMIN, EXT REL 500 MG TAB PO SCH (05:49)
[2016-06-22] MEDS: CLOTRIMAZOLE & BETAMETHASONE 45 GM TUBE TOP SCH ×3 (05:49→21:51)
[2016-06-22] MEDS: PANTOPRAZOLE 40 MG TAB PO SCH (05:49)
[2016-06-22 07:22] LABS: AUTOMATED BASOPHIL 0.5 % (0-2); AUTOMATED EOSINOPHIL 2.3 % (0-5); AUTOMATED LYMPH 32.5 % (17-44); AUTOMATED MONOCYTE 11.1 % (3-10); AUTOMATED NEUTROPHIL 53.6 % (45-76)
[2016-06-22 07:39] LABS: BLOOD UREA NITROGEN 25 MG/DL (7-17); CALCIUM 8.2 MG/DL (8.4-10.2); CALCULATED OSMOLALITY 266 MOs/Kg (270-290); CHLORIDE 99 mEq/L (98-107); GLUCOSE 104 MG/DL (70-99); SODIUM LEVEL 136 mEq/L (137-146)
[2016-06-22] MEDS: ASCORBIC ACID 500 MG TAB PO SCH ×3 (08:28→17:45)
[2016-06-22] MEDS: FERROUS SULFATE 324 MG TAB PO SCH ×3 (08:28→17:45)
[2016-06-22] MEDS ORDERED: Magnesium Sulfate 2 gm/D5W 2 GM/50 ML RTU IV ONE (09:00)
--- NOTE | 2016-06-22 09:16 | PCM.CCPN2 ---
Oncology/Hematology Progress Note: HISTORY OF PRESENT ILLNESS: This is a 50-year-old woman who was readmitted 2-3 weeks ago for recurrent infection and I was consulted regarding her thrombocytopenia which had gone as low as 40,000. I felt it was related to her sepsis as well as liver cirrhosis. Her platelet count has steadily improved with treating her underlying infection but she has had some mildly worsening anemia. She has a poor psychosocial situation and is waiting for discharge. When I initially saw her I did order testing for heparin-induced platelet antibodies and this test has come back positive at 0.8. I suspect she did have Heparin administered during the prior admission. PHYSICAL EXAMINATION: Largely unchanged, she still has ulcerated wounds of her lower extremities which are bandaged and she appears disheveled. LABORATORY DATA: Laboratory Tests 06/02/16 06/02/16 06/02/16 20:50 21:28 22:10 WBC RBC Hgb Hct MCV MCH MCHC RDW Plt Count MPV Neut % (Auto) Lymph % (Auto) [place] % (Auto) Eos % (Auto) Baso % (Auto) Absolute Neuts (auto) Absolute Lymphs (auto) Seg Neuts % (Manual) Band Neutrophils % Lymphocytes % (Manual) Monocytes % (Manual) Eosinophils % (Manual) Basophils % (Manual) Myelocytes % Absolute Neutrophils Absolute Lymphocytes Toxic Granulation Platelet Estimate RBC Morphology Retic Count (auto) PT INR APTT Sodium Potassium Chloride Carbon Dioxide Anion Gap BUN Creatinine Estimated GFR (MDRD) Glucose POC Capillary Glucose 98 Calculated Osmolality Calcium Corrected Calcium Magnesium Total Bilirubin Direct Bilirubin AST ALT Alkaline Phosphatase Ammonia Lactate Dehydrogenase Total Protein Total Protein (PEP) Albumin Albumin (PEP) Globulin (PEP) Albumin/Globulin Ratio Wmret-3-Lqmiehihi Hyvxm-8-Gqbmktucb Beta Globulins Gamma Globulins M-Dima PEP Note PEP Interpretation Tumor Marker AFP Urine Color Dark yellow Urine Clarity Cldy Urine pH 6.0 Ur Specific [place] 1.015 Urine Protein 1+ H Urine Glucose (UA) Neg Urine Ketones Neg Urine Occult Blood 3+ H Urine Nitrite Neg Urine Bilirubin Neg Urine Urobilinogen 8 H Ur Leukocyte Esterase 2+ H Urine RBC 2-5 Urine WBC 10-20 H Ur Epithelial Cells 4+ Amorphous Sediment Occ Urine Bacteria Few Urine Mucus Occ Stool Occult Blood Heparin-induced Plt Ab Hepatitis A IgM Ab Hep Bs Antigen Hep Bs Antibody Hep B Core IgM Ab Hepatitis C Antibody HIV 1&2 Antibody Screen Non reactive Blood Type Antibody Screen Crossmatch 06/03/16 06/03/16 06/03/16 03:38 07:00 07:00 WBC 9.5 RBC 2.80 L Hgb 8.5 L Hct 25.3 L MCV 90 MCH 30.3 MCHC 33.5 RDW 15.9 H Plt Count 50 L MPV 11.3 H Neut % (Auto) 78.0 H Lymph % (Auto) 13.7 L [place] % (Auto) 6.1 Eos % (Auto) 2.0 Baso % (Auto) 0.2 Absolute Neuts (auto) 7.41 Absolute Lymphs (auto) 1.24 Seg Neuts % (Manual) Band Neutrophils % Lymphocytes % (Manual) Monocytes % (Manual) Eosinophils % (Manual) Basophils % (Manual) Myelocytes % Absolute Neutrophils Absolute Lymphocytes Toxic Granulation Platelet Estimate RBC Morphology Retic Count (auto) PT INR APTT Sodium 140 Potassium 3.5 Chloride 111 H Carbon Dioxide 18 L Anion Gap 15 BUN 40 H Creatinine 1.70 H Estimated GFR (MDRD) 39 L Glucose 83 POC Capillary Glucose 77 Calculated Osmolality 278 Calcium 7.7 L Corrected Calcium 9.9 Magnesium Total Bilirubin 4.6 H Direct Bilirubin AST 30 ALT 29 Alkaline Phosphatase 189 H Ammonia Lactate Dehydrogenase Total Protein 5.7 L Total Protein (PEP) Albumin 1.8 L Albumin (PEP) Globulin (PEP) Albumin/Globulin Ratio Svlyf-8-Miwntbgnx Sqsuv-2-Dolpfnaka Beta Globulins Gamma Globulins M-Dima PEP Note PEP Interpretation Tumor Marker AFP Urine Color Urine Clarity Urine pH Ur Specific [place] Urine Protein Urine Glucose (UA) Urine Ketones Urine Occult Blood Urine Nitrite Urine Bilirubin Urine Urobilinogen Ur Leukocyte Esterase Urine RBC Urine WBC Ur Epithelial Cells Amorphous Sediment Urine Bacteria Urine Mucus Stool Occult Blood Heparin-induced Plt Ab Hepatitis A IgM Ab Hep Bs Antigen Hep Bs Antibody Hep B Core IgM Ab Hepatitis C Antibody HIV 1&2 Antibody Screen Blood Type Antibody Screen Crossmatch 06/03/16 06/03/16 06/03/16 07:00 07:00 07:00 WBC RBC Hgb Hct MCV MCH MCHC RDW Plt Count MPV Neut % (Auto) Lymph % (Auto) [place] % (Auto) Eos % (Auto) Baso % (Auto) Absolute Neuts (auto) Absolute Lymphs (auto) Seg Neuts % (Manual) Band Neutrophils % Lymphocytes % (Manual) Monocytes % (Manual) Eosinophils % (Manual) Basophils % (Manual) Myelocytes % Absolute Neutrophils Absolute Lymphocytes Toxic Granulation Platelet Estimate RBC Morphology Retic Count (auto) PT INR APTT 31.9 Sodium Potassium Chloride Carbon Dioxide Anion Gap BUN Creatinine Estimated GFR (MDRD) Glucose POC Capillary Glucose Calculated Osmolality Calcium Corrected Calcium Magnesium Total Bilirubin Direct Bilirubin AST ALT Alkaline Phosphatase Ammonia Lactate Dehydrogenase 330 Total Protein Total Protein (PEP) 5.4 L Albumin Albumin (PEP) 1.7 L Globulin (PEP) 3.7 Albumin/Globulin Ratio 0.5 L Jtnwy-4-Xdhpbtthe 0.2 Hxxvc-1-Zmwldtrod 0.4 Beta Globulins 0.8 Gamma Globulins 2.2 H M-Dima Not observed PEP Note PEP Interpretation Tumor Marker AFP Urine Color Urine Clarity Urine pH Ur Specific [place] Urine Protein Urine Glucose (UA) Urine Ketones Urine Occult Blood Urine Nitrite Urine Bilirubin Urine Urobilinogen Ur Leukocyte Esterase Urine RBC Urine WBC Ur Epithelial Cells Amorphous Sediment Urine Bacteria Urine Mucus Stool Occult Blood Heparin-induced Plt Ab Hepatitis A IgM Ab Hep Bs Antigen Hep Bs Antibody Hep B Core IgM Ab Hepatitis C Antibody HIV 1&2 Antibody Screen Blood Type Antibody Screen Crossmatch 06/03/16 06/03/16 06/03/16 07:00 11:10 16:12 WBC RBC Hgb Hct MCV MCH MCHC RDW Plt Count MPV Neut % (Auto) Lymph % (Auto) [place] % (Auto) Eos % (Auto) Baso % (Auto) Absolute Neuts (auto) Absolute Lymphs (auto) Seg Neuts % (Manual) Band Neutrophils % Lymphocytes % (Manual) Monocytes % (Manual) Eosinophils % (Manual) Basophils % (Manual) Myelocytes % Absolute Neutrophils Absolute Lymphocytes Toxic Granulation Platelet Estimate RBC Morphology Retic Count (auto) 1.0 PT INR APTT Sodium Potassium Chloride Carbon Dioxide Anion Gap BUN Creatinine Estimated GFR (MDRD) Glucose POC Capillary Glucose 108 H 109 H Calculated Osmolality Calcium Corrected Calcium Magnesium Total Bilirubin Direct Bilirubin AST ALT Alkaline Phosphatase Ammonia Lactate Dehydrogenase Total Protein Total Protein (PEP) Albumin Albumin (PEP) Globulin (PEP) Albumin/Globulin Ratio Obgrr-5-Lwfuwkmrn Tqffm-5-Dhzmqtezo Beta Globulins Gamma Globulins M-Dima PEP Note PEP Interpretation Tumor Marker AFP Urine Color Urine Clarity Urine pH Ur Specific [place] Urine Protein Urine Glucose (UA) Urine Ketones Urine Occult Blood Urine Nitrite Urine Bilirubin Urine Urobilinogen Ur Leukocyte Esterase Urine RBC Urine WBC Ur Epithelial Cells Amorphous Sediment Urine Bacteria Urine Mucus Stool Occult Blood Heparin-induced Plt Ab Hepatitis A IgM Ab Hep Bs Antigen Hep Bs Antibody Hep B Core IgM Ab Hepatitis C Antibody HIV 1&2 Antibody Screen Blood Type Antibody Screen Crossmatch 06/03/16 06/04/16 06/04/16 20:46 05:22 06:22 WBC 11.3 H RBC 2.83 L Hgb 8.5 L Hct 25.3 L MCV 90 MCH 30.1 MCHC 33.7 RDW 16.3 H Plt Count 53 L MPV 9.8 Neut % (Auto) 73.8 Lymph % (Auto) 17.5 [place] % (Auto) 6.4 Eos % (Auto) 2.0 Baso % (Auto) 0.3 Absolute Neuts (auto) 8.25 H Absolute Lymphs (auto) 1.92 Seg Neuts % (Manual) Band Neutrophils % Lymphocytes % (Manual) Monocytes % (Manual) Eosinophils % (Manual) Basophils % (Manual) Myelocytes % Absolute Neutrophils Absolute Lymphocytes Toxic Granulation Platelet Estimate RBC Morphology Retic Count (auto) PT INR APTT Sodium Potassium Chloride Carbon Dioxide Anion Gap BUN Creatinine Estimated GFR (MDRD) Glucose POC Capillary Glucose 105 H 125 H Calculated Osmolality Calcium Corrected Calcium Magnesium Total Bilirubin Direct Bilirubin AST ALT Alkaline Phosphatase Ammonia Lactate Dehydrogenase Total Protein Total Protein (PEP) Albumin Albumin (PEP) Globulin (PEP) Albumin/Globulin Ratio Kfxpc-3-Dlsgtweqf Wjwwx-4-Vejhjbiry Beta Globulins Gamma Globulins M-Dima PEP Note PEP Interpretation Tumor Marker AFP Urine Color Urine Clarity Urine pH Ur Specific [place] Urine Protein Urine Glucose (UA) Urine Ketones Urine Occult Blood Urine Nitrite Urine Bilirubin Urine Urobilinogen Ur Leukocyte Esterase Urine RBC Urine WBC Ur Epithelial Cells Amorphous Sediment Urine Bacteria Urine Mucus Stool Occult Blood Heparin-induced Plt Ab Hepatitis A IgM Ab Hep Bs Antigen Hep Bs Antibody Hep B Core IgM Ab Hepatitis C Antibody HIV 1&2 Antibody Screen Blood Type Antibody Screen Crossmatch 06/04/16 06/04/16 06/04/16 06:22 11:05 16:10 WBC RBC Hgb Hct MCV MCH MCHC RDW Plt Count MPV Neut % (Auto) Lymph % (Auto) [place] % (Auto) Eos % (Auto) Baso % (Auto) Absolute Neuts (auto) Absolute Lymphs (auto) Seg Neuts % (Manual) Band Neutrophils % Lymphocytes % (Manual) Monocytes % (Manual) Eosinophils % (Manual) Basophils % (Manual) Myelocytes % Absolute Neutrophils Absolute Lymphocytes Toxic Granulation Platelet Estimate RBC Morphology Retic Count (auto) PT INR APTT Sodium Potassium Chloride Carbon Dioxide Anion Gap BUN Creatinine Estimated GFR (MDRD) Glucose POC Capillary Glucose 128 H 135 H Calculated Osmolality Calcium Corrected Calcium Magnesium Total Bilirubin Direct Bilirubin AST ALT Alkaline Phosphatase Ammonia Lactate Dehydrogenase Total Protein Total Protein (PEP) Albumin Albumin (PEP) Globulin (PEP) Albumin/Globulin Ratio Gzoya-0-Nordgdddd Vnvhp-6-Uhwpxjoue Beta Globulins Gamma Globulins M-Dima PEP Note PEP Interpretation Tumor Marker AFP Urine Color Urine Clarity Urine pH Ur Specific [place] Urine Protein Urine Glucose (UA) Urine Ketones Urine Occult Blood Urine Nitrite Urine Bilirubin Urine Urobilinogen Ur Leukocyte Esterase Urine RBC Urine WBC Ur Epithelial Cells Amorphous Sediment Urine Bacteria Urine Mucus Stool Occult Blood Heparin-induced Plt Ab 0.842 H Hepatitis A IgM Ab Hep Bs Antigen Hep Bs Antibody Hep B Core IgM Ab Hepatitis C Antibody HIV 1&2 Antibody Screen Blood Type Antibody Screen Crossmatch 06/04/16 06/05/16 06/05/16 20:08 05:37 06:50 WBC 9.2 RBC 2.51 L Hgb 7.6 L D Hct 22.7 L MCV 90 MCH 30.4 MCHC 33.7 RDW 15.7 H Plt Count 55 L MPV 10.6 H Neut % (Auto) Cancelled Lymph % (Auto) Cancelled [place] % (Auto) Cancelled Eos % (Auto) Cancelled Baso % (Auto) Cancelled Absolute Neuts (auto) Cancelled Absolute Lymphs (auto) Cancelled Seg Neuts % (Manual) 81 H Band Neutrophils % 1 Lymphocytes % (Manual) 15 L Monocytes % (Manual) 2 Eosinophils % (Manual) Basophils % (Manual) Myelocytes % 1 H Absolute Neutrophils 7.54 Absolute Lymphocytes 1.38 Toxic Granulation Tr Platelet Estimate Dec RBC Morphology 1+ poik Retic Count (auto) PT INR APTT Sodium Potassium Chloride Carbon Dioxide Anion Gap BUN Creatinine Estimated GFR (MDRD) Glucose POC Capillary Glucose 135 H 133 H Calculated Osmolality Calcium Corrected Calcium Magnesium Total Bilirubin Direct Bilirubin AST ALT Alkaline Phosphatase Ammonia Lactate Dehydrogenase Total Protein Total Protein (PEP) Albumin Albumin (PEP) Globulin (PEP) Albumin/Globulin Ratio Svzri-1-Pbcdbtnye Urdte-9-Sbrxkpodf Beta Globulins Gamma Globulins M-Dima PEP Note PEP Interpretation Tumor Marker AFP Urine Color Urine Clarity Urine pH Ur Specific [place] Urine Protein Urine Glucose (UA) Urine Ketones Urine Occult Blood Urine Nitrite Urine Bilirubin Urine Urobilinogen Ur Leukocyte Esterase Urine RBC Urine WBC Ur Epithelial Cells Amorphous Sediment Urine Bacteria Urine Mucus Stool Occult Blood Heparin-induced Plt Ab Hepatitis A IgM Ab Hep Bs Antigen Hep Bs Antibody Hep B Core IgM Ab Hepatitis C Antibody HIV 1&2 Antibody Screen Blood Type Antibody Screen Crossmatch 06/05/16 06/05/16 06/05/16 06:50 11:52 16:30 WBC RBC Hgb Hct MCV MCH MCHC RDW Plt Count MPV Neut % (Auto) Lymph % (Auto) [place] % (Auto) Eos % (Auto) Baso % (Auto) Absolute Neuts (auto) Absolute Lymphs (auto) Seg Neuts % (Manual) Band Neutrophils % Lymphocytes % (Manual) Monocytes % (Manual) Eosinophils % (Manual) Basophils % (Manual) Myelocytes % Absolute Neutrophils Absolute Lymphocytes Toxic Granulation Platelet Estimate RBC Morphology Retic Count (auto) PT INR APTT Sodium 135 L Potassium 4.2 Chloride 105 Carbon Dioxide 22 Anion Gap 12 BUN 39 H Creatinine 1.50 H Estimated GFR (MDRD) 45 L Glucose 110 H POC Capillary Glucose 86 Calculated Osmolality 270 Calcium 7.5 L Corrected Calcium 9.7 Magnesium 1.50 L Total Bilirubin 3.9 H Direct Bilirubin Cancelled AST 44 H ALT 34 Alkaline Phosphatase 228 H Ammonia Lactate Dehydrogenase Total Protein 6.0 L Total Protein (PEP) Albumin 1.8 L Albumin (PEP) Globulin (PEP) Albumin/Globulin Ratio Egfno-8-Utynlhftm Edioi-9-Ibrnrwcef Beta Globulins Gamma Globulins M-Dima PEP Note PEP Interpretation Tumor Marker AFP Urine Color Urine Clarity Urine pH Ur Specific [place] Urine Protein Urine Glucose (UA) Urine Ketones Urine Occult Blood Urine Nitrite Urine Bilirubin Urine Urobilinogen Ur Leukocyte Esterase Urine RBC Urine WBC Ur Epithelial Cells Amorphous Sediment Urine Bacteria Urine Mucus Stool Occult Blood Neg Heparin-induced Plt Ab Hepatitis A IgM Ab Hep Bs Antigen Hep Bs Antibody Hep B Core IgM Ab Hepatitis C Antibody HIV 1&2 Antibody Screen Blood Type Antibody Screen Crossmatch 06/05/16 06/05/16 06/05/16 16:42 20:05 21:00 WBC RBC Hgb Hct MCV MCH MCHC RDW Plt Count MPV Neut % (Auto) Lymph % (Auto) [place] % (Auto) Eos % (Auto) Baso % (Auto) Absolute Neuts (auto) Absolute Lymphs (auto) Seg Neuts % (Manual) Band Neutrophils % Lymphocytes % (Manual) Monocytes % (Manual) Eosinophils % (Manual) Basophils % (Manual) Myelocytes % Absolute Neutrophils Absolute Lymphocytes Toxic Granulation Platelet Estimate RBC Morphology Retic Count (auto) PT INR APTT Sodium Potassium Chloride Carbon Dioxide Anion Gap BUN Creatinine Estimated GFR (MDRD) Glucose POC Capillary Glucose 152 H 133 H Calculated Osmolality Calcium Corrected Calcium Magnesium Total Bilirubin Direct Bilirubin AST ALT Alkaline Phosphatase Ammonia Lactate Dehydrogenase Total Protein Total Protein (PEP) Albumin Albumin (PEP) Globulin (PEP) Albumin/Globulin Ratio Wwafo-8-Dvzznkpwp Zbwsk-3-Bukahxbgz Beta Globulins Gamma Globulins M-Dima PEP Note PEP Interpretation Tumor Marker AFP Urine Color Urine Clarity Urine pH Ur Specific [place] Urine Protein Urine Glucose (UA) Urine Ketones Urine Occult Blood Urine Nitrite Urine Bilirubin Urine Urobilinogen Ur Leukocyte Esterase Urine RBC Urine WBC Ur Epithelial Cells Amorphous Sediment Urine Bacteria Urine Mucus Stool Occult Blood Heparin-induced Plt Ab Hepatitis A IgM Ab Hep Bs Antigen Hep Bs Antibody Hep B Core IgM Ab Hepatitis C Antibody HIV 1&2 Antibody Screen Blood Type O POSITIVE Antibody Screen Negative Crossmatch See Detail 06/05/16 06/06/16 06/06/16 23:50 04:59 11:02 WBC RBC Hgb Hct MCV MCH MCHC RDW Plt Count MPV Neut % (Auto) Lymph % (Auto) [place] % (Auto) Eos % (Auto) Baso % (Auto) Absolute Neuts (auto) Absolute Lymphs (auto) Seg Neuts % (Manual) Band Neutrophils % Lymphocytes % (Manual) Monocytes % (Manual) Eosinophils % (Manual) Basophils % (Manual) Myelocytes % Absolute Neutrophils Absolute Lymphocytes Toxic Granulation Platelet Estimate RBC Morphology Retic Count (auto) PT INR APTT Sodium Potassium Chloride Carbon Dioxide Anion Gap BUN Creatinine Estimated GFR (MDRD) Glucose POC Capillary Glucose 136 H 133 H 106 H Calculated Osmolality Calcium Corrected Calcium Magnesium Total Bilirubin Direct Bilirubin AST ALT Alkaline Phosphatase Ammonia Lactate Dehydrogenase Total Protein Total Protein (PEP) Albumin Albumin (PEP) Globulin (PEP) Albumin/Globulin Ratio Rjmld-8-Wjsdquooc Fefpl-9-Dnabgwgyw Beta Globulins Gamma Globulins M-Dima PEP Note PEP Interpretation Tumor Marker AFP Urine Color Urine Clarity Urine pH Ur Specific [place] Urine Protein Urine Glucose (UA) Urine Ketones Urine Occult Blood Urine Nitrite Urine Bilirubin Urine Urobilinogen Ur Leukocyte Esterase Urine RBC Urine WBC Ur Epithelial Cells Amorphous Sediment Urine Bacteria Urine Mucus Stool Occult Blood Heparin-induced Plt Ab Hepatitis A IgM Ab Hep Bs Antigen Hep Bs Antibody Hep B Core IgM Ab Hepatitis C Antibody HIV 1&2 Antibody Screen Blood Type Antibody Screen Crossmatch 06/06/16 06/06/16 06/06/16 12:40 16:41 20:57 WBC RBC Hgb Hct MCV MCH MCHC RDW Plt Count MPV Neut % (Auto) Lymph % (Auto) [place] % (Auto) Eos % (Auto) Baso % (Auto) Absolute Neuts (auto) Absolute Lymphs (auto) Seg Neuts % (Manual) Band Neutrophils % Lymphocytes % (Manual) Monocytes % (Manual) Eosinophils % (Manual) Basophils % (Manual) Myelocytes % Absolute Neutrophils Absolute Lymphocytes Toxic Granulation Platelet Estimate RBC Morphology Retic Count (auto) PT INR APTT Sodium Potassium Chloride Carbon Dioxide Anion Gap BUN Creatinine Estimated GFR (MDRD) Glucose POC Capillary Glucose 139 H 147 H Calculated Osmolality Calcium Corrected Calcium Magnesium Total Bilirubin Direct Bilirubin AST ALT Alkaline Phosphatase Ammonia Lactate Dehydrogenase Total Protein Total Protein (PEP) Albumin Albumin (PEP) Globulin (PEP) Albumin/Globulin Ratio Eixor-1-Itxpbrcev Mbiac-5-Gsafvlrei Beta Globulins Gamma Globulins M-Dima PEP Note PEP Interpretation Tumor Marker AFP Urine Color Urine Clarity Urine pH Ur Specific [place] Urine Protein Urine Glucose (UA) Urine Ketones Urine Occult Blood Urine Nitrite Urine Bilirubin Urine Urobilinogen Ur Leukocyte Esterase Urine RBC Urine WBC Ur Epithelial Cells Amorphous Sediment Urine Bacteria Urine Mucus Stool Occult Blood Neg Heparin-induced Plt Ab Hepatitis A IgM Ab Hep Bs Antigen Hep Bs Antibody Hep B Core IgM Ab Hepatitis C Antibody HIV 1&2 Antibody Screen Blood Type Antibody Screen Crossmatch 06/06/16 06/07/16 06/07/16 23:00 02:13 05:55 WBC RBC Hgb Hct MCV MCH MCHC RDW Plt Count MPV Neut % (Auto) Lymph % (Auto) [place] % (Auto) Eos % (Auto) Baso % (Auto) Absolute Neuts (auto) Absolute Lymphs (auto) Seg Neuts % (Manual) Band Neutrophils % Lymphocytes % (Manual) Monocytes % (Manual) Eosinophils % (Manual) Basophils % (Manual) Myelocytes % Absolute Neutrophils Absolute Lymphocytes Toxic Granulation Platelet Estimate RBC Morphology Retic Count (auto) PT INR APTT Sodium Potassium Chloride Carbon Dioxide Anion Gap BUN Creatinine Estimated GFR (MDRD) Glucose POC Capillary Glucose 132 H Calculated Osmolality Calcium Corrected Calcium Magnesium Total Bilirubin Direct Bilirubin AST ALT Alkaline Phosphatase Ammonia Lactate Dehydrogenase Total Protein Total Protein (PEP) Albumin Albumin (PEP) Globulin (PEP) Albumin/Globulin Ratio Aslpa-9-Bnvvcbvzp Myrnc-2-Udeedqqhc Beta Globulins Gamma Globulins M-Dima PEP Note PEP Interpretation Tumor Marker AFP Urine Color Urine Clarity Urine pH Ur Specific [place] Urine Protein Urine Glucose (UA) Urine Ketones Urine Occult Blood Urine Nitrite Urine Bilirubin Urine Urobilinogen Ur Leukocyte Esterase Urine RBC Urine WBC Ur Epithelial Cells Amorphous Sediment Urine Bacteria Urine Mucus Stool Occult Blood Neg Pos H Heparin-induced Plt Ab Hepatitis A IgM Ab Hep Bs Antigen Hep Bs Antibody Hep B Core IgM Ab Hepatitis C Antibody HIV 1&2 Antibody Screen Blood Type Antibody Screen Crossmatch 06/07/16 06/07/16 06/07/16 06:24 06:24 06:24 WBC 10.5 RBC 2.67 L Hgb 8.2 L Hct 24.5 L MCV 92 MCH 30.7 MCHC 33.6 RDW 16.2 H Plt Count 107 L MPV 11.2 H Neut % (Auto) Lymph % (Auto) [place] % (Auto) Eos % (Auto) Baso % (Auto) Absolute Neuts (auto) Absolute Lymphs (auto) Seg Neuts % (Manual) Band Neutrophils % Lymphocytes % (Manual) Monocytes % (Manual) Eosinophils % (Manual) Basophils % (Manual) Myelocytes % Absolute Neutrophils Absolute Lymphocytes Toxic Granulation Platelet Estimate RBC Morphology Retic Count (auto) PT 13.1 H INR 1.3 APTT Sodium 135 L Potassium 4.6 Chloride 103 Carbon Dioxide 24 Anion Gap 13 BUN 37 H Creatinine 1.40 H Estimated GFR (MDRD) 49 L Glucose 171 H POC Capillary Glucose Calculated Osmolality 273 Calcium 7.7 L Corrected Calcium Magnesium Total Bilirubin Direct Bilirubin AST ALT Alkaline Phosphatase Ammonia Lactate Dehydrogenase Total Protein Total Protein (PEP) Albumin Albumin (PEP) Globulin (PEP) Albumin/Globulin Ratio Dbxni-1-Mddzjpdgq Bqthw-3-Xqpntmpje Beta Globulins Gamma Globulins M-Dima PEP Note PEP Interpretation Tumor Marker AFP Urine Color Urine Clarity Urine pH Ur Specific [place] Urine Protein Urine Glucose (UA) Urine Ketones Urine Occult Blood Urine Nitrite Urine Bilirubin Urine Urobilinogen Ur Leukocyte Esterase Urine RBC Urine WBC Ur Epithelial Cells Amorphous Sediment Urine Bacteria Urine Mucus Stool Occult Blood Heparin-induced Plt Ab Hepatitis A IgM Ab Hep Bs Antigen Hep Bs Antibody Hep B Core IgM Ab Hepatitis C Antibody HIV 1&2 Antibody Screen Blood Type Antibody Screen Crossmatch 06/07/16 06/07/16 06/07/16 11:35 16:35 21:21 WBC RBC Hgb Hct MCV MCH MCHC RDW Plt Count MPV Neut % (Auto) Lymph % (Auto) [place] % (Auto) Eos % (Auto) Baso % (Auto) Absolute Neuts (auto) Absolute Lymphs (auto) Seg Neuts % (Manual) Band Neutrophils % Lymphocytes % (Manual) Monocytes % (Manual) Eosinophils % (Manual) Basophils % (Manual) Myelocytes % Absolute Neutrophils Absolute Lymphocytes Toxic Granulation Platelet Estimate RBC Morphology Retic Count (auto) PT INR APTT Sodium Potassium Chloride Carbon Dioxide Anion Gap BUN Creatinine Estimated GFR (MDRD) Glucose POC Capillary Glucose 167 H 138 H 173 H Calculated Osmolality Calcium Corrected Calcium Magnesium Total Bilirubin Direct Bilirubin AST ALT Alkaline Phosphatase Ammonia Lactate Dehydrogenase Total Protein Total Protein (PEP) Albumin Albumin (PEP) Globulin (PEP) Albumin/Globulin Ratio Svvcz-2-Sgrqvxxws Aaisl-1-Zpbxyurlp Beta Globulins Gamma Globulins M-Dima PEP Note PEP Interpretation Tumor Marker AFP Urine Color Urine Clarity Urine pH Ur Specific [place] Urine Protein Urine Glucose (UA) Urine Ketones Urine Occult Blood Urine Nitrite Urine Bilirubin Urine Urobilinogen Ur Leukocyte Esterase Urine RBC Urine WBC Ur Epithelial Cells Amorphous Sediment Urine Bacteria Urine Mucus Stool Occult Blood Heparin-induced Plt Ab Hepatitis A IgM Ab Hep Bs Antigen Hep Bs Antibody Hep B Core IgM Ab Hepatitis C Antibody HIV 1&2 Antibody Screen Blood Type Antibody Screen Crossmatch 06/08/16 06/08/16 06/08/16 05:49 06:10 06:10 WBC 8.4 RBC 2.36 L Hgb 7.1 L D Hct 21.5 L MCV 91 MCH 30.1 MCHC 33.1 RDW 16.5 H Plt Count 81 L MPV 11.1 H Neut % (Auto) Lymph % (Auto) [place] % (Auto) Eos % (Auto) Baso % (Auto) Absolute Neuts (auto) Absolute Lymphs (auto) Seg Neuts % (Manual) Band Neutrophils % Lymphocytes % (Manual) Monocytes % (Manual) Eosinophils % (Manual) Basophils % (Manual) Myelocytes % Absolute Neutrophils Absolute Lymphocytes Toxic Granulation Platelet Estimate RBC Morphology Retic Count (auto) PT INR APTT Sodium 135 L Potassium 4.5 Chloride 104 Carbon Dioxide 23 Anion Gap 13 BUN 36 H Creatinine 1.10 H Estimated GFR (MDRD) > 60 Glucose 119 H POC Capillary Glucose 129 H Calculated Osmolality 269 L Calcium 7.9 L Corrected Calcium 10.0 Magnesium Total Bilirubin 2.3 H Direct Bilirubin AST 54 H ALT 32 Alkaline Phosphatase 270 H Ammonia Lactate Dehydrogenase Total Protein 6.4 Total Protein (PEP) Albumin 1.9 L Albumin (PEP) Globulin (PEP) Albumin/Globulin Ratio Ecqrp-5-Rzqzlceje Eivxg-3-Pkfedaruh Beta Globulins Gamma Globulins M-Dima PEP Note PEP Interpretation Tumor Marker AFP Urine Color Urine Clarity Urine pH Ur Specific [place] Urine Protein Urine Glucose (UA) Urine Ketones Urine Occult Blood Urine Nitrite Urine Bilirubin Urine Urobilinogen Ur Leukocyte Esterase Urine RBC Urine WBC Ur Epithelial Cells Amorphous Sediment Urine Bacteria Urine Mucus Stool Occult Blood Heparin-induced Plt Ab Hepatitis A IgM Ab Hep Bs Antigen Hep Bs Antibody Hep B Core IgM Ab Hepatitis C Antibody HIV 1&2 Antibody Screen Blood Type Antibody Screen Crossmatch 06/08/16 06/08/16 06/08/16 06:10 11:16 16:07 WBC RBC Hgb Hct MCV MCH MCHC RDW Plt Count MPV Neut % (Auto) Lymph % (Auto) [place] % (Auto) Eos % (Auto) Baso % (Auto) Absolute Neuts (auto) Absolute Lymphs (auto) Seg Neuts % (Manual) Band Neutrophils % Lymphocytes % (Manual) Monocytes % (Manual) Eosinophils % (Manual) Basophils % (Manual) Myelocytes % Absolute Neutrophils Absolute Lymphocytes Toxic Granulation Platelet Estimate RBC Morphology Retic Count (auto) PT INR APTT Sodium Potassium Chloride Carbon Dioxide Anion Gap BUN Creatinine Estimated GFR (MDRD) Glucose POC Capillary Glucose 142 H 181 H Calculated Osmolality Calcium Corrected Calcium Magnesium Total Bilirubin Direct Bilirubin AST ALT Alkaline Phosphatase Ammonia Lactate Dehydrogenase Total Protein Total Protein (PEP) Albumin Albumin (PEP) Globulin (PEP) Albumin/Globulin Ratio Wmcbd-2-Jkidcnsua Urecs-8-Fbyhrwevu Beta Globulins Gamma Globulins M-Dima PEP Note PEP Interpretation Tumor Marker AFP 2.1 Urine Color Urine Clarity Urine pH Ur Specific [place] Urine Protein Urine Glucose (UA) Urine Ketones Urine Occult Blood Urine Nitrite Urine Bilirubin Urine Urobilinogen Ur Leukocyte Esterase Urine RBC Urine WBC Ur Epithelial Cells Amorphous Sediment Urine Bacteria Urine Mucus Stool Occult Blood Heparin-induced Plt Ab Hepatitis A IgM Ab Negative Hep Bs Antigen Negative Hep Bs Antibody Non reactive Hep B Core IgM Ab Negative Hepatitis C Antibody 0.2 HIV 1&2 Antibody Screen Blood Type Antibody Screen Crossmatch 06/08/16 06/09/16 06/09/16 20:40 04:31 07:02 WBC RBC Hgb Hct MCV MCH MCHC RDW Plt Count MPV Neut % (Auto) Lymph % (Auto) [place] % (Auto) Eos % (Auto) Baso % (Auto) Absolute Neuts (auto) Absolute Lymphs (auto) Seg Neuts % (Manual) Band Neutrophils % Lymphocytes % (Manual) Monocytes % (Manual) Eosinophils % (Manual) Basophils % (Manual) Myelocytes % Absolute Neutrophils Absolute Lymphocytes Toxic Granulation Platelet Estimate RBC Morphology Retic Count (auto) PT INR APTT Sodium Potassium Chloride Carbon Dioxide Anion Gap BUN Creatinine Estimated GFR (MDRD) Glucose POC Capillary Glucose 171 H 172 H Calculated Osmolality Calcium Corrected Calcium Magnesium Total Bilirubin Direct Bilirubin AST ALT Alkaline Phosphatase Ammonia 13.0 Lactate Dehydrogenase Total Protein Total Protein (PEP) Albumin Albumin (PEP) Globulin (PEP) Albumin/Globulin Ratio Yqkoq-6-Baitianpd Ygfxl-6-Okyebncyp Beta Globulins Gamma Globulins M-Dima PEP Note PEP Interpretation Tumor Marker AFP Urine Color Urine Clarity Urine pH Ur Specific [place] Urine Protein Urine Glucose (UA) Urine Ketones Urine Occult Blood Urine Nitrite Urine Bilirubin Urine Urobilinogen Ur Leukocyte Esterase Urine RBC Urine WBC Ur Epithelial Cells Amorphous Sediment Urine Bacteria Urine Mucus Stool Occult Blood Heparin-induced Plt Ab Hepatitis A IgM Ab Hep Bs Antigen Hep Bs Antibody Hep B Core IgM Ab Hepatitis C Antibody HIV 1&2 Antibody Screen Blood Type Antibody Screen Crossmatch 06/09/16 06/09/16 06/09/16 07:02 10:38 16:06 WBC 7.2 RBC 2.77 L Hgb 8.5 L D Hct 24.6 L MCV 89 MCH 30.5 MCHC 34.3 RDW 15.4 H Plt Count 90 L MPV 9.6 Neut % (Auto) 67.2 Lymph % (Auto) 19.5 [place] % (Auto) 9.5 Eos % (Auto) 3.5 Baso % (Auto) 0.3 Absolute Neuts (auto) 4.82 Absolute Lymphs (auto) 1.37 Seg Neuts % (Manual) Band Neutrophils % Lymphocytes % (Manual) Monocytes % (Manual) Eosinophils % (Manual) Basophils % (Manual) Myelocytes % Absolute Neutrophils Absolute Lymphocytes Toxic Granulation Platelet Estimate RBC Morphology Retic Count (auto) PT INR APTT Sodium Potassium Chloride Carbon Dioxide Anion Gap BUN Creatinine Estimated GFR (MDRD) Glucose POC Capillary Glucose 94 89 Calculated Osmolality Calcium Corrected Calcium Magnesium Total Bilirubin Direct Bilirubin AST ALT Alkaline Phosphatase Ammonia Lactate Dehydrogenase Total Protein Total Protein (PEP) Albumin Albumin (PEP) Globulin (PEP) Albumin/Globulin Ratio Wlkse-5-Bjwfgfram Tzupx-5-Qocyfviht Beta Globulins Gamma Globulins M-Dima PEP Note PEP Interpretation Tumor Marker AFP Urine Color Urine Clarity Urine pH Ur Specific [place] Urine Protein Urine Glucose (UA) Urine Ketones Urine Occult Blood Urine Nitrite Urine Bilirubin Urine Urobilinogen Ur Leukocyte Esterase Urine RBC Urine WBC Ur Epithelial Cells Amorphous Sediment Urine Bacteria Urine Mucus Stool Occult Blood Heparin-induced Plt Ab Hepatitis A IgM Ab Hep Bs Antigen Hep Bs Antibody Hep B Core IgM Ab Hepatitis C Antibody HIV 1&2 Antibody Screen Blood Type Antibody Screen Crossmatch 06/09/16 06/10/16 06/10/16 21:18 05:15 10:49 WBC RBC Hgb Hct MCV MCH MCHC RDW Plt Count MPV Neut % (Auto) Lymph % (Auto) [place] % (Auto) Eos % (Auto) Baso % (Auto) Absolute Neuts (auto) Absolute Lymphs (auto) Seg Neuts % (Manual) Band Neutrophils % Lymphocytes % (Manual) Monocytes % (Manual) Eosinophils % (Manual) Basophils % (Manual) Myelocytes % Absolute Neutrophils Absolute Lymphocytes Toxic Granulation Platelet Estimate RBC Morphology Retic Count (auto) PT INR APTT Sodium Potassium Chloride Carbon Dioxide Anion Gap BUN Creatinine Estimated GFR (MDRD) Glucose POC Capillary Glucose 114 H 159 H 125 H Calculated Osmolality Calcium Corrected Calcium Magnesium Total Bilirubin Direct Bilirubin AST ALT Alkaline Phosphatase Ammonia Lactate Dehydrogenase Total Protein Total Protein (PEP) Albumin Albumin (PEP) Globulin (PEP) Albumin/Globulin Ratio Rrjpm-5-Mjkvqzkuv Khnwc-1-Mafihmhls Beta Globulins Gamma Globulins M-Dima PEP Note PEP Interpretation Tumor Marker AFP Urine Color Urine Clarity Urine pH Ur Specific [place] Urine Protein Urine Glucose (UA) Urine Ketones Urine Occult Blood Urine Nitrite Urine Bilirubin Urine Urobilinogen Ur Leukocyte Esterase Urine RBC Urine WBC Ur Epithelial Cells Amorphous Sediment Urine Bacteria Urine Mucus Stool Occult Blood Heparin-induced Plt Ab Hepatitis A IgM Ab Hep Bs Antigen Hep Bs Antibody Hep B Core IgM Ab Hepatitis C Antibody HIV 1&2 Antibody Screen Blood Type Antibody Screen Crossmatch 06/10/16 06/10/16 06/11/16 15:57 20:51 05:22 WBC RBC Hgb Hct MCV MCH MCHC RDW Plt Count MPV Neut % (Auto) Lymph % (Auto) [place] % (Auto) Eos % (Auto) Baso % (Auto) Absolute Neuts (auto) Absolute Lymphs (auto) Seg Neuts % (Manual) Band Neutrophils % Lymphocytes % (Manual) Monocytes % (Manual) Eosinophils % (Manual) Basophils % (Manual) Myelocytes % Absolute Neutrophils Absolute Lymphocytes Toxic Granulation Platelet Estimate RBC Morphology Retic Count (auto) PT INR APTT Sodium Potassium Chloride Carbon Dioxide Anion Gap BUN Creatinine Estimated GFR (MDRD) Glucose POC Capillary Glucose 138 H 151 H 172 H Calculated Osmolality Calcium Corrected Calcium Magnesium Total Bilirubin Direct Bilirubin AST ALT Alkaline Phosphatase Ammonia Lactate Dehydrogenase Total Protein Total Protein (PEP) Albumin Albumin (PEP) Globulin (PEP) Albumin/Globulin Ratio Uzqiu-7-Brmkjefaz Cuqqg-2-Gyolktlgu Beta Globulins Gamma Globulins M-Dima PEP Note PEP Interpretation Tumor Marker AFP Urine Color Urine Clarity Urine pH Ur Specific [place] Urine Protein Urine Glucose (UA) Urine Ketones Urine Occult Blood Urine Nitrite Urine Bilirubin Urine Urobilinogen Ur Leukocyte Esterase Urine RBC Urine WBC Ur Epithelial Cells Amorphous Sediment Urine Bacteria Urine Mucus Stool Occult Blood Heparin-induced Plt Ab Hepatitis A IgM Ab Hep Bs Antigen Hep Bs Antibody Hep B Core IgM Ab Hepatitis C Antibody HIV 1&2 Antibody Screen Blood Type Antibody Screen Crossmatch 06/11/16 06/11/16 06/11/16 06:10 06:10 06:10 WBC 7.2 RBC 2.83 L Hgb 8.7 L Hct 25.6 L MCV 91 MCH 30.9 MCHC 34.1 RDW 16.2 H Plt Count 114 L MPV 9.4 Neut % (Auto) Lymph % (Auto) [place] % (Auto) Eos % (Auto) Baso % (Auto) Absolute Neuts (auto) Absolute Lymphs (auto) Seg Neuts % (Manual) Band Neutrophils % Lymphocytes % (Manual) Monocytes % (Manual) Eosinophils % (Manual) Basophils % (Manual) Myelocytes % Absolute Neutrophils Absolute Lymphocytes Toxic Granulation Platelet Estimate RBC Morphology Retic Count (auto) PT 12.3 H INR 1.2 APTT Sodium 132 L Potassium 4.2 Chloride 100 Carbon Dioxide 25 Anion Gap 11 BUN 35 H Creatinine 1.20 H Estimated GFR (MDRD) 58 L Glucose 148 H POC Capillary Glucose Calculated Osmolality 266 L Calcium 8.0 L Corrected Calcium 9.9 Magnesium Total Bilirubin 1.9 H Direct Bilirubin AST 43 H ALT 29 Alkaline Phosphatase 321 H Ammonia Lactate Dehydrogenase Total Protein 6.4 Total Protein (PEP) Albumin 2.1 L Albumin (PEP) Globulin (PEP) Albumin/Globulin Ratio Nresg-3-Clcyogkth Pqdki-5-Rimeyglxk Beta Globulins Gamma Globulins M-Dima PEP Note PEP Interpretation Tumor Marker AFP Urine Color Urine Clarity Urine pH Ur Specific [place] Urine Protein Urine Glucose (UA) Urine Ketones Urine Occult Blood Urine Nitrite Urine Bilirubin Urine Urobilinogen Ur Leukocyte Esterase Urine RBC Urine WBC Ur Epithelial Cells Amorphous Sediment Urine Bacteria Urine Mucus Stool Occult Blood Heparin-induced Plt Ab Hepatitis A IgM Ab Hep Bs Antigen Hep Bs Antibody Hep B Core IgM Ab Hepatitis C Antibody HIV 1&2 Antibody Screen Blood Type Antibody Screen Crossmatch 06/11/16 06/11/16 06/11/16 11:05 15:47 20:44 WBC RBC Hgb Hct MCV MCH MCHC RDW Plt Count MPV Neut % (Auto) Lymph % (Auto) [place] % (Auto) Eos % (Auto) Baso % (Auto) Absolute Neuts (auto) Absolute Lymphs (auto) Seg Neuts % (Manual) Band Neutrophils % Lymphocytes % (Manual) Monocytes % (Manual) Eosinophils % (Manual) Basophils % (Manual) Myelocytes % Absolute Neutrophils Absolute Lymphocytes Toxic Granulation Platelet Estimate RBC Morphology Retic Count (auto) PT INR APTT Sodium Potassium Chloride Carbon Dioxide Anion Gap BUN Creatinine Estimated GFR (MDRD) Glucose POC Capillary Glucose 133 H 139 H 145 H Calculated Osmolality Calcium Corrected Calcium Magnesium Total Bilirubin Direct Bilirubin AST ALT Alkaline Phosphatase Ammonia Lactate Dehydrogenase Total Protein Total Protein (PEP) Albumin Albumin (PEP) Globulin (PEP) Albumin/Globulin Ratio Xcejc-0-Zxpfqkohr Qvtxk-9-Ajfijlxwq Beta Globulins Gamma Globulins M-Dima PEP Note PEP Interpretation Tumor Marker AFP Urine Color Urine Clarity Urine pH Ur Specific [place] Urine Protein Urine Glucose (UA) Urine Ketones Urine Occult Blood Urine Nitrite Urine Bilirubin Urine Urobilinogen Ur Leukocyte Esterase Urine RBC Urine WBC Ur Epithelial Cells Amorphous Sediment Urine Bacteria Urine Mucus Stool Occult Blood Heparin-induced Plt Ab Hepatitis A IgM Ab Hep Bs Antigen Hep Bs Antibody Hep B Core IgM Ab Hepatitis C Antibody HIV 1&2 Antibody Screen Blood Type Antibody Screen Crossmatch 06/12/16 06/12/16 06/12/16 06:11 11:13 15:59 WBC RBC Hgb Hct MCV MCH MCHC RDW Plt Count MPV Neut % (Auto) Lymph % (Auto) [place] % (Auto) Eos % (Auto) Baso % (Auto) Absolute Neuts (auto) Absolute Lymphs (auto) Seg Neuts % (Manual) Band Neutrophils % Lymphocytes % (Manual) Monocytes % (Manual) Eosinophils % (Manual) Basophils % (Manual) Myelocytes % Absolute Neutrophils Absolute Lymphocytes Toxic Granulation Platelet Estimate RBC Morphology Retic Count (auto) PT INR APTT Sodium Potassium Chloride Carbon Dioxide Anion Gap BUN Creatinine Estimated GFR (MDRD) Glucose POC Capillary Glucose 109 H 95 120 H Calculated Osmolality Calcium Corrected Calcium Magnesium Total Bilirubin Direct Bilirubin AST ALT Alkaline Phosphatase Ammonia Lactate Dehydrogenase Total Protein Total Protein (PEP) Albumin Albumin (PEP) Globulin (PEP) Albumin/Globulin Ratio Aykmr-2-Ckhdihhpj Sozne-8-Qvceenajg Beta Globulins Gamma Globulins M-Dima PEP Note PEP Interpretation Tumor Marker AFP Urine Color Urine Clarity Urine pH Ur Specific [place] Urine Protein Urine Glucose (UA) Urine Ketones Urine Occult Blood Urine Nitrite Urine Bilirubin Urine Urobilinogen Ur Leukocyte Esterase Urine RBC Urine WBC Ur Epithelial Cells Amorphous Sediment Urine Bacteria Urine Mucus Stool Occult Blood Heparin-induced Plt Ab Hepatitis A IgM Ab Hep Bs Antigen Hep Bs Antibody Hep B Core IgM Ab Hepatitis C Antibody HIV 1&2 Antibody Screen Blood Type Antibody Screen Crossmatch 06/12/16 06/12/16 06/13/16 19:50 21:01 05:19 WBC RBC Hgb Hct MCV MCH MCHC RDW Plt Count MPV Neut % (Auto) Lymph % (Auto) [place] % (Auto) Eos % (Auto) Baso % (Auto) Absolute Neuts (auto) Absolute Lymphs (auto) Seg Neuts % (Manual) Band Neutrophils % Lymphocytes % (Manual) Monocytes % (Manual) Eosinophils % (Manual) Basophils % (Manual) Myelocytes % Absolute Neutrophils Absolute Lymphocytes Toxic Granulation Platelet Estimate RBC Morphology Retic Count (auto) PT INR APTT Sodium Potassium Chloride Carbon Dioxide Anion Gap BUN Creatinine Estimated GFR (MDRD) Glucose POC Capillary Glucose 147 H 152 H Calculated Osmolality Calcium Corrected Calcium Magnesium Total Bilirubin Direct Bilirubin AST ALT Alkaline Phosphatase Ammonia 10.0 Lactate Dehydrogenase Total Protein Total Protein (PEP) Albumin Albumin (PEP) Globulin (PEP) Albumin/Globulin Ratio Peuwo-0-Xbymhpxjt Yvaur-3-Oteldbwim Beta Globulins Gamma Globulins M-Dima PEP Note PEP Interpretation Tumor Marker AFP Urine Color Urine Clarity Urine pH Ur Specific [place] Urine Protein Urine Glucose (UA) Urine Ketones Urine Occult Blood Urine Nitrite Urine Bilirubin Urine Urobilinogen Ur Leukocyte Esterase Urine RBC Urine WBC Ur Epithelial Cells Amorphous Sediment Urine Bacteria Urine Mucus Stool Occult Blood Heparin-induced Plt Ab Hepatitis A IgM Ab Hep Bs Antigen Hep Bs Antibody Hep B Core IgM Ab Hepatitis C Antibody HIV 1&2 Antibody Screen Blood Type Antibody Screen Crossmatch 06/13/16 06/13/16 06/13/16 06:25 06:25 12:17 WBC RBC Hgb 7.7 L D Hct 22.6 L MCV MCH MCHC RDW Plt Count MPV Neut % (Auto) Lymph % (Auto) [place] % (Auto) Eos % (Auto) Baso % (Auto) Absolute Neuts (auto) Absolute Lymphs (auto) Seg Neuts % (Manual) Band Neutrophils % Lymphocytes % (Manual) Monocytes % (Manual) Eosinophils % (Manual) Basophils % (Manual) Myelocytes % Absolute Neutrophils Absolute Lymphocytes Toxic Granulation Platelet Estimate RBC Morphology Retic Count (auto) PT INR APTT Sodium 132 L Potassium 4.1 Chloride 98 Carbon Dioxide 26 Anion Gap 12 BUN 35 H Creatinine 1.10 H Estimated GFR (MDRD) > 60 Glucose 147 H POC Capillary Glucose 103 H Calculated Osmolality 266 L Calcium 8.0 L Corrected Calcium Magnesium 1.40 L Total Bilirubin Direct Bilirubin AST ALT Alkaline Phosphatase Ammonia Lactate Dehydrogenase Total Protein Total Protein (PEP) Albumin Albumin (PEP) Globulin (PEP) Albumin/Globulin Ratio Uarux-6-Dnjseepli Leuqb-7-Dtoleghbt Beta Globulins Gamma Globulins M-Dima PEP Note PEP Interpretation Tumor Marker AFP Urine Color Urine Clarity Urine pH Ur Specific [place] Urine Protein Urine Glucose (UA) Urine Ketones Urine Occult Blood Urine Nitrite Urine Bilirubin Urine Urobilinogen Ur Leukocyte Esterase Urine RBC Urine WBC Ur Epithelial Cells Amorphous Sediment Urine Bacteria Urine Mucus Stool Occult Blood Heparin-induced Plt Ab Hepatitis A IgM Ab Hep Bs Antigen Hep Bs Antibody Hep B Core IgM Ab Hepatitis C Antibody HIV 1&2 Antibody Screen Blood Type Antibody Screen Crossmatch 06/13/16 06/13/16 06/14/16 16:11 20:23 05:00 WBC RBC Hgb Hct MCV MCH MCHC RDW Plt Count MPV Neut % (Auto) Lymph % (Auto) [place] % (Auto) Eos % (Auto) Baso % (Auto) Absolute Neuts (auto) Absolute Lymphs (auto) Seg Neuts % (Manual) Band Neutrophils % Lymphocytes % (Manual) Monocytes % (Manual) Eosinophils % (Manual) Basophils % (Manual) Myelocytes % Absolute Neutrophils Absolute Lymphocytes Toxic Granulation Platelet Estimate RBC Morphology Retic Count (auto) PT INR APTT Sodium Potassium Chloride Carbon Dioxide Anion Gap BUN Creatinine Estimated GFR (MDRD) Glucose POC Capillary Glucose 124 H 140 H 105 H Calculated Osmolality Calcium Corrected Calcium Magnesium Total Bilirubin Direct Bilirubin AST ALT Alkaline Phosphatase Ammonia Lactate Dehydrogenase Total Protein Total Protein (PEP) Albumin Albumin (PEP) Globulin (PEP) Albumin/Globulin Ratio Cvpop-1-Sjtuidgxi Xupuq-9-Yzveoizdb Beta Globulins Gamma Globulins M-Dima PEP Note PEP Interpretation Tumor Marker AFP Urine Color Urine Clarity Urine pH Ur Specific [place] Urine Protein Urine Glucose (UA) Urine Ketones Urine Occult Blood Urine Nitrite Urine Bilirubin Urine Urobilinogen Ur Leukocyte Esterase Urine RBC Urine WBC Ur Epithelial Cells Amorphous Sediment Urine Bacteria Urine Mucus Stool Occult Blood Heparin-induced Plt Ab Hepatitis A IgM Ab Hep Bs Antigen Hep Bs Antibody Hep B Core IgM Ab Hepatitis C Antibody HIV 1&2 Antibody Screen Blood Type Antibody Screen Crossmatch 06/14/16 06/14/16 06/14/16 06:15 06:15 11:22 WBC RBC Hgb 8.0 L Hct 24.2 L MCV MCH MCHC RDW Plt Count MPV Neut % (Auto) Lymph % (Auto) [place] % (Auto) Eos % (Auto) Baso % (Auto) Absolute Neuts (auto) Absolute Lymphs (auto) Seg Neuts % (Manual) Band Neutrophils % Lymphocytes % (Manual) Monocytes % (Manual) Eosinophils % (Manual) Basophils % (Manual) Myelocytes % Absolute Neutrophils Absolute Lymphocytes Toxic Granulation Platelet Estimate RBC Morphology Retic Count (auto) PT INR APTT Sodium 134 L Potassium 4.3 Chloride 99 Carbon Dioxide 27 Anion Gap 12 BUN 34 H Creatinine 1.00 Estimated GFR (MDRD) > 60 Glucose 105 H POC Capillary Glucose 119 H Calculated Osmolality 266 L Calcium 8.2 L Corrected Calcium Magnesium 2.10 Total Bilirubin Direct Bilirubin AST ALT Alkaline Phosphatase Ammonia Lactate Dehydrogenase Total Protein Total Protein (PEP) Albumin Albumin (PEP) Globulin (PEP) Albumin/Globulin Ratio Sejml-5-Bpwxlezqd Xqumk-2-Orhmrcoai Beta Globulins Gamma Globulins M-Dima PEP Note PEP Interpretation Tumor Marker AFP Urine Color Urine Clarity Urine pH Ur Specific [place] Urine Protein Urine Glucose (UA) Urine Ketones Urine Occult Blood Urine Nitrite Urine Bilirubin Urine Urobilinogen Ur Leukocyte Esterase Urine RBC Urine WBC Ur Epithelial Cells Amorphous Sediment Urine Bacteria Urine Mucus Stool Occult Blood Heparin-induced Plt Ab Hepatitis A IgM Ab Hep Bs Antigen Hep Bs Antibody Hep B Core IgM Ab Hepatitis C Antibody HIV 1&2 Antibody Screen Blood Type Antibody Screen Crossmatch 06/14/16 06/14/16 06/15/16 16:09 20:15 05:15 WBC RBC Hgb Hct MCV MCH MCHC RDW Plt Count MPV Neut % (Auto) Lymph % (Auto) [place] % (Auto) Eos % (Auto) Baso % (Auto) Absolute Neuts (auto) Absolute Lymphs (auto) Seg Neuts % (Manual) Band Neutrophils % Lymphocytes % (Manual) Monocytes % (Manual) Eosinophils % (Manual) Basophils % (Manual) Myelocytes % Absolute Neutrophils Absolute Lymphocytes Toxic Granulation Platelet Estimate RBC Morphology Retic Count (auto) PT INR APTT Sodium Potassium Chloride Carbon Dioxide Anion Gap BUN Creatinine Estimated GFR (MDRD) Glucose POC Capillary Glucose 138 H 132 H 108 H Calculated Osmolality Calcium Corrected Calcium Magnesium Total Bilirubin Direct Bilirubin AST ALT Alkaline Phosphatase Ammonia Lactate Dehydrogenase Total Protein Total Protein (PEP) Albumin Albumin (PEP) Globulin (PEP) Albumin/Globulin Ratio Iqihu-5-Jfqimltmt Fxdzr-0-Jtgiyzlsp Beta Globulins Gamma Globulins M-Dima PEP Note PEP Interpretation Tumor Marker AFP Urine Color Urine Clarity Urine pH Ur Specific [place] Urine Protein Urine Glucose (UA) Urine Ketones Urine Occult Blood Urine Nitrite Urine Bilirubin Urine Urobilinogen Ur Leukocyte Esterase Urine RBC Urine WBC Ur Epithelial Cells Amorphous Sediment Urine Bacteria Urine Mucus Stool Occult Blood Heparin-induced Plt Ab Hepatitis A IgM Ab Hep Bs Antigen Hep Bs Antibody Hep B Core IgM Ab Hepatitis C Antibody HIV 1&2 Antibody Screen Blood Type Antibody Screen Crossmatch 06/15/16 06/15/16 06/15/16 11:07 15:46 19:51 WBC RBC Hgb Hct MCV MCH MCHC RDW Plt Count MPV Neut % (Auto) Lymph % (Auto) [place] % (Auto) Eos % (Auto) Baso % (Auto) Absolute Neuts (auto) Absolute Lymphs (auto) Seg Neuts % (Manual) Band Neutrophils % Lymphocytes % (Manual) Monocytes % (Manual) Eosinophils % (Manual) Basophils % (Manual) Myelocytes % Absolute Neutrophils Absolute Lymphocytes Toxic Granulation Platelet Estimate RBC Morphology Retic Count (auto) PT INR APTT Sodium Potassium Chloride Carbon Dioxide Anion Gap BUN Creatinine Estimated GFR (MDRD) Glucose POC Capillary Glucose 121 H 142 H 132 H Calculated Osmolality Calcium Corrected Calcium Magnesium Total Bilirubin Direct Bilirubin AST ALT Alkaline Phosphatase Ammonia Lactate Dehydrogenase Total Protein Total Protein (PEP) Albumin Albumin (PEP) Globulin (PEP) Albumin/Globulin Ratio Bgkpl-8-Rihfruofn Wdtua-8-Aqmxgmrmk Beta Globulins Gamma Globulins M-Dima PEP Note PEP Interpretation Tumor Marker AFP Urine Color Urine Clarity Urine pH Ur Specific [place] Urine Protein Urine Glucose (UA) Urine Ketones Urine Occult Blood Urine Nitrite Urine Bilirubin Urine Urobilinogen Ur Leukocyte Esterase Urine RBC Urine WBC Ur Epithelial Cells Amorphous Sediment Urine Bacteria Urine Mucus Stool Occult Blood Heparin-induced Plt Ab Hepatitis A IgM Ab Hep Bs Antigen Hep Bs Antibody Hep B Core IgM Ab Hepatitis C Antibody HIV 1&2 Antibody Screen Blood Type Antibody Screen Crossmatch 06/16/16 06/16/16 06/16/16 04:53 11:45 16:39 WBC RBC Hgb Hct MCV MCH MCHC RDW Plt Count MPV Neut % (Auto) Lymph % (Auto) [place] % (Auto) Eos % (Auto) Baso % (Auto) Absolute Neuts (auto) Absolute Lymphs (auto) Seg Neuts % (Manual) Band Neutrophils % Lymphocytes % (Manual) Monocytes % (Manual) Eosinophils % (Manual) Basophils % (Manual) Myelocytes % Absolute Neutrophils Absolute Lymphocytes Toxic Granulation Platelet Estimate RBC Morphology Retic Count (auto) PT INR APTT Sodium Potassium Chloride Carbon Dioxide Anion Gap BUN Creatinine Estimated GFR (MDRD) Glucose POC Capillary Glucose 116 H 147 H 123 H Calculated Osmolality Calcium Corrected Calcium Magnesium Total Bilirubin Direct Bilirubin AST ALT Alkaline Phosphatase Ammonia Lactate Dehydrogenase Total Protein Total Protein (PEP) Albumin Albumin (PEP) Globulin (PEP) Albumin/Globulin Ratio Lmybh-5-Ylrxoleic Tmdxi-5-Jfsxemzwg Beta Globulins Gamma Globulins M-Dima PEP Note PEP Interpretation Tumor Marker AFP Urine Color Urine Clarity Urine pH Ur Specific [place] Urine Protein Urine Glucose (UA) Urine Ketones Urine Occult Blood Urine Nitrite Urine Bilirubin Urine Urobilinogen Ur Leukocyte Esterase Urine RBC Urine WBC Ur Epithelial Cells Amorphous Sediment Urine Bacteria Urine Mucus Stool Occult Blood Heparin-induced Plt Ab Hepatitis A IgM Ab Hep Bs Antigen Hep Bs Antibody Hep B Core IgM Ab Hepatitis C Antibody HIV 1&2 Antibody Screen Blood Type Antibody Screen Crossmatch 06/16/16 06/17/16 06/17/16 20:28 05:42 16:57 WBC RBC Hgb Hct MCV MCH MCHC RDW Plt Count MPV Neut % (Auto) Lymph % (Auto) [place] % (Auto) Eos % (Auto) Baso % (Auto) Absolute Neuts (auto) Absolute Lymphs (auto) Seg Neuts % (Manual) Band Neutrophils % Lymphocytes % (Manual) Monocytes % (Manual) Eosinophils % (Manual) Basophils % (Manual) Myelocytes % Absolute Neutrophils Absolute Lymphocytes Toxic Granulation Platelet Estimate RBC Morphology Retic Count (auto) PT INR APTT Sodium Potassium Chloride Carbon Dioxide Anion Gap BUN Creatinine Estimated GFR (MDRD) Glucose POC Capillary Glucose 122 H 115 H 120 H Calculated Osmolality Calcium Corrected Calcium Magnesium Total Bilirubin Direct Bilirubin AST ALT Alkaline Phosphatase Ammonia Lactate Dehydrogenase Total Protein Total Protein (PEP) Albumin Albumin (PEP) Globulin (PEP) Albumin/Globulin Ratio Napzc-1-Rwtvmrdoz Wbvtl-4-Aizidpauh Beta Globulins Gamma Globulins M-Dima PEP Note PEP Interpretation Tumor Marker AFP Urine Color Urine Clarity Urine pH Ur Specific [place] Urine Protein Urine Glucose (UA) Urine Ketones Urine Occult Blood Urine Nitrite Urine Bilirubin Urine Urobilinogen Ur Leukocyte Esterase Urine RBC Urine WBC Ur Epithelial Cells Amorphous Sediment Urine Bacteria Urine Mucus Stool Occult Blood Heparin-induced Plt Ab Hepatitis A IgM Ab Hep Bs Antigen Hep Bs Antibody Hep B Core IgM Ab Hepatitis C Antibody HIV 1&2 Antibody Screen Blood Type Antibody Screen Crossmatch 06/17/16 06/18/16 06/18/16 20:36 04:43 07:04 WBC RBC Hgb Hct MCV MCH MCHC RDW Plt Count MPV Neut % (Auto) Lymph % (Auto) [place] % (Auto) Eos % (Auto) Baso % (Auto) Absolute Neuts (auto) Absolute Lymphs (auto) Seg Neuts % (Manual) Band Neutrophils % Lymphocytes % (Manual) Monocytes % (Manual) Eosinophils % (Manual) Basophils % (Manual) Myelocytes % Absolute Neutrophils Absolute Lymphocytes Toxic Granulation Platelet Estimate RBC Morphology Retic Count (auto) PT INR APTT Sodium 136 L Potassium 3.6 Chloride 101 Carbon Dioxide 29 Anion Gap 10 BUN 23 H Creatinine 0.80 Estimated GFR (MDRD) > 60 Glucose 99 POC Capillary Glucose 163 H 114 H Calculated Osmolality 266 L Calcium 8.0 L Corrected Calcium 9.9 Magnesium Total Bilirubin 1.7 H Direct Bilirubin AST 30 ALT 26 Alkaline Phosphatase 248 H Ammonia Lactate Dehydrogenase Total Protein 6.2 L Total Protein (PEP) Albumin 2.1 L Albumin (PEP) Globulin (PEP) Albumin/Globulin Ratio Vjjcr-4-Dhwafzfiy Qnenb-6-Whlxkpklp Beta Globulins Gamma Globulins M-Dima PEP Note PEP Interpretation Tumor Marker AFP Urine Color Urine Clarity Urine pH Ur Specific [place] Urine Protein Urine Glucose (UA) Urine Ketones Urine Occult Blood Urine Nitrite Urine Bilirubin Urine Urobilinogen Ur Leukocyte Esterase Urine RBC Urine WBC Ur Epithelial Cells Amorphous Sediment Urine Bacteria Urine Mucus Stool Occult Blood Heparin-induced Plt Ab Hepatitis A IgM Ab Hep Bs Antigen Hep Bs Antibody Hep B Core IgM Ab Hepatitis C Antibody HIV 1&2 Antibody Screen Blood Type Antibody Screen Crossmatch 06/18/16 06/18/16 06/18/16 07:04 11:24 16:04 WBC 4.7 RBC 2.60 L Hgb 7.9 L Hct 23.4 L MCV 90 MCH 30.4 MCHC 33.8 RDW 17.4 H Plt Count 119 L MPV 8.7 Neut % (Auto) Cancelled Lymph % (Auto) Cancelled [place] % (Auto) Cancelled Eos % (Auto) Cancelled Baso % (Auto) Cancelled Absolute Neuts (auto) Cancelled Absolute Lymphs (auto) Cancelled Seg Neuts % (Manual) 58 Band Neutrophils % 1 Lymphocytes % (Manual) 28 Monocytes % (Manual) 7 Eosinophils % (Manual) 5 Basophils % (Manual) 1 Myelocytes % Absolute Neutrophils 2.77 Absolute Lymphocytes 1.32 Toxic Granulation Platelet Estimate Dec RBC Morphology 1+ aniso Retic Count (auto) PT INR APTT Sodium Potassium Chloride Carbon Dioxide Anion Gap BUN Creatinine Estimated GFR (MDRD) Glucose POC Capillary Glucose 145 H 132 H Calculated Osmolality Calcium Corrected Calcium Magnesium Total Bilirubin Direct Bilirubin AST ALT Alkaline Phosphatase Ammonia Lactate Dehydrogenase Total Protein Total Protein (PEP) Albumin Albumin (PEP) Globulin (PEP) Albumin/Globulin Ratio Etdfh-5-Yqwvvwups Yrrkk-8-Finwgjzcu Beta Globulins Gamma Globulins M-Dima PEP Note PEP Interpretation Tumor Marker AFP Urine Color Urine Clarity Urine pH Ur Specific [place] Urine Protein Urine Glucose (UA) Urine Ketones Urine Occult Blood Urine Nitrite Urine Bilirubin Urine Urobilinogen Ur Leukocyte Esterase Urine RBC Urine WBC Ur Epithelial Cells Amorphous Sediment Urine Bacteria Urine Mucus Stool Occult Blood Heparin-induced Plt Ab Hepatitis A IgM Ab Hep Bs Antigen Hep Bs Antibody Hep B Core IgM Ab Hepatitis C Antibody HIV 1&2 Antibody Screen Blood Type Antibody Screen Crossmatch 06/18/16 06/19/16 06/19/16 19:50 05:42 13:51 WBC RBC Hgb Hct MCV MCH MCHC RDW Plt Count MPV Neut % (Auto) Lymph % (Auto) [place] % (Auto) Eos % (Auto) Baso % (Auto) Absolute Neuts (auto) Absolute Lymphs (auto) Seg Neuts % (Manual) Band Neutrophils % Lymphocytes % (Manual) Monocytes % (Manual) Eosinophils % (Manual) Basophils % (Manual) Myelocytes % Absolute Neutrophils Absolute Lymphocytes Toxic Granulation Platelet Estimate RBC Morphology Retic Count (auto) PT INR APTT Sodium Potassium Chloride Carbon Dioxide Anion Gap BUN Creatinine Estimated GFR (MDRD) Glucose POC Capillary Glucose 132 H 134 H 136 H Calculated Osmolality Calcium Corrected Calcium Magnesium Total Bilirubin Direct Bilirubin AST ALT Alkaline Phosphatase Ammonia Lactate Dehydrogenase Total Protein Total Protein (PEP) Albumin Albumin (PEP) Globulin (PEP) Albumin/Globulin Ratio Bllzg-7-Onnngqiaf Scdco-3-Rnwozmeiw Beta Globulins Gamma Globulins M-Dima PEP Note PEP Interpretation Tumor Marker AFP Urine Color Urine Clarity Urine pH Ur Specific [place] Urine Protein Urine Glucose (UA) Urine Ketones Urine Occult Blood Urine Nitrite Urine Bilirubin Urine Urobilinogen Ur Leukocyte Esterase Urine RBC Urine WBC Ur Epithelial Cells Amorphous Sediment Urine Bacteria Urine Mucus Stool Occult Blood Heparin-induced Plt Ab Hepatitis A IgM Ab Hep Bs Antigen Hep Bs Antibody Hep B Core IgM Ab Hepatitis C Antibody HIV 1&2 Antibody Screen Blood Type Antibody Screen Crossmatch 06/19/16 06/19/16 06/20/16 17:09 20:48 05:12 WBC RBC Hgb Hct MCV MCH MCHC RDW Plt Count MPV Neut % (Auto) Lymph % (Auto) [place] % (Auto) Eos % (Auto) Baso % (Auto) Absolute Neuts (auto) Absolute Lymphs (auto) Seg Neuts % (Manual) Band Neutrophils % Lymphocytes % (Manual) Monocytes % (Manual) Eosinophils % (Manual) Basophils % (Manual) Myelocytes % Absolute Neutrophils Absolute Lymphocytes Toxic Granulation Platelet Estimate RBC Morphology Retic Count (auto) PT INR APTT Sodium Potassium Chloride Carbon Dioxide Anion Gap BUN Creatinine Estimated GFR (MDRD) Glucose POC Capillary Glucose 141 H 132 H 127 H Calculated Osmolality Calcium Corrected Calcium Magnesium Total Bilirubin Direct Bilirubin AST ALT Alkaline Phosphatase Ammonia Lactate Dehydrogenase Total Protein Total Protein (PEP) Albumin Albumin (PEP) Globulin (PEP) Albumin/Globulin Ratio Qdcuc-2-Ccqdwlgis Tqfzo-2-Yqdkvsndf Beta Globulins Gamma Globulins M-Dima PEP Note PEP Interpretation Tumor Marker AFP Urine Color Urine Clarity Urine pH Ur Specific [place] Urine Protein Urine Glucose (UA) Urine Ketones Urine Occult Blood Urine Nitrite Urine Bilirubin Urine Urobilinogen Ur Leukocyte Esterase Urine RBC Urine WBC Ur Epithelial Cells Amorphous Sediment Urine Bacteria Urine Mucus Stool Occult Blood Heparin-induced Plt Ab Hepatitis A IgM Ab Hep Bs Antigen Hep Bs Antibody Hep B Core IgM Ab Hepatitis C Antibody HIV 1&2 Antibody Screen Blood Type Antibody Screen Crossmatch 06/20/16 06/20/16 06/20/16 10:55 15:55 19:54 WBC RBC Hgb Hct MCV MCH MCHC RDW Plt Count MPV Neut % (Auto) Lymph % (Auto) [place] % (Auto) Eos % (Auto) Baso % (Auto) Absolute Neuts (auto) Absolute Lymphs (auto) Seg Neuts % (Manual) Band Neutrophils % Lymphocytes % (Manual) Monocytes % (Manual) Eosinophils % (Manual) Basophils % (Manual) Myelocytes % Absolute Neutrophils Absolute Lymphocytes Toxic Granulation Platelet Estimate RBC Morphology Retic Count (auto) PT INR APTT Sodium Potassium Chloride Carbon Dioxide Anion Gap BUN Creatinine Estimated GFR (MDRD) Glucose POC Capillary Glucose 125 H 131 H 139 H Calculated Osmolality Calcium Corrected Calcium Magnesium Total Bilirubin Direct Bilirubin AST ALT Alkaline Phosphatase Ammonia Lactate Dehydrogenase Total Protein Total Protein (PEP) Albumin Albumin (PEP) Globulin (PEP) Albumin/Globulin Ratio Vusze-8-Dtnnibibk Baovs-5-Cseojylxg Beta Globulins Gamma Globulins M-Dima PEP Note PEP Interpretation Tumor Marker AFP Urine Color Urine Clarity Urine pH Ur Specific [place] Urine Protein Urine Glucose (UA) Urine Ketones Urine Occult Blood Urine Nitrite Urine Bilirubin Urine Urobilinogen Ur Leukocyte Esterase Urine RBC Urine WBC Ur Epithelial Cells Amorphous Sediment Urine Bacteria Urine Mucus Stool Occult Blood Heparin-induced Plt Ab Hepatitis A IgM Ab Hep Bs Antigen Hep Bs Antibody Hep B Core IgM Ab Hepatitis C Antibody HIV 1&2 Antibody Screen Blood Type Antibody Screen Crossmatch 06/21/16 06/21/16 06/21/16 05:38 11:04 16:13 WBC RBC Hgb Hct MCV MCH MCHC RDW Plt Count MPV Neut % (Auto) Lymph % (Auto) [place] % (Auto) Eos % (Auto) Baso % (Auto) Absolute Neuts (auto) Absolute Lymphs (auto) Seg Neuts % (Manual) Band Neutrophils % Lymphocytes % (Manual) Monocytes % (Manual) Eosinophils % (Manual) Basophils % (Manual) Myelocytes % Absolute Neutrophils Absolute Lymphocytes Toxic Granulation Platelet Estimate RBC Morphology Retic Count (auto) PT INR APTT Sodium Potassium Chloride Carbon Dioxide Anion Gap BUN Creatinine Estimated GFR (MDRD) Glucose POC Capillary Glucose 130 H 153 H 121 H Calculated Osmolality Calcium Corrected Calcium Magnesium Total Bilirubin Direct Bilirubin AST ALT Alkaline Phosphatase Ammonia Lactate Dehydrogenase Total Protein Total Protein (PEP) Albumin Albumin (PEP) Globulin (PEP) Albumin/Globulin Ratio Azjzs-9-Cjrwlrdld Peyrb-5-Mkstnsxyr Beta Globulins Gamma Globulins M-Dima PEP Note PEP Interpretation Tumor Marker AFP Urine Color Urine Clarity Urine pH Ur Specific [place] Urine Protein Urine Glucose (UA) Urine Ketones Urine Occult Blood Urine Nitrite Urine Bilirubin Urine Urobilinogen Ur Leukocyte Esterase Urine RBC Urine WBC Ur Epithelial Cells Amorphous Sediment Urine Bacteria Urine Mucus Stool Occult Blood Heparin-induced Plt Ab Hepatitis A IgM Ab Hep Bs Antigen Hep Bs Antibody Hep B Core IgM Ab Hepatitis C Antibody HIV 1&2 Antibody Screen Blood Type Antibody Screen Crossmatch 06/21/16 06/22/16 06/22/16 20:04 05:01 06:56 WBC RBC Hgb Hct MCV MCH MCHC RDW Plt Count MPV Neut % (Auto) Lymph % (Auto) [place] % (Auto) Eos % (Auto) Baso % (Auto) Absolute Neuts (auto) Absolute Lymphs (auto) Seg Neuts % (Manual) Band Neutrophils % Lymphocytes % (Manual) Monocytes % (Manual) Eosinophils % (Manual) Basophils % (Manual) Myelocytes % Absolute Neutrophils Absolute Lymphocytes Toxic Granulation Platelet Estimate RBC Morphology Retic Count (auto) PT INR APTT Sodium 136 L Potassium 3.3 L Chloride 99 Carbon Dioxide 31 Anion Gap 9 BUN 25 H Creatinine 0.70 Estimated GFR (MDRD) > 60 Glucose 104 H POC Capillary Glucose 128 H 130 H Calculated Osmolality 266 L Calcium 8.2 L Corrected Calcium Magnesium 1.30 L Total Bilirubin Direct Bilirubin AST ALT Alkaline Phosphatase Ammonia Lactate Dehydrogenase Total Protein Total Protein (PEP) Albumin Albumin (PEP) Globulin (PEP) Albumin/Globulin Ratio Bwozz-6-Stwdcqhal Ocnzx-7-Tpglaaxks Beta Globulins Gamma Globulins M-Dima PEP Note PEP Interpretation Tumor Marker AFP Urine Color Urine Clarity Urine pH Ur Specific [place] Urine Protein Urine Glucose (UA) Urine Ketones Urine Occult Blood Urine Nitrite Urine Bilirubin Urine Urobilinogen Ur Leukocyte Esterase Urine RBC Urine WBC Ur Epithelial Cells Amorphous Sediment Urine Bacteria Urine Mucus Stool Occult Blood Heparin-induced Plt Ab Hepatitis A IgM Ab Hep Bs Antigen Hep Bs Antibody Hep B Core IgM Ab Hepatitis C Antibody HIV 1&2 Antibody Screen Blood Type Antibody Screen Crossmatch 06/22/16 06:56 WBC 5.2 RBC 2.62 L Hgb 7.9 L Hct 23.3 L MCV 89 MCH 30.3 MCHC 34.0 RDW 17.5 H Plt Count 121 L MPV 9.0 Neut % (Auto) 53.6 Lymph % (Auto) 32.5 [place] % (Auto) 11.1 H Eos % (Auto) 2.3 Baso % (Auto) 0.5 Absolute Neuts (auto) 2.76 Absolute Lymphs (auto) 1.66 Seg Neuts % (Manual) Band Neutrophils % Lymphocytes % (Manual) Monocytes % (Manual) Eosinophils % (Manual) Basophils % (Manual) Myelocytes % Absolute Neutrophils Absolute Lymphocytes Toxic Granulation Platelet Estimate RBC Morphology Retic Count (auto) PT INR APTT Sodium Potassium Chloride Carbon Dioxide Anion Gap BUN Creatinine Estimated GFR (MDRD) Glucose POC Capillary Glucose Calculated Osmolality Calcium Corrected Calcium Magnesium Total Bilirubin Direct Bilirubin AST ALT Alkaline Phosphatase Ammonia Lactate Dehydrogenase Total Protein Total Protein (PEP) Albumin Albumin (PEP) Globulin (PEP) Albumin/Globulin Ratio Shsyu-5-Xdlwyezsx Kftzw-3-Dkuasteif Beta Globulins Gamma Globulins M-Dima PEP Note PEP Interpretation Tumor Marker AFP Urine Color Urine Clarity Urine pH Ur Specific [place] Urine Protein Urine Glucose (UA) Urine Ketones Urine Occult Blood Urine Nitrite Urine Bilirubin Urine Urobilinogen Ur Leukocyte Esterase Urine RBC Urine WBC Ur Epithelial Cells Amorphous Sediment Urine Bacteria Urine Mucus Stool Occult Blood Heparin-induced Plt Ab Hepatitis A IgM Ab Hep Bs Antigen Hep Bs Antibody Hep B Core IgM Ab Hepatitis C Antibody HIV 1&2 Antibody Screen Blood Type Antibody Screen Crossmatch Impression and recommendations: 1. Severe thrombocytopenia on admission which has steadily improved and is largely from sepsis and liver cirrhosis. 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 2. Anemia which is multifactorial including liver cirrhosis, nutritional, infection, and chronic disease of chronic kidney disease and diabetes. She has no evidence of hemolysis or B12 or folate deficiencies and protein electrophoresis was negative for monoclonal spike. I will defer to the hospitalist as to whether she should be transfused at hemoglobin of 7.9. This is stable and relatively asymptomatic since she is inactive. However she might drop further once discharged if she returns to her pattern of self neglect. I will be glad to see as needed.
[2016-06-22] MEDS: COLLAGENASE OINTMENT 30 GM TUBE TOP SCH (09:39)
[2016-06-22] MEDS: FUROSEMIDE 40 MG TAB PO SCH ×2 (10:27→21:44)
[2016-06-22] MEDS: ATENOLOL 50 MG TAB PO SCH (10:28)
[2016-06-22] MEDS: SPIRONOLACTONE 25 MG TAB PO SCH (10:28)
--- NOTE | 2016-06-22 10:42 | PCM.DCS92 ---
- Final/Secondary Discharge Diagnosis (1) Cholelithiasis Chronic K80.20 - CALCULUS OF GALLBLADDER W/O CHOLECYSTITIS W/O OBSTRUCTION Present on Admission: Yes gallbladder without cholecystitis C C C without biliary obstruction K80.20 - Calculus of gallbladder without cholecystitis without obstruction Comment: Noted on CT scan of the abdomen pelvis but asymptomatic. (2) Cirrhosis of liver Chronic K74.60 - UNSPECIFIED CIRRHOSIS OF LIVER Present on Admission: Yes unspecified hepatic cirrhosis with ascites K74.60 - Unspecified cirrhosis of liver Comment: Compensated on current medical regimen. Continue salt restricted diet. 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 Monitor blood sugar. Blood sugar under control no hypoglycemia (4) Alcohol abuse Chronic F10.10 - ALCOHOL ABUSE, UNCOMPLICATED Present on Admission: Yes Comment: Patient counseled to quit. Will likely need assistance. (5) Hypomagnesemia Acute E83.42 - HYPOMAGNESEMIA Present on Admission: Yes Comment: Replace and monitor Discharge Disposition: Home Discharge Condition: Improved Cognitive Discharge Status: Unimpaired Fuctional Discharge Status: Independent Home Medications / New Prescriptions: New Ascorbic Acid [Vitamin C] 250 mg PO TIDWM #100 tablet Atenolol [Tenormin] 50 mg PO DAILY #30 tablet Clotrimazole & Betamethasone [Lotrisone Cream] 45 gm TOP TID #1 tube Collagenase [Santyl] 30 gm TOP DAILY #1 tube Ferrous Sulfate 324 mg PO TIDWM #100 tablet Fluconazole [Diflucan] 100 mg PO DAILY #3 tablet Furosemide [Lasix] 40 mg PO Q12 #60 tablet Pantoprazole Sodium [Protonix] 40 mg PO 0600 #30 tablet POTASSIUM CHLORIDE Tablet [K-DUR 20 mEq Tablet*] 20 meq PO BIDWM #20 tab.er.prt Probiotic Blend [Rhea Q] 1 tab PO BIDLS #60 tablet Spironolactone [Aldactone] 25 mg PO DAILY #30 tablet Continue Gabapentin 300 mg PO TID PRN PRN Reason: Pain Albuterol Sulfate MDI [Proventil HFA] 2 puff INH Q4HWA PRN #1 inhaler PRN Reason: Wheezing Collagenase [Santyl] 30 gm TOP DAILY #1 tube Probiotic Blend [Rhea Q] 1 tab PO BIDLS #60 tablet Metformin HCl [Glucophage XR (Ext Release)] 500 mg PO DAILY #30 tab.sr.24h Discontinued Atenolol 50 mg PO DAILY Furosemide [Lasix] 40 mg PO BID #60 tab POTASSIUM CHLORIDE Tablet [K-DUR 20 mEq Tablet*] 20 meq PO BIDWM #60 tab.er.prt O2 Device: Room Air Oxygen to be used after Discharge: Continuous Diet at Discharge: As Tolerated, Regular Activity: No Restrictions, As Tolerated Call Office For: Worsening Symptoms, Fever over 100.5, Pain Uncontrolled By Meds Discontinue use of:: Alcohol, All Illegal Substances, All Types of Tobacco - DC Summary Notes HPI/Notes: This will serve as a progress note as patient is homeless and there is no where to send her. Hospital Course Note:: Discharge summary on patient named BALTAZAR POSADA admitted to [facility] on 06/02/16 by Josefina Matthews MD. Date of discharge is to be determined. 50-year-old female admitted to our facility with failure to thrive found to have cirrhosis and severe anemia. She was started on medications to treat her cirrhosis and underwent esophagogastroduodenoscopy due to her anemia. She did require transfusion of packed red blood cells this hospitalization hemoglobin has now stabilized at 8.5. EGD did not show any acute ulcers or gastritis but she did have portal hypertensive gastropathy. Patient has been educated on the importance of taking her medications and discontinuing alcohol. She agrees to the plan. At this point she has reached maximum benefit of hospitalization. She is stable for discharge home. Placement is quite an issue as patient has no where to go. She is discharged when placement is available. Total Time: 37 min Code: 02543 (>30min.) - Physical Exam Vital Signs: Last Vital Signs Temp 98.2 F 06/22/16 05:34 Pulse 74 06/22/16 05:34 Resp 18 06/22/16 05:34 BP 148/84 06/22/16 05:34 Pulse Ox 98 06/22/16 05:34 Oxygen Pulse Oxygen Saturation 98 O2 Device Room Air Oxygen Flow Rate 2 Fraction of Inspired Oxygen ( FIO2) Constitutional: No apparent distress, Alert. negative: Agitated, Distress Oriented to: Time, Person, Place - HEENT Head: Normal (normocephalic,atraumatic) Eye: Normal (pupils equal, reactive to light, and round; EOMI, Sclera white) Oropharynx: Normal (Pharynx: Moist without exudate,Gums-no swelling, No oropharyngeal lesions or erythema, Mucous membranes are dry.) ENT EAC: Normal (No oropharyngeal lesions or erythema. Mucous membranes are dry. ) TMJ: Normal Nose: No Symptoms Reported. negative: Bleeding - Respiratory/Cardiovascular Respiratory: Normal - CTA (Clear to auscultation bilaterally. No wheezing, rales , rhonchi. Chest wall movements are symmetric. No use of accessory muscles to breathe.) - GI Auscultation: Other (anasarca) Palpation: Enlarged liver, Fluid Wave. negative: Enlarged spleen Tenderness: Non tender Quintero's Sign: Negative Rectal Exam: Deferred - Musculoskeletal Back: Normal (Non-Tender) Extremities: Edema (mild edema all four extremities) - Integumentary Skin: Normal (Warm dry no rashes) Lymphatics: Normal - Neurologic Memory Impaired: Normal Motor Function: Normal (Motor 5/5 throughout.Normal tone, Pulses 2+ No cyanosis or edema, FROM) Cranial Nerve: Normal (CN II-XII intact sensation, strength 5/5) Cerebellar: Normal (Babinski: toes downgoing bilaterally. Intact Finger to nose. Sensory grossly intact to light touch. Intact rapid alternating movements bilaterally. No pronator drift.) Mood Description: Normal (Fully oriented. Normal and appropriate affect.) Perception: Normal (Normal and appropriate affect.)
[2016-06-22] MEDS ORDERED: NS 500 ML IV ONE (12:18)
[2016-06-22] MEDS: Magnesium Sulfate 2 gm/D5W 2 GM/50 ML RTU IV ONE ×2 (12:42→12:45)
[2016-06-22] MEDS: PROBIOTIC BLEND TAB PO SCH ×2 (12:48→17:45)
[2016-06-22] MEDS: MAGNESIUM OXIDE 400 MG TAB PO SCH ×2 (12:50→17:45)
[2016-06-22] MEDS ORDERED: SODIUM CHLORIDE 0.9% 3 ML FLUSH FLUSH PRN ×2 (16:38→16:40)
[2016-06-22] MEDS: SODIUM CHLORIDE 0.9% 3 ML FLUSH FLUSH SCH ×2 (17:19)
[2016-06-23] MEDS: SODIUM CHLORIDE 0.9% 3 ML FLUSH FLUSH SCH ×3 (03:22→17:05)
[2016-06-23] MEDS: SODIUM CHLORIDE 0.9% 5 ML FLUSH FLUSH SCH ×2 (03:22→17:05)
[2016-06-23] MEDS: REGULAR INSULIN 100 UNITS/ML - 3 ML VIAL SQ SCH ×2 (05:56→16:56)
[2016-06-23] MEDS: MetFORMIN, EXT REL 500 MG TAB PO SCH (05:57)
[2016-06-23] MEDS: PANTOPRAZOLE 40 MG TAB PO SCH (05:57)
[2016-06-23] MEDS: CLOTRIMAZOLE & BETAMETHASONE 45 GM TUBE TOP SCH ×3 (05:57→22:38)
[2016-06-23] MEDS: FERROUS SULFATE 324 MG TAB PO SCH ×3 (07:55→17:05)
[2016-06-23] MEDS: ASCORBIC ACID 500 MG TAB PO SCH ×3 (07:55→17:05)
[2016-06-23] MEDS: FUROSEMIDE 40 MG TAB PO SCH ×2 (08:03→22:37)
[2016-06-23] MEDS: SPIRONOLACTONE 25 MG TAB PO SCH (08:03)
[2016-06-23] MEDS: COLLAGENASE OINTMENT 30 GM TUBE TOP SCH (08:04)
[2016-06-23] MEDS: ATENOLOL 50 MG TAB PO SCH (08:04)
[2016-06-23] MEDS: MAGNESIUM OXIDE 400 MG TAB PO SCH ×2 (11:35→17:06)
[2016-06-23] MEDS: PROBIOTIC BLEND TAB PO SCH ×2 (11:36→17:06)
--- NOTE | 2016-06-23 13:45 | GENMEDPROG ---
Chief Complaint: Placement issues abound still no were to send this unfortunate person. Notes Reviewed: Yes Events from last night noted and discussed with Clinical Staff Current Medication List: Reviewed Currently: Reports: Alcohol Hx (Drinks a 6 pack a day), Ambulating (Not ambulating due to leg pain), Other (slighly better appetite). Denies: Cough, Wheezing, SOB, Nausea and Vomiting, Abdominal Pain, Fever/Chills DVT Prophylaxis: No Current Order (T-PENIA, LYMPHEDEMA OF LE'S) - Physical Examination Vital Signs and I&O: Last Vital Signs Temp 98.8 F 06/23/16 05:57 Pulse 68 06/23/16 07:53 Resp 20 06/23/16 05:57 BP 145/76 06/23/16 07:53 Pulse Ox 100 06/23/16 05:57 Oxygen Pulse Oxygen Saturation 100 O2 Device Room Air Oxygen Flow Rate 2 Fraction of Inspired Oxygen ( FIO2) Intake & Output 06/20/16 06/21/16 06/22/16 06/23/16 23:59 23:59 23:59 23:59 Intake Total 956 840 779 415 Output Total 3050 8690 Balance -2094 -0199 779 415 Patient's weight 69.264 kg 69.031 kg 68.084 kg 68.402 kg General: Alert, Oriented x3, No acute distress, Well nourished HEENT: Normal (Normocephalic, atraumatic;EOMI.Sclera white, Nares patent, without discharge or bleeding. No oropharyngeal lesions or erythema. Mucous membranes are dry.) Neck: Non-tender, Full range of motion, Normal Trachea alignment, Normal inspection (No cervical lymphadenopathy. No supraclavicular lymphadenopathy.), No Masses palpable, Supple Lymphatics: Normal Respiratory: Normal - CTA (Clear to auscultation bilaterally. No wheezing, rales , rhonchi. Chest wall movements are symmetric. No use of accessory muscles to breathe.) Cardiovascular: Regular rate and rhythm (No bradycardia or tachycardia), Normal S1, No Gallops,Rubs/Murmurs, Normal S2, Good Pedal Pulses (DP pulses 2+ bilaterally) GI: Normal bowel sounds (normal active sounds), Soft (non-distended), Non tender , No hepatospenomegaly, No masses Extremities/Musculoskeletal: Normal pulses (DP pulses 2+ bilaterally) Skin: Warm,Dry and Intact, No rashes, No significant lesion Neurological: Strength at 5/5 X4 ext, Normal tone, Cranial nerves 3-12 NL ( 2- 12 grossly intact.) Psych/Mental Status: Appropriate, Normal Affect Lab/DI/Studies Reviewed: 06/22/16 06:56 06/22/16 06:56 Laboratory Results - last 24 hr 06/22/16 06/22/16 06/23/16 16:32 20:06 04:56 POC Capillary Glucose 131 H 140 H 146 H - Assessment (1) Cholelithiasis Chronic K80.20 - CALCULUS OF GALLBLADDER W/O CHOLECYSTITIS W/O OBSTRUCTION Qualifiers: Cholelithiasis location: gallbladder Cholecystitis presence: without cholecystitis Cholangitis presence: C Cholecystitis acuity: C Cholangitis acuity: C Biliary obstruction: without biliary obstruction Qualified Code(s) : K80.20 - Calculus of gallbladder without cholecystitis without obstruction Comment/Plan: Noted on CT scan of the abdomen pelvis but asymptomatic. (2) Cirrhosis of liver Chronic K74.60 - UNSPECIFIED CIRRHOSIS OF LIVER Qualifiers: Hepatic cirrhosis type: unspecified hepatic cirrhosis Ascites presence: with ascites Qualified Code(s): K74.60 - Unspecified cirrhosis of liver Comment/Plan: Compensated on current medical regimen. Continue salt restricted diet. (3) DM2 (diabetes mellitus, type 2) Chronic E11.9 - TYPE 2 DIABETES MELLITUS WITHOUT COMPLICATIONS Qualifiers: Diabetes mellitus complication status: with kidney complications Diabetes mellitus complication detail: D Diabetic retinopathy severity: D Proliferative retinopathy type: P Diabetes mellitus macular edema: D Diabetes mellitus detention insulin use: without detention use Laterality: L Chronic kidney disease stage: stage 3 (moderate) Qualified Code(s): E11.22 - Type 2 diabetes mellitus with diabetic chronic kidney disease; N18.3 - Chronic kidney disease, stage 3 (moderate) Comment/Plan: Continue ADA diet and oral agents. Monitor blood sugar. Blood sugar under control no hypoglycemia (4) Alcohol abuse Chronic F10.10 - ALCOHOL ABUSE, UNCOMPLICATED Comment/Plan: Patient counseled to quit. Will likely need assistance. (5) Hypomagnesemia Acute E83.42 - HYPOMAGNESEMIA Comment/Plan: Replace and monitor Disposition Plan: Hopefully can get some could placement for but her family does not want her. Case Care Discussed with: Patient, Nursing Staff, Resource Management Education/Counseling Given To: Patient Education/Counseling Given Regarding: Diagnosis, Treatment Total Time: 36 minutes Critical Care: No Code: 36309 (12+)
[2016-06-23] MEDS: GUAIFENESIN 600 MG LA TAB PO PRN (22:51)
[2016-06-24] MEDS: SODIUM CHLORIDE 0.9% 3 ML FLUSH FLUSH SCH ×2 (03:27→17:52)
[2016-06-24] MEDS: SODIUM CHLORIDE 0.9% 5 ML FLUSH FLUSH SCH ×2 (03:27→17:50)
[2016-06-24] MEDS: REGULAR INSULIN 100 UNITS/ML - 3 ML VIAL SQ SCH ×2 (05:45→17:49)
[2016-06-24] MEDS: CLOTRIMAZOLE & BETAMETHASONE 45 GM TUBE TOP SCH ×3 (05:47→20:45)
[2016-06-24] MEDS: PANTOPRAZOLE 40 MG TAB PO SCH (05:47)
[2016-06-24] MEDS: MetFORMIN, EXT REL 500 MG TAB PO SCH (05:47)
[2016-06-24] MEDS: SPIRONOLACTONE 25 MG TAB PO SCH (08:07)
[2016-06-24] MEDS: ATENOLOL 50 MG TAB PO SCH (08:07)
[2016-06-24] MEDS: FERROUS SULFATE 324 MG TAB PO SCH ×3 (08:07→17:49)
[2016-06-24] MEDS: FUROSEMIDE 40 MG TAB PO SCH ×2 (08:07→20:44)
[2016-06-24] MEDS: ASCORBIC ACID 500 MG TAB PO SCH ×3 (08:08→17:50)
[2016-06-24] MEDS: COLLAGENASE OINTMENT 30 GM TUBE TOP SCH (11:14)
[2016-06-24] MEDS: MAGNESIUM OXIDE 400 MG TAB PO SCH ×2 (11:16→17:50)
[2016-06-24] MEDS: PROBIOTIC BLEND TAB PO SCH ×2 (11:16→17:50)
--- NOTE | 2016-06-24 16:50 | GENMEDPROG ---
Chief Complaint: Feeling great I want to go home Notes Reviewed: Yes Events from last night noted and discussed with Clinical Staff Current Medication List: Reviewed Currently: Reports: Alcohol Hx (Drinks a 6 pack a day), Ambulating (Not ambulating due to leg pain), Other (slighly better appetite). Denies: Cough, Wheezing, SOB, Nausea and Vomiting, Abdominal Pain, Fever/Chills DVT Prophylaxis: No Current Order (T-PENIA, LYMPHEDEMA OF LE'S) - Physical Examination Vital Signs and I&O: Last Vital Signs Temp 98.0 F 06/24/16 14:00 Pulse 66 06/24/16 14:00 Resp 18 06/24/16 14:00 BP 119/69 06/24/16 14:00 Pulse Ox 100 06/24/16 14:00 Oxygen Pulse Oxygen Saturation 100 O2 Device Room Air Oxygen Flow Rate 2 Fraction of Inspired Oxygen ( FIO2) Intake & Output 06/21/16 06/22/16 06/23/16 06/24/16 23:59 23:59 23:59 23:59 Intake Total 840 779 949 684 Output Total 3750 1400 Balance -2910 779 -451 684 Patient's weight 69.031 kg 68.084 kg 68.402 kg 68.492 kg General: Alert, Oriented x3, No acute distress, Well nourished HEENT: Normal (Normocephalic, atraumatic;EOMI.Sclera white, Nares patent, without discharge or bleeding. No oropharyngeal lesions or erythema. Mucous membranes are dry.) Neck: Non-tender, Full range of motion, Normal Trachea alignment, Normal inspection (No cervical lymphadenopathy. No supraclavicular lymphadenopathy.), No Masses palpable, Supple Lymphatics: Normal Respiratory: Normal - CTA (Clear to auscultation bilaterally. No wheezing, rales , rhonchi. Chest wall movements are symmetric. No use of accessory muscles to breathe.) Cardiovascular: Regular rate and rhythm (No bradycardia or tachycardia), Normal S1, No Gallops,Rubs/Murmurs, Normal S2, Good Pedal Pulses (DP pulses 2+ bilaterally) GI: Normal bowel sounds (normal active sounds), Soft (non-distended), Non tender , No hepatospenomegaly, No masses Extremities/Musculoskeletal: Normal pulses (DP pulses 2+ bilaterally) Skin: Warm,Dry and Intact, No rashes, No significant lesion Neurological: Strength at 5/5 X4 ext, Normal tone, Cranial nerves 3-12 NL ( 2- 12 grossly intact.) Psych/Mental Status: Appropriate, Normal Affect Lab/DI/Studies Reviewed: 06/22/16 06:56 06/22/16 06:56 Laboratory Results - last 24 hr 06/23/16 06/23/16 06/24/16 16:52 20:45 05:28 POC Capillary Glucose 122 H 135 H 114 H 06/24/16 11:17 POC Capillary Glucose 136 H - Assessment (1) Cholelithiasis Chronic K80.20 - CALCULUS OF GALLBLADDER W/O CHOLECYSTITIS W/O OBSTRUCTION Qualifiers: Cholelithiasis location: gallbladder Cholecystitis presence: without cholecystitis Cholangitis presence: C Cholecystitis acuity: C Cholangitis acuity: C Biliary obstruction: without biliary obstruction Qualified Code(s) : K80.20 - Calculus of gallbladder without cholecystitis without obstruction Comment/Plan: Noted on CT scan of the abdomen pelvis but asymptomatic. (2) Cirrhosis of liver Chronic K74.60 - UNSPECIFIED CIRRHOSIS OF LIVER Qualifiers: Hepatic cirrhosis type: unspecified hepatic cirrhosis Ascites presence: with ascites Qualified Code(s): K74.60 - Unspecified cirrhosis of liver Comment/Plan: Compensated on current medical regimen. Continue salt restricted diet. (3) DM2 (diabetes mellitus, type 2) Chronic E11.9 - TYPE 2 DIABETES MELLITUS WITHOUT COMPLICATIONS Qualifiers: Diabetes mellitus complication status: with kidney complications Diabetes mellitus complication detail: D Diabetic retinopathy severity: D Proliferative retinopathy type: P Diabetes mellitus macular edema: D Diabetes mellitus care home insulin use: without terminal press operator use Laterality: L Chronic kidney disease stage: stage 3 (moderate) Qualified Code(s): E11.22 - Type 2 diabetes mellitus with diabetic chronic kidney disease; N18.3 - Chronic kidney disease, stage 3 (moderate) Comment/Plan: Continue ADA diet and oral agents. Monitor blood sugar. Blood sugar under control no hypoglycemia (4) Alcohol abuse Chronic F10.10 - ALCOHOL ABUSE, UNCOMPLICATED Comment/Plan: Patient counseled to quit. Will likely need assistance. (5) Hypomagnesemia Acute E83.42 - HYPOMAGNESEMIA Comment/Plan: Replace and monitor Disposition Plan: Hopefully can get some could placement for but her family does not want her. Case Care Discussed with: Patient, Nursing Staff, Resource Management Education/Counseling Given To: Patient Total Time: 36 minutes Critical Care: No Code: 74109 (12+)
[2016-06-24] MEDS: GUAIFENESIN 600 MG LA TAB PO PRN (20:52)
[2016-06-25] MEDS: CLOTRIMAZOLE & BETAMETHASONE 45 GM TUBE TOP SCH ×3 (05:36→20:34)
[2016-06-25] MEDS: SODIUM CHLORIDE 0.9% 5 ML FLUSH FLUSH SCH ×2 (05:37→17:26)
[2016-06-25] MEDS: PANTOPRAZOLE 40 MG TAB PO SCH (05:37)
[2016-06-25] MEDS: SODIUM CHLORIDE 0.9% 3 ML FLUSH FLUSH SCH ×2 (05:37→17:27)
[2016-06-25] MEDS: MetFORMIN, EXT REL 500 MG TAB PO SCH (05:37)
[2016-06-25] MEDS: REGULAR INSULIN 100 UNITS/ML - 3 ML VIAL SQ SCH ×2 (05:38→17:13)
[2016-06-25] MEDS: ASCORBIC ACID 500 MG TAB PO SCH ×3 (08:09→17:25)
[2016-06-25] MEDS: ATENOLOL 50 MG TAB PO SCH (08:10)
[2016-06-25] MEDS: FUROSEMIDE 40 MG TAB PO SCH ×2 (08:10→23:54)
[2016-06-25] MEDS: SPIRONOLACTONE 25 MG TAB PO SCH (08:10)
[2016-06-25] MEDS: FERROUS SULFATE 324 MG TAB PO SCH ×3 (08:11→17:25)
[2016-06-25] MEDS: COLLAGENASE OINTMENT 30 GM TUBE TOP SCH (08:11)
[2016-06-25] MEDS: PROBIOTIC BLEND TAB PO SCH ×2 (11:03→17:25)
[2016-06-25] MEDS: MAGNESIUM OXIDE 400 MG TAB PO SCH ×2 (11:03→17:25)
--- NOTE | 2016-06-25 13:52 | HIMOPRPT ---
DATE OF PROCEDURE: 06/25/16 PREOPERATIVE DIAGNOSIS: bleeding at left lower extremity wound. POSTOPERATIVE DIAGNOSIS: bleeding at left lower extremity wound. PROCEDURE: Suture placement at wound of left lower extremity. SURGEON: John Flores MD ANESTHESIA: None. SPECIMEN: None SPONGE COUNT: Correct. PATIENT CONDITION: Stable. ESTIMATED BLOOD LOSS: 1 cc. INDICATIONS: This is a 50 year old female with chronic pressure ulcer wounds of the bilateral lower extremities. The patient's dressing was removed today by the nursing staff and there was subsequent bleeding from the superior aspect of the wound at the left lower extremity that wasn't able to be controlled with direct pressure. It was recommended to the patient suture placement for hemostasis. The indications, benefits and risks were discussed with the patient. Informed consent was obtained. . FINDINGS: The patient had a superficial wound covering the entire surface of the posterior left calf. At the superior aspect there was a 0.8 centimeter opening in the skin with oozing of dark blood. There was no evidence of infection and no hematoma identified. PROCEDURE IN DETAIL: Mrs. Dorantes was placed in the supine position in her MPS3 bed. The posterior aspect of the leg was prepped and draped in sterile fashion. All members of the team were in agreement, correct patient and correct procedure. A 4-0 Monocryl figure of eight suture was placed with complete hemostasis. Gelfoam pad was placed and ABD pad was placed over this. Kerlix wrap was placed. The patient tolerated the procedure well. .
--- NOTE | 2016-06-25 15:48 | GENMEDPROG ---
Subjective Note: Patient with no new complaints. She is having her wound dressings changed. Shortly after I left the room the nurse called me that 1 of the areas of the dressing began bleeding profusely. She had put on direct pressure but could not get the area to stop bleeding. I have consulted Dr. Flores. Notes Reviewed: Yes Events from last night noted and discussed with Clinical Staff Current Medication List: Reviewed Currently: Reports: Alcohol Hx (Drinks a 6 pack a day), Ambulating (Not ambulating due to leg pain), Other (slighly better appetite). Denies: Cough, Wheezing, SOB, Nausea and Vomiting, Abdominal Pain, Fever/Chills DVT Prophylaxis: No Current Order (T-PENIA, LYMPHEDEMA OF LE'S) - Physical Examination Vital Signs and I&O: Last Vital Signs Temp 98.6 F 06/25/16 06:00 Pulse 68 06/25/16 06:00 Resp 18 06/25/16 06:00 BP 145/74 06/25/16 06:00 Pulse Ox 98 06/25/16 06:00 Oxygen Pulse Oxygen Saturation 98 O2 Device Room Air Oxygen Flow Rate 2 Fraction of Inspired Oxygen ( FIO2) Intake & Output 06/22/16 06/23/16 06/24/16 06/25/16 23:59 23:59 23:59 23:59 Intake Total 515 755 0774 840 Output Total 1400 1 251 Balance 779 -451 1163 589 Patient's weight 68.084 kg 68.402 kg 68.492 kg 68.209 kg General: Alert, Oriented x3, No acute distress, Well nourished HEENT: Normal (Normocephalic, atraumatic;EOMI.Sclera white, Nares patent, without discharge or bleeding. No oropharyngeal lesions or erythema. Mucous membranes are dry.) Neck: Non-tender, Full range of motion, Normal Trachea alignment, Normal inspection (No cervical lymphadenopathy. No supraclavicular lymphadenopathy.), No Masses palpable, Supple Lymphatics: Normal Respiratory: Normal - CTA (Clear to auscultation bilaterally. No wheezing, rales , rhonchi. Chest wall movements are symmetric. No use of accessory muscles to breathe.) Cardiovascular: Regular rate and rhythm (No bradycardia or tachycardia), Normal S1, No Gallops,Rubs/Murmurs, Normal S2, Good Pedal Pulses (DP pulses 2+ bilaterally) GI: Normal bowel sounds (normal active sounds), Soft (non-distended), Non tender , No hepatospenomegaly, No masses Extremities/Musculoskeletal: Normal pulses (DP pulses 2+ bilaterally) Skin: Warm,Dry and Intact, No rashes, Ulceration (Bilateral lower extremities left leg bleeding.) Neurological: Strength at 5/5 X4 ext, Normal tone, Cranial nerves 3-12 NL ( 2- 12 grossly intact.) Psych/Mental Status: Appropriate, Normal Affect Lab/DI/Studies Reviewed: Abnormal Lab Results 06/24/16 06/24/16 06/25/16 16:37 21:13 05:36 POC Capillary Glucose 121 H 111 H 167 H - Assessment (1) Cirrhosis of liver Chronic K74.60 - UNSPECIFIED CIRRHOSIS OF LIVER Qualifiers: Hepatic cirrhosis type: unspecified hepatic cirrhosis Ascites presence: with ascites Qualified Code(s): K74.60 - Unspecified cirrhosis of liver Comment/Plan: Compensated on current medical regimen. Continue salt restricted diet. (2) Jaundice of recent onset Acute R17 - UNSPECIFIED JAUNDICE Comment/Plan: Due to chronic cirrhosis. (3) Venous stasis dermatitis of both lower extremities Acute I83.11 - VARICOSE VEINS OF RIGHT LOWER EXTREMITY WITH INFLAMMATION; I83.12 - VARICOSE VEINS OF LEFT LOWER EXTREMITY WITH INFLAMMATION Comment/Plan : Noted supportive care. (4) Anemia Chronic D64.9 - ANEMIA, UNSPECIFIED Qualifiers: Anemia type: other cause Iron deficiency anemia type: I Vitamin B12 deficiency anemia type: V Folate deficiency anemia type: F Bone marrow failure anemia type: B Hemolytic anemia type: H Other causes of anemia: chronic disease, other Qualified Code(s): D63.8 - Anemia in other chronic diseases classified elsewhere Comment/Plan: Hemoglobin 7.9 today, overall stable. Monitor counts. (5) Ulcer of lower extremity Acute L97.909 - NON-PRS CHRONIC ULC UNSP PRT OF UNSP LOW LEG W UNSP SEVERITY Qualifiers: Laterality: left Non-pressure ulcer stage: limited to breakdown of skin Qualified Code(s): L97.921 - Non-pressure chronic ulcer of unspecified part of left lower leg limited to breakdown of skin Comment/Plan: Now bleeding will consult Dr. Flores. (6) Alcohol abuse Chronic F10.10 - ALCOHOL ABUSE, UNCOMPLICATED Comment/Plan: Patient counseled to quit. Will likely need assistance. - Plan Discharge when safe discharge plan in place. Patient was discharged several days ago unfortunately disposition was unacceptable. Disposition Plan: Hopefully can get some could placement for but her family does not want her. Case Care Discussed with: Patient, Nursing Staff Education/Counseling Given To: Patient Education/Counseling Given Regarding: Diagnosis, Treatment, Prognosis Total Time: 45 minutes Critical Care: No Couseling Time (>50% in counseling/coordination): No
[2016-06-26] MEDS: CLOTRIMAZOLE & BETAMETHASONE 45 GM TUBE TOP SCH ×3 (06:33→19:54)
[2016-06-26] MEDS: PANTOPRAZOLE 40 MG TAB PO SCH (06:33)
[2016-06-26] MEDS: MetFORMIN, EXT REL 500 MG TAB PO SCH (06:34)
[2016-06-26] MEDS: SODIUM CHLORIDE 0.9% 5 ML FLUSH FLUSH SCH ×2 (06:35→17:01)
[2016-06-26] MEDS: REGULAR INSULIN 100 UNITS/ML - 3 ML VIAL SQ SCH ×2 (06:36→17:00)
[2016-06-26] MEDS: SODIUM CHLORIDE 0.9% 3 ML FLUSH FLUSH SCH ×2 (06:36→17:01)
[2016-06-26] MEDS: COLLAGENASE OINTMENT 30 GM TUBE TOP SCH (08:29)
[2016-06-26] MEDS: ATENOLOL 50 MG TAB PO SCH (08:29)
[2016-06-26] MEDS: MAGNESIUM OXIDE 400 MG TAB PO SCH ×2 (08:29→17:01)
[2016-06-26] MEDS: SPIRONOLACTONE 25 MG TAB PO SCH (08:29)
[2016-06-26] MEDS: FUROSEMIDE 40 MG TAB PO SCH ×2 (08:29→19:54)
[2016-06-26] MEDS: PROBIOTIC BLEND TAB PO SCH ×2 (08:29→17:01)
[2016-06-26] MEDS: FERROUS SULFATE 324 MG TAB PO SCH ×3 (08:29→17:00)
[2016-06-26] MEDS: ASCORBIC ACID 500 MG TAB PO SCH ×3 (08:32→17:01)
--- NOTE | 2016-06-26 15:48 | GENMEDPROG ---
Subjective Note: New complaints. Notes Reviewed: Yes Events from last night noted and discussed with Clinical Staff Current Medication List: Reviewed Currently: Reports: Alcohol Hx (Drinks a 6 pack a day), Ambulating (Not ambulating due to leg pain). Denies: Cough, Wheezing, SOB, Nausea and Vomiting , Abdominal Pain, Fever/Chills DVT Prophylaxis: No Current Order (T-PENIA, LYMPHEDEMA OF LE'S) - Physical Examination Vital Signs and I&O: Last Vital Signs Temp 98.7 F 06/26/16 15:10 Pulse 75 06/26/16 15:10 Resp 18 06/26/16 15:10 BP 125/64 06/26/16 15:10 Pulse Ox 99 06/26/16 15:10 Oxygen Pulse Oxygen Saturation 99 O2 Device Room Air Oxygen Flow Rate 2 Fraction of Inspired Oxygen ( FIO2) Intake & Output 06/23/16 06/24/16 06/25/16 06/26/16 23:59 23:59 23:59 23:59 Intake Total 949 1164 1280 440 Output Total 1400 1 451 300 Balance -451 1163 829 140 Patient's weight 68.402 kg 68.492 kg 68.209 kg 67.812 kg General: Alert, Oriented x3, No acute distress, Well nourished HEENT: Normal (Normocephalic, atraumatic;EOMI.Sclera white, Nares patent, without discharge or bleeding. No oropharyngeal lesions or erythema. Mucous membranes are dry.) Neck: Non-tender, Full range of motion, Normal Trachea alignment, Normal inspection (No cervical lymphadenopathy. No supraclavicular lymphadenopathy.), No Masses palpable, Supple Lymphatics: Normal Respiratory: Normal - CTA (Clear to auscultation bilaterally. No wheezing, rales , rhonchi. Chest wall movements are symmetric. No use of accessory muscles to breathe.) Cardiovascular: Regular rate and rhythm (No bradycardia or tachycardia), Normal S1, No Gallops,Rubs/Murmurs, Normal S2, Good Pedal Pulses (DP pulses 2+ bilaterally) GI: Normal bowel sounds (normal active sounds), Soft (non-distended), Non tender , No hepatospenomegaly, No masses Extremities/Musculoskeletal: Normal pulses (DP pulses 2+ bilaterally) Skin: Warm,Dry and Intact, No rashes, Ulceration (Bilateral lower extremities left leg bleeding.) Neurological: Strength at 5/5 X4 ext, Normal tone, Cranial nerves 3-12 NL ( 2- 12 grossly intact.) Psych/Mental Status: Appropriate, Normal Affect Lab/DI/Studies Reviewed: Laboratory Results - last 24 hr 06/25/16 06/26/16 16:37 06:06 POC Capillary Glucose 137 H 154 H - Assessment (1) Cirrhosis of liver Chronic K74.60 - UNSPECIFIED CIRRHOSIS OF LIVER Qualifiers: Hepatic cirrhosis type: unspecified hepatic cirrhosis Ascites presence: with ascites Qualified Code(s): K74.60 - Unspecified cirrhosis of liver Comment/Plan: Compensated on current medical regimen. Continue salt restricted diet. (2) Jaundice of recent onset Acute R17 - UNSPECIFIED JAUNDICE Comment/Plan: Due to chronic cirrhosis. (3) Venous stasis dermatitis of both lower extremities Acute I83.11 - VARICOSE VEINS OF RIGHT LOWER EXTREMITY WITH INFLAMMATION; I83.12 - VARICOSE VEINS OF LEFT LOWER EXTREMITY WITH INFLAMMATION Comment/Plan : Noted supportive care. Add Lac-Hydrin lotion (4) Anemia Chronic D64.9 - ANEMIA, UNSPECIFIED Qualifiers: Anemia type: other cause Iron deficiency anemia type: I Vitamin B12 deficiency anemia type: V Folate deficiency anemia type: F Bone marrow failure anemia type: B Hemolytic anemia type: H Other causes of anemia: chronic disease, other Qualified Code(s): D63.8 - Anemia in other chronic diseases classified elsewhere Comment/Plan: Hemoglobin 7.9 today, overall stable. Monitor counts. (5) Ulcer of lower extremity Acute L97.909 - NON-PRS CHRONIC ULC UNSP PRT OF UNSP LOW LEG W UNSP SEVERITY Qualifiers: Laterality: left Non-pressure ulcer stage: limited to breakdown of skin Qualified Code(s): L97.921 - Non-pressure chronic ulcer of unspecified part of left lower leg limited to breakdown of skin Comment/Plan: Now bleeding will consult Dr. Flores. (6) Alcohol abuse Chronic F10.10 - ALCOHOL ABUSE, UNCOMPLICATED Comment/Plan: Patient counseled to quit. Will likely need assistance. - Plan Discharge when safe discharge plan in place. Patient was discharged several days ago unfortunately disposition was unacceptable. Disposition Plan: Hopefully can get some placement for her; family does not want her. Case Care Discussed with: Patient Education/Counseling Given To: Patient Education/Counseling Given Regarding: Diagnosis, Treatment, Prognosis, Follow Up , Disposition Plan Total Time: 45 minutes Critical Care: No Couseling Time (>50% in counseling/coordination): No
[2016-06-26] MEDS: LAC HYDRIN 12% TOP SCH (19:53)
[2016-06-27] MEDS: CLOTRIMAZOLE & BETAMETHASONE 45 GM TUBE TOP SCH ×3 (05:33→21:43)
[2016-06-27] MEDS: PANTOPRAZOLE 40 MG TAB PO SCH (05:33)
[2016-06-27] MEDS: SODIUM CHLORIDE 0.9% 5 ML FLUSH FLUSH SCH ×2 (05:34→17:17)
[2016-06-27] MEDS: SODIUM CHLORIDE 0.9% 3 ML FLUSH FLUSH SCH ×2 (05:34→17:18)
[2016-06-27] MEDS: REGULAR INSULIN 100 UNITS/ML - 3 ML VIAL SQ SCH ×2 (06:00→17:16)
[2016-06-27] MEDS: FUROSEMIDE 40 MG TAB PO SCH ×2 (08:39→21:42)
[2016-06-27] MEDS: MetFORMIN, EXT REL 500 MG TAB PO SCH (08:40)
[2016-06-27] MEDS: ASCORBIC ACID 500 MG TAB PO SCH ×3 (08:41→17:17)
[2016-06-27] MEDS: SPIRONOLACTONE 25 MG TAB PO SCH (08:41)
[2016-06-27] MEDS: LAC HYDRIN 12% TOP SCH ×2 (08:42→21:42)
[2016-06-27] MEDS: FERROUS SULFATE 324 MG TAB PO SCH ×3 (08:42→17:16)
[2016-06-27] MEDS: ATENOLOL 50 MG TAB PO SCH (08:42)
[2016-06-27] MEDS: COLLAGENASE OINTMENT 30 GM TUBE TOP SCH (08:42)
[2016-06-27] MEDS: NACL 0.65% NASAL 45 ML BOTTLE NAS PRN ×2 (08:43→21:40)
--- NOTE | 2016-06-27 13:00 | GENMEDPROG ---
Subjective Note: No new complaints. Patient awaiting placement. Notes Reviewed: Yes Events from last night noted and discussed with Clinical Staff Current Medication List: Reviewed Currently: Reports: Alcohol Hx (Drinks a 6 pack a day), Ambulating (Not ambulating due to leg pain). Denies: Cough, Wheezing, SOB, Nausea and Vomiting , Abdominal Pain, Fever/Chills DVT Prophylaxis: No Current Order (T-PENIA, LYMPHEDEMA OF LE'S) - Physical Examination Vital Signs and I&O: Last Vital Signs Temp 98.9 F 06/27/16 05:04 Pulse 67 06/27/16 05:04 Resp 18 06/27/16 05:04 BP 118/59 L 06/27/16 05:04 Pulse Ox 98 06/27/16 05:04 Oxygen Pulse Oxygen Saturation 98 O2 Device Room Air Oxygen Flow Rate 2 Fraction of Inspired Oxygen ( FIO2) Intake & Output 06/24/16 06/25/16 06/26/16 06/27/16 23:59 23:59 23:59 23:59 Intake Total 1164 1280 590 480 Output Total 1 451 300 Balance 1163 829 290 480 Patient's weight 68.492 kg 68.209 kg 67.812 kg 67.273 kg General: Alert, Oriented x3, No acute distress, Well nourished HEENT: Normal (Normocephalic, atraumatic;EOMI.Sclera white, Nares patent, without discharge or bleeding. No oropharyngeal lesions or erythema. Mucous membranes are dry.) Neck: Non-tender, Full range of motion, Normal Trachea alignment, Normal inspection (No cervical lymphadenopathy. No supraclavicular lymphadenopathy.), No Masses palpable, Supple Lymphatics: Normal Respiratory: Normal - CTA (Clear to auscultation bilaterally. No wheezing, rales , rhonchi. Chest wall movements are symmetric. No use of accessory muscles to breathe.) Cardiovascular: Regular rate and rhythm (No bradycardia or tachycardia), Normal S1, No Gallops,Rubs/Murmurs, Normal S2, Good Pedal Pulses (DP pulses 2+ bilaterally) GI: Normal bowel sounds (normal active sounds), Soft (non-distended), Non tender , No hepatospenomegaly, No masses Extremities/Musculoskeletal: Normal pulses (DP pulses 2+ bilaterally) Skin: Warm,Dry and Intact, No rashes, Ulceration (Bilateral lower extremities left leg bleeding.) Neurological: Strength at 5/5 X4 ext, Normal tone, Cranial nerves 3-12 NL ( 2- 12 grossly intact.) Psych/Mental Status: Appropriate, Normal Affect Lab/DI/Studies Reviewed: Laboratory Results - last 24 hr 06/26/16 06/26/16 06/27/16 16:32 21:19 05:54 POC Capillary Glucose 152 H 128 H 129 H - Assessment (1) Cirrhosis of liver Chronic K74.60 - UNSPECIFIED CIRRHOSIS OF LIVER Qualifiers: Hepatic cirrhosis type: unspecified hepatic cirrhosis Ascites presence: with ascites Qualified Code(s): K74.60 - Unspecified cirrhosis of liver Comment/Plan: Compensated on current medical regimen. Continue salt restricted diet. (2) Jaundice of recent onset Acute R17 - UNSPECIFIED JAUNDICE Comment/Plan: Due to chronic cirrhosis. (3) Venous stasis dermatitis of both lower extremities Acute I83.11 - VARICOSE VEINS OF RIGHT LOWER EXTREMITY WITH INFLAMMATION; I83.12 - VARICOSE VEINS OF LEFT LOWER EXTREMITY WITH INFLAMMATION Comment/Plan : Noted supportive care. Add Lac-Hydrin lotion (4) Anemia Chronic D64.9 - ANEMIA, UNSPECIFIED Qualifiers: Anemia type: other cause Iron deficiency anemia type: I Vitamin B12 deficiency anemia type: V Folate deficiency anemia type: F Bone marrow failure anemia type: B Hemolytic anemia type: H Other causes of anemia: chronic disease, other Qualified Code(s): D63.8 - Anemia in other chronic diseases classified elsewhere Comment/Plan: Hemoglobin 7.9 today, overall stable. Monitor counts. (5) Ulcer of lower extremity Acute L97.909 - NON-PRS CHRONIC ULC UNSP PRT OF UNSP LOW LEG W UNSP SEVERITY Qualifiers: Laterality: left Non-pressure ulcer stage: limited to breakdown of skin Qualified Code(s): L97.921 - Non-pressure chronic ulcer of unspecified part of left lower leg limited to breakdown of skin Comment/Plan: Now bleeding will consult Dr. Flores. (6) Alcohol abuse Chronic F10.10 - ALCOHOL ABUSE, UNCOMPLICATED Comment/Plan: Patient counseled to quit. Will likely need assistance. - Plan Discharge when safe discharge plan in place. Patient was discharged several days ago unfortunately disposition was unacceptable. Disposition Plan: Hopefully can get some placement for her; family does not want her. Case Care Discussed with: Patient, Nursing Staff Education/Counseling Given To: Patient Education/Counseling Given Regarding: Diagnosis, Treatment, Prognosis, Disposition Plan Total Time: 45 minutes Critical Care: No Couseling Time (>50% in counseling/coordination): No
[2016-06-27] MEDS: PROBIOTIC BLEND TAB PO SCH ×2 (13:52→17:17)
[2016-06-27] MEDS: MAGNESIUM OXIDE 400 MG TAB PO SCH ×2 (13:54→17:17)
[2016-06-28] MEDS: NACL 0.65% NASAL 45 ML BOTTLE NAS PRN ×3 (02:54→09:35)
[2016-06-28] MEDS: GABAPENTIN 300 MG CAP PO PRN (04:19)
[2016-06-28] MEDS: CLOTRIMAZOLE & BETAMETHASONE 45 GM TUBE TOP SCH ×3 (05:51→20:48)
[2016-06-28] MEDS: SODIUM CHLORIDE 0.9% 5 ML FLUSH FLUSH SCH ×2 (05:52→16:35)
[2016-06-28] MEDS: PANTOPRAZOLE 40 MG TAB PO SCH (05:52)
[2016-06-28] MEDS: SODIUM CHLORIDE 0.9% 3 ML FLUSH FLUSH SCH ×2 (05:52→16:37)
[2016-06-28] MEDS: MetFORMIN, EXT REL 500 MG TAB PO SCH (06:49)
[2016-06-28] MEDS: REGULAR INSULIN 100 UNITS/ML - 3 ML VIAL SQ SCH ×2 (06:49→16:33)
[2016-06-28] MEDS: SPIRONOLACTONE 25 MG TAB PO SCH (09:36)
[2016-06-28] MEDS: ATENOLOL 50 MG TAB PO SCH (09:36)
[2016-06-28] MEDS: FERROUS SULFATE 324 MG TAB PO SCH ×3 (09:36→16:35)
[2016-06-28] MEDS: FUROSEMIDE 40 MG TAB PO SCH ×2 (09:37→20:47)
[2016-06-28] MEDS: ASCORBIC ACID 500 MG TAB PO SCH ×3 (09:37→16:35)
[2016-06-28] MEDS: LAC HYDRIN 12% TOP SCH ×2 (09:37→20:48)
[2016-06-28] MEDS: COLLAGENASE OINTMENT 30 GM TUBE TOP SCH (09:38)
--- NOTE | 2016-06-28 11:30 | GENMEDPROG ---
Subjective Note: no new issues Notes Reviewed: Yes Events from last night noted and discussed with Clinical Staff Current Medication List: Reviewed Currently: Reports: Alcohol Hx (Drinks a 6 pack a day), Ambulating (Not ambulating due to leg pain). Denies: Cough, Wheezing, SOB, Nausea and Vomiting , Abdominal Pain, Fever/Chills DVT Prophylaxis: No Current Order (T-PENIA, LYMPHEDEMA OF LE'S) - Physical Examination Vital Signs and I&O: Last Vital Signs Temp 98.6 F 06/28/16 05:36 Pulse 78 06/28/16 05:36 Resp 18 06/28/16 05:36 BP 157/72 06/28/16 05:36 Pulse Ox 99 06/28/16 05:36 Oxygen Pulse Oxygen Saturation 99 O2 Device Room Air Oxygen Flow Rate 2 Fraction of Inspired Oxygen ( FIO2) Intake & Output 06/25/16 06/26/16 06/27/16 06/28/16 23:59 23:59 23:59 23:59 Intake Total 1280 590 960 120 Output Total 451 300 Balance 829 290 960 120 Patient's weight 68.209 kg 67.812 kg 67.273 kg 65.091 kg General: Alert, Oriented x3, No acute distress, Well nourished HEENT: Normal (Normocephalic, atraumatic;EOMI.Sclera white, Nares patent, without discharge or bleeding. No oropharyngeal lesions or erythema. Mucous membranes are dry.) Neck: Non-tender, Full range of motion, Normal Trachea alignment, Normal inspection (No cervical lymphadenopathy. No supraclavicular lymphadenopathy.), No Masses palpable, Supple Lymphatics: Normal Respiratory: Normal - CTA (Clear to auscultation bilaterally. No wheezing, rales , rhonchi. Chest wall movements are symmetric. No use of accessory muscles to breathe.) Cardiovascular: Regular rate and rhythm (No bradycardia or tachycardia), Normal S1, No Gallops,Rubs/Murmurs, Normal S2, Good Pedal Pulses (DP pulses 2+ bilaterally) GI: Normal bowel sounds (normal active sounds), Soft (non-distended), Non tender , No hepatospenomegaly, No masses Extremities/Musculoskeletal: Normal pulses (DP pulses 2+ bilaterally) Skin: Warm,Dry and Intact, No rashes, Ulceration (Bilateral lower extremities left leg bleeding.) Neurological: Strength at 5/5 X4 ext, Normal tone, Cranial nerves 3-12 NL ( 2- 12 grossly intact.) Psych/Mental Status: Appropriate, Normal Affect Lab/DI/Studies Reviewed: Abnormal Lab Results 06/28/16 05:23 POC Capillary Glucose 203 H - Assessment (1) Cirrhosis of liver Chronic K74.60 - UNSPECIFIED CIRRHOSIS OF LIVER Qualifiers: Hepatic cirrhosis type: unspecified hepatic cirrhosis Ascites presence: with ascites Qualified Code(s): K74.60 - Unspecified cirrhosis of liver Comment/Plan: Compensated on current medical regimen. Continue salt restricted diet. (2) Jaundice of recent onset Acute R17 - UNSPECIFIED JAUNDICE Comment/Plan: Due to chronic cirrhosis. (3) Venous stasis dermatitis of both lower extremities Acute I83.11 - VARICOSE VEINS OF RIGHT LOWER EXTREMITY WITH INFLAMMATION; I83.12 - VARICOSE VEINS OF LEFT LOWER EXTREMITY WITH INFLAMMATION Comment/Plan : Noted supportive care. Add Lac-Hydrin lotion (4) Anemia Chronic D64.9 - ANEMIA, UNSPECIFIED Qualifiers: Anemia type: other cause Iron deficiency anemia type: I Vitamin B12 deficiency anemia type: V Folate deficiency anemia type: F Bone marrow failure anemia type: B Hemolytic anemia type: H Other causes of anemia: chronic disease, other Qualified Code(s): D63.8 - Anemia in other chronic diseases classified elsewhere Comment/Plan: Hemoglobin 7.9 today, overall stable. Monitor counts. (5) Ulcer of lower extremity Acute L97.909 - NON-PRS CHRONIC ULC UNSP PRT OF UNSP LOW LEG W UNSP SEVERITY Qualifiers: Laterality: left Non-pressure ulcer stage: limited to breakdown of skin Qualified Code(s): L97.921 - Non-pressure chronic ulcer of unspecified part of left lower leg limited to breakdown of skin Comment/Plan: Now bleeding will consult Dr. Flores. (6) Alcohol abuse Chronic F10.10 - ALCOHOL ABUSE, UNCOMPLICATED Comment/Plan: Patient counseled to quit. Will likely need assistance. - Plan Discharge when safe discharge plan in place. Patient was discharged several days ago unfortunately disposition was unacceptable. Disposition Plan: Hopefully can get some placement for her; family does not want her. Case Care Discussed with: Patient Education/Counseling Given To: Patient Education/Counseling Given Regarding: Diagnosis, Disposition Plan Total Time: 45 min Critical Care: No Couseling Time (>50% in counseling/coordination): No
[2016-06-28] MEDS: PROBIOTIC BLEND TAB PO SCH ×2 (13:15→16:35)
[2016-06-28] MEDS: MAGNESIUM OXIDE 400 MG TAB PO SCH ×2 (13:16→16:35)
[2016-06-29] MEDS: CLOTRIMAZOLE & BETAMETHASONE 45 GM TUBE TOP SCH ×3 (04:35→20:17)
[2016-06-29] MEDS: SODIUM CHLORIDE 0.9% 5 ML FLUSH FLUSH SCH ×2 (04:35→17:25)
[2016-06-29] MEDS: PANTOPRAZOLE 40 MG TAB PO SCH (04:35)
[2016-06-29] MEDS: SODIUM CHLORIDE 0.9% 3 ML FLUSH FLUSH SCH ×2 (04:35→17:30)
[2016-06-29] MEDS: MetFORMIN, EXT REL 500 MG TAB PO SCH (05:55)
[2016-06-29] MEDS: REGULAR INSULIN 100 UNITS/ML - 3 ML VIAL SQ SCH ×2 (05:56→17:28)
[2016-06-29 07:08] LABS: AUTOMATED BASOPHIL 0.4 % (0-2); AUTOMATED EOSINOPHIL 2.4 % (0-5); AUTOMATED MONOCYTE 7.6 % (3-10); AUTOMATED NEUTROPHIL 61.6 % (45-76); MPV 9.2 fL (7.4-10.4)
[2016-06-29 07:35] LABS: BLOOD UREA NITROGEN 33 MG/DL (7-17); CALCIUM 8.7 MG/DL (8.4-10.2); CALCULATED OSMOLALITY 269 MOs/Kg (270-290); CHLORIDE 100 mEq/L (98-107); GLUCOSE 138 MG/DL (70-99); SODIUM LEVEL 135 mEq/L (137-146)
[2016-06-29] MEDS: FERROUS SULFATE 324 MG TAB PO SCH ×3 (08:46→17:26)
[2016-06-29] MEDS: ASCORBIC ACID 500 MG TAB PO SCH ×3 (08:46→17:26)
[2016-06-29] MEDS: SPIRONOLACTONE 25 MG TAB PO SCH (08:47)
[2016-06-29] MEDS: FUROSEMIDE 40 MG TAB PO SCH ×2 (08:48→20:17)
[2016-06-29] MEDS: ATENOLOL 50 MG TAB PO SCH (08:48)
[2016-06-29] MEDS: LAC HYDRIN 12% TOP SCH ×2 (08:50→20:16)
[2016-06-29] MEDS: COLLAGENASE OINTMENT 30 GM TUBE TOP SCH (10:08)
[2016-06-29] MEDS ORDERED: COLLAGENASE OINTMENT 30 GM TUBE TOP SCH (11:00)
[2016-06-29] MEDS ORDERED: CLOTRIMAZOLE & BETAMETHASONE 45 GM TUBE TOP SCH (11:00)
--- NOTE | 2016-06-29 11:12 | GENMEDPROG ---
Subjective Note: Patient with no new complaints. She is requesting a regular diet because she would like to have breakfast meets with her breakfast. This may also assist with her anemia. I would like her to eat more red meat if possible for short- term. Notes Reviewed: Yes Events from last night noted and discussed with Clinical Staff Current Medication List: Reviewed Currently: Reports: Alcohol Hx (Drinks a 6 pack a day), Ambulating (Not ambulating due to leg pain). Denies: Cough, Wheezing, SOB, Nausea and Vomiting , Abdominal Pain, Fever/Chills DVT Prophylaxis: No Current Order (T-PENIA, LYMPHEDEMA OF LE'S) - Physical Examination Vital Signs and I&O: Last Vital Signs Temp 99.0 F 06/29/16 06:00 Pulse 80 06/29/16 08:44 Resp 18 06/29/16 06:00 BP 118/64 06/29/16 08:44 Pulse Ox 99 06/29/16 06:00 Oxygen Pulse Oxygen Saturation 99 O2 Device Room Air Oxygen Flow Rate 2 Fraction of Inspired Oxygen ( FIO2) Intake & Output 06/26/16 06/27/16 06/28/16 06/29/16 23:59 23:59 23:59 23:59 Intake Total 590 960 740 120 Output Total 300 900 Balance 290 960 -160 120 Patient's weight 67.812 kg 67.273 kg 65.091 kg 65.856 kg General: Alert, Oriented x3, No acute distress, Well nourished HEENT: Normal (Normocephalic, atraumatic;EOMI.Sclera white, Nares patent, without discharge or bleeding. No oropharyngeal lesions or erythema. Mucous membranes are dry.) Neck: Non-tender, Full range of motion, Normal Trachea alignment, Normal inspection (No cervical lymphadenopathy. No supraclavicular lymphadenopathy.), No Masses palpable, Supple Lymphatics: Normal Respiratory: Normal - CTA (Clear to auscultation bilaterally. No wheezing, rales , rhonchi. Chest wall movements are symmetric. No use of accessory muscles to breathe.) Cardiovascular: Regular rate and rhythm (No bradycardia or tachycardia), Normal S1, No Gallops,Rubs/Murmurs, Normal S2, Good Pedal Pulses (DP pulses 2+ bilaterally) GI: Normal bowel sounds (normal active sounds), Soft (non-distended), Non tender , No hepatospenomegaly, No masses Extremities/Musculoskeletal: Normal pulses (DP pulses 2+ bilaterally) Skin: Warm,Dry and Intact, No rashes, Ulceration (Bilateral lower extremities left leg bleeding.) Neurological: Strength at 5/5 X4 ext, Normal tone, Cranial nerves 3-12 NL ( 2- 12 grossly intact.) Psych/Mental Status: Appropriate, Normal Affect Lab/DI/Studies Reviewed: Abnormal Lab Results 06/28/16 06/29/16 06/29/16 16:03 05:54 06:15 RBC Hgb Hct RDW Sodium 135 L BUN 33 H Glucose 138 H POC Capillary Glucose 158 H 153 H Calculated Osmolality 269 L 06/29/16 06:15 RBC 2.51 L Hgb 7.7 L Hct 22.8 L RDW 18.8 H Sodium BUN Glucose POC Capillary Glucose Calculated Osmolality - Assessment (1) Cirrhosis of liver Chronic K74.60 - UNSPECIFIED CIRRHOSIS OF LIVER Qualifiers: Hepatic cirrhosis type: unspecified hepatic cirrhosis Ascites presence: with ascites Qualified Code(s): K74.60 - Unspecified cirrhosis of liver Comment/Plan: Compensated on current medical regimen. Continue salt restricted diet. (2) Jaundice of recent onset Acute R17 - UNSPECIFIED JAUNDICE Comment/Plan: Due to chronic cirrhosis. (3) Venous stasis dermatitis of both lower extremities Acute I83.11 - VARICOSE VEINS OF RIGHT LOWER EXTREMITY WITH INFLAMMATION; I83.12 - VARICOSE VEINS OF LEFT LOWER EXTREMITY WITH INFLAMMATION Comment/Plan : Noted supportive care. Add Lac-Hydrin lotion (4) Anemia Chronic D64.9 - ANEMIA, UNSPECIFIED Qualifiers: Anemia type: other cause Iron deficiency anemia type: I Vitamin B12 deficiency anemia type: V Folate deficiency anemia type: F Bone marrow failure anemia type: B Hemolytic anemia type: H Other causes of anemia: chronic disease, other Qualified Code(s): D63.8 - Anemia in other chronic diseases classified elsewhere Comment/Plan: Hemoglobin at 7.7 today. She has not been transfused for this in the past and her hemoglobin ranges between 7.7 and 8.1. Will continue to monitor. (5) Ulcer of lower extremity Acute L97.909 - NON-PRS CHRONIC ULC UNSP PRT OF UNSP LOW LEG W UNSP SEVERITY Qualifiers: Laterality: left Non-pressure ulcer stage: limited to breakdown of skin Qualified Code(s): L97.921 - Non-pressure chronic ulcer of unspecified part of left lower leg limited to breakdown of skin Comment/Plan: Now bleeding will consult Dr. Flores. (6) Alcohol abuse Chronic F10.10 - ALCOHOL ABUSE, UNCOMPLICATED Comment/Plan: Patient counseled to quit. Will likely need assistance. - Plan Discharge when safe discharge plan in place. Patient was discharged several days ago unfortunately disposition was unacceptable. Disposition Plan: Hopefully can get some placement for her; family does not want her. Case Care Discussed with: Patient, Nursing Staff Education/Counseling Given To: Patient Education/Counseling Given Regarding: Diagnosis, Treatment, Prognosis Total Time: 45 minutes Critical Care: No Couseling Time (>50% in counseling/coordination): No
[2016-06-29] MEDS: PROBIOTIC BLEND TAB PO SCH ×2 (12:19→17:26)
[2016-06-29] MEDS: MAGNESIUM OXIDE 400 MG TAB PO SCH ×2 (12:20→17:27)
[2016-06-30] MEDS: PANTOPRAZOLE 40 MG TAB PO SCH (05:03)
[2016-06-30] MEDS: CLOTRIMAZOLE & BETAMETHASONE 45 GM TUBE TOP SCH ×3 (05:03→20:18)
[2016-06-30] MEDS: REGULAR INSULIN 100 UNITS/ML - 3 ML VIAL SQ SCH ×2 (05:04→17:31)
[2016-06-30] MEDS: SODIUM CHLORIDE 0.9% 5 ML FLUSH FLUSH SCH ×2 (05:04→17:31)
[2016-06-30] MEDS: SODIUM CHLORIDE 0.9% 3 ML FLUSH FLUSH SCH ×2 (05:07→17:31)
[2016-06-30] MEDS: MetFORMIN, EXT REL 500 MG TAB PO SCH (05:36)
[2016-06-30] MEDS: ASCORBIC ACID 500 MG TAB PO SCH ×3 (07:54→17:30)
[2016-06-30] MEDS: FERROUS SULFATE 324 MG TAB PO SCH ×3 (07:54→17:30)
[2016-06-30] MEDS: FUROSEMIDE 40 MG TAB PO SCH ×2 (07:54→20:18)
[2016-06-30] MEDS: SPIRONOLACTONE 25 MG TAB PO SCH (07:55)
[2016-06-30] MEDS: COLLAGENASE OINTMENT 30 GM TUBE TOP SCH (07:55)
[2016-06-30] MEDS: ATENOLOL 50 MG TAB PO SCH (07:55)
[2016-06-30] MEDS: LAC HYDRIN 12% TOP SCH ×2 (07:55→20:18)
[2016-06-30] MEDS: MAGNESIUM OXIDE 400 MG TAB PO SCH ×2 (11:04→17:30)
[2016-06-30] MEDS: PROBIOTIC BLEND TAB PO SCH ×2 (11:04→17:30)
--- NOTE | 2016-06-30 11:16 | GENMEDPROG ---
Chief Complaint: Failure to discharge Subjective Note: Doing well, no acute complaints. Notes Reviewed: Yes Events from last night noted and discussed with Clinical Staff Current Medication List: Reviewed Currently: Reports: Alcohol Hx (Drinks a 6 pack a day), Ambulating (Not ambulating due to leg pain). Denies: Cough, Wheezing, SOB, Nausea and Vomiting , Abdominal Pain, Fever/Chills DVT Prophylaxis: No Current Order (T-PENIA, LYMPHEDEMA OF LE'S) - Physical Examination Vital Signs and I&O: Last Vital Signs Temp 98.4 F 06/30/16 04:41 Pulse 71 06/30/16 04:41 Resp 18 06/30/16 04:41 BP 128/72 06/30/16 04:41 Pulse Ox 99 06/30/16 04:41 Oxygen Pulse Oxygen Saturation 99 O2 Device Room Air Oxygen Flow Rate 2 Fraction of Inspired Oxygen ( FIO2) Intake & Output 06/28/16 06/29/16 06/30/16 07/01/16 06:59 06:59 06:59 06:59 Intake Total 720 740 480 240 Output Total 900 Balance 720 -160 480 240 Patient's weight 65.091 kg 65.856 kg 64.949 kg General: Alert, Oriented x3, No acute distress, Well nourished HEENT: Normal (Normocephalic, atraumatic;EOMI.Sclera white, Nares patent, without discharge or bleeding. No oropharyngeal lesions or erythema. Mucous membranes are dry.) Neck: Non-tender, Full range of motion, Normal Trachea alignment, Normal inspection (No cervical lymphadenopathy. No supraclavicular lymphadenopathy.), No Masses palpable, Supple Lymphatics: Normal Respiratory: Normal - CTA (Clear to auscultation bilaterally. No wheezing, rales , rhonchi. Chest wall movements are symmetric. No use of accessory muscles to breathe.) Cardiovascular: Regular rate and rhythm (No bradycardia or tachycardia), Normal S1, No Gallops,Rubs/Murmurs, Normal S2, Good Pedal Pulses (DP pulses 2+ bilaterally) GI: Normal bowel sounds (normal active sounds), Soft (non-distended), Non tender , No hepatospenomegaly, No masses Extremities/Musculoskeletal: Normal pulses (DP pulses 2+ bilaterally) Skin: Warm,Dry and Intact, No rashes, Ulceration (Bilateral lower extremities left leg bleeding.) Neurological: Strength at 5/5 X4 ext, Normal tone, Cranial nerves 3-12 NL ( 2- 12 grossly intact.) Psych/Mental Status: Appropriate, Normal Affect - Assessment (1) Alcohol abuse Chronic F10.10 - ALCOHOL ABUSE, UNCOMPLICATED Comment/Plan: Patient counseled to quit. Will likely need assistance. (2) Ascites Acute R18.8 - OTHER ASCITES (3) Cholelithiasis Chronic K80.20 - CALCULUS OF GALLBLADDER W/O CHOLECYSTITIS W/O OBSTRUCTION Qualifiers: Cholelithiasis location: gallbladder Cholecystitis presence: without cholecystitis Biliary obstruction: without biliary obstruction Qualified Code(s): K80.20 - Calculus of gallbladder without cholecystitis without obstruction Comment/Plan: Noted on CT scan of the abdomen pelvis but asymptomatic. (4) Cirrhosis of liver Chronic K74.60 - UNSPECIFIED CIRRHOSIS OF LIVER Qualifiers: Hepatic cirrhosis type: unspecified hepatic cirrhosis Ascites presence: with ascites Qualified Code(s): K74.60 - Unspecified cirrhosis of liver Comment/Plan: Compensated on current medical regimen. Continue salt restricted diet. (5) Coagulopathy Acute D68.9 - COAGULATION DEFECT, UNSPECIFIED Comment/Plan: monitor pt. Resolved (6) DM2 (diabetes mellitus, type 2) Chronic E11.9 - TYPE 2 DIABETES MELLITUS WITHOUT COMPLICATIONS Qualifiers: Diabetes mellitus complication status: with kidney complications Diabetes mellitus intermediate teacher insulin use: without intermediate teacher use Chronic kidney disease stage: stage 3 (moderate) Qualified Code(s): E11.22 - Type 2 diabetes mellitus with diabetic chronic kidney disease; N18.3 - Chronic kidney disease, stage 3 (moderate) Comment/Plan: Continue ADA diet and oral agents. Monitor blood sugar. 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
[2016-07-01] MEDS: CLOTRIMAZOLE & BETAMETHASONE 45 GM TUBE TOP SCH ×3 (05:56→20:11)
[2016-07-01] MEDS: PANTOPRAZOLE 40 MG TAB PO SCH (05:57)
[2016-07-01] MEDS: REGULAR INSULIN 100 UNITS/ML - 3 ML VIAL SQ SCH ×2 (05:57→17:39)
[2016-07-01] MEDS: SODIUM CHLORIDE 0.9% 3 ML FLUSH FLUSH SCH ×2 (05:57→17:38)
[2016-07-01] MEDS: SODIUM CHLORIDE 0.9% 5 ML FLUSH FLUSH SCH ×2 (05:57→17:38)
[2016-07-01] MEDS: MetFORMIN, EXT REL 500 MG TAB PO SCH (05:58)
[2016-07-01] MEDS: FUROSEMIDE 40 MG TAB PO SCH ×2 (07:55→20:12)
[2016-07-01] MEDS: ATENOLOL 50 MG TAB PO SCH (07:55)
[2016-07-01] MEDS: FERROUS SULFATE 324 MG TAB PO SCH ×3 (07:55→17:37)
[2016-07-01] MEDS: SPIRONOLACTONE 25 MG TAB PO SCH (07:55)
[2016-07-01] MEDS: ASCORBIC ACID 500 MG TAB PO SCH ×3 (07:56→17:38)
[2016-07-01] MEDS: LAC HYDRIN 12% TOP SCH ×2 (07:56→20:11)
[2016-07-01] MEDS: COLLAGENASE OINTMENT 30 GM TUBE TOP SCH (07:57)
[2016-07-01] MEDS: PROBIOTIC BLEND TAB PO SCH ×2 (11:27→17:38)
[2016-07-01] MEDS: MAGNESIUM OXIDE 400 MG TAB PO SCH ×2 (11:27→17:38)
--- NOTE | 2016-07-01 15:59 | GENMEDPROG ---
Chief Complaint: Awaiting discharge Subjective Note: Patient has no acute complaints, she is happy to hear that she may be discharged from the hospital soon. Currently: Reports: Alcohol Hx (Drinks a 6 pack a day), Ambulating (Not ambulating due to leg pain). Denies: Cough, Wheezing, SOB, Nausea and Vomiting , Abdominal Pain, Fever/Chills DVT Prophylaxis: No Current Order (T-PENIA, LYMPHEDEMA OF LE'S) - Physical Examination Vital Signs and I&O: Last Vital Signs Temp 97.7 F 07/01/16 14:00 Pulse 77 07/01/16 14:00 Resp 18 07/01/16 14:00 BP 149/70 07/01/16 14:00 Pulse Ox 100 07/01/16 14:00 Oxygen Pulse Oxygen Saturation 100 O2 Device Room Air Oxygen Flow Rate 2 Fraction of Inspired Oxygen ( FIO2) Intake & Output 06/29/16 06/30/16 07/01/16 07/02/16 06:59 06:59 06:59 06:59 Intake Total 740 480 720 480 Output Total 900 2000 Balance -160 480 720 -1520 Patient's weight 65.856 kg 64.949 kg 64.41 kg General: Alert, Oriented x3, No acute distress, Well nourished HEENT: Normal (Normocephalic, atraumatic;EOMI.Sclera white, Nares patent, without discharge or bleeding. No oropharyngeal lesions or erythema. Mucous membranes are dry.) Neck: Non-tender, Full range of motion, Normal Trachea alignment, Normal inspection (No cervical lymphadenopathy. No supraclavicular lymphadenopathy.), No Masses palpable, Supple Lymphatics: Normal Respiratory: Normal - CTA (Clear to auscultation bilaterally. No wheezing, rales , rhonchi. Chest wall movements are symmetric. No use of accessory muscles to breathe.) Cardiovascular: Regular rate and rhythm (No bradycardia or tachycardia), Normal S1, No Gallops,Rubs/Murmurs, Normal S2, Good Pedal Pulses (DP pulses 2+ bilaterally) GI: Normal bowel sounds (normal active sounds), Soft (non-distended), Non tender , No hepatospenomegaly, No masses Extremities/Musculoskeletal: Normal pulses (DP pulses 2+ bilaterally) Skin: Warm,Dry and Intact, No rashes, Ulceration (Bilateral lower extremities left leg bleeding.) Neurological: Strength at 5/5 X4 ext, Normal tone, Cranial nerves 3-12 NL ( 2- 12 grossly intact.) Psych/Mental Status: Appropriate, Normal Affect - Assessment (1) Alcohol abuse Chronic F10.10 - ALCOHOL ABUSE, UNCOMPLICATED Comment/Plan: Patient counseled to quit. Will likely need assistance. (2) Ascites Acute R18.8 - OTHER ASCITES (3) Cholelithiasis Chronic K80.20 - CALCULUS OF GALLBLADDER W/O CHOLECYSTITIS W/O OBSTRUCTION Qualifiers: Cholelithiasis location: gallbladder Cholecystitis presence: without cholecystitis Biliary obstruction: without biliary obstruction Qualified Code(s): K80.20 - Calculus of gallbladder without cholecystitis without obstruction Comment/Plan: Noted on CT scan of the abdomen pelvis but asymptomatic. (4) Cirrhosis of liver Chronic K74.60 - UNSPECIFIED CIRRHOSIS OF LIVER Qualifiers: Hepatic cirrhosis type: unspecified hepatic cirrhosis Ascites presence: with ascites Qualified Code(s): K74.60 - Unspecified cirrhosis of liver Comment/Plan: Compensated on current medical regimen. Continue salt restricted diet. (5) Coagulopathy Acute D68.9 - COAGULATION DEFECT, UNSPECIFIED Comment/Plan: monitor pt. Resolved (6) DM2 (diabetes mellitus, type 2) Chronic E11.9 - TYPE 2 DIABETES MELLITUS WITHOUT COMPLICATIONS Qualifiers: Diabetes mellitus complication status: with kidney complications Diabetes mellitus roasterman insulin use: without long-term use Chronic kidney disease stage: stage 3 (moderate) Qualified Code(s): E11.22 - Type 2 diabetes mellitus with diabetic chronic kidney disease; N18.3 - Chronic kidney disease, stage 3 (moderate) Comment/Plan: Continue ADA diet and oral agents. Monitor blood sugar. 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
[2016-07-02] MEDS: MetFORMIN, EXT REL 500 MG TAB PO SCH (05:59)
[2016-07-02] MEDS: CLOTRIMAZOLE & BETAMETHASONE 45 GM TUBE TOP SCH ×3 (05:59→20:24)
[2016-07-02] MEDS: PANTOPRAZOLE 40 MG TAB PO SCH (05:59)
[2016-07-02] MEDS: REGULAR INSULIN 100 UNITS/ML - 3 ML VIAL SQ SCH ×2 (05:59→17:34)
[2016-07-02] MEDS: SODIUM CHLORIDE 0.9% 5 ML FLUSH FLUSH SCH ×2 (06:01→17:35)
[2016-07-02] MEDS: SODIUM CHLORIDE 0.9% 3 ML FLUSH FLUSH SCH ×2 (06:01→17:36)
[2016-07-02] MEDS: FUROSEMIDE 40 MG TAB PO SCH ×2 (08:37→20:25)
[2016-07-02] MEDS: COLLAGENASE OINTMENT 30 GM TUBE TOP SCH (08:37)
[2016-07-02] MEDS: ATENOLOL 50 MG TAB PO SCH (08:37)
[2016-07-02] MEDS: SPIRONOLACTONE 25 MG TAB PO SCH (08:38)
[2016-07-02] MEDS: FERROUS SULFATE 324 MG TAB PO SCH ×3 (08:38→17:36)
[2016-07-02] MEDS: ASCORBIC ACID 500 MG TAB PO SCH ×3 (08:38→17:36)
[2016-07-02] MEDS: LAC HYDRIN 12% TOP SCH ×2 (08:39→20:26)
--- NOTE | 2016-07-02 15:08 | GENMEDPROG ---
Chief Complaint: Leg wounds, peripheral edema Subjective Note: Doing well, no acute complaints. Hoping to discharge from the hospital soon. Currently: Reports: Alcohol Hx (Drinks a 6 pack a day), Ambulating (Not ambulating due to leg pain). Denies: Cough, Wheezing, SOB, Nausea and Vomiting , Abdominal Pain, Fever/Chills DVT Prophylaxis: No Current Order (T-PENIA, LYMPHEDEMA OF LE'S) - Physical Examination Vital Signs and I&O: Last Vital Signs Temp 98.7 F 07/02/16 13:58 Pulse 76 07/02/16 13:58 Resp 18 07/02/16 13:58 BP 124/75 07/02/16 13:58 Pulse Ox 95 07/02/16 13:58 Oxygen Pulse Oxygen Saturation 95 O2 Device Room Air Oxygen Flow Rate 2 Fraction of Inspired Oxygen ( FIO2) Intake & Output 06/30/16 07/01/16 07/02/16 07/03/16 06:59 06:59 06:59 06:59 Intake Total 480 720 720 740 Output Total 2500 Balance 480 720 -1780 740 Patient's weight 64.949 kg 64.41 kg 65.544 kg General: Alert, Oriented x3, No acute distress, Well nourished HEENT: Normal (Normocephalic, atraumatic;EOMI.Sclera white, Nares patent, without discharge or bleeding. No oropharyngeal lesions or erythema. Mucous membranes are dry.) Neck: Non-tender, Full range of motion, Normal Trachea alignment, Normal inspection (No cervical lymphadenopathy. No supraclavicular lymphadenopathy.), No Masses palpable, Supple Lymphatics: Normal Respiratory: Normal - CTA (Clear to auscultation bilaterally. No wheezing, rales , rhonchi. Chest wall movements are symmetric. No use of accessory muscles to breathe.) Cardiovascular: Regular rate and rhythm (No bradycardia or tachycardia), Normal S1, No Gallops,Rubs/Murmurs, Normal S2, Good Pedal Pulses (DP pulses 2+ bilaterally) GI: Normal bowel sounds (normal active sounds), Soft (non-distended), Non tender , No hepatospenomegaly, No masses Extremities/Musculoskeletal: Normal pulses (DP pulses 2+ bilaterally) Skin: Warm,Dry and Intact, No rashes, Ulceration (Bilateral lower extremities left leg bleeding.) Neurological: Strength at 5/5 X4 ext, Normal tone, Cranial nerves 3-12 NL ( 2- 12 grossly intact.) Psych/Mental Status: Appropriate, Normal Affect Her sacral area was examined by myself with the nurse at the bedside this morning. No open wounds, healing, looking much better. No evidence of bed sore. - Assessment (1) Alcohol abuse Chronic F10.10 - ALCOHOL ABUSE, UNCOMPLICATED Comment/Plan: Patient counseled to quit. Will likely need assistance. (2) Ascites Acute R18.8 - OTHER ASCITES (3) Cholelithiasis Chronic K80.20 - CALCULUS OF GALLBLADDER W/O CHOLECYSTITIS W/O OBSTRUCTION Qualifiers: Cholelithiasis location: gallbladder Cholecystitis presence: without cholecystitis Biliary obstruction: without biliary obstruction Qualified Code(s): K80.20 - Calculus of gallbladder without cholecystitis without obstruction Comment/Plan: Noted on CT scan of the abdomen pelvis but asymptomatic. (4) Cirrhosis of liver Chronic K74.60 - UNSPECIFIED CIRRHOSIS OF LIVER Qualifiers: Hepatic cirrhosis type: unspecified hepatic cirrhosis Ascites presence: with ascites Qualified Code(s): K74.60 - Unspecified cirrhosis of liver Comment/Plan: Compensated on current medical regimen. Continue salt restricted diet. (5) Coagulopathy Acute D68.9 - COAGULATION DEFECT, UNSPECIFIED Comment/Plan: monitor pt. Resolved (6) DM2 (diabetes mellitus, type 2) Chronic E11.9 - TYPE 2 DIABETES MELLITUS WITHOUT COMPLICATIONS Qualifiers: Diabetes mellitus complication status: with kidney complications Diabetes mellitus [facility] insulin use: without technician terminal and repeater use Chronic kidney disease stage: stage 3 (moderate) Qualified Code(s): E11.22 - Type 2 diabetes mellitus with diabetic chronic kidney disease; N18.3 - Chronic kidney disease, stage 3 (moderate) Comment/Plan: Continue ADA diet and oral agents. Monitor blood sugar. 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
[2016-07-02] MEDS: MAGNESIUM OXIDE 400 MG TAB PO SCH ×2 (15:34→17:36)
[2016-07-02] MEDS: PROBIOTIC BLEND TAB PO SCH ×2 (15:35→17:36)
[2016-07-03] MEDS: PANTOPRAZOLE 40 MG TAB PO SCH (05:54)
[2016-07-03] MEDS: CLOTRIMAZOLE & BETAMETHASONE 45 GM TUBE TOP SCH ×3 (05:54→21:06)
[2016-07-03] MEDS: REGULAR INSULIN 100 UNITS/ML - 3 ML VIAL SQ SCH ×2 (05:54→16:52)
[2016-07-03] MEDS: MetFORMIN, EXT REL 500 MG TAB PO SCH (05:55)
[2016-07-03] MEDS: FERROUS SULFATE 324 MG TAB PO SCH ×3 (07:29→16:51)
[2016-07-03] MEDS: ASCORBIC ACID 500 MG TAB PO SCH ×3 (07:29→16:51)
[2016-07-03] MEDS: SPIRONOLACTONE 25 MG TAB PO SCH (07:29)
[2016-07-03] MEDS: LAC HYDRIN 12% TOP SCH ×2 (07:30→21:02)
[2016-07-03] MEDS: FUROSEMIDE 40 MG TAB PO SCH ×2 (07:30→21:04)
[2016-07-03] MEDS: COLLAGENASE OINTMENT 30 GM TUBE TOP SCH (07:30)
[2016-07-03] MEDS: ATENOLOL 50 MG TAB PO SCH (07:31)
[2016-07-03] MEDS: MAGNESIUM OXIDE 400 MG TAB PO SCH ×2 (12:31→16:50)
[2016-07-03] MEDS: PROBIOTIC BLEND TAB PO SCH ×2 (12:31→16:50)
--- NOTE | 2016-07-03 15:55 | GENMEDPROG ---
Chief Complaint: leg wounds Subjective Note: No acute complaints. Stable. Currently: Reports: Alcohol Hx (Drinks a 6 pack a day), Ambulating (Not ambulating due to leg pain). Denies: Cough, Wheezing, SOB, Nausea and Vomiting , Abdominal Pain, Fever/Chills DVT Prophylaxis: No Current Order (T-PENIA, LYMPHEDEMA OF LE'S) - Physical Examination Vital Signs and I&O: Last Vital Signs Temp 97.3 F L 07/03/16 13:24 Pulse 76 07/03/16 13:24 Resp 18 07/03/16 13:24 BP 116/59 L 07/03/16 13:24 Pulse Ox 100 07/03/16 13:24 Oxygen Pulse Oxygen Saturation 100 O2 Device Room Air Oxygen Flow Rate 2 Fraction of Inspired Oxygen ( FIO2) Intake & Output 07/01/16 07/02/16 07/03/16 07/04/16 06:59 06:59 06:59 06:59 Intake Total 150 119 2762 390 Output Total 2500 300 Balance 720 -1780 1160 90 Patient's weight 64.41 kg 65.544 kg 64.365 kg General: Alert, Oriented x3, No acute distress, Well nourished HEENT: Normal (Normocephalic, atraumatic;EOMI.Sclera white, Nares patent, without discharge or bleeding. No oropharyngeal lesions or erythema. Mucous membranes are dry.) Neck: Non-tender, Full range of motion, Normal Trachea alignment, Normal inspection (No cervical lymphadenopathy. No supraclavicular lymphadenopathy.), No Masses palpable, Supple Lymphatics: Normal Respiratory: Normal - CTA (Clear to auscultation bilaterally. No wheezing, rales , rhonchi. Chest wall movements are symmetric. No use of accessory muscles to breathe.) Cardiovascular: Regular rate and rhythm (No bradycardia or tachycardia), Normal S1, No Gallops,Rubs/Murmurs, Normal S2, Good Pedal Pulses (DP pulses 2+ bilaterally) GI: Normal bowel sounds (normal active sounds), Soft (non-distended), Non tender , No hepatospenomegaly, No masses Extremities/Musculoskeletal: Normal pulses (DP pulses 2+ bilaterally) Skin: Warm,Dry and Intact, No rashes, Ulceration (Bilateral lower extremities left leg bleeding.) Neurological: Strength at 5/5 X4 ext, Normal tone, Cranial nerves 3-12 NL ( 2- 12 grossly intact.) Psych/Mental Status: Appropriate, Normal Affect Lab/DI/Studies Reviewed: Laboratory Tests 06/18/16 06/18/16 06/20/16 07:04 07:04 05:12 WBC 4.7 Hgb 7.9 L Hct 23.4 L Sodium 136 L Potassium 3.6 BUN 23 H Creatinine 0.80 POC Capillary Glucose 127 H AST 30 ALT 26 Alkaline Phosphatase 248 H 06/29/16 07/03/16 06:15 05:24 WBC 7.0 Hgb 7.7 L Hct Sodium Potassium BUN Creatinine POC Capillary Glucose 127 H AST ALT Alkaline Phosphatase - Assessment (1) Alcohol abuse Chronic F10.10 - ALCOHOL ABUSE, UNCOMPLICATED Comment/Plan: Patient counseled to quit. Will likely need assistance. (2) Ascites Acute R18.8 - OTHER ASCITES (3) Cholelithiasis Chronic K80.20 - CALCULUS OF GALLBLADDER W/O CHOLECYSTITIS W/O OBSTRUCTION Qualifiers: Cholelithiasis location: gallbladder Cholecystitis presence: without cholecystitis Biliary obstruction: without biliary obstruction Qualified Code(s): K80.20 - Calculus of gallbladder without cholecystitis without obstruction Comment/Plan: Noted on CT scan of the abdomen pelvis but asymptomatic. (4) Cirrhosis of liver Chronic K74.60 - UNSPECIFIED CIRRHOSIS OF LIVER Qualifiers: Hepatic cirrhosis type: unspecified hepatic cirrhosis Ascites presence: with ascites Qualified Code(s): K74.60 - Unspecified cirrhosis of liver Comment/Plan: Compensated on current medical regimen. Continue salt restricted diet. (5) Coagulopathy Acute D68.9 - COAGULATION DEFECT, UNSPECIFIED Comment/Plan: monitor pt. Resolved (6) DM2 (diabetes mellitus, type 2) Chronic E11.9 - TYPE 2 DIABETES MELLITUS WITHOUT COMPLICATIONS Qualifiers: Diabetes mellitus complication status: with kidney complications Diabetes mellitus half-way insulin use: without half-way use Chronic kidney disease stage: stage 3 (moderate) Qualified Code(s): E11.22 - Type 2 diabetes mellitus with diabetic chronic kidney disease; N18.3 - Chronic kidney disease, stage 3 (moderate) Comment/Plan: Continue ADA diet and oral agents. Monitor blood sugar. 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
[2016-07-03] MEDS: GABAPENTIN 300 MG CAP PO PRN (21:01)
[2016-07-04] MEDS: CLOTRIMAZOLE & BETAMETHASONE 45 GM TUBE TOP SCH ×3 (04:59→22:02)
[2016-07-04] MEDS: PANTOPRAZOLE 40 MG TAB PO SCH (04:59)
[2016-07-04] MEDS: MetFORMIN, EXT REL 500 MG TAB PO SCH (05:00)
[2016-07-04] MEDS: REGULAR INSULIN 100 UNITS/ML - 3 ML VIAL SQ SCH ×2 (05:09→17:42)
[2016-07-04] MEDS: FUROSEMIDE 40 MG TAB PO SCH ×2 (07:43→21:39)
[2016-07-04] MEDS: ATENOLOL 50 MG TAB PO SCH (07:43)
[2016-07-04] MEDS: FERROUS SULFATE 324 MG TAB PO SCH ×3 (07:45→17:44)
[2016-07-04] MEDS: ASCORBIC ACID 500 MG TAB PO SCH ×3 (07:45→17:44)
[2016-07-04] MEDS: SPIRONOLACTONE 25 MG TAB PO SCH (07:45)
[2016-07-04] MEDS: LAC HYDRIN 12% TOP SCH ×2 (07:46→22:00)
[2016-07-04] MEDS: COLLAGENASE OINTMENT 30 GM TUBE TOP SCH (07:46)
[2016-07-04] MEDS: GABAPENTIN 300 MG CAP PO PRN ×2 (08:39→22:03)
--- NOTE | 2016-07-04 10:22 | GENMEDPROG ---
Chief Complaint: Anasarca and leg wounds, failure to discharge Subjective Note: Doing well, she has no acute complaints. She is anxious to leave the hospital. Currently: Reports: Alcohol Hx (Drinks a 6 pack a day), Ambulating (Not ambulating due to leg pain). Denies: Cough, Wheezing, SOB, Nausea and Vomiting , Abdominal Pain, Fever/Chills DVT Prophylaxis: No Current Order (T-PENIA, LYMPHEDEMA OF LE'S) - Physical Examination Vital Signs and I&O: Last Vital Signs Temp 98.3 F 07/04/16 06:00 Pulse 72 07/04/16 06:00 Resp 18 07/04/16 06:00 BP 138/72 07/04/16 06:00 Pulse Ox 100 07/04/16 06:00 Oxygen Pulse Oxygen Saturation 100 O2 Device Room Air Oxygen Flow Rate 2 Fraction of Inspired Oxygen ( FIO2) Intake & Output 07/02/16 07/03/16 07/04/16 07/05/16 06:59 06:59 06:59 06:59 Intake Total 720 1160 1480 480 Output Total 2500 702 Balance -1780 1160 778 480 Patient's weight 65.544 kg 64.495 kg General: Alert, Oriented x3, No acute distress, Well nourished HEENT: Normal (Normocephalic, atraumatic;EOMI.Sclera white, Nares patent, without discharge or bleeding. No oropharyngeal lesions or erythema. Mucous membranes are dry.) Neck: Non-tender, Full range of motion, Normal Trachea alignment, Normal inspection (No cervical lymphadenopathy. No supraclavicular lymphadenopathy.), No Masses palpable, Supple Lymphatics: Normal Respiratory: Normal - CTA (Clear to auscultation bilaterally. No wheezing, rales , rhonchi. Chest wall movements are symmetric. No use of accessory muscles to breathe.) Cardiovascular: Regular rate and rhythm (No bradycardia or tachycardia), Normal S1, No Gallops,Rubs/Murmurs, Normal S2, Good Pedal Pulses (DP pulses 2+ bilaterally) GI: Normal bowel sounds (normal active sounds), Soft (non-distended), Non tender , No hepatospenomegaly, No masses Extremities/Musculoskeletal: Normal pulses (DP pulses 2+ bilaterally) Skin: Warm,Dry and Intact, No rashes, Ulceration (Bilateral lower extremities left leg bleeding.) Neurological: Strength at 5/5 X4 ext, Normal tone, Cranial nerves 3-12 NL ( 2- 12 grossly intact.) Psych/Mental Status: Appropriate, Normal Affect - Assessment (1) Alcohol abuse Chronic F10.10 - ALCOHOL ABUSE, UNCOMPLICATED Comment/Plan: Patient counseled to quit. Will likely need assistance. (2) Ascites Acute R18.8 - OTHER ASCITES (3) Cholelithiasis Chronic K80.20 - CALCULUS OF GALLBLADDER W/O CHOLECYSTITIS W/O OBSTRUCTION Qualifiers: Cholelithiasis location: gallbladder Cholecystitis presence: without cholecystitis Biliary obstruction: without biliary obstruction Qualified Code(s): K80.20 - Calculus of gallbladder without cholecystitis without obstruction Comment/Plan: Noted on CT scan of the abdomen pelvis but asymptomatic. (4) Cirrhosis of liver Chronic K74.60 - UNSPECIFIED CIRRHOSIS OF LIVER Qualifiers: Hepatic cirrhosis type: unspecified hepatic cirrhosis Ascites presence: with ascites Qualified Code(s): K74.60 - Unspecified cirrhosis of liver Comment/Plan: Compensated on current medical regimen. Continue salt restricted diet. (5) Coagulopathy Acute D68.9 - COAGULATION DEFECT, UNSPECIFIED Comment/Plan: monitor pt. Resolved (6) DM2 (diabetes mellitus, type 2) Chronic E11.9 - TYPE 2 DIABETES MELLITUS WITHOUT COMPLICATIONS Qualifiers: Diabetes mellitus complication status: with kidney complications Diabetes mellitus penitentiary insulin use: without penitentiary use Chronic kidney disease stage: stage 3 (moderate) Qualified Code(s): E11.22 - Type 2 diabetes mellitus with diabetic chronic kidney disease; N18.3 - Chronic kidney disease, stage 3 (moderate) Comment/Plan: Continue ADA diet and oral agents. Monitor blood sugar. Blood sugar under control no hypoglycemia (7) Hypomagnesemia Acute E83.42 - HYPOMAGNESEMIA Comment/Plan: Replace and monitor (8) Economic hardship Chronic Comment/Plan: lunchroom worker deeply involved in patient care tried to make postdischarge arrangements - Plan Continue present supportive and nursing care. Patient is medically ready for discharge, hopefully will discharge from the hospital this coming week.
[2016-07-04] MEDS: MAGNESIUM OXIDE 400 MG TAB PO SCH ×2 (12:49→17:45)
[2016-07-04] MEDS: PROBIOTIC BLEND TAB PO SCH ×2 (12:49→17:44)
[2016-07-04] MEDS: GUAIFENESIN 600 MG LA TAB PO PRN (17:48)
[2016-07-05] MEDS: REGULAR INSULIN 100 UNITS/ML - 3 ML VIAL SQ SCH ×2 (05:53→16:59)
[2016-07-05] MEDS: CLOTRIMAZOLE & BETAMETHASONE 45 GM TUBE TOP SCH ×3 (05:54→21:51)
[2016-07-05] MEDS: PANTOPRAZOLE 40 MG TAB PO SCH (05:54)
[2016-07-05] MEDS: MetFORMIN, EXT REL 500 MG TAB PO SCH (05:54)
[2016-07-05] MEDS: COLLAGENASE OINTMENT 30 GM TUBE TOP SCH (07:30)
[2016-07-05] MEDS: LAC HYDRIN 12% TOP SCH ×2 (07:30→21:50)
[2016-07-05] MEDS: ASCORBIC ACID 500 MG TAB PO SCH ×3 (07:31→17:00)
[2016-07-05] MEDS: FUROSEMIDE 40 MG TAB PO SCH ×2 (07:32→21:50)
[2016-07-05] MEDS: ATENOLOL 50 MG TAB PO SCH (07:32)
[2016-07-05] MEDS: FERROUS SULFATE 324 MG TAB PO SCH ×3 (07:32→17:00)
[2016-07-05] MEDS: SPIRONOLACTONE 25 MG TAB PO SCH (07:33)
--- NOTE | 2016-07-05 11:00 | GENMEDPROG ---
Chief Complaint: Discharge planning Subjective Note: She has no complaints, she is anxious to leave the hospital. Currently: Reports: Alcohol Hx (Drinks a 6 pack a day), Ambulating (Not ambulating due to leg pain). Denies: Cough, Wheezing, SOB, Nausea and Vomiting , Abdominal Pain, Fever/Chills DVT Prophylaxis: No Current Order (T-PENIA, LYMPHEDEMA OF LE'S) - Physical Examination Vital Signs and I&O: Last Vital Signs Temp 98.3 F 07/05/16 04:32 Pulse 76 07/05/16 04:32 Resp 18 07/05/16 04:32 BP 126/61 07/05/16 04:32 Pulse Ox 99 07/05/16 04:32 Oxygen Pulse Oxygen Saturation 99 O2 Device Room Air Oxygen Flow Rate 2 Fraction of Inspired Oxygen ( FIO2) Intake & Output 07/03/16 07/04/16 07/05/16 07/06/16 06:59 06:59 06:59 06:59 Intake Total 1160 1480 1800 Output Total 702 1 Balance 8653 368 9162 Patient's weight 64.495 kg 64.127 kg General: Alert, Oriented x3, No acute distress, Well nourished HEENT: Normal (Normocephalic, atraumatic;EOMI.Sclera white, Nares patent, without discharge or bleeding. No oropharyngeal lesions or erythema. Mucous membranes are dry.) Neck: Non-tender, Full range of motion, Normal Trachea alignment, Normal inspection (No cervical lymphadenopathy. No supraclavicular lymphadenopathy.), No Masses palpable, Supple Lymphatics: Normal Respiratory: Normal - CTA (Clear to auscultation bilaterally. No wheezing, rales , rhonchi. Chest wall movements are symmetric. No use of accessory muscles to breathe.) Cardiovascular: Regular rate and rhythm (No bradycardia or tachycardia), Normal S1, No Gallops,Rubs/Murmurs, Normal S2, Good Pedal Pulses (DP pulses 2+ bilaterally) GI: Normal bowel sounds (normal active sounds), Soft (non-distended), Non tender , No hepatospenomegaly, No masses Extremities/Musculoskeletal: Normal pulses (DP pulses 2+ bilaterally) Skin: Warm,Dry and Intact, No rashes, Ulceration (Bilateral lower extremities left leg bleeding.) Neurological: Strength at 5/5 X4 ext, Normal tone, Cranial nerves 3-12 NL ( 2- 12 grossly intact.) Psych/Mental Status: Appropriate, Normal Affect - Assessment (1) Alcohol abuse Chronic F10.10 - ALCOHOL ABUSE, UNCOMPLICATED Comment/Plan: Patient counseled to quit. Will likely need assistance. (2) Ascites Acute R18.8 - OTHER ASCITES (3) Cholelithiasis Chronic K80.20 - CALCULUS OF GALLBLADDER W/O CHOLECYSTITIS W/O OBSTRUCTION Qualifiers: Cholelithiasis location: gallbladder Cholecystitis presence: without cholecystitis Biliary obstruction: without biliary obstruction Qualified Code(s): K80.20 - Calculus of gallbladder without cholecystitis without obstruction Comment/Plan: Noted on CT scan of the abdomen pelvis but asymptomatic. (4) Cirrhosis of liver Chronic K74.60 - UNSPECIFIED CIRRHOSIS OF LIVER Qualifiers: Hepatic cirrhosis type: unspecified hepatic cirrhosis Ascites presence: with ascites Qualified Code(s): K74.60 - Unspecified cirrhosis of liver Comment/Plan: Compensated on current medical regimen. Continue salt restricted diet. (5) Coagulopathy Acute D68.9 - COAGULATION DEFECT, UNSPECIFIED Comment/Plan: monitor pt. Resolved (6) DM2 (diabetes mellitus, type 2) Chronic E11.9 - TYPE 2 DIABETES MELLITUS WITHOUT COMPLICATIONS Qualifiers: Diabetes mellitus complication status: with kidney complications Diabetes mellitus snf insulin use: without snf use Chronic kidney disease stage: stage 3 (moderate) Qualified Code(s): E11.22 - Type 2 diabetes mellitus with diabetic chronic kidney disease; N18.3 - Chronic kidney disease, stage 3 (moderate) Comment/Plan: Continue ADA diet and oral agents. Monitor blood sugar. Blood sugar under control no hypoglycemia (7) Hypomagnesemia Acute E83.42 - HYPOMAGNESEMIA Comment/Plan: Replace and monitor (8) Economic hardship Chronic Comment/Plan: formula room worker deeply involved in patient care tried to make postdischarge arrangements
[2016-07-05] MEDS: MAGNESIUM OXIDE 400 MG TAB PO SCH ×2 (11:30→17:00)
[2016-07-05] MEDS: PROBIOTIC BLEND TAB PO SCH ×2 (11:30→17:00)
[2016-07-06] MEDS: CLOTRIMAZOLE & BETAMETHASONE 45 GM TUBE TOP SCH ×3 (05:51→21:32)
[2016-07-06] MEDS: PANTOPRAZOLE 40 MG TAB PO SCH (05:51)
[2016-07-06] MEDS: MetFORMIN, EXT REL 500 MG TAB PO SCH (05:51)
[2016-07-06] MEDS: REGULAR INSULIN 100 UNITS/ML - 3 ML VIAL SQ SCH ×2 (05:52→18:46)
[2016-07-06 06:36] VITALS: BMI 26.3
[2016-07-06] MEDS: FERROUS SULFATE 324 MG TAB PO SCH ×3 (08:31→18:43)
[2016-07-06] MEDS: ASCORBIC ACID 500 MG TAB PO SCH ×3 (08:31→18:43)
[2016-07-06] MEDS: SPIRONOLACTONE 25 MG TAB PO SCH (10:25)
[2016-07-06] MEDS: LAC HYDRIN 12% TOP SCH ×2 (10:25→21:31)
[2016-07-06] MEDS: COLLAGENASE OINTMENT 30 GM TUBE TOP SCH (10:26)
[2016-07-06] MEDS: FUROSEMIDE 40 MG TAB PO SCH ×2 (10:26→21:32)
[2016-07-06] MEDS: ATENOLOL 50 MG TAB PO SCH (10:27)
[2016-07-06] MEDS: MAGNESIUM OXIDE 400 MG TAB PO SCH ×2 (11:30→18:49)
[2016-07-06] MEDS: PROBIOTIC BLEND TAB PO SCH ×2 (11:30→18:49)
--- NOTE | 2016-07-06 15:33 | GENMEDPROG ---
Subjective Note: Patient in chair, responsive oriented follows commands. Denies and difficulties breathing cough or phlegm production. Ambulating. Notes Reviewed: Yes: Events from last night noted and discussed with Clinical Staff Current Medication List: Reviewed Currently: Reports: FOSTER, Alcohol Hx (Drinks a 6 pack a day), Ambulating (Not ambulating due to leg pain). Denies: Cough, Wheezing, SOB, Nausea and Vomiting , Abdominal Pain, Fever/Chills DVT Prophylaxis: No Current Order (T-PENIA, LYMPHEDEMA OF LE'S) - Physical Examination Vital Signs and I&O: Last Vital Signs Temp 98.3 F 07/06/16 06:00 Pulse 88 07/06/16 06:00 Resp 18 07/06/16 06:00 BP 126/69 07/06/16 06:00 Pulse Ox 98 07/06/16 06:00 Oxygen Pulse Oxygen Saturation 98 O2 Device Room Air Oxygen Flow Rate 2 Fraction of Inspired Oxygen ( FIO2) Intake & Output 07/03/16 07/04/16 07/05/16 07/06/16 23:59 23:59 23:59 23:59 Intake Total 880 1560 1800 720 Output Total 701 2 75 Balance 179 1558 1800 645 Patient's weight 64.365 kg 64.495 kg 64.127 kg 63.219 kg General: Alert, Oriented x3, No acute distress, Well nourished HEENT: Normal (Normocephalic, atraumatic;EOMI.Sclera white, Nares patent, without discharge or bleeding. No oropharyngeal lesions or erythema. Mucous membranes are dry.), PERRLA, EOMI, Anicteric Sclera Neck: Non-tender, Full range of motion, Normal Trachea alignment, Normal inspection (No cervical lymphadenopathy. No supraclavicular lymphadenopathy.), No Masses palpable, Supple Lymphatics: Normal Respiratory: Normal - CTA (Clear to auscultation bilaterally. No wheezing, rales , rhonchi. Chest wall movements are symmetric. No use of accessory muscles to breathe.), Diminished, Rhonchi Cardiovascular: Regular rate and rhythm (No bradycardia or tachycardia), Normal S1, No Gallops,Rubs/Murmurs, Normal S2, Good Pedal Pulses (DP pulses 2+ bilaterally) GI: Normal bowel sounds (normal active sounds), Soft (non-distended), Non tender , No hepatospenomegaly, No masses Extremities/Musculoskeletal: Normal pulses (DP pulses 2+ bilaterally) Skin: Warm,Dry and Intact, No rashes, Ulceration (Bilateral lower extremities left leg bleeding.) Neurological: Strength at 5/5 X4 ext, Normal tone, Cranial nerves 3-12 NL ( 2- 12 grossly intact.) Psych/Mental Status: Appropriate, Normal Affect Lab/DI/Studies Reviewed: 06/29/16 06:15 06/29/16 06:15 - Assessment (1) Cirrhosis of liver Chronic K74.60 - UNSPECIFIED CIRRHOSIS OF LIVER Qualifiers: Hepatic cirrhosis type: unspecified hepatic cirrhosis Ascites presence: with ascites Qualified Code(s): K74.60 - Unspecified cirrhosis of liver Comment/Plan: Compensated on current medical regimen. Continue salt restricted diet. (2) DM2 (diabetes mellitus, type 2) Chronic E11.9 - TYPE 2 DIABETES MELLITUS WITHOUT COMPLICATIONS Qualifiers: Diabetes mellitus complication status: with kidney complications Diabetes mellitus terminal press operator insulin use: without snf use Chronic kidney disease stage: stage 3 (moderate) Qualified Code(s): E11.22 - Type 2 diabetes mellitus with diabetic chronic kidney disease; N18.3 - Chronic kidney disease, stage 3 (moderate) Comment/Plan: Continue ADA diet and oral agents. Monitor blood sugar. Blood sugar under control no hypoglycemia (3) Anemia Chronic D64.9 - ANEMIA, UNSPECIFIED Qualifiers: Anemia type: other cause Other causes of anemia: chronic disease, other Qualified Code(s): D63.8 - Anemia in other chronic diseases classified elsewhere Comment/Plan: Hemoglobin at 7.7 today. She has not been transfused for this in the past and her hemoglobin ranges between 7.7 and 8.1. Will continue to monitor. (4) HTN (hypertension) Chronic I10 - ESSENTIAL (PRIMARY) HYPERTENSION Qualifiers: Hypertension type: essential hypertension Qualified Code(s): I10 - Essential (primary) hypertension Comment/Plan: Continue meds BP under control (5) Economic hardship Chronic Comment/Plan: site worker deeply involved in patient care tried to make postdischarge arrangements (6) Coagulopathy Acute D68.9 - COAGULATION DEFECT, UNSPECIFIED Comment/Plan: monitor pt. Resolved (7) Hypomagnesemia Acute E83.42 - HYPOMAGNESEMIA Comment/Plan: Replace and monitor Case Care Discussed with: Patient, Nursing Staff, Belt Dresser Education/Counseling Given To: Patient Education/Counseling Given Regarding: Diagnosis, Treatment, Prognosis, Follow Up Total Time: 40 min. Critical Care: No Code: 98587 (12+)
[2016-07-07 03:49] LABS: LEUKOCYTES/URINE NEG (NEGATIVE); NITRITE/URINE NEG (NEGATIVE); RBC/URINE 0-2 (0-5); URINE OCCULT BLOOD NEG (NEG/TRACE)
[2016-07-07] MEDS: CLOTRIMAZOLE & BETAMETHASONE 45 GM TUBE TOP SCH ×3 (05:15→20:38)
[2016-07-07] MEDS: PANTOPRAZOLE 40 MG TAB PO SCH (05:15)
[2016-07-07] MEDS: MetFORMIN, EXT REL 500 MG TAB PO SCH (05:16)
[2016-07-07] MEDS: REGULAR INSULIN 100 UNITS/ML - 3 ML VIAL SQ SCH ×2 (05:16→16:40)
[2016-07-07] MEDS: FERROUS SULFATE 324 MG TAB PO SCH ×3 (08:11→16:26)
[2016-07-07] MEDS: ASCORBIC ACID 500 MG TAB PO SCH ×3 (08:12→16:26)
[2016-07-07] MEDS: FUROSEMIDE 40 MG TAB PO SCH ×2 (08:13→20:38)
[2016-07-07] MEDS: SPIRONOLACTONE 25 MG TAB PO SCH (08:13)
[2016-07-07] MEDS: ATENOLOL 50 MG TAB PO SCH (08:14)
[2016-07-07] MEDS: LAC HYDRIN 12% TOP SCH ×2 (10:50→20:37)
[2016-07-07] MEDS: COLLAGENASE OINTMENT 30 GM TUBE TOP SCH (10:50)
[2016-07-07] MEDS: MAGNESIUM OXIDE 400 MG TAB PO SCH ×2 (10:52→16:26)
[2016-07-07] MEDS: PROBIOTIC BLEND TAB PO SCH ×2 (10:52→16:26)
--- NOTE | 2016-07-07 17:26 | GENMEDPROG ---
Subjective Note: Patient in chair responsive follows commands . Denies and difficulties breathing cough or phlegm production. Tolerating diet. Ambulating Notes Reviewed: Yes: Events from last night noted and discussed with Clinical Staff Current Medication List: Reviewed Currently: Reports: FOSTER, Alcohol Hx (Drinks a 6 pack a day), Ambulating (Not ambulating due to leg pain). Denies: Cough, Wheezing, SOB, Nausea and Vomiting , Abdominal Pain, Fever/Chills DVT Prophylaxis: No Current Order (T-PENIA, LYMPHEDEMA OF LE'S) - Physical Examination Vital Signs and I&O: Last Vital Signs Temp 98.0 F 07/07/16 13:08 Pulse 78 07/07/16 13:08 Resp 18 07/07/16 13:08 BP 135/75 07/07/16 13:08 Pulse Ox 99 07/07/16 13:08 Oxygen Pulse Oxygen Saturation 99 O2 Device Room Air Oxygen Flow Rate 2 Fraction of Inspired Oxygen ( FIO2) Intake & Output 07/04/16 07/05/16 07/06/16 07/07/16 23:59 23:59 23:59 23:59 Intake Total 1560 1800 1320 960 Output Total 2 75 300 Balance 1558 1800 1245 660 Patient's weight 64.495 kg 64.127 kg 63.219 kg 63.531 kg General: Alert, Oriented x3, No acute distress, Well nourished HEENT: Normal (Normocephalic, atraumatic;EOMI.Sclera white, Nares patent, without discharge or bleeding. No oropharyngeal lesions or erythema. Mucous membranes are dry.), PERRLA, EOMI, Anicteric Sclera Neck: Non-tender, Full range of motion, Normal Trachea alignment, Normal inspection (No cervical lymphadenopathy. No supraclavicular lymphadenopathy.), No Masses palpable, Supple Lymphatics: Normal Respiratory: Normal - CTA (Clear to auscultation bilaterally. No wheezing, rales , rhonchi. Chest wall movements are symmetric. No use of accessory muscles to breathe.), Diminished, Rhonchi Cardiovascular: Regular rate and rhythm (No bradycardia or tachycardia), Normal S1, No Gallops,Rubs/Murmurs, Normal S2, Good Pedal Pulses (DP pulses 2+ bilaterally) GI: Normal bowel sounds (normal active sounds), Soft (non-distended), Non tender , No hepatospenomegaly, No masses Extremities/Musculoskeletal: Normal pulses (DP pulses 2+ bilaterally) Skin: Warm,Dry and Intact, No rashes, Ulceration (Bilateral lower extremities left leg bleeding.) Neurological: Strength at 5/5 X4 ext, Normal tone, Cranial nerves 3-12 NL ( 2- 12 grossly intact.) Psych/Mental Status: Appropriate, Normal Affect Lab/DI/Studies Reviewed: Abnormal Lab Results 07/06/16 07/06/16 07/07/16 05:50 18:45 05:15 POC Capillary Glucose 156 H 277 H 203 H 07/07/16 16:35 POC Capillary Glucose 190 H - Assessment (1) Cirrhosis of liver Chronic K74.60 - UNSPECIFIED CIRRHOSIS OF LIVER Qualifiers: Hepatic cirrhosis type: unspecified hepatic cirrhosis Ascites presence: with ascites Qualified Code(s): K74.60 - Unspecified cirrhosis of liver Comment/Plan: Compensated on current medical regimen. Continue salt restricted diet. (2) DM2 (diabetes mellitus, type 2) Chronic E11.9 - TYPE 2 DIABETES MELLITUS WITHOUT COMPLICATIONS Qualifiers: Diabetes mellitus complication status: with kidney complications Diabetes mellitus fpc insulin use: without fpc use Chronic kidney disease stage: stage 3 (moderate) Qualified Code(s): E11.22 - Type 2 diabetes mellitus with diabetic chronic kidney disease; N18.3 - Chronic kidney disease, stage 3 (moderate) Comment/Plan: Continue ADA diet and oral agents. Monitor blood sugar. Blood sugar under control no hypoglycemia (3) Anemia Chronic D64.9 - ANEMIA, UNSPECIFIED Qualifiers: Anemia type: other cause Other causes of anemia: chronic disease, other Qualified Code(s): D63.8 - Anemia in other chronic diseases classified elsewhere Comment/Plan: Hemoglobin at 7.7 today. She has not been transfused for this in the past and her hemoglobin ranges between 7.7 and 8.1. Will continue to monitor. (4) HTN (hypertension) Chronic I10 - ESSENTIAL (PRIMARY) HYPERTENSION Qualifiers: Hypertension type: essential hypertension Qualified Code(s): I10 - Essential (primary) hypertension Comment/Plan: Continue meds BP under control (5) Economic hardship Chronic Comment/Plan: Discharge to detention facility tomorrow (6) Coagulopathy Acute D68.9 - COAGULATION DEFECT, UNSPECIFIED Comment/Plan: monitor pt. Resolved (7) Hypomagnesemia Acute E83.42 - HYPOMAGNESEMIA Comment/Plan: Replace and monitor Case Care Discussed with: Patient, Nursing Staff, Stock House Worker Education/Counseling Given To: Patient Education/Counseling Given Regarding: Diagnosis, Treatment, Prognosis, Follow Up Total Time: 40 min . Critical Care: No Code: 97487 (11-08)
[2016-07-08] MEDS: CLOTRIMAZOLE & BETAMETHASONE 45 GM TUBE TOP SCH ×2 (05:24→11:11)
[2016-07-08] MEDS: ASCORBIC ACID 500 MG TAB PO SCH ×2 (05:25→11:10)
[2016-07-08] MEDS: FERROUS SULFATE 324 MG TAB PO SCH ×2 (05:26→11:10)
[2016-07-08] MEDS: MetFORMIN, EXT REL 500 MG TAB PO SCH (05:27)
[2016-07-08] MEDS: PANTOPRAZOLE 40 MG TAB PO SCH (05:27)
[2016-07-08 05:37] VITALS: TEMP 98.5
[2016-07-08] MEDS: REGULAR INSULIN 100 UNITS/ML - 3 ML VIAL SQ SCH (05:40)
[2016-07-08] MEDS: FUROSEMIDE 40 MG TAB PO SCH (08:08)
[2016-07-08] MEDS: LAC HYDRIN 12% TOP SCH (08:08)
[2016-07-08] MEDS: SPIRONOLACTONE 25 MG TAB PO SCH (08:08)
[2016-07-08] MEDS: COLLAGENASE OINTMENT 30 GM TUBE TOP SCH (08:09)
[2016-07-08] MEDS: ATENOLOL 50 MG TAB PO SCH (08:09)
[2016-07-08 08:11] VITALS: BP 145/77; PULSE 74
--- NOTE | 2016-07-08 09:48 | PCM.DCS92 ---
- Final/Secondary Discharge Diagnosis (1) Cirrhosis of liver Chronic K74.60 - UNSPECIFIED CIRRHOSIS OF LIVER Present on Admission: Yes unspecified hepatic cirrhosis with ascites K74.60 - Unspecified cirrhosis of liver Comment: Compensated on current medical regimen. Continue salt restricted diet. (2) DM2 (diabetes mellitus, type 2) Chronic E11.9 - TYPE 2 DIABETES MELLITUS WITHOUT COMPLICATIONS Present on Admission: Yes with kidney complications without mcc use stage 3 (moderate) E11.22 - Type 2 diabetes mellitus with diabetic chronic kidney disease; N18.3 - Chronic kidney disease, stage 3 (moderate) Comment: Continue ADA diet and oral agents. Monitor blood sugar. Blood sugar under control no hypoglycemia (3) Anemia Chronic D64.9 - ANEMIA, UNSPECIFIED Present on Admission: Yes other cause chronic disease, other D63.8 - Anemia in other chronic diseases classified elsewhere Comment: Hemoglobin at 7.7 today. She has not been transfused for this in the past and her hemoglobin ranges between 7.7 and 8.1. Will continue to monitor. (4) HTN (hypertension) Chronic I10 - ESSENTIAL (PRIMARY) HYPERTENSION essential hypertension I10 - Essential (primary) hypertension Comment: Continue meds BP under control (5) Economic hardship Chronic Comment: Discharge to jail facility tomorrow (6) Coagulopathy Acute D68.9 - COAGULATION DEFECT, UNSPECIFIED Comment: monitor pt. Resolved (7) Hypomagnesemia Acute E83.42 - HYPOMAGNESEMIA Present on Admission: Yes Comment: Replace and monitor Discharge Disposition: Retirement Facility Discharge Condition: Improved Cognitive Discharge Status: Unimpaired Fuctional Discharge Status: Walker Assistance Home Medications / New Prescriptions: New Ascorbic Acid [Vitamin C] 250 mg PO TIDWM #100 tablet Atenolol [Tenormin] 50 mg PO DAILY #30 tablet Clotrimazole & Betamethasone [Lotrisone Cream] 45 gm TOP TID #1 tube Collagenase [Santyl] 30 gm TOP DAILY #1 tube Ferrous Sulfate 324 mg PO TIDWM #100 tablet Furosemide [Lasix] 40 mg PO Q12 #60 tablet Pantoprazole Sodium [Protonix] 40 mg PO 0600 #30 tablet Probiotic Blend [Rhea Q] 1 tab PO BIDLS #60 tablet Spironolactone [Aldactone] 25 mg PO DAILY #30 tablet Continue Gabapentin 300 mg PO TID PRN PRN Reason: Pain Albuterol Sulfate MDI [Proventil HFA] 2 puff INH Q4HWA PRN #1 inhaler PRN Reason: Wheezing Collagenase [Santyl] 30 gm TOP DAILY #1 tube Probiotic Blend [Rhea Q] 1 tab PO BIDLS #60 tablet Metformin HCl [Glucophage XR (Ext Release)] 500 mg PO DAILY #30 tab.sr.24h Discontinued Atenolol 50 mg PO DAILY Furosemide [Lasix] 40 mg PO BID #60 tab POTASSIUM CHLORIDE Tablet [K-DUR 20 mEq Tablet*] 20 meq PO BIDWM #60 tab.er.prt O2 Device: Room Air Diet at Discharge: Low Salt, Diabetic, 2200 Calorie, High Fiber Activity: No Restrictions, As Tolerated Call Office For: Worsening Symptoms, Fever over 100.5, Pain Uncontrolled By Meds Discontinue use of:: Alcohol, All Illegal Substances, All Types of Tobacco - DC Summary Notes Hospital Course Note:: Discharge summary on patient named BALTAZAR POSADA admitted to [facility] on 06/02/16 by Josefina Matthews MD. Date of discharge is []. Patient has initially present emergency room on June 02, 2016 for evaluation of generalized weakness cloudy urine leg ulcers confusion and elevated blood sugar. Please refer the admission for further details. ED workup was undertaken patient was found anemic with hemoglobin 8[place] [address], she was found in renal failure with creatinine of 1.9. UA was positive. Patient was admitted to general medical floor, gentle IV hydration was provided along with the IV antibiotic. She was found heme-positive and required blood transfusion during hospital stay. CT of abdomen and pelvis was obtained which showed cirrhosis of the liver with moderate amount of ascites and diffuse anasarca and gallstones without evidence of cholecystitis. Patient was seen consultation by GI and medical regimen for liver cirrhosis was optimized. She responded very well to combination of beta-hortensia Aldactone and Lasix. Coagulopathy was corrected. On June 09 patient has undergone upper endoscopy which showed gastric erythema consistent with gastropathy but no esophageal varices. Her blood sugar was monitored closely and overall remained under good control. Maximal supportive care was provided. After blood transfusion her hemoglobin has remained stable. Her platelet count has improved and remained stable as well renal function has returned to normal and her discharge creatinine was 0.6. 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 Local wound care to chronic venous stasis leg ulcers was provided and by the time of discharge there was some improvement in the overall situation as well, her activity level was advanced and by the time of discharge she was able to ambulate freely with no assistance. It took 35 days for disability application to go through and finding was approved. Given lack of family support and no place to live arrangements were made for patient discharged to local jail facility for physical and medical care. On the July 08 in clinically stable condition patient has been transferred to [facility] for PT OT and medical care. Total Time: 50 min . Code: 93059 (>30min.) - Physical Exam Vital Signs: Last Vital Signs Temp 98.5 F 07/08/16 05:37 Pulse 74 07/08/16 08:10 Resp 20 07/08/16 05:37 BP 145/77 07/08/16 08:10 Pulse Ox 100 07/08/16 05:37 Oxygen Pulse Oxygen Saturation 100 O2 Device Room Air Oxygen Flow Rate 2 Fraction of Inspired Oxygen ( FIO2) Constitutional: No apparent distress, Alert. negative: Agitated, Distress Oriented to: Time, Person, Place - HEENT Head: Normal (normocephalic,atraumatic) Eye: Normal (pupils equal, reactive to light, and round; EOMI, Sclera white) Oropharynx: Normal (Pharynx: Moist without exudate,Gums-no swelling, No oropharyngeal lesions or erythema, Mucous membranes are dry.) ENT EAC: Normal (No oropharyngeal lesions or erythema. Mucous membranes are dry. ) TMJ: Normal Nose: No Symptoms Reported. negative: Bleeding - Respiratory/Cardiovascular Respiratory: Normal - CTA (Clear to auscultation bilaterally. No wheezing, rales , rhonchi. Chest wall movements are symmetric. No use of accessory muscles to breathe.), Diminished, Rhonchi Cardiovascular: Normal, Systolic murmur - GI Auscultation: Other (anasarca) Palpation: Enlarged liver, Fluid Wave. negative: Enlarged spleen Tenderness: Non tender Quintero's Sign: Negative Rectal Exam: Deferred Stool: Brown - Musculoskeletal Back: Normal (Non-Tender) Extremities: Edema (mild edema all four extremities) - Integumentary Skin: Normal, Warm, Dry Lymphatics: Normal - Neurologic Memory Impaired: Normal Motor Function: Normal Cranial Nerve: Normal Cerebellar: Normal (Babinski: toes downgoing bilaterally. Intact Finger to nose. Sensory grossly intact to light touch. Intact rapid alternating movements bilaterally. No pronator drift.) Mood Description: Normal (Fully oriented. Normal and appropriate affect.), Anxious Perception: Normal (Normal and appropriate affect.) - Other Exam Other Exam Findings: Allergies enoxaparin Allergy (Verified 06/22/16 12:27) See Comments Heparin-induced platelet antibody test positive on 06/04/16 - recommended to avoid (Dr. Murphy) heparin Allergy (Verified 06/22/16 12:27) See Comments Positive heparin-induced platelet antibody test from 06/04/16 - recommended to avoid heparin per Dr. Murphy Penicillins Allergy (Verified 06/02/16 16:55) Rash-Generalized Last Vital Signs Temp 98.5 F 07/08/16 05:37 Pulse 74 07/08/16 08:10 Resp 20 07/08/16 05:37 BP 145/77 07/08/16 08:10 Pulse Ox 100 07/08/16 05:37 Discharge Home Medication List Albuterol Sulfate MDI [Proventil HFA] 2 puff INH Q4HWA PRN #1 inhaler 05/31/16 [ Rx Confirmed 06/03/16] Metformin HCl [Glucophage XR (Ext Release)] 500 mg PO DAILY #30 tab.sr.24h 05/31 [Rx Confirmed 06/03/16] Probiotic Blend [Rhea Q] 1 tab PO BIDLS #60 tablet 05/31/16 [Rx Confirmed 06/03] Ascorbic Acid [Vitamin C] 250 mg PO TIDWM #100 tablet 06/10/16 [Rx] Atenolol [Tenormin] 50 mg PO DAILY #30 tablet 06/10/16 [Rx] Furosemide [Lasix] 40 mg PO Q12 #60 tablet 06/10/16 [Rx] Pantoprazole Sodium [Protonix] 40 mg PO 0600 #30 tablet 06/10/16 [Rx] Spironolactone [Aldactone] 25 mg PO DAILY #30 tablet 06/10/16 [Rx] Clotrimazole & Betamethasone [Lotrisone Cream] 45 gm TOP TID #1 tube 07/08/16 [ Rx] Ferrous Sulfate 324 mg PO DAILY #60 tab 07/08/16 [Rx] Hydrocolloid Dressing [Durafiber] 1 each TP DAILY #60 bandage 07/08/16 [Rx] Magnesium Oxide [Magox] 400 mg PO BID #60 tablet 07/08/16 [Rx] New Discharge Medications (Rx) Ascorbic Acid [Vitamin C] 250 mg PO TIDWM #100 tablet 06/10/16 [Rx] Atenolol [Tenormin] 50 mg PO DAILY #30 tablet 06/10/16 [Rx] Furosemide [Lasix] 40 mg PO Q12 #60 tablet 06/10/16 [Rx] Pantoprazole Sodium [Protonix] 40 mg PO 0600 #30 tablet 06/10/16 [Rx] Spironolactone [Aldactone] 25 mg PO DAILY #30 tablet 06/10/16 [Rx] Clotrimazole & Betamethasone [Lotrisone Cream] 45 gm TOP TID #1 tube 07/08/16 [ Rx] Ferrous Sulfate 324 mg PO DAILY #60 tab 07/08/16 [Rx] Hydrocolloid Dressing [Durafiber] 1 each TP DAILY #60 bandage 07/08/16 [Rx] Magnesium Oxide [Magox] 400 mg PO BID #60 tablet 07/08/16 [Rx] Home Medications Albuterol Sulfate MDI [Proventil HFA] 2 puff INH Q4HWA PRN #1 inhaler 05/31/16 Metformin HCl [Glucophage XR (Ext Release)] 500 mg PO DAILY #30 tab.sr.24h 05/31 Probiotic Blend [Rhea Q] 1 tab PO BIDLS #60 tablet 05/31/16 Ascorbic Acid [Vitamin C] 250 mg PO TIDWM #100 tablet 06/10/16 Atenolol [Tenormin] 50 mg PO DAILY #30 tablet 06/10/16 Furosemide [Lasix] 40 mg PO Q12 #60 tablet 06/10/16 Pantoprazole Sodium [Protonix] 40 mg PO 0600 #30 tablet 06/10/16 Spironolactone [Aldactone] 25 mg PO DAILY #30 tablet 06/10/16 Clotrimazole & Betamethasone [Lotrisone Cream] 45 gm TOP TID #1 tube 07/08/16 Ferrous Sulfate 324 mg PO DAILY #60 tab 07/08/16 Hydrocolloid Dressing [Durafiber] 1 each TP DAILY #60 bandage 07/08/16 Magnesium Oxide [Magox] 400 mg PO BID #60 tablet 07/08/16 06/29/16 06:15 06/29/16 06:15 Abnormal Lab Results 07/07/16 07/07/16 07/08/16 05:15 16:35 05:12 POC Capillary Glucose 203 H 190 H 220 H Last Vital Signs Temp 98.5 F 07/08/16 05:37 Pulse 74 07/08/16 08:10 Resp 20 07/08/16 05:37 BP 145/77 07/08/16 08:10 Pulse Ox 100 07/08/16 05:37 Microbiology 06/09/16 12:33 Biopsy - Stomach CLOtest - Final 06/06/16 23:00 Urine - Trivedi Catheter Urine Culture - Final Yeast Active Problems Ascites (Acute) R18.8 Coagulopathy (Acute) D68.9 monitor pt. Resolved Hypomagnesemia (Acute) E83.42 Replace and monitor Jaundice of recent onset (Acute) R17 Due to chronic cirrhosis. Ulcer of lower extremity (Acute) L97.909 Now bleeding will consult Dr. Flores. Alcohol abuse (Chronic) F10.10 Patient counseled to quit. Will likely need assistance. Cholelithiasis (Chronic) K80.[address] scan of the abdomen pelvis but asymptomatic. Cirrhosis of liver (Chronic) K74.60 Compensated on current medical regimen. Continue salt restricted diet. DM2 (diabetes mellitus, type 2) (Chronic) E11.9 Continue ADA diet and oral agents. Monitor blood sugar. Blood sugar under control no hypoglycemia Economic hardship (Chronic) Discharge to jail facility tomorrow
[2016-07-08] MEDS: PROBIOTIC BLEND TAB PO SCH (11:10)
[2016-07-08] MEDS: MAGNESIUM OXIDE 400 MG TAB PO SCH (11:11)
== END 2016-07-08 14:51 | DRG 300 ==
LOC: MPS3 18:30
PROVIDERS: ADMIT Family Medicine; ATTEND Internal Medicine
PROC: 06HM33Z Insertion of Infusion Device into Right Femoral Vein, Percutaneous Approach (ICD-10-PCS; 2016-06-06)
PROC: 30243N1 Transfusion of Nonautologous Red Blood Cells into Central Vein, Percutaneous Approach (ICD-10-PCS; 2016-06-08)
PROC: 0DB68ZX Excision of Stomach, Via Natural or Artificial Opening Endoscopic, Diagnostic (ICD-10-PCS; principal; 2016-06-09)
DX: I83.229 Varicose veins of left lower extremity with both ulcer of unspecified site and inflammation (principal); N18.4 Chronic kidney disease, stage 4 (severe); D68.9 Coagulation defect, unspecified; D69.6 Thrombocytopenia, unspecified; E11.65 Type 2 diabetes mellitus with hyperglycemia; K70.31 Alcoholic cirrhosis of liver with ascites; F10.188 Alcohol abuse with other alcohol-induced disorder; I83.219 Varicose veins of right lower extremity with both ulcer of unspecified site and inflammation; R53.1 Weakness; K21.9 Gastro-esophageal reflux disease without esophagitis; E78.00 Pure hypercholesterolemia, unspecified; E66.01 Morbid (severe) obesity due to excess calories; M17.12 Unilateral primary osteoarthritis, left knee; D63.1 Anemia in chronic kidney disease; J45.909 Unspecified asthma, uncomplicated; F32.9 Major depressive disorder, single episode, unspecified; L98.419 Non-pressure chronic ulcer of buttock with unspecified severity; I12.9 Hypertensive chronic kidney disease with stage 1 through stage 4 chronic kidney disease, or unspecified chronic kidney disease; R60.1 Generalized edema; L98.491 Non-pressure chronic ulcer of skin of other sites limited to breakdown of skin; R62.7 Adult failure to thrive; E83.42 Hypomagnesemia; Z91.14 Patient's other noncompliance with medication regimen; Z59.0 Homelessness; Z68.36 Body mass index [BMI] 36.0-36.9, adult; Z88.0 Allergy status to penicillin; Z79.84 Long term (current) use of oral hypoglycemic drugs; Z90.710 Acquired absence of both cervix and uterus; Z83.3 Family history of diabetes mellitus; Z75.1 Person awaiting admission to adequate facility elsewhere
CPT/HCPCS: 36430; 43239; 74176; 80048; 80053; 80074; 81001; 82105; 82140; 82272; 82962; 83615; 83735; 84165; 85007; 85014; 85018; 85025; 85027; 85045; 85610; 85730; 86022; 86706; 86850; 86900; 86901; 86920; 87077; 87081; 87086; 87389; 94640; 96372; 97162; 99223; 99231; A4216; G0237; J1200; J1642; J1940; J2175; J2250; J3430; J3475; J3490; P9016